=== PATIENT | female | born 1940 | race Caucasian/White ===

== ENCOUNTER 2022-04-13 16:50 | Emergency (ER) | payer MEDICARE, OTHER, SELFPAY ==
--- NOTE | ~2022-04-13 | US_ITS ---
EXAMINATION: LEFT LOWER EXTREMITY VENOUS DOPPLER ULTRASOUND CLINICAL INFORMATION: Left lower extremity swelling. Evaluate for DVT. History of blood clots. COMPARISON: None. TECHNIQUE: Doppler spectral analysis and color flow Doppler imaging was performed of the left lower extremity. Compression and augmentation maneuvers were performed. FINDINGS: The left common femoral vein, greater saphenous vein takeoff, and profunda femoral vein are normally compressible with normal phasic changes seen with Doppler imaging. There is incomplete color filling of the femoral vein and popliteal vein with incomplete compressibility of these venous segments, suspicious for nonocclusive DVT. The echogenic material within the vein appears to be predominantly peripheral and findings may represent incomplete recanalization of previous DVT. However, I have no prior studies available for comparison and subtle acute on chronic DVT is difficult to exclude. Close clinical correlation is requested. The midcalf peroneal and posterior tibial veins are only partially visualized and are patent to the extent seen. Evaluation of the calf veins is, however, limited due to extensive overlying soft tissue edema. No popliteal cyst is seen. US/US venous duplex LE LT IMPRESSION: Nonocclusive thrombus is seen within the left femoral vein down to the popliteal vein. As discussed above, findings may represent sequelae of previous DVT with incomplete recanalization. However, without the benefit of outside old films, acute on chronic DVT cannot be excluded. Close clinical correlation and follow-up is recommended. This critical result was discussed with Dr. Curry 04/13/2022, 8:44 PM and it was ascertained that the content and urgency of this report was understood at the time of direct communication.
--- NOTE | ~2022-04-13 | CT_ITS ---
EXAMINATION: CT ABDOMEN AND PELVIS WITH CONTRAST CLINICAL INFORMATION: Left lower extremity DVT. Question abdominal mass. COMPARISON: None TECHNIQUE: Multidetector volumetric images were obtained from the superior aspect of the liver through the pubic symphysis following administration 85 mL of Omnipaque 350 intravenous contrast. Sagittal and coronal reformatted images were obtained on the technologist's workstation. Oral contrast: No This CT examination was performed using dose optimization techniques as appropriate, variously including the following: *Automated exposure control *Adjustment of mA and/or kV according to patient size (this includes techniques or standardized protocols for targeted exams where dose is matched to indication/reason for exam; i.e. extremities or head) *Use of iterative reconstruction technique DLP: 397 mGy-cm FINDINGS: LUNG BASES: The visualized lung bases are unremarkable. LIVER, GALLBLADDER, AND BILIARY TREE: The liver is normal in size, shape, and attenuation. No focal hepatic lesion or biliary ductal dilatation is present. The gallbladder is unremarkable with no evidence of radiopaque gallstones, gallbladder wall thickening, or obvious pericholecystic inflammatory changes. PANCREAS: Unremarkable. SPLEEN: Unremarkable. ADRENAL GLANDS: Unremarkable. KIDNEYS AND URETERS: The kidneys are normal in size, shape, and attenuation. No hydronephrosis or hydroureter. 0.3 cm right upper pole calculus is suspected, 6.5 cm from the posterior axillary line. Hypoattenuating left upper pole cortical renal lesion, too small to fully characterize. BLADDER: Unremarkable. GASTROINTESTINAL TRACT: The stomach is unremarkable. Normal caliber small bowel. No obstruction. No colonic wall thickening or inflammatory change. No free air or free fluid. ABDOMINAL WALL: No significant hernia is appreciated. LYMPH NODES: Normal. VASCULAR: Normal caliber aorta with mild atherosclerotic calcifications. There is linear high attenuation within the right common iliac vein and right external iliac vein extending into the right common femoral vein. This material is of uncertain etiology. This could represent calcification. This could also be foreign body. No thrombus grossly identified within the venous system. PELVIC VISCERA: Uterus not seen. No adnexal mass. OSSEOUS STRUCTURES: No acute or suspicious osseous abnormality. Mild degenerative changes throughout the spine. CT/CT abdomen pelvis w con IMPRESSION: There is no abdominal mass. No external compression upon the vascular system. There is linear high attenuation material within the right iliac venous system of uncertain etiology. This could be calcification, but foreign body is also a consideration. Fleischner guidelines were followed.
[2022-04-13 16:57] VITALS: BP 147/70; PULSE 80; RESP 18; TEMP 37; O2SAT 94; BMI 23.8
[2022-04-13 18:21] LABS: MANUAL DIFF FLAG NO
[2022-04-13 18:25] LABS: Basophils Absolute Auto 0.1 X10*3/uL (0.0-0.2); Basophils Percent Auto 1.2 % (0-2); Eosinophils Absolute Auto 0.1 X10*3/uL (0.0-0.4); Hematocrit 32.4 % (37.0-47.0); Hemoglobin 10.8 g/dl (12.0-16.0); Imm Gran Abs Auto 0.01 X10*3/uL (0.00-0.03); Imm Gran Pct Auto 0.2 % (0.0-0.4); Lymphocytes Absolute Auto 1.3 X10*3/uL (1.2-4.9); Lymphocytes Percent Auto 22.5 % (20-40); Mean Corpuscular HGB Conc 33.3 g/dl (31.0-35.0); Mean Corpuscular Volume 96.1 fL (80.0-98.0); Monocytes Absolute Auto 0.5 X10*3/uL (0.1-1.2); Monocytes Percent Auto 9.2 % (2-11); Neutrophils Absolute Auto 3.8 x10*3/uL (2.0-8.3); Neutrophils Percent Auto 65.9 % (45-73); Platelet Count 182 X10*3/uL (160-400); Red Blood Count 3.37 X10*6/uL (4.20-5.50); Red Cell Distribution Width 12.6 % (11.0-16.0); White Blood Count 5.7 X10*3/uL (4.8-10.8)
[2022-04-13 18:48] LABS: B Type Natriuretic Peptide 91 pg/mL (<100)
[2022-04-13 19:07] LABS: Alanine Aminotransferase 25 U/L (0-31); Albumin Level 4.4 g/dL (3.5-5.0); Alkaline Phosphatase 60 U/L (39-117); Anion Gap 13 (12-20); Aspartate Amino Transferase 30 U/L (5-31); Bilirubin Total 0.8 mg/dL (0.0-1.0); Blood Urea Nitrogen 19 mg/dL (9-16); Calcium 9.9 mg/dL (8.4-10.2); Carbon Dioxide 24 mmol/L (22-29); Chloride 107 mmol/L (96-108); Creatinine Clr Calc Pharmacy 39.9; Estimated Glomerular Filt Rate > 60; Glucose Random 134 mg/dL (60-115); Potassium 3.9 mmol/L (3.3-5.1); Sodium 140 mmol/L (135-145); Total Protein 6.9 g/dL (6.5-8.0)
[2022-04-13 20:17] VITALS: BP 150/74; PULSE 71; RESP 16; TEMP 36.7; O2SAT 97
--- NOTE | 2022-04-13 20:31 | ED_ITS ---
HPI - Extremity Problem General Chief complaint: Extremity Problem Stated complaint: leg swelling Time Seen by Provider: 04/13/22 20:23 Source: patient and family Mode of arrival: ambulatory Limitations: no limitations History of Present Illness HPI Narrative: Patient presents emergency department with her daughter for evaluation of left lower extremity swelling and redness x1 week. Patient was sent from urgent care. Patient reports a remote history of a blood clot to the leg after giving 50 years ago. She is not currently on any anticoagulation. She does also report a history of cellulitis last year with wounds to the leg. Denies fevers, chills, chest pain, palpitations, shortness of breath difficulty breathing, numbness or tingling of the lower extremities, recent travel/surgery/immobilization, personal history of cancer. Related Data Previous Rx's Medication Instructions Recorded apixaban 5 mg (74 tabs) tablets in 5 mg PO BID #74 ea 04/14/22 a dose pack ([employer] DVT-PE Treat 30D Start) doxycycline hyclate 100 mg tablet 100 mg PO BID 7 days #14 tabs 04/14/22 Allergies Allergy/AdvReac Type Severity Reaction Status Date / Time No Known Allergies Allergy Unverified 06/23/20 15:39 [No Known Allergies*] Review of Systems Review of Systems: Constitutional: No fever. No chills. No weakness. No fatigue. Eye: No swelling. No redness. ENT: No sore throat. No rhinorrhea. No nasal congestion. No sore throat. No difficulty swallowing. Skin: No rash. No itching. Cardiovascular: No chest pain. No chest pressure. No palpitations. No pedal edema. Respiratory: No shortness of breath. No cough. No sputum production. Gastrointestinal: No anorexia. No nausea. No vomiting. No diarrhea. No abdominal pain. Genitourinary: No burning micturition. No urinary frequency. No incontinence. Neurologic: No headache. No dizziness. No pre-syncope/ syncope. No numbness. No tingling. Musculoskeletal: No muscle pain. No back pain. No joint pain. No stiffness. Hematologic: No bleeding. No bruising. Lymphatics: No enlarged lymph nodes. Psychiatric:No depression. No anxiety. Endocrine: No polyuria. No polydipsia. Yes all other systems are reviewed and are negative PMFSH Past Medical History Attestation statement: The following information was validated with the patient. Source: old records reviewed Medical History (Updated 04/14/22 @ 02:02 by Maiad Rose CNP) DVT (deep venous thrombosis) Hypertension Type 2 diabetes mellitus Social History Social History Advance Directives: Yes Advance Directives Information Provided: Yes Advance Directives on File: No Physical Exam Vital Signs: Vital Signs: Last Vital Signs Temp 98.0 F 04/14/22 01:24 Pulse 69 04/14/22 01:24 Resp 16 04/14/22 01:24 BP 133/62 04/14/22 01:24 Pulse Ox 97 04/14/22 01:24 O2 Del Method 04/14/22 01:24 BMI result Body Mass Index 23.8 Appearance: Alert.?Oriented to person, place and time. No acute distress.?Normal affect. Eyes: Pupils equal, round and reactive to light.? ENT: Pharynx normal.?? Neck: Normal inspection.? Neck supple.?? CVS: Heart sounds normal. Normal heart rate and rhythm.? Pulses normal.?? Respiratory: No respiratory distress.? Lung sounds clear to auscultation bilaterally?? Abdomen: Soft and non-tender. Normoactive bowel sounds. No pulsatile mass.?? Skin: Skin warm and dry.? Normal skin color.? Normal skin turgor.?? Extremities: Bilateral lower extremity edema, right 1+, left 3+. Left lower extremity is mild erythema, warmth on palpation, 2+ DP/PT pulse bilaterally. Scabbed lesion to left lateral lower leg superior to ankle Neuro: Moves all extremities spontaneously. Sensation intact bilaterally. CN II- XII intact. No focal neuro deficits. Ambulates with normal steady gait. Course Course Course Narrative: Patient is an 82-year-old female with a past medical history of type 2 diabetes, hypertension, presented to emergency department for evaluation of left lower extremity swelling, erythema, warmth. Concerning for DVT versus cellulitis. She is overall well appearing, hemodynamically stable, ambulatory with a steady gait. Will obtain venous duplex ultrasound, CBC, CMP, disposition pending results. Reevaluation(s) Reevaluation #1: Left lower extremity ultrasound reveals a nonocclusive thrombus in the left femoral vein down to the popliteal vein, may represent sequela of previous DVT with incomplete recanalization, acute on chronic DVT cannot be excluded. Spoke with Dr. Gibbs, Who agrees with treatment with oral anticoagulants for acute DVT. Discussed with patient and daughter the use of Eliquis, risks of bleeding, signs and symptoms to monitor for, reasons to come to the emergency department for such as bleeding, fall, head injury, confusion. Physical exam still concerning for possible cellulitis as lower extremity is warm, daughter shows a picture of the leg couple of days ago where it actually appeared significantly more red than current, Will obtain lactic acid and blood cultures, IV antibiotics to be administered. At this time no concern for sepsis, Hemodynamically stable, Patient and her daughter updated on findings. Time: 20:53 Reevaluation #2: Spoke with hospitalist Dr. Jensen, declines patient for admission. Reviewed case with ED attending, recommends CT ABD and pelvic to exclude compressive pathology for DVT's. Time: 22:00 Reevaluation #3: CT of the abdomen with no abdominal mass or external compression on vascular system. Discussed this case again with the ED attending. Patient to be discharged home at this time, with new prescription for doxycycline to cover cellulitis as well as Eliquis 10mg twice daily for 7 days followed by 5 mg twice daily, will likely require therapy for at least 3-6 months. Patient to be referred to hematology for further follow-up, and follow-up with primary care provider. Time: 02:00 MDM - Extremity (Nontraumatic) Medical Records Attestation: I reviewed the patient's medical records. Lab Data Attestation: I reviewed the patient's lab results. Result diagrams: 04/13/22 18:15 04/13/22 18:15 Labs: Lab Results 04/13/22 04/13/22 04/13/22 Range/Units 18:15 18:15 18:15 WBC 5.7 (4.8-10.8) X10*3/uL RBC 3.37 L (4.20-5.50) X10*6/uL Hgb 10.8 L (12.0-16.0) g/dl Hct 32.4 L (37.0-47.0) % MCV 96.1 (80.0-98.0) fL MCH 32.0 (27.0-33.0) pg MCHC 33.3 (31.0-35.0) g/dl RDW 12.6 (11.0-16.0) % Plt Count 182 (160-400) X10*3/uL MPV 12.0 (9.4-12.3) fL Immature Gran % (Auto) 0.2 (0.0-0.4) % Neut % (Auto) 65.9 (45-73) % Lymph % (Auto) 22.5 (20-40) % [place] % (Auto) 9.2 (2-11) % Eos % (Auto) 1.0 (0-4) % Baso % (Auto) 1.2 (0-2) % Lymph # (Auto) 1.3 (1.2-4.9) X10*3/uL [place] # (Auto) 0.5 (0.1-1.2) X10*3/uL Eos # (Auto) 0.1 (0.0-0.4) X10*3/uL Baso # (Auto) 0.1 (0.0-0.2) X10*3/uL Abs Immat Gran (auto) 0.01 (0.00-0.03) X10*3/uL Absolute Neuts (auto) 3.8 (2.0-8.3) x10*3/uL Absolute Nucleated RBC 0.000 (0.0-0.012) X10*3/uL Nucleated RBC % (auto) 0.0 (0.0-0.2) /100WBC D-Dimer High Sensitivty NG/ML Sodium 140 (135-145) mmol/L Potassium 3.9 (3.3-5.1) mmol/L Chloride 107 (96-108) mmol/L Carbon Dioxide 24 (22-29) mmol/L Anion Gap 13 (12-20) BUN 19 H (9-16) mg/dL Creatinine 0.89 (0.5-1.4) mg/dL Estim Creat Clear Calc 39.9 Estimated GFR > 60 Random Glucose 134 H (60-115) mg/dL Lactic Acid (0.5-2.0) mmol/L Calcium 9.9 (8.4-10.2) mg/dL Total Bilirubin 0.8 (0.0-1.0) mg/dL AST 30 (5-31) U/L ALT 25 (0-31) U/L Alkaline Phosphatase 60 (39-117) U/L B-Natriuretic Peptide 91 (<100) pg/mL Total Protein 6.9 (6.5-8.0) g/dL Albumin 4.4 (3.5-5.0) g/dL 04/13/22 04/13/22 Range/Units 21:50 21:50 WBC (4.8-10.8) X10*3/uL RBC (4.20-5.50) X10*6/uL Hgb (12.0-16.0) g/dl Hct (37.0-47.0) % MCV (80.0-98.0) fL MCH (27.0-33.0) pg MCHC (31.0-35.0) g/dl RDW (11.0-16.0) % Plt Count (160-400) X10*3/uL MPV (9.4-12.3) fL Immature Gran % (Auto) (0.0-0.4) % Neut % (Auto) (45-73) % Lymph % (Auto) (20-40) % [place] % (Auto) (2-11) % Eos % (Auto) (0-4) % Baso % (Auto) (0-2) % Lymph # (Auto) (1.2-4.9) X10*3/uL [place] # (Auto) (0.1-1.2) X10*3/uL Eos # (Auto) (0.0-0.4) X10*3/uL Baso # (Auto) (0.0-0.2) X10*3/uL Abs Immat Gran (auto) (0.00-0.03) X10*3/uL Absolute Neuts (auto) (2.0-8.3) x10*3/uL Absolute Nucleated RBC (0.0-0.012) X10*3/uL Nucleated RBC % (auto) (0.0-0.2) /100WBC D-Dimer High Sensitivty 382 NG/ML Sodium (135-145) mmol/L Potassium (3.3-5.1) mmol/L Chloride (96-108) mmol/L Carbon Dioxide (22-29) mmol/L Anion Gap (12-20) BUN (9-16) mg/dL Creatinine (0.5-1.4) mg/dL Estim Creat Clear Calc Estimated GFR Random Glucose (60-115) mg/dL Lactic Acid 0.8 (0.5-2.0) mmol/L Calcium (8.4-10.2) mg/dL Total Bilirubin (0.0-1.0) mg/dL AST (5-31) U/L ALT (0-31) U/L Alkaline Phosphatase (39-117) U/L B-Natriuretic Peptide (<100) pg/mL Total Protein (6.5-8.0) g/dL Albumin (3.5-5.0) g/dL Imaging Data Venous US: Radiologist's impression: US/US venous duplex LE LT IMPRESSION: Nonocclusive thrombus is seen within the left femoral vein down to the popliteal vein. As discussed above, findings may represent sequelae of previous DVT with incomplete recanalization. However, without the benefit of outside old films, acute on chronic DVT cannot be excluded. Close clinical correlation and follow-up is recommended. CT scan - abdomen: Radiologist's impression: CT/CT abdomen pelvis w con IMPRESSION: There is no abdominal mass. No external compression upon the vascular system. ? There is linear high attenuation material within the right iliac venous system of uncertain etiology. This could be calcification, but foreign body is also a consideration.? ? Fleischner guidelines were followed. Discharge Plan Discharge Clinical Impression: Deep vein thrombosis of lower extremity, Cellulitis Patient Disposition: Home, Self-Care Instructions: Cellulitis (ED), Deep Vein Thrombosis (ED) Additional Instructions: You have been given an antibiotic doxycycline to treat an infection of your left lower leg, please complete this entire course. In addition, you were found to have a blood clot in your left femoral to p opliteal vein. For this you have been given a new prescription for a blood thinner, Eliquis. This is a pill that you will take twice a day. You will take 10 mg twice daily for 7 days, followed by 5 mg twice daily, likely for 3-6 months. You have been given contact information for [employer] operator, he should contact their office to arrange for a follow-up visit within 1 week. In addition, please contact your primary care provider to schedule a follow-up visit within 3 days. Patient return to the emergency department with any new or worsening symptoms or concerns such as fevers, chills, severe worsening redness, swelling, pain, numbness, tingling of the legs, chest pain, palpitations, shortness of breath, difficulty breathing, confusion. As we discussed, with the blood thinner it is important that you be evaluated for any bleeding, if you fall and injure yourself, such as hit your head you need to be evaluated right away in the emergency department. Prescriptions: New doxycycline hyclate 100 mg tablet 100 mg PO BID 7 Days Qty: 14 0RF Eliquis DVT-PE Treat 30D Start 5 mg (74 tabs) tablets,dose pack 5 mg PO BID Qty: 74 0RF Rx Instructions: 10mg PO BID x 7 days, then 5mg PO BID Referrals: Sharron Longo MD [Physician] - 1 week Elham Solares MD [Primary Care Provider] - 3 days
[2022-04-13] MEDS: Apixaban 5 MG TABLET 10 MG PO (21:55)
[2022-04-13 22:07] LABS: D Dimer High Sensitivity 382 NG/ML
[2022-04-13 22:11] LABS: Lactic Acid 0.8 mmol/L (0.5-2.0)
[2022-04-13 22:35] VITALS: BP 152/70; PULSE 68; RESP 16; O2SAT 96
[2022-04-14] MEDS: ondansetron HCL 4 MG/2 ML VIAL IVPUSH (00:48)
[2022-04-14] MEDS: iohexoL 350 MG/ML 100 ML INFUS..BTL 85 ML IV (01:05)
[2022-04-14 01:24] VITALS: BP 133/62; PULSE 69; RESP 16; TEMP 36.7; O2SAT 97
[2022-04-14 07:04] VITALS: BP 122/59; PULSE 70; RESP 12; TEMP 36.7; O2SAT 95
== END 2022-04-14 08:39 | disposition home or self-care (01) ==
PROVIDERS: Nurse Practitioner Family; Emergency Provider Internal Medicine; PCP Internal Medicine
DX: I82.412 Acute embolism and thrombosis of left femoral vein (principal); L03.116 Cellulitis of left lower limb; R60.0 Localized edema; I10 Essential (primary) hypertension; E11.9 Type 2 diabetes mellitus without complications; Z86.718 Personal history of other venous thrombosis and embolism
CPT/HCPCS: 36415; 74177; 80053; 83605; 83880; 85025; 85379; 87040; 87147; 87205; 93971; 96365; 96375; 99283; 99284; J0690; J2405; Q9967

== ENCOUNTER 2023-10-30 08:04 | Emergency (ER) | payer MEDICARE, OTHER, SELFPAY ==
[2023-10-30] VITALS (9 sets, daily range): BP systolic 126–167; BP diastolic 65–82; PULSE 75–86; RESP 16–18; TEMP 36.4–37.1; O2SAT 94–98; BMI 24.2
--- NOTE | ~2023-10-30 | XR_ITS ---
EXAMINATION: XR CHEST CLINICAL INFORMATION: Weakness COMPARISON: None available. TECHNIQUE: Frontal view of the chest was obtained. FINDINGS: Lungs hyperaerated but clear. Heart and pulmonary vessels are normal. No congestive change. The visualized osseous structures are unremarkable. XR/XR chest 1V IMPRESSION: No active disease.
--- NOTE | ~2023-10-30 | CT_ITS ---
EXAMINATION: CT HEAD WITHOUT CONTRAST CLINICAL INFORMATION: Altered mental status COMPARISON: None available. TECHNIQUE: Contiguous axial imaging was performed from the skull base to vertex without intravenous administration of contrast. This CT examination was performed using dose optimization techniques as appropriate, variously including the following: *Automated exposure control *Adjustment of mA and/or kV according to patient size (this includes techniques or standardized protocols for targeted exams where dose is matched to indication/reason for exam; i.e. extremities or head) *Use of iterative reconstruction technique DLP: 731 mGy-cm FINDINGS: There is prominence to the sulci and ventricles with extensive deep white matter gliosis but no intra or extra-axial fluid collection, hemorrhage, mass or mass effect. Calvarium is intact. CT/CT head/brain wo IV con IMPRESSION: No acute intracranial pathology.
--- NOTE | 2023-10-30 08:23 | ED.WEAKNESS ---
HPI - Weakness General Chief complaint: Fall Stated complaint: WEAKNESS W/FALL,?UTI PER EMS Time Seen by Provider: 10/30/23 08:16 Source: patient and EMS Mode of arrival: EMS Limitations: altered mental status History of Present Illness HPI Narrative: Patient has dementia, her used to take care of her but he 4 weeks ago, today she was found on the floor was last seen on video 2 hours before MD Complaint: generalized weakness Onset (ago): hour(s) Related Data Home Medications Medication Instructions Recorded Confirmed Multi Vitamin 500 mg PO DAILY daily vitamin 04/24/22 04/24/22 amlodipine 2.5 mg tablet 1 tab PO DAILY 04/24/22 04/24/22 atorvastatin 10 mg tablet 1 tab PO DAILY 04/24/22 04/24/22 donepezil 10 mg tablet 1 tab PO DAILY 04/24/22 04/24/22 losartan 100 mg tablet 1 tab PO DAILY 04/24/22 04/24/22 metformin 500 mg tablet 1 tab PO QAM 04/24/22 04/24/22 metoprolol succinate 25 mg 1 tab PO DAILY 04/24/22 04/24/22 tablet,extended release 24 hr Previous Rx's Medication Instructions Recorded apixaban 5 mg (74 tabs) tablets in 5 mg PO BID 74 #74 ea 04/14/22 a dose pack (Eliquis DVT-PE Treat 30D Start) Allergies Allergy/AdvReac Type Severity Reaction Status Date / Time No Known Allergies Allergy Unverified 06/23/20 15:39 [No Known Allergies*] Review of Systems Review of Systems: Yes Unobtainable due to mental status Neurologic: Denies Sensory deficit (Neuro) [facility] Past Medical History Medical History DVT (deep venous thrombosis) Hypertension Type 2 diabetes mellitus Family History Family History Mother Blood clots in brain Social History Social History Housing: Other Housing Other:: Mobile Home Alcohol intake: former Patient Tobacco Use Status: Never used Tobacco Smoked in Last 30 Days: No Use of substances other than those prescribed or required for medical reasons: No Advance Directives: No Advance Directives Information Provided: Yes service: No Current occupational status: retired Physical Exam Vital Signs: Vital Signs: Last Vital Signs Temp 98.2 F 10/30/23 13:34 Pulse 80 10/30/23 13:34 Resp 18 10/30/23 13:34 BP 156/79 H 10/30/23 13:34 Pulse Ox 95 10/30/23 13:34 O2 Del Method Room Air 10/30/23 13:34 BMI result Body Mass Index 24.2 Const: Other: frail elderly female in no acute distress Orientation/consciousness: oriented to person Limitations: altered mental status HEENT: Head: Yes normal to inspection Ears: external ears normal General nose exam: Normal external nose present Mouth: Normal oral and palatal mucosa present and oropharynx normal Throat: Yes posterior oropharynx normal Eyes: General: appearance normal, both eyes and all related structures Neck: Other: supple Neck: Yes normal visual inspection Chest: Chest palpation & inspection: normal inspection of the chest Resp: Auscultation: clear to auscultation bilaterally Cardio: Jugular venous distension: no JVD Rate: regular rate Rhythm: regular rhythm Heart sounds: S1 normal heart sound present and S2 normal heart sound present GI: Inspection: Yes normal to inspection Palpation (GI): Soft to palpation, nontender and No hepatosplenomegaly present Auscultation: normal bowel sounds : General: Yes no CVA tenderness Back/Spine/Pelvis: Back: no CVA tenderness Skin: General skin exam: no rashes or lesions noted Neuro: General: oriented to person Cranial nerves: Yes CN's II-XII intact bilaterally Motor exam (neuro): 5/5 motor strength present throughout Sensory Exam: No Sensory deficit (Neuro) Extrem: General: Yes normal to inspection Psych: Appearance: grossly normal Course Reevaluation(s) Reevaluation #1: patient with dehydration and UTI will admit Time: 13:39 Medications Administered Discontinued Medications Generic Name Dose Route Start Last Admin Trade Name Freq PRN Reason Stop Dose Admin Sodium Chloride 500 mls @ 999 mls/hr 10/30/23 11:30 10/30/23 11:36 Ns IV 10/30/23 12:00 999 mls/hr .Q31M BEBE Administration Medical Decision Making Differential Diagnosis Differential Diagnoses: The differential diagnosis associated with the presentation includes (dehydration, UTI, rhabdomyolysis) Admission/Observation Consideration of admission/observation: Escalation of care including admission/observation considered (upon arrival patient considered for admission) Lab Data MDM Lab Attestation statement: I reviewed the patient's lab results. 10/30/23 08:39 10/30/23 08:39 Labs: Lab Results 10/30/23 10/30/23 Range/Units 08:39 11:27 WBC 11.1 H (4.8-10.8) X10*3/uL RBC 3.86 L (4.20-5.50) X10*6/uL Hgb 12.0 (12.0-16.0) g/dl Hct 36.8 L (37.0-47.0) % MCV 95.3 (80.0-98.0) fL MCH 31.1 (27.0-33.0) pg MCHC 32.6 (31.0-35.0) g/dl RDW 12.8 (11.0-16.0) % Plt Count 133 L D (160-400) X10*3/uL MPV 11.9 (9.4-12.3) fL Immature Gran % (Auto) 0.8 H (0.0-0.4) % Neut % (Auto) 85.9 H (45-73) % Lymph % (Auto) 5.4 L (20-40) % [place] % (Auto) 7.0 (2-11) % Eos % (Auto) 0.1 (0-4) % Baso % (Auto) 0.8 (0-2) % Lymph # (Auto) 0.6 L (1.2-4.9) X10*3/uL [place] # (Auto) 0.8 (0.1-1.2) X10*3/uL Eos # (Auto) 0.0 (0.0-0.4) X10*3/uL Baso # (Auto) 0.1 (0.0-0.2) X10*3/uL Abs Immat Gran (auto) 0.09 H (0.00-0.03) X10*3/uL Absolute Neuts (auto) 9.5 H (2.0-8.3) x10*3/uL Absolute Nucleated RBC 0.000 (0.0-0.012) X10*3/uL Nucleated RBC % (auto) 0.0 (0.0-0.2) /100WBC Sodium 146 H (135-145) mmol/L Potassium 4.2 (3.3-5.1) mmol/L Chloride 110 H (96-108) mmol/L Carbon Dioxide 22 (22-29) mmol/L Anion Gap 18 (12-20) BUN 34 H (9-16) mg/dL Creatinine 1.08 (0.5-1.4) mg/dL Estim Creat Clear Calc 38.2 Estimated GFR 49 Random Glucose 178 H (60-115) mg/dL Calcium 9.8 (8.4-10.2) mg/dL Total Bilirubin 0.7 (0.0-1.0) mg/dL AST 23 (5-31) U/L ALT 25 (0-31) U/L Alkaline Phosphatase 79 (39-117) U/L Total Creatine Kinase 18 L (26-140) U/L Total Protein 6.9 (6.5-8.0) g/dL Albumin 3.7 (3.5-5.0) g/dL Urine Color Yellow Urine Appearance Clear Urine pH 5.5 (5.0-9.0) Ur Specific [place] 1.020 (1.005-1.025) Urine Protein 100 (2+) H (Neg-Trace) mg/dL Urine Glucose (UA) 250 H (Negative) mg/dL Urine Ketones 80 (Negative) mg/dL Urine Blood Small (1+) H (Negative) Urine Nitrite Positive H (Negative) Ur Leukocyte Esterase Small (1+) H (Negative) Urine RBC 0-2 (0-2) /HPF Urine WBC 11-20 H (0-5) /HPF Ur Squamous Epith Cells 6-10 (0-2) /HPF Urine Bacteria 4+ (None Seen) Hyaline Casts 0-2 (0-2) /LPF Independent Historian Clinical information obtained from an independent historian. History obtained from or confirmed by: EMS Tests considered The following testing was considered but not selected: CT of head considered but patient is nonfocal Chronic Conditions Patient?s care impacted by: Other (dementia) Discharge Plan Discharge Clinical Impression: Acute dehydration, Urinary tract infection Patient Disposition: Admitted As Inpatient
[2023-10-30 08:43] LABS: MANUAL DIFF FLAG NO
[2023-10-30 08:49] LABS: Basophils Absolute Auto 0.1 X10*3/uL (0.0-0.2); Basophils Percent Auto 0.8 % (0-2); Eosinophils Percent Auto 0.1 % (0-4); Hematocrit 36.8 % (37.0-47.0); Imm Gran Abs Auto 0.09 X10*3/uL (0.00-0.03); Imm Gran Pct Auto 0.8 % (0.0-0.4); Lymphocytes Absolute Auto 0.6 X10*3/uL (1.2-4.9); Lymphocytes Percent Auto 5.4 % (20-40); Mean Corpuscular HGB Conc 32.6 g/dl (31.0-35.0); Mean Corpuscular Hemoglobin 31.1 pg (27.0-33.0); Mean Corpuscular Volume 95.3 fL (80.0-98.0); Mean Platelet Volume 11.9 fL (9.4-12.3); Monocytes Absolute Auto 0.8 X10*3/uL (0.1-1.2); Neutrophils Absolute Auto 9.5 x10*3/uL (2.0-8.3); Neutrophils Percent Auto 85.9 % (45-73); Platelet Count 133 X10*3/uL (160-400); Red Blood Count 3.86 X10*6/uL (4.20-5.50); Red Cell Distribution Width 12.8 % (11.0-16.0); White Blood Count 11.1 X10*3/uL (4.8-10.8)
[2023-10-30 08:59] LABS: Alanine Aminotransferase 25 U/L (0-31); Albumin Level 3.7 g/dL (3.5-5.0); Alkaline Phosphatase 79 U/L (39-117); Anion Gap 18 (12-20); Aspartate Amino Transferase 23 U/L (5-31); Bilirubin Total 0.7 mg/dL (0.0-1.0); Blood Urea Nitrogen 34 mg/dL (9-16); Calcium 9.8 mg/dL (8.4-10.2); Carbon Dioxide 22 mmol/L (22-29); Chloride 110 mmol/L (96-108); Creatinine Clr Calc Pharmacy 38.2; Estimated Glomerular Filt Rate 49; Glucose Random 178 mg/dL (60-115); Potassium 4.2 mmol/L (3.3-5.1); Sodium 146 mmol/L (135-145); Total Protein 6.9 g/dL (6.5-8.0)
[2023-10-30 11:35] LABS: Appearance Urine Clear; Color Urine Yellow; Glucose Urine UA 250 mg/dL (Negative); Leukocyte Esterase Urine Small (1+) (Negative); Nitrite Urine Positive (Negative); PH 5.5 (5.0-9.0); UMIC TRIGGER UACC YES; Urine Blood Small (1+) (Negative); Urine Ketones 80 mg/dL (Negative); Urine Protein 100 (2+) mg/dL (Neg-Trace)
[2023-10-30] MEDS: 0.9 % Sodium Chloride 500 ML 999 ML IV (11:36)
--- NOTE | 2023-10-30 11:40 | PC.NURSE ---
Calm and cooperative, vss, denies pain or discomfort. Pleasantly confused repeatedly stating she does not want to move to [place] to live with her soon because it is too hot
[2023-10-30 11:42] LABS: Bacteria Urine 4+ (None Seen); Hyaline Casts Urine 0-2 /LPF (0-2); RBC Urine 0-2 /HPF (0-2); UACC Culture Trigger YES
--- NOTE | 2023-10-30 12:39 | PC.NURSE ---
Daughter reports it is unsafe for patient to return home at this time. Has looked into assisted living but feels like she needs more help than even assisted living would be able to provide her with. Daughter aware that plan is for case management to see her
--- NOTE | 2023-10-30 14:03 | PM.IMHP ---
History of Present Illness Date of Service: 10/30/23 Attending physician on admission: Aaron Montes Chief Complaint: Generalized weakness with fall at home Pt is an 83-year-old female with a PMH significant for unspecified dementia, DVT in 04/2022, paroxysmal AFib on Eliquis, HTN, HLD, and fay-[id number]-[id number] diabetes type 2 who presents to the ED with? In the ED patient was hypertensive up to 167/82, otherwise vitals WNL. Labs were significant for a leukocytosis of 11.1, sodium 146, chloride 110, and creatinine 1.08. Stable H&H. Creatinine 1.08. Hepatic function WNL. CPK 18. UA positive for UTI. CXR showed CT? EKG demonstrated Pt was treated with Pt will be admitted to the hospital [facility] Medical History DVT (deep venous thrombosis) Hypertension Type 2 diabetes mellitus Family History Mother Blood clots in brain Social History Housing: Other Housing Other:: Mobile Home Alcohol intake: former Patient Tobacco Use Status: Never used Tobacco Smoked in Last 30 Days: No Use of substances other than those prescribed or required for medical reasons: No Advance Directives: No Advance Directives Information Provided: Yes service: No Current occupational status: retired Meds Allergies Allergy/AdvReac Type Severity Reaction Status Date / Time No Known Allergies Allergy Unverified 06/23/20 15:39 [No Known Allergies*] Physical Exam Vital Signs and Narrative: Vital Signs: Last Vital Signs Temp 98.2 F 10/30/23 13:34 Pulse 80 10/30/23 13:34 Resp 18 10/30/23 13:34 BP 156/79 H 10/30/23 13:34 Pulse Ox 95 10/30/23 13:34 O2 Del Method Room Air 10/30/23 13:34 BMI result Body Mass Index 24.2 Results Labs 10/30/23 08:39 10/30/23 08:39 Labs: Laboratory Results - last 24 hr 10/30/23 10/30/23 08:39 11:27 MCV 95.3 MCH 31.1 MCHC 32.6 RDW 12.8 Plt Count 133 L D MPV 11.9 Immature Gran % (Auto) 0.8 H Neut % (Auto) 85.9 H Lymph % (Auto) 5.4 L [place] % (Auto) 7.0 Eos % (Auto) 0.1 Baso % (Auto) 0.8 Lymph # (Auto) 0.6 L [place] # (Auto) 0.8 Eos # (Auto) 0.0 Baso # (Auto) 0.1 Abs Immat Gran (auto) 0.09 H Absolute Neuts (auto) 9.5 H Absolute Nucleated RBC 0.000 Nucleated RBC % (auto) 0.0 Anion Gap 18 Estim Creat Clear Calc 38.2 Estimated GFR 49 Random Glucose 178 H Calcium 9.8 Total Bilirubin 0.7 AST 23 ALT 25 Alkaline Phosphatase 79 Total Creatine Kinase 18 L Total Protein 6.9 Albumin 3.7 Urine Color Yellow Urine Appearance Clear Urine pH 5.5 Ur Specific [place] 1.020 Urine Protein 100 (2+) H Urine Glucose (UA) 250 H Urine Ketones 80 Urine Blood Small (1+) H Urine Nitrite Positive H Ur Leukocyte Esterase Small (1+) H Urine RBC 0-2 Urine WBC 11-20 H Ur Squamous Epith Cells 6-10 Urine Bacteria 4+ Hyaline Casts 0-2
--- NOTE | 2023-10-30 14:04 | PC.NURSE ---
Multiple attempts to draw blood cultures unsuccessful at this time, provider aware
--- NOTE | 2023-10-30 14:16 | PHA.MEDREC ---
Pharmacy Consult ? Medication Reconciliation Pharmacy has completed the medication reconciliation. Spoke to patient's daughter Elzbieta on the phone ([phone]) who went over med list. Explained that her mom has a medminder but is not always adherent.
--- NOTE | 2023-10-30 14:20 | ECG_ITS ---
Test Reason : FALL Blood Pressure : / mmHG Vent. Rate : 079 BPM Atrial Rate : 079 BPM P-R Int : 152 ms QRS Dur : 072 ms QT Int : 366 ms P-R-T Axes : 054 -07 023 degrees QTc Int : 419 ms Normal sinus rhythm Normal ECG When compared with ECG of 28-JUL-2013 07:07, No significant change was found Referred By: Aditya Bragg Electronically Signed By:Dylan Rivera
[2023-10-30 14:34] LABS: COVID-19 Test Negative (Negative); IDNOW Serial# 08D9AD1C
[2023-10-30] MEDS: cefTRIAXone sodium 1 GM in 0.9 % Sodium Chloride 50 ML IV (14:53)
--- NOTE | 2023-10-30 14:54 | PC.NURSE ---
Multiple attempts by techs to draw blood cultures unsuccessful. aware stating to hang ABT
--- NOTE | 2023-10-30 15:28 | MHC.CM.ED ---
Received case management consult from Dr Bragg. Patient came to the ER due to a fall. Work up showed UTI and mild dehydration. Dr Bragg attempted to admit patient to the hospital. Hospitalist declined. Physical therapy saw patient. Short term rehab is recommended. Attempted to meet with patient. Patient currently at X-ray. Spoke with patient's daughter, Elzbieta, via telephone at [phone]. Patient lives alone and has a history of dementia. Elzbieta sees her mother daily and has cameras in the house to keep an eye on her. PCP verified as Molly Solares at [facility]. Elzbieta has a copy of HCP and will provide it to CM. Patient has not been inpatient in any facilities in the past 30 days. Referral made to all 3 acute rehabs. No bed offers made at this time. Per Elzbieta, patient has a LTC policy that was recently approved that will cover $350/day. Elzbieta is hoping to get patient into LTC. Elzbieta will provide a copy of LTC to CM. Facility choices: 1) [facility] 2) [facility] 3) [facility] 4) [facility]. Referral made via [facility]. Continue to monitor for d/c needs.
--- NOTE | 2023-10-30 15:32 | MHC.EDTECH ---
CATE MANN SAID PROVIDER WILL CANCEL BLOOD CULTURE ,NOT TO DRAW 2ND SETS .
[2023-10-30] MEDS: cephALEXin 500 MG CAPSULE PO ×2 (17:22→22:05)
[2023-10-30 17:26] LABS: Anion Gap 17 (12-20); Blood Urea Nitrogen 29 mg/dL (9-16); Calcium 9.6 mg/dL (8.4-10.2); Carbon Dioxide 21 mmol/L (22-29); Chloride 113 mmol/L (96-108); Creatinine Clr Calc Pharmacy 43.4; Estimated Glomerular Filt Rate 56; Glucose Random 120 mg/dL (60-115); Potassium 3.7 mmol/L (3.3-5.1); Sodium 147 mmol/L (135-145)
--- NOTE | 2023-10-30 17:31 | PC.NURSE ---
Report given to overflow
--- NOTE | 2023-10-30 17:54 | PC.NURSE ---
Transferred to overflow by transport
[2023-10-31 06:00] VITALS: BP 155/84; PULSE 88; RESP 18; TEMP 36.2; O2SAT 95
[2023-10-31] MEDS: amLODIPine Besylate 5 MG TABLET PO (07:35)
[2023-10-31] MEDS: metFORMIN HCl 500 MG TABLET PO (07:35)
[2023-10-31] MEDS: Donepezil HCl 10 MG TABLET PO (07:35)
[2023-10-31] MEDS: Metoprolol Succinate ER 25 MG TAB.ER.24H PO (07:35)
[2023-10-31] MEDS: cephALEXin 500 MG CAPSULE PO ×4 (07:35→20:30)
[2023-10-31] MEDS: Multivitamin TABLET 1 TAB PO (07:35)
[2023-10-31] MEDS: Atorvastatin Calcium 20 MG TABLET PO (07:35)
[2023-10-31] MEDS: Losartan Potassium 50 MG TABLET 100 MG PO (07:36)
--- NOTE | 2023-10-31 08:10 | PC.NURSE ---
respirations even and unlabored, medicated per the MAR takes pills whole with water. eating breakfast at this time, no signs/symptoms of distress noted. call reyna remains within reach.
--- NOTE | 2023-10-31 09:05 | MHC.EDTECH ---
Pt ate less than 25% of her breakfast. Very little of her juice and milk that was on her tray. Left the cup of coffee on her bedside table per her request.
--- NOTE | 2023-10-31 09:10 | MHC.CM.ED ---
Patient remains in ER overflow. Copy of HCP and LTC policy obtained from daughter. [facility] and [facility] do not have LTC beds available. Referral broadcasted in [facility] to all facilities within 25 miles of patient's home. Continue to monitor for d/c needs.
--- NOTE | 2023-10-31 10:25 | MHC.EDTECH ---
Pt is washed up with a clean brief on, pt is a 1a oob to the recliner. PT requested a coffee, coffee was provided. PT is sitting quietly in recliner chair. Chair alarm in place.
--- NOTE | 2023-10-31 12:14 | PC.NURSE ---
remains in recliner, offering no complaints at this time watching tv in room. medicated per the MAR.
--- NOTE | 2023-10-31 13:10 | MHC.EDTECH ---
pt did not want to eat lunch today. Tech did leave tray on bedside table incase she wants to eat it later on. PT is resting in recliner chair
--- NOTE | 2023-10-31 13:41 | MHC.CM.ED ---
Spoke with patient's daughter/HCP, Elzbieta, in regards to discharge planning. LTC policy will pay $9,7200 per month. Families are expected to pay for the 1st 30 days upfront and will get reimbursed by the LTC policy. Most SNF in the area are $10,000-15,000 per month. Private pay memory care discussed. Elzbieta agreeable to speaking to Adrienne of [facility]. Adrienne will reach out to Elzbieta. Continue to monitor for d/c needs.
--- NOTE | 2023-10-31 13:56 | PC.NURSE ---
ambulated with one assist to the bathroom, back in recliner resting quietly
[2023-10-31 14:00] VITALS: BP 140/85; PULSE 99; RESP 18; TEMP 36.9; O2SAT 92
--- NOTE | 2023-10-31 17:27 | PC.NURSE ---
up and walking from nurses station back to room. requested IV to be removed, iv removed at this time. continues to offer no complaints, sitting in recliner watching tv.
--- NOTE | 2023-10-31 19:23 | MHC.EDTECH ---
This tech took over care for this patient @ 19:00. Patient is watching tv, sitting in a recliner. No apparent distress.
--- NOTE | 2023-10-31 19:30 | PC.NURSE ---
assumed care of pt 1915. pt on recliner watching tv. resp even and unlabored. call reyna within reach.
[2023-10-31 20:34] VITALS: BP 131/75; PULSE 73; RESP 17; TEMP 36.7; O2SAT 97
[2023-11-01 06:00] VITALS: BP 132/75; PULSE 72; RESP 14; TEMP 37; O2SAT 98
[2023-11-01 07:36] VITALS: BP 142/74; PULSE 75; RESP 16; TEMP 36.5; O2SAT 95
--- NOTE | 2023-11-01 08:28 | MHC.CM.ED ---
LATE ENTRY FROM 10/31 AT 4PM: Spoke with patient's daughter/HCP, Elzbieta and her sister, Molly, via telephone conference. Molly lives in [place]. Discharge options discussed in detail. Plan is for Elzbieta to meet with Adrienne at [facility] and Marychuy from another [facility] in [place]. Will wait for Elzbieta to relay which facility is able to offer a bed for patient. Continue to monitor for d/c needs.
[2023-11-01] MEDS: Metoprolol Succinate ER 25 MG TAB.ER.24H PO (08:37)
[2023-11-01] MEDS: Losartan Potassium 50 MG TABLET 100 MG PO (08:37)
[2023-11-01] MEDS: cephALEXin 500 MG CAPSULE PO ×4 (08:37→20:27)
[2023-11-01] MEDS: Donepezil HCl 10 MG TABLET PO (08:38)
[2023-11-01] MEDS: metFORMIN HCl 500 MG TABLET PO (08:38)
[2023-11-01] MEDS: amLODIPine Besylate 5 MG TABLET PO (08:38)
[2023-11-01] MEDS: Atorvastatin Calcium 20 MG TABLET PO (08:38)
[2023-11-01] MEDS: Multivitamin TABLET 1 TAB PO (08:38)
[2023-11-01] MEDS: Ammonium Lactate 12 % Cream 140 GM TUBE 1 APPL TOPICAL (10:32)
--- NOTE | 2023-11-01 11:01 | MHC.CM.ED ---
Patient remains in ER overflow. Received telephone call from patient's daughter/HCP, Elzbieta. Elzbieta has an appointment at 230 to [facility] at 330[facility]. Elzbieta is also waiting to hear from a facility on [facility]. Continue to monitor for d/c needs.
--- NOTE | 2023-11-01 11:54 | PC.NURSE ---
sleeping without respiratory distress. +CMS. calm.
--- NOTE | 2023-11-01 12:30 | PC.NURSE ---
repositioned, boosted, given more pillows under her for comfort. new gown/pad. cleaned for urinary incontinence w tech. set up for lunch. eating well. watching tv. calm, coop. aox2- unsure of year/season.
--- NOTE | 2023-11-01 13:53 | PC.NURSE ---
pt awake, ate well. watching tv.
[2023-11-01 14:23] VITALS: BP 129/75; PULSE 78; RESP 16; TEMP 37.1; O2SAT 93
--- NOTE | 2023-11-01 14:31 | PC.NURSE ---
repositioned. checked by rn/tech for incontinence- none.
--- NOTE | 2023-11-01 18:08 | PC.NURSE ---
repositioned. cleaned for urinary incontinence w tech/rn, new pad. purewick placed for incontinence as pt sometimes does not know to call for commode
[2023-11-01 19:07] VITALS: BP 145/77; PULSE 80; RESP 18; TEMP 36.3; O2SAT 94
--- NOTE | 2023-11-01 19:17 | PC.NURSE ---
Assumed care of pt. Pt AxO x4, clear speech, denies pain/acute distress at this time. Lying on stretcher, watching television at this time. VSS. Continuing plan of care.
--- NOTE | 2023-11-01 23:13 | PC.NURSE ---
Pt daughter called for update.
[2023-11-02 06:04] VITALS: BP 126/69; PULSE 74; RESP 14; TEMP 36.7; O2SAT 95
--- NOTE | 2023-11-02 06:04 | MHC.EDTECH ---
This tech gave bernardino care to pt after vitals. Pt is pleasant and not in any pain or distress at the time.
[2023-11-02] MEDS: Multivitamin TABLET 1 TAB PO (07:59)
[2023-11-02] MEDS: amLODIPine Besylate 5 MG TABLET PO (07:59)
[2023-11-02] MEDS: Metoprolol Succinate ER 25 MG TAB.ER.24H PO (08:00)
[2023-11-02] MEDS: metFORMIN HCl 500 MG TABLET PO (08:00)
[2023-11-02] MEDS: Donepezil HCl 10 MG TABLET PO (08:00)
[2023-11-02] MEDS: Losartan Potassium 50 MG TABLET 100 MG PO (08:00)
[2023-11-02] MEDS: Atorvastatin Calcium 20 MG TABLET PO (08:00)
[2023-11-02] MEDS: Ammonium Lactate 12 % Cream 140 GM TUBE 1 APPL TOPICAL (08:00)
[2023-11-02] MEDS: cephALEXin 500 MG CAPSULE PO ×4 (08:00→21:40)
[2023-11-02 08:37] VITALS: BP 106/58; PULSE 96; RESP 12; TEMP 36.8; O2SAT 96
--- NOTE | 2023-11-02 13:06 | MHC.CM.ED ---
Pt continues to board in ED waiting for placement in memory supported assisted living center. Received call from Mackenzie at the [place] in [facility] requesting ED Summary and other clinical information. Mackenzie has an appointment on Saturday, 11/04 with pt and dtr Elzbieta re: placement. Call placed to Elzbieta to ask for permission to release [facility] ED notes to Mackenzie: mailbox full and no ability to leave message. Call placed to Mackenzie to update.
[2023-11-02 14:00] VITALS: BP 102/71; PULSE 73; RESP 16; TEMP 36.8; O2SAT 96
[2023-11-02 21:58] VITALS: BP 112/62; PULSE 82; RESP 16; TEMP 37.3; O2SAT 95
--- NOTE | 2023-11-02 22:18 | PC.NURSE ---
[id number] Nursing Note. Pt sleeping in naps. easily arousable. Pt knows her name but is unsure of date where she lives and how many children she has. Cooperative with care. Soft spoken. Moves all extremities equally. Denies pain. Encouraged fluids as patient appears to only drink and eat if prompted.
--- NOTE | 2023-11-03 03:47 | PC.NURSE ---
Assumed care of patient at 23:00. Patient sleeping in a hospital bed, respirations even and unlabored. Call reyna within patien's reach.
[2023-11-03 06:00] VITALS: BP 93/61; PULSE 88; RESP 16; TEMP 37; O2SAT 96
--- NOTE | 2023-11-03 06:19 | MHC.EDTECH ---
Patient awake ,vitals taken ,Patient clean and dry ,pt was reposition and boosted up in bed .
[2023-11-03] MEDS: cephALEXin 500 MG CAPSULE PO ×4 (08:36→21:15)
[2023-11-03] MEDS: Multivitamin TABLET 1 TAB PO (08:36)
[2023-11-03] MEDS: Donepezil HCl 10 MG TABLET PO (08:36)
[2023-11-03] MEDS: metFORMIN HCl 500 MG TABLET PO (08:36)
[2023-11-03] MEDS: Atorvastatin Calcium 20 MG TABLET PO (08:36)
[2023-11-03] MEDS: Ammonium Lactate 12 % Cream 140 GM TUBE 1 APPL TOPICAL ×2 (08:39→21:15)
--- NOTE | 2023-11-03 11:38 | PC.NURSE ---
assumed care of pt at 1100, pt a&ox4, vss, per prior RN didn't eat breakfast this am, 400ml of urine emptied from suction canister - purwick in place. pt resting quietly in bed watching television.
--- NOTE | 2023-11-03 11:40 | PC.NURSE ---
Addendum entered by Magdalena Diop 11/03/23 11:48: pt positioned upright in bed w lunch tray. Original Note: assumed care of pt at 1100, pt a&o to person/place/year, vss, per prior RN didn't eat breakfast this am, 400ml of urine emptied from suction canister - purwick in place, pad dry. pt resting quietly in bed watching television, denies any needs at this time.
[2023-11-03 12:09] VITALS: BP 106/59; PULSE 84; RESP 16; TEMP 37.4; O2SAT 92
--- NOTE | 2023-11-03 13:24 | PC.NURSE ---
pt medicated per MAR, fresh water and ice provided, pt ate 25% of lunch.
--- NOTE | 2023-11-03 14:57 | PC.NURSE ---
spoke ese Ruff (daughter) re pt plan of care, has set up for a nurse from [facility] to visit pt 11/04, est arrival around noon. confirmed that pt is typically a grazer and snacks throughout day vs eating large meals, suggested pt might like peanut butter crackers. hx DVT - per daughter typically wears compression socks.
--- NOTE | 2023-11-03 16:02 | PC.NURSE ---
pt removed purwick, cleaned and linens changes, new brief and purwick placed by tech. pt encouraged to get up to recliner but declined and this time preferring to rest in bed.
--- NOTE | 2023-11-03 17:08 | MHC.EDTECH ---
Nurse and I assisted patient with personal hygiene, changed gown. Replaced Purewick.
--- NOTE | 2023-11-03 17:55 | PC.NURSE ---
pt medicated per MAR.
[2023-11-03 21:12] VITALS: BP 111/50; PULSE 80; RESP 16; TEMP 37.6; O2SAT 94
--- NOTE | 2023-11-03 21:27 | PC.NURSE ---
pt medicated per DEC, vss, purwick in place, linens dry. denies any needs at this time. resting quietly in bed, water pitcher refilled.
[2023-11-04 05:02] VITALS: BP 108/61; PULSE 73; RESP 18; TEMP 36.9; O2SAT 94
--- NOTE | 2023-11-04 08:58 | MHC.CM.ED ---
Addendum entered by Nirmala Rodriguez 11/04/23 13:45: Mackenzie was on site to assess patient. Paperwork completed and signed by Annmarie SENA. Faxed to Mackenzie. Waiting for return call from Mackenzie. Original Note: Patient remains in ER. Received voicemail from Elzbieta stating Mackenzie will be on-site today around 12pm to assess patient. Continue to monitor for d/c needs.
[2023-11-04] MEDS: Donepezil HCl 10 MG TABLET PO (09:14)
[2023-11-04] MEDS: metFORMIN HCl 500 MG TABLET PO (09:14)
[2023-11-04] MEDS: Metoprolol Succinate ER 25 MG TAB.ER.24H PO (09:14)
[2023-11-04] MEDS: amLODIPine Besylate 5 MG TABLET PO (09:14)
[2023-11-04] MEDS: Multivitamin TABLET 1 TAB PO (09:14)
[2023-11-04] MEDS: Atorvastatin Calcium 20 MG TABLET PO (09:14)
[2023-11-04] MEDS: cephALEXin 500 MG CAPSULE PO ×4 (09:15→20:27)
[2023-11-04] MEDS: Losartan Potassium 50 MG TABLET 100 MG PO (09:15)
[2023-11-04 14:00] VITALS: BP 102/54; PULSE 82; RESP 18; TEMP 36.8; O2SAT 94
[2023-11-04 21:12] VITALS: BP 115/65; PULSE 70; RESP 15; TEMP 36.7; O2SAT 94
--- NOTE | 2023-11-04 21:12 | MHC.EDTECH ---
Patient was incontinent of urine ,bed bath given ,gown change ,Patient has a dressing on her coccyx ,Vitals taken ,patient had sips of water to drink ,Patient was reposition on her side with Pillows and Pillow under heels .
--- NOTE | 2023-11-05 02:50 | MHC.EDTECH ---
Pt repositioned to her right side.
[2023-11-05 04:52] VITALS: BP 101/50; PULSE 70; RESP 19; TEMP 37; O2SAT 94
[2023-11-05 08:00] VITALS: BP 100/57; PULSE 78; RESP 18; TEMP 36.9; O2SAT 93
--- NOTE | 2023-11-05 08:53 | MHC.CM.ED ---
Addendum entered by Nirmala Rodriguez 11/05/23 12:07: Per Elzbieta, anticipate patient will transfer to [facility] via BLS tuesday 11/07 at 10am. Original Note: Patient remains in ER overflow. Per Mackenzie at [facility], family is coming to sign lease on . Will have more accurate move in date after that. Continue to monitor for d/c needs.
--- NOTE | 2023-11-05 09:00 | PC.NURSE ---
PT IS A/O X 2. NO SOB/MIGUEL ANGEL NOTED SPEAKS IN FULL SENTENCES. NO OPEN AREAS NOTED. MEDS IN APPLESAUCE. PT ARIC WELL. L LOWER EXT 2+ PITTING EDEMA. KISHAN LEGS ELEVATED ON PILLOW. PT DENIES ANY PAIN/DISC. WILL CONTINUE TO MONITOR.
--- NOTE | 2023-11-05 09:00 | MHC.EDTECH ---
pt ate 50% of her breakfast tray. 120cc of her fluids.
[2023-11-05] MEDS: cephALEXin 500 MG CAPSULE PO ×4 (09:10→20:20)
[2023-11-05] MEDS: metFORMIN HCl 500 MG TABLET PO (09:10)
[2023-11-05] MEDS: Losartan Potassium 50 MG TABLET 100 MG PO (09:10)
[2023-11-05] MEDS: amLODIPine Besylate 5 MG TABLET PO (09:10)
[2023-11-05] MEDS: Atorvastatin Calcium 20 MG TABLET PO (09:10)
[2023-11-05] MEDS: Donepezil HCl 10 MG TABLET PO (09:10)
[2023-11-05] MEDS: Multivitamin TABLET 1 TAB PO (09:10)
[2023-11-05] MEDS: Metoprolol Succinate ER 25 MG TAB.ER.24H PO (09:10)
[2023-11-05] MEDS: Ammonium Lactate 12 % Cream 140 GM TUBE 1 APPL TOPICAL ×2 (09:11→20:20)
--- NOTE | 2023-11-05 09:35 | MHC.EDTECH ---
Pt is washed up with a complete bed change. PT is sitting in the recliner watching tv.
--- NOTE | 2023-11-05 11:22 | MHC.EDTECH ---
Pt is sitting in recliner with both feet elevated. Resting quietly.
--- NOTE | 2023-11-05 12:00 | MHC.EDTECH ---
pt ate 25% of her lunch tray. says she does not have much of an appetite. 120cc of juice.
--- NOTE | 2023-11-05 13:56 | MHC.EDTECH ---
This tech put the PT back into bed. PT was not incontinent and she is now sleeping in bed.
[2023-11-05 14:00] VITALS: BP 85/53; PULSE 83; RESP 17; TEMP 36.5; O2SAT 100
--- NOTE | 2023-11-05 14:20 | MHC.EDTECH ---
repostioned pt to right side
[2023-11-05 14:49] VITALS: BP 109/59; PULSE 80; O2SAT 98
--- NOTE | 2023-11-05 17:00 | MHC.EDTECH ---
sat pt in recliner chair for dinner
--- NOTE | 2023-11-05 18:12 | MHC.EDTECH ---
pt ate less than 25% of her dinner tray. and no fluids were drank. water on bedside table.
--- NOTE | 2023-11-05 18:19 | PC.NURSE ---
PT IS SITTING UP IN THE RECLINER WATCHING TV AFTER SUPPER.
--- NOTE | 2023-11-05 18:57 | MHC.EDTECH ---
THIS TECH PUT THE PT BACK INTO BED AND REPOSITIONED PT TO HER LEFT SIDE. BOTH FEET ELEVATED. PT WAS NOT INCONTINENT. PULLUP IN PLACE.
[2023-11-05 22:44] VITALS: BP 105/61; PULSE 68; RESP 17; TEMP 36.7; O2SAT 95
[2023-11-06 05:41] VITALS: BP 104/59; PULSE 82; RESP 16; TEMP 36.5; O2SAT 97
--- NOTE | 2023-11-06 08:25 | PC.NURSE ---
PT IS A/O X 2 NO SOB/MIGUEL ANGEL NOTED SPEAKS IN FULL SENTENCES. PT DENIES ANY PAIN/DISC. PT IS SITTING UP IN BED. PT IS A FALL RISK. FALL RISK PRECAUTION MAINTAINED. WILL CONTINUE TO MONITOR.
[2023-11-06 08:30] VITALS: BP 108/67; PULSE 84; RESP 17; TEMP 36.4; O2SAT 95
[2023-11-06] MEDS: metFORMIN HCl 500 MG TABLET PO (08:36)
[2023-11-06] MEDS: amLODIPine Besylate 5 MG TABLET PO (08:36)
[2023-11-06] MEDS: cephALEXin 500 MG CAPSULE PO ×2 (08:36→13:54)
[2023-11-06] MEDS: Multivitamin TABLET 1 TAB PO (08:36)
[2023-11-06] MEDS: Atorvastatin Calcium 20 MG TABLET PO (08:36)
[2023-11-06] MEDS: Metoprolol Succinate ER 25 MG TAB.ER.24H PO (08:36)
[2023-11-06] MEDS: Donepezil HCl 10 MG TABLET PO (08:36)
[2023-11-06] MEDS: Losartan Potassium 50 MG TABLET 100 MG PO (08:36)
[2023-11-06] MEDS: Ammonium Lactate 12 % Cream 140 GM TUBE 1 APPL TOPICAL ×2 (08:36→21:12)
[2023-11-06 12:15] LABS: Creatinine Clr Calc Pharmacy 33.6; Estimated Glomerular Filt Rate 42
[2023-11-06 14:00] VITALS: BP 102/56; PULSE 88; RESP 17; TEMP 36.4; O2SAT 97
[2023-11-06 15:54] VITALS: BP 97/50; PULSE 88; RESP 17; TEMP 36.1; O2SAT 97
--- NOTE | 2023-11-06 16:01 | PC.NURSE ---
this rn assumed care of pt. pt resting in stretcher watching tv at this time, purewick in place for pt comfort. no acute distress noted.
[2023-11-06 19:51] VITALS: BP 121/66; PULSE 98; RESP 18; TEMP 36.5; O2SAT 98
[2023-11-07 04:50] VITALS: BP 138/71; PULSE 82; RESP 19; TEMP 36.7; O2SAT 94
--- NOTE | 2023-11-07 05:00 | PC.NURSE ---
Patient incontinent of urine, pericare provided for patient.
[2023-11-07] MEDS: amLODIPine Besylate 5 MG TABLET PO (07:59)
[2023-11-07] MEDS: Donepezil HCl 10 MG TABLET PO (07:59)
[2023-11-07] MEDS: Losartan Potassium 50 MG TABLET 100 MG PO (07:59)
[2023-11-07] MEDS: metFORMIN HCl 500 MG TABLET PO (07:59)
[2023-11-07] MEDS: Metoprolol Succinate ER 25 MG TAB.ER.24H PO (07:59)
[2023-11-07] MEDS: Atorvastatin Calcium 20 MG TABLET PO (07:59)
[2023-11-07] MEDS: Multivitamin TABLET 1 TAB PO (07:59)
[2023-11-07] MEDS: Ammonium Lactate 12 % Cream 140 GM TUBE 1 APPL TOPICAL ×2 (07:59→20:07)
--- NOTE | 2023-11-07 10:54 | PC.NURSE ---
patient remains in bed, refusing oob. watching television. Denies discomfort, cooperative
[2023-11-07 14:00] VITALS: PULSE 86; RESP 18; TEMP 35.5; O2SAT 93
--- NOTE | 2023-11-07 17:35 | PC.NURSE ---
assumed care of pt at 1500, pt awake in bed, refusing OOB at this time, offering no complaints. LLL noted to have edema when compared to RLL, pulses palpable and extremity warm to touch. Pt refusing dinner, encouraged to eat something, pt agreeable to drink apple juice and asked to keep cupcake at bedside for later, states she isn't hungry yet . Respirations even and unlabored, pt offering no complaints, safety precautions remain in place.
[2023-11-07 20:31] VITALS: BP 133/76; PULSE 81; RESP 17; TEMP 36.2; O2SAT 94
--- NOTE | 2023-11-07 22:04 | PC.NURSE ---
Assumed care of pt at 19:00: Pt Alert to self only, cooperative with care. VSS, breathing non-labored, afebrile. Inct urine, purwick in place, CYU. Pt resting quietly at this time, easily rousable to name. call reyna within reach. Will cont with plan of care, safety precautions remain in place.
[2023-11-08 05:57] VITALS: BP 104/57; PULSE 69; RESP 19; TEMP 36.4; O2SAT 97
[2023-11-08] MEDS: Donepezil HCl 10 MG TABLET PO (08:07)
[2023-11-08] MEDS: metFORMIN HCl 500 MG TABLET PO (08:07)
[2023-11-08] MEDS: amLODIPine Besylate 5 MG TABLET PO (08:07)
[2023-11-08] MEDS: Atorvastatin Calcium 20 MG TABLET PO (08:07)
[2023-11-08] MEDS: Multivitamin TABLET 1 TAB PO (08:07)
[2023-11-08] MEDS: Ammonium Lactate 12 % Cream 140 GM TUBE 1 APPL TOPICAL (08:07)
[2023-11-08] MEDS: Losartan Potassium 50 MG TABLET 100 MG PO (08:07)
== END 2023-11-08 20:12 | disposition skilled nursing facility (03) ==
PROVIDERS: Physician Assistant; Emergency Provider Emergency Medicine; PCP Internal Medicine
DX: E86.0 Dehydration (principal); N39.0 Urinary tract infection, site not specified; R41.82 Altered mental status, unspecified; R26.2 Difficulty in walking, not elsewhere classified; F03.90 Unspecified dementia, unspecified severity, without behavioral disturbance, psychotic disturbance, mood disturbance, and anxiety; Z11.52 Encounter for screening for COVID-19; Z79.899 Other long term (current) drug therapy
CPT/HCPCS: 36415; 70450; 71045; 80048; 80053; 81001; 82550; 82565; 85025; 87040; 87086; 87088; 87186; 87635; 93005; 96361; 96365; 97162; 99285; J0696

== ENCOUNTER → 2023-10-30 14:20 | Outpatient (BNV) | payer MEDICARE, OTHER, SELFPAY | PROVIDERS: Emergency Provider Emergency Medicine; PCP Internal Medicine; Visit Provider Internal Medicine Cardiovascular Disease | DX: E86.0 Dehydration (principal) | CPT/HCPCS: 93010 ==

== ENCOUNTER 2024-11-03 08:51 | Emergency (ER) | payer MEDICARE, OTHER, SELFPAY ==
--- NOTE | ~2024-11-03 | XR_ITS ---
EXAMINATION: XR CHEST CLINICAL INFORMATION: sob COMPARISON: 10/30/2023. TECHNIQUE: Frontal view of the chest was obtained. FINDINGS: Mildly elevated left hemidiaphragm, unchanged. Cardiac, hilar, and mediastinal contours are normal. The aorta is calcified and mildly tortuous. Lungs are somewhat hyperaerated and hyperlucent, with flattening of the hemidiaphragms, suggesting COPD. They are otherwise clear. No effusions or pneumothorax. No acute bony or soft tissue abnormalities. Degenerative changes in both shoulder joints and throughout the spine. XR/XR chest 1V IMPRESSION: COPD. No active superimposed disease. Electronically signed by: Timothy Zafar MD 11/03/2024 10:18 AM JUNG
--- NOTE | ~2024-11-03 | US_ITS ---
EXAMINATION: US TRIPLEX LOWER EXTREMITY, BILATERAL CLINICAL INFORMATION: Lower extremity swelling. COMPARISON: Ultrasound venous Doppler left lower extremity dated April 13, 2022. TECHNIQUE: Color-flow triplex imaging with spectral analysis and compression Doppler were performed on the bilateral lower extremities. FINDINGS: Respiratory variation, normal compression and augmented flow are noted throughout the right lower extremity. The visualized common femoral vein, superficial femoral vein, profunda femoral vein, popliteal vein and midcalf peroneal and posterior tibial venous segments show no evidence of deep venous thrombosis, right lower extremity. There is normal phasic flow and compressibility in the left common femoral vein and greater saphenous vein and the proximal left femoral vein. There is partial compressibility and phasic flow extending from the mid left femoral vein to the left popliteal vein and the left posterior tibialis vein.. There is no Leal's cyst. US/US venous duplex LE BI IMPRESSION: Nonocclusive thrombus extending from the mid left femoral vein to the popliteal vein, probably chronic, old similar since prior exam. No acute deep venous thrombosis right lower extremity. Electronically signed by: Jason Mtz MD 11/03/2024 11:17 AM EST
--- NOTE | ~2024-11-03 | XR_ITS ---
EXAMINATION: XR PELVIS CLINICAL INFORMATION: ? fall COMPARISON: None. Correlation made with CT abdomen and pelvis 04/14/2022. TECHNIQUE: AP view of the pelvis. FINDINGS: No fracture, dislocation, or focal bony abnormality. No malalignment. Mild degenerative arthritis in both hip joints. Degenerative changes in both SI joints and the lower lumbar spine. There are vascular calcifications in the soft tissues. XR/XR pelvis 1-2V IMPRESSION: No acute fracture or dislocation. Electronically signed by: Timothy Zafar MD 11/03/2024 10:16 AM JUNG
[2024-11-03 09:07] VITALS: BP 143/56; BP 150/76; PULSE 56; PULSE 60; RESP 20; TEMP 36.4; O2SAT 96; O2SAT 99; BMI 24.4
--- NOTE | 2024-11-03 09:15 | PC.NURSE ---
lower extremities swollen bilaterally +2 pitting edema. Right leg warm and red.
--- NOTE | 2024-11-03 09:34 | ED.LOWEXIN ---
HPI - Extremity Injury (Lower) General Chief Complaint: Extremity Injury, Lower Stated Complaint: LE SWELLING OVERNIGHT ,FROM NOBLE PER EMS Time Seen by Provider: 11/03/24 09:06 History of Present Illness HPI Narrative: Patient 84 years old presents today with having leg swelling that has been ongoing for the last few days. Worse than baseline. Patient also noted some increasing redness over the right leg. There is a question fall. But patient has no pain to the lower extremity. From home. Not on blood thinners. History of DVT history of dementia. No chest pain or shortness of breath no dizziness. No focal weakness. Related Data Home Medications ?Medication ?Instructions ?Recorded ?Confirmed amlodipine 5 mg tablet 5 mg PO DAILY 10/30/23 10/30/23 ammonium lactate 12 % topical cream 1 appl topical BID 10/30/23 10/30/23 atorvastatin 20 mg tablet 20 mg PO DAILY 10/30/23 10/30/23 donepezil 10 mg tablet 10 mg PO DAILY 10/30/23 10/30/23 losartan 100 mg tablet 100 mg PO DAILY 10/30/23 10/30/23 metformin 500 mg tablet 500 mg PO DAILY 10/30/23 10/30/23 metoprolol succinate 25 mg 25 mg PO DAILY 10/30/23 10/30/23 tablet,extended release 24 hr multivitamin 1 tab PO DAILY 10/30/23 10/30/23 Previous Rx's ?Medication ?Instructions ?Recorded cephalexin 500 mg capsule 500 mg PO Q8H 7 days #21 caps 11/03/24 furosemide 20 mg tablet (Lasix) 20 mg PO Q OTHER DAY #3 tabs 11/03/24 Allergies Allergy/AdvReac Type Severity Reaction Status Date / Time No Known Allergies Allergy Verified 11/03/24 09:10 [No Known Allergies*] Review of Systems Review of Systems: Positive leg swelling Yes all other systems are reviewed and are negative PMFSH Past Medical History Attestation statement: The following information was validated with the patient. Medical History DVT (deep venous thrombosis) Hypertension Type 2 diabetes mellitus Family History Family History Mother Blood clots in brain Social History Social History Housing: Other Housing Other:: Mobile Home Alcohol intake: former Patient Tobacco Use Status: Never used Tobacco Smoked in Last 30 Days: No Use of substances other than those prescribed or required for medical reasons: No Advance Directives: No Advance Directives Information Provided: Yes service: No Current occupational status: retired Physical Exam Vital Signs: Vital Signs: Last Vital Signs Temp 97.9 F 11/03/24 13:50 Pulse 51 11/03/24 13:50 Resp 12 11/03/24 13:50 BP 141/62 H 11/03/24 13:50 Pulse Ox 97 11/03/24 13:50 O2 Del Method Room Air 11/03/24 13:50 BMI result Body Mass Index 24.4 Appearance: Alert. Oriented X3. No acute distress. Eyes: Pupils equal, round and reactive to light. ENT: Pharynx normal. Neck: Normal inspection. Neck supple. No lymph nodes noted. No crepitus CVS: Normal heart rate and rhythm. Pulses normal. Normal S1 and S2 Respiratory: No respiratory distress. Breath sounds normal. No Wheezing. No rales Abdomen: Soft and nontender. No rigidity. No distention. good BS x4 Skin: Skin warm and dry. Normal skin color. Normal skin turgor. Extremities: 2+ bilateral lower extremity edema. Right lower extremity felt slightly warm to touch. Distal pulses intact. Sensation intact. Neuro: Oriented X 3. No motor deficit. No sensory deficit. Moving all extermities. No slurred speech Medications Administered Discontinued Medications Generic Name Dose Route Start Last Admin Trade Name Freq PRN Reason Stop Dose Admin Cefazolin Sodium 1 gm 11/03/24 11:41 11/03/24 12:24 Cefazolin Sodium 1 Gm Vial IVPUSH 11/03/24 11:42 1 gm ONCE ONE Administration Medical Decision Making Medical Decision Making MDM Narrative: Patient presented today with having bilateral leg swelling. The right leg appeared to be slightly red. Patient's Doppler of the bilateral lower extremity positive for a chronic DVT on the left. On further discussion with patient's family. Additional history was obtained. Patient is already on Eliquis. Has a history of DVT. She lives in an assisted living environment and has been getting her medication on a regular basis. Patient's BNP was normal. There is no evidence for congestive heart failure. A small dose of Lasix was given. Patient's lungs are clear. Because of the redness in the right leg concern for cellulitis. Patient was given a dose of Ancef. A prescription for Keflex was given. Patient's urine also noted to be infected. Question chronic colonization. Nevertheless will use the Keflex to cover both. Have patient closely follow-up outpatient. Patient was able to ambulate well with physical therapy case management arrange for additional help at the assisted living environment patient's daughter present aware of plan. The area of redness was demarcated. Patient to be discharged home Differential Diagnosis Differential Diagnoses: The differential diagnosis associated with the presentation includes Cellulitis, congestive heart failure, urinary tract infection Admission/Observation Consideration of admission/observation: Escalation of care including admission/observation considered Consult Healthcare Provider Management of the patient was discussed with: Chemical Plant Manager (Case management, Physical therapy) Lab Data 11/03/24 09:40 11/03/24 09:40 Labs: Lab Results 11/03/24 11/03/24 Range/Units 09:40 12:18 WBC 5.7 (4.8-10.8) X10*3/uL RBC 3.18 L (4.20-5.50) X10*6/uL Hgb 10.1 L (12.0-16.0) g/dl Hct 30.1 L (37.0-47.0) % MCV 94.7 (80.0-98.0) fL MCH 31.8 (27.0-33.0) pg MCHC 33.6 (31.0-35.0) g/dl RDW 13.6 (11.0-16.0) % Plt Count 175 D (160-400) X10*3/uL MPV 12.1 (9.4-12.3) fL Immature Gran % (Auto) 0.2 (0.0-0.4) % Neut % (Auto) 50.8 (45-73) % Lymph % (Auto) 33.6 (20-40) % [place] % (Auto) 11.3 H (2-11) % Eos % (Auto) 2.5 (0-4) % Baso % (Auto) 1.6 (0-2) % Lymph # (Auto) 1.9 (1.2-4.9) X10*3/uL [place] # (Auto) 0.6 (0.1-1.2) X10*3/uL Eos # (Auto) 0.1 (0.0-0.4) X10*3/uL Baso # (Auto) 0.1 (0.0-0.2) X10*3/uL Abs Immat Gran (auto) 0.01 (0.00-0.03) X10*3/uL Absolute Neuts (auto) 2.9 (2.0-8.3) x10*3/uL Absolute Nucleated RBC 0.000 (0.0-0.012) X10*3/uL Nucleated RBC % (auto) 0.0 (0.0-0.2) /100WBC APTT 37.5 H (26.0-36.8) SEC Sodium 142 (135-145) mmol/L Potassium 3.7 (3.3-5.1) mmol/L Chloride 111 H (96-108) mmol/L Carbon Dioxide 26 (22-29) mmol/L Anion Gap 9 L (12-20) BUN 17 H (9-16) mg/dL Creatinine 0.96 (0.5-1.4) mg/dL Estim Creat Clear Calc 37.3 Estimated GFR 56 Random Glucose 128 H (60-115) mg/dL Calcium 9.1 (8.4-10.2) mg/dL Troponin I High Sens < 2.7 (<3.5-17.0) ng/L B-Natriuretic Peptide 74 (<100) pg/mL COVID-19 ([facility]MAEL) Negative (Negative) COVID-19 Clin Com See Note Independent Interpretation I performed an independent interpretation of an: Plain X-Ray (My interpretation patient's chest x-ray and also pelvis x-ray was grossly negative. No evidence of fracture no evidence of pneumonia no evidence of CHF) Radiology Impression Discussion of test interpretation with radiology: I have reviewed the radiologist's reading. External Record Review External record reviewed: Inpatient record Prescription Management I considered prescription management with: Pain Medication Discharge Plan Discharge Clinical Impression: DVT (deep venous thrombosis), Cellulitis, Acute UTI Patient Disposition: Home, Self-Care Instructions: Urinary Tract Infection in Women (ED), Cellulitis (DC), Deep Vein Thrombosis (ED) Prescriptions: New cephalexin 500 mg capsule 500 mg PO Q8H 7 Days Qty: 21 0RF furosemide [Lasix] 20 mg tablet 20 mg PO Q OTHER DAY Qty: 3 0RF No Action multivitamin Tablet 1 tab PO DAILY metformin 500 mg tablet 500 mg PO DAILY atorvastatin 20 mg tablet 20 mg PO DAILY donepezil 10 mg tablet 10 mg PO DAILY amlodipine 5 mg tablet 5 mg PO DAILY ammonium lactate 12 % cream 1 appl topical BID Rx Instructions: to bottom of feet metoprolol succinate 25 mg tablet extended release 24 hr 25 mg PO DAILY losartan 100 mg tablet 100 mg PO DAILY Referrals: [facility] [Outside] - 11/05/24 Print Language: Portuguese
[2024-11-03 09:45] LABS: MANUAL DIFF FLAG NO
[2024-11-03 09:47] LABS: Basophils Absolute Auto 0.1 X10*3/uL (0.0-0.2); Basophils Percent Auto 1.6 % (0-2); Eosinophils Absolute Auto 0.1 X10*3/uL (0.0-0.4); Eosinophils Percent Auto 2.5 % (0-4); Hematocrit 30.1 % (37.0-47.0); Hemoglobin 10.1 g/dl (12.0-16.0); Imm Gran Abs Auto 0.01 X10*3/uL (0.00-0.03); Imm Gran Pct Auto 0.2 % (0.0-0.4); Lymphocytes Absolute Auto 1.9 X10*3/uL (1.2-4.9); Lymphocytes Percent Auto 33.6 % (20-40); Mean Corpuscular HGB Conc 33.6 g/dl (31.0-35.0); Mean Corpuscular Hemoglobin 31.8 pg (27.0-33.0); Mean Corpuscular Volume 94.7 fL (80.0-98.0); Mean Platelet Volume 12.1 fL (9.4-12.3); Monocytes Absolute Auto 0.6 X10*3/uL (0.1-1.2); Monocytes Percent Auto 11.3 % (2-11); Neutrophils Absolute Auto 2.9 x10*3/uL (2.0-8.3); Neutrophils Percent Auto 50.8 % (45-73); Platelet Count 175 X10*3/uL (160-400); Red Blood Count 3.18 X10*6/uL (4.20-5.50); Red Cell Distribution Width 13.6 % (11.0-16.0); White Blood Count 5.7 X10*3/uL (4.8-10.8)
[2024-11-03 09:55] LABS: Partial Thromboplastin Time 37.5 SEC (26.0-36.8)
[2024-11-03 10:02] LABS: Anion Gap 9 (12-20); Blood Urea Nitrogen 17 mg/dL (9-16); Calcium 9.1 mg/dL (8.4-10.2); Carbon Dioxide 26 mmol/L (22-29); Chloride 111 mmol/L (96-108); Creatinine Clr Calc Pharmacy 37.3; Estimated Glomerular Filt Rate 56; Glucose Random 128 mg/dL (60-115); Potassium 3.7 mmol/L (3.3-5.1); Sodium 142 mmol/L (135-145)
[2024-11-03 10:08] LABS: B Type Natriuretic Peptide 74 pg/mL (<100)
[2024-11-03 10:19] LABS: Troponin-I High Sensitivity < 2.7 ng/L (<3.5-17.0)
[2024-11-03 11:41] VITALS: BP 143/56; PULSE 56; O2SAT 96
[2024-11-03] MEDS: ceFAZolin Sodium 1 GM VIAL IVPUSH (12:24)
[2024-11-03 12:41] LABS: COVID-19 Test Negative (Negative); IDNOW Serial# 58CA691E
--- NOTE | 2024-11-03 13:32 | MHC.CM.ED ---
Received case management consult from Dr Anaya. Patient cane to the ER due to BLE swelling. Work up essentially negative. Physical therapy eval completed. Home services is recommended. Patient attempted to meet with patient in regards to discharge planning. Patient has a history of dementia. Spoke with patient's daughter, Elzbieta, via telephone at [phone]. Patient was d/c'd to [facility] in [place] in November 2023. Patient has been doing well until it was found that patient has BLE edema. Elzbieta will come to ER to meet with patient and Dr Anaya. Patient has been active with [facility] in the past. Referral made via [facility] for group home and physical therapy. Continue to monitor for d/c needs.
[2024-11-03 13:50] VITALS: BP 141/62; PULSE 51; RESP 12; TEMP 36.6; O2SAT 97
[2024-11-03] MEDS: Furosemide 20 MG TABLET PO (14:48)
[2024-11-03 14:49] VITALS: BP 141/62; PULSE 51; RESP 12; TEMP 36.6; O2SAT 97
== END 2024-11-03 15:01 | disposition home or self-care (01) ==
PROVIDERS: Emergency Provider Emergency Medicine Emergency Medical Services
DX: I82.512 Chronic embolism and thrombosis of left femoral vein (principal); L03.115 Cellulitis of right lower limb; N39.0 Urinary tract infection, site not specified; R60.0 Localized edema; E11.9 Type 2 diabetes mellitus without complications; I10 Essential (primary) hypertension; Z86.718 Personal history of other venous thrombosis and embolism; Z79.01 Long term (current) use of anticoagulants; Z79.84 Long term (current) use of oral hypoglycemic drugs; Z11.52 Encounter for screening for COVID-19
CPT/HCPCS: 36415; 71045; 72170; 80048; 83880; 84484; 85025; 85730; 87635; 93970; 96374; 97162; 99284; J0690

== ENCOUNTER → 2024-11-03 09:16 | Outpatient (BNV) | payer MEDICARE, OTHER, SELFPAY | PROVIDERS: Emergency Provider Emergency Medicine Emergency Medical Services; Visit Provider Radiology Diagnostic Radiology | DX: I82.412 Acute embolism and thrombosis of left femoral vein (principal); I82.432 Acute embolism and thrombosis of left popliteal vein; J44.9 Chronic obstructive pulmonary disease, unspecified; N39.0 Urinary tract infection, site not specified | CPT/HCPCS: 71045; 72170; 93970 ==

== ENCOUNTER 2024-12-08 11:24 | Outpatient (AMB) | payer MEDICARE, OTHER, SELFPAY ==
--- NOTE | 2024-12-08 11:35 | MHC.OFFVIS ---
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 Pt states her legs are much better after here IV Abx in October 2024 ([facility] [place]). Pt states swelling is worse at the end of the day. Pt walks daily at facility. 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 Approximately one year prior, she had an episode requiring a mechanical venous thrombectomy performed at [facility] in November of 2023. She does have comorbid conditions including COPD congestive heart failure history of DVT. She had a bout of cellulitis which necessitated the stay for the hospital and she was subsequently discharged with cephalexin for 7 days along with Lasix. She has been following Podiatry and now presents for vascular evaluation of note she did have her daughter present at the time of exam and she is positive for factor 5 Leiden and had lost 4 pregnancies. [facility] Medical History DVT (deep venous thrombosis) Hypertension Type 2 diabetes mellitus Family History Mother Blood clots in brain Social History Housing: Other Housing Other:: Mobile Home Alcohol intake: former Patient Tobacco Use Status: Never used Tobacco service: No Current occupational status: retired Review of Systems Const All systems reviewed & are unremarkable except as noted in HPI and below Reports no additional complaints ENT Reports Normal hearing present Card Denies chest pain, Denies chest pain at rest, Denies chest pain with activity and Denies pedal edema Resp Denies cough GI Denies abdominal pain Musc Denies abnormal gait, Denies muscle cramps and Denies radiating pain into limb Skin/Breast Denies skin ulcer and Denies wounds Neuro Reports Normal hearing present and Denies abnormal gait Psych Reports no additional complaints Physical Exam Vital Signs: BMI result Body Mass Index 24.3 Const General: cooperative, healthy appearing and comfortable Orientation/consciousness: oriented to person, oriented to place and oriented to time HEENT Head: Yes normal to inspection Neck Neck: Yes normal visual inspection Carotids: no bruits Chest Chest palpation & inspection: normal inspection of the chest Resp Effort & Inspection: normal respiratory effort and able to speak in complete sentences Auscultation: clear to auscultation bilaterally, no crackles, no rales, no rhonchi and no wheezes Cardio Rate: regular rate Rhythm: regular rhythm Heart sounds: S1 normal heart sound present and S2 normal heart sound present Bruits: no carotid bruits Peripheral pulses: Peripheral pulses 2+ throughout GI Inspection: Yes normal to inspection Skin Wounds: no wounds Hair: normal Neuro General: oriented to person, oriented to place and oriented to time Cranial nerves: Yes CN's II-XII intact bilaterally and Yes Normal hearing present Cognition (Neuro): normal cognition Motor exam (neuro): 5/5 motor strength present throughout Extrem Other: venous exam: Bilateral +2 edema left greater than right General: No clubbing, No cyanosis and Yes edema Psych Appearance: grossly normal Mental Status: mental status grossly normal Speech and movement: Normal speech and movement present Assessment & Plan Assessment & Plan (1) DVT (deep venous thrombosis): Code(s): I82.409 - Acute embolism and thrombosis of unspecified deep veins of unspecified lower extremity Category: Medical Qualifiers: DVT location: lower extremity Affected thrombotic vein of extremity: femoral Chronicity: chronic Laterality: bilateral Qualified Code(s): I82.513 - Chronic embolism and thrombosis of femoral vein, bilateral Plan: In short patient has lower extremity swelling which may be multifactorial in nature. Due to her history of DVTs would manage this all conservatively. I do suspect she may even be positive for factor [address] she will require long-term if not lifelong anticoagulation. In addition we did discuss routine conservative measures including compression elevation and exercise. She will follow up with us on an as-needed basis. Thank you for allowing us to assist in her care. Plan Patient was informed and verbally consented to the use of an ambient scribe for clinic note documentation during this visit. Patient Instructions: - Continue wearing Tubigrip compression stockings regularly. - Elevate legs when resting or sitting to reduce swelling. - Maintain current walking and exercise routines. - Keep scheduled appointments with barber tool sharpener. - Monitor for changes in swelling or shortness of breath. - Seek immediate assistance if shortness of breath worsens or swelling becomes severe. 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
[2024-12-08 11:38] VITALS: BMI 24.3
--- OUTSIDE RECORDS SUMMARY | 2024-12-08 14:23 | XMS_ITS ---
Author Organization [facility] Address [address] [place] [address] Care Team Providers Care Laboratory Mechanical Technician Name Role Phone Elham Solares Primary Care Provider Anival MartinezGavi Unavailable [phone] Allergies No Known Allergies REASON FOR VISIT At Risk Footcare, Skin problem(s) Medications Medication SIG (Take, Route, Frequency, Duration) Notes Start Date End Date Status Compression Stockings 20-30mm Hg as directed 06/01/2024 Not-Taking Donepezil HCl 10 MG Oral for 30 Not-Taking Aspirin 81 MG 1 tablet Orally Once a day for 30 day(s) Not-Taking zzzCompression Stockings 20-30mm Hg . . . for . Not-Taking Vitamin C 1000 MG 1 tablet Orally Once a day for 30 day(s) Not-Taking Calcium + D3 600-800 MG-UNIT 1 tablet with a meal Orally Once a day for 30 day(s) Not-Taking Echinacea 380 MG as directed Orally Not-Taking Vitamin E 400 UNIT 1 tablet Orally Once a day for 30 day(s) Not-Taking Furosemide 40 MG 1 tablet Orally Once a day for 30 day(s) Not-Taking Glucosamine Chondr 500 Complex - as directed Orally Not-Takin g Cephalexin 500 MG 1 capsule Orally joseph ry 6 hrs for 5 day(s) Not-Taking Ammonium Lactate 12 % 1 application to affected area Externally to feet Twice a day for 30 days Not-Taking Augmentin 500-125 MG 1 tablet Orally joseph ry 8 hrs for 10 days 03/01/2021 Not-Taking Silvadene 1 % 1 application Externally Once a day for 30 days 03/01/2021 Not-Taking Citalopram Hydrobromide 10 MG 1 tablet Orally Once a day for 30 day(s) Not-Taking Eliquis 5 MG as directed Orally Active Atorvastatin Calcium 20 MG 1 tablet Oral ly Once a day Active Multivitamin - 1 tablet Orally Once a day for 30 day(s) Active Losartan Potassium 100 MG 1 tablet Orall y Once a day for 30 day(s) Active metFORMIN HCl 500 MG 1 tablet with a hanny l Orally Once a day for 30 day(s) Active Norvasc 2.5 MG 1 tablet Orally Once a day for 30 day(s) Active Aricept 10 MG 1 tablet at bedtime Orally Once a day for 30 day(s) Active Ammonium Lactate 12 % 1 application Externally Twice a day for 30 days Active Protonix 20 MG 1 tablet Orally Once a day for 30 day(s) Active Metoprolol Succinate 50 MG 1 capsule Ora lly Once a day for 30 day(s) Active Social History Tobacco Use: Social History Observation Description Date Details (start date - stop date) Former Smoker NA - NA Tobacco use other than smoking: Question Answer Notes Are you an other tobacco user? No Tobacco Control (Standard) Question Answer Notes Tobacco use: Former smoker Additional Findings: Tobacco non-user Ex-cigaret te smoker AUDIT-C (Standard) Question Answer Notes Did you have a drink containing alcohol in the p ast year? No Points 0 Interpretation Negative Problems Problem Type SNOMED Code ICD Code Onset Dates Problem Status W/U Status Risk Notes Problem Atherosclerosis of [place] artery of both lower extremities, with unspecified presence of clinical manifestation (I70.203) Active confirmed Vital Signs Height 5 ft 3 in in 09/09/2024 Weight 110.8 lbs 09/09/2024 Blood pressure systolic 122 mm Hg 09/09/20 24 Blood pressure diastolic 60 mm Hg 024 Procedures Procedure Date Ordered Date Performed Result Body Sit e 10743-CKJQTAP NAIL, 6 OR MORE 09/09/2024 N/A 29479-LFFM SKIN LESIONS, 2 TO 4 09/09/2024 N/A Encounters Encounter Location Date Provider Diagnosis [facility] [address] [address] 09/09/2024 Gavi Black Type 2 diabetes nadia itus with diabetic polyneuropathy E11.42 ; Tinea unguium B35.1 ; Localized edema R60.0 and Atherosclerosis of [place] artery of both lower extremities, with unspecified presence of clinical manifestation I70.203 Assessments Encounter Date Diagnosis (ICD Code) Assessment Notes Treatment Notes Treatment Clinical Notes Section Notes 09/09/2024 Type 2 diabetes mellitus with diabetic polyneuropathy (ICD-10 - E11.42) 09/09/2024 Tinea unguium (ICD-10 - B35.1) 09/09/2024 Localized edema (ICD-10 - R60.0) 09/09/2024 Atherosclerosis of [place] artery of both lower extremities, with unspecified presence of clinical manifestation (ICD-10 - I70.203) Plan Of Treatment Pending Test Test Name Order Date 97850-MSLHXMH NAIL, 6 OR MORE 09/09/2024 88233-NNHN SKIN LESIONS, 2 TO 4 09/09/20 24 Next Appt Details Follow Up: 3 Months, Reason: Provider Name:Gavi Martinez , 01/12/2025 09:30:00 AM, [address] [place] [address], [place], [address], Procedure Notes * Category Sub-Category Detail Notes Debride Nail 6-10 Nail debridement Performance o f this nail treatment by a nonprofessional would put this patients foot and overall health at risk. Therefore, debridement to affected nail(s), as described in exam, was performed extensively to reduce/remove overall nail length, girth, thickness, subungual debris, and necrotic tissue, by manual and/or electrical means through the use of a nail nipper and/or dremel-type hob grinder, to a more viable healthy nail plate or bed tissue 6-10 nails in total. Silver nitrate was used for any petechial bleeding as necessary. Definitive antifungal treatment options, both pharmaceutical and surgical, have been reviewed and discussed with the patient. The patient solely prefers the use of intermittent/as needed professional debridement services for their nail condition and understands the need for additional periodic treatments to maintain effectiveness in symptomatic relief - 37903 Patient chooses debridement treatmen t only; no pharmaceutical tx Keratoma Treatment Parring or Cutting o f Benign Hyperkeratotic Lesion(s) (-56) 2-4 Lesions - The Benign hyperkeratotic lesions, ( 2 ) in total, locations as stated and described in exam, were pared, and/or cut utilizing a sterile 15 blade, tissue nippers, and/or power dremel instrumentation - 44935 Progress Notes * Becky MEADDOB: 2 (84 yo F)Acc No.[id number]:09/09/2024 Progress Note Patient:Becky FLEMING Provider:?Gavi Martinez DPM :1940???Age:84 Y???Sex:Female D ate:09/09/2024 Address:[facility], [address] [place], [place] [id number] Pcp:Elham Solares Subjective: * Chief Complaints: * ???At Risk FootcareSkin prob gilles(s) * HPI: ???At Risk footcare:?Pt States Last PCP Visit:?Date?08/19/2024 ???Skin problems:?Nature:?swelling.?Location:?B/L .?Duration:?several months.?Course:?, improved.?Treatments:?elevation and compression stockings.? * ROS:?General/Constitutional:?Nausea?denies.?Vomiting?denies.?Hunger Thirst?denies.?Loss appetite?denies.?Chills?denies.?Fatigue?denies.?Fever?denies.?Night Sweats?denies.?Unexplained weight loss?denies.?Unexplained weight gain?denies.?HEENTM:?Dentures?denies.?Dizziness?denies.?Glasses/contacts?admits.?Retinopathy?de nies.?Blurred/double vision?denies.?TMJ?denies.?Discharge/drainage?denies.?Implants?denies.?Sore throat?denies.?Dental implants?denies.?Hard of hearing ?denies.?Difficulty chewing/swallowing/speaking?denies.?Nose bleeds?denies.?Sore mouth?denies.?Respiratory:?On Oxygen?denies.?Pneumonia/pleurisy?denies.?Bronchitis?denies.?Emphysema?denies.?C oughing?denies.?Cough blood?denies.?Shortness of breath?denies.?Wheezing?denies.?Cardiovascular:?Pacemaker?denies.?MVP?denies.?WPW?denies.?CHF?denies.?Heart attack?denies.?Septal defect?denies.?Rapid beat?denies.?Chest pain ?denies.?Atrial Fib.?denies.?Murmur/Palpitations?denies.?Gastrointestinal:?Hemorrhoids?denies.?Stomach/Abdominal pain?denies.?Dark blood stool?denies.?Irritable bowel ?denies.?Constipation?denies.?Diarrhea?denies.?Hematology:?Swelling?denies.?Clots?denies.?Varicose Veins?denies.?Bruising?denies.?Bleeding problem?denies.?Genitourinary:?Blood urine?denies.?Frequent/Painfu/urination/bladder control?denies.?Kidney stones?denies.?Infection (UTI)?denies.?Nephropathy?denies.?sex trans dis (STD)?denies.?Prostate?denies.?Musculoskeletal:?Hammertoes?denies.?Bunions?denies.?Back Pain?denies.?Muscle Cramps/ Resting?denies.?Muscle cramps / walking?denies.?Generalized aches and pains?denies.?Weakness?denies.?Integ.:?Rizo?denies.?Scars?denies.?Corns/calluses?denies.?Ingrown nails?denies.?Painful nails?admits.?Open Sores?denies.?Rashes?denies.?Neurologic:?Difficulty sleeping?denies.?Brain disorder?denies.?Numbness?denies.?Balance trouble?denies.?Confusion?denies.?Fainting/blackouts?denies.?Tingling?denies.?Tr emors?denies.? * Medical History:? * Surgical History:?breast bio psy melanoma excision colonoscopy hysterectomy, vaginal blood clot removal 04/2022 * Hospitalization/Major Diagno stic Procedure:?Denies Past Hospitalization * Family History:?Mother: dece ased, cerebral hemmorage, diagnosed with Unspecified heart disease.?Father: .?Maternal aunt: diagnosed with Other malignant neoplasm of unspecified site.? * Social History:?Tobacco Use:?Tobacco use other than smoking?Are you an other tobacco user??No ?Tobacco Control (Standard)?Tobacco use:?Former smoker ?Additional Findings: Tobacco non-user?Ex-cigarette smoker ???Drugs/Alcohol:?Drugs?Have you used drugs other than those for medical reasons in the past 12 months??No ???Miscellaneous:?Caffeine: yes, frequency: 1-2 cups per day. ?Children: yes. ?Exercise: yes, walking. ?Marital status: . ?Occupation: Retired - [employer]. ???Drug/Alcohol:?AUDIT-C (Standard)?Did you have a drink containing alcohol in the past year??No ?Points?0 ?Interpretation?Negative * Medications:?TakingAricept 1 0 MG Tablet 1 tablet at bedtime Orally Once a day Norvasc 2.5 MG Tablet 1 tablet Orally Once a day Protonix 20 MG Tablet Delayed Release 1 tablet Orally Once a day Ammonium Lactate 12 % Cream 1 application Externally Twice a day Metoprolol Succinate 50 MG Capsule ER 24 Hour Sprinkle 1 capsule Orally Once a day metFORMIN HCl 500 MG Tablet 1 tablet with a meal Orally Once a day Losartan Potassium 100 MG Tablet 1 tablet Orally Once a day Atorvastatin Calcium 20 MG Tablet 1 tablet Orally Once a day Eliquis 5 MG Tablet as directed Orally Multivitamin - Tablet 1 tablet Orally Once a day Taking Aricept 10 MG Tablet 1 tablet at bedtime Orally Once a day Taking Norvasc 2.5 MG Tablet 1 tablet Orally Once a day Taking Protonix 20 MG Tablet Delayed Release 1 tablet Orally Once a day Taking Ammonium Lactate 12 % Cream 1 application Externally Twice a day Taking Metoprolol Succinate 50 MG Capsule ER 24 Hour Sprinkle 1 capsule Orally Once a day Taking metFORMIN HCl 500 MG Tablet 1 tablet with a meal Orally Once a day Taking Losartan Potassium 100 MG Tablet 1 tablet Orally Once a day Taking Atorvastatin Calcium 20 MG Tablet 1 tablet Orally Once a day Taking Eliquis 5 MG Tablet as directed Orally Taking Multivitamin - Tablet 1 tablet Orally Once a day Not-Taking/PRNCitalopram Hydrobromide 10 MG Tablet 1 tablet Orally Once a day Ammonium Lactate 12 % Cream 1 application to affected area Externally to feet Twice a day Cephalexin 500 MG Capsule 1 capsule Orally every 6 hrs Silvadene 1 % Cream 1 application Externally Once a day Augmentin 500-125 MG Tablet 1 tablet Orally every 8 hrs Vitamin E 400 UNIT Tablet 1 tablet Orally Once a day Glucosamine Chondr 500 Complex - Capsule as directed Orally Furosemide 40 MG Tablet 1 tablet Orally Once a day Echinacea 380 MG Capsule as directed Orally Calcium + D3 600-800 MG-UNIT Tablet 1 tablet with a meal Orally Once a day Vitamin C 1000 MG Tablet 1 tablet Orally Once a day zzzCompression Stockings 20-30mm Hg 1 pair closed toe- knee high . . . Donepezil HCl 10 MG Tablet Oral Compression Stockings 20- 30mm Hg closed toe- knee high as directed Aspirin 81 MG Tablet Chewable 1 tablet Orally Once a day Medication List reviewed and reconciled with the patientNot-Taking/PRN Citalopram Hydrobromide 10 MG Tablet 1 tablet Orally Once a day Not-Taking/PRN Ammonium Lactate 12 % Cream 1 application to affected area Externally to feet Twice a day Not-Taking/PRN Cephalexin 500 MG Capsule 1 capsule Orally every 6 hrs Not-Taking/PRN Silvadene 1 % Cream 1 application Externally Once a day Not- Taking/PRN Augmentin 500-125 MG Tablet 1 tablet Orally every 8 hrs Not-Taking/PRN Vitamin E 400 UNIT Tablet 1 tablet Orally Once a day Not-Taking/PRN Glucosamine Chondr 500 Complex - Capsule as directed Orally Not-Taking/PRN Furosemide 40 MG Tablet 1 tablet Orally Once a day Not-Taking/PRN Echinacea 380 MG Capsule as directed Orally Not- Taking/PRN Calcium + D3 600-800 MG-UNIT Tablet 1 tablet with a meal Orally Once a day Not-Taking/PRN Vitamin C 1000 MG Tablet 1 tablet Orally Once a day Not- Taking/PRN zzzCompression Stockings 20-30mm Hg 1 pair closed toe- knee high . . . Not- Taking/PRN Donepezil HCl 10 MG Tablet Oral Not-Taking/PRN Compression Stockings 20-30mm Hg closed toe- knee high as directed Not-Taking/PRN Aspirin 81 MG Tablet Chewable 1 tablet Orally Once a day Medication List reviewed and reconciled with the patient * Allergies:?N.K.D.A.yes[Aller gies Verified] Objective: * Vitals:?Ht: 5 ft 3 in, Wt:11 0.8, Shoe size: 9-10, BP:122/60mm Hg, BS: not taken. * ???Past Orders: ???Lab:HEMOGLOBIN A1C (GLYCO HEMOGLOBIN) (Order Date - 06/04/2024) (Collection Date & Time - 03/10/2024) ? Value Reference Range ?HEMOGLOBIN A1C (HH) 7.5 * Examination: ???Ophthalmology Referral: ?DIABETES EYE EXAM?Procedure Performed:?No ?Eye Exam not performed:?No reason specified ?Diabetic Retinopathy Screening:?No ?Findings of Diabetic Eye Exam:?no retinopathy?General Examination: ?GENERAL APPEARANCE:?Reveals a pleasant, alert, well nourished, well- developed, well hydrated individual, who demonstrates proper attention to hygiene/body habitus, and is in no acute distress , Pt accompanied by , Female , Daughter , and/who is physically present in exam room at time of visit , additional Historian.?FOOT EXAM:?Lower Extremity Neurological Exam performed:?Yes ?Visual exam of foot performed:?Yes ?Date?09/09/2024 ?Sensory testing performed:?sensations diminished ?Sensory and motor testing performed:?sensations diminished ?Pedal pulse taking performed:?1+?Dermatologic: ?SKIN FINDINGS:? Skin exam reveals Keratotic lesion(s) located at, Plantar, Heel(s), B/L.?Neurological: ?SENSORY:?Neurological exam demonstrates, reduced light touch sensation, reduced sharp/dull pin prick discrimination , reduced vibration sensation, 5.07 monofilament test performed at plantar aspects of 5 varied sites per foot shows sensation, absent, at Forefoot, B/L, Pt relates,cont.?anesthesia.?Nails: ?NAILS are:? Elongated, overgrown, dystrophic, lytic, greater than 3mm thick, discolored and friable with crumbly malodorous subungual debris, with pain on palpation, ,1-5 B/L.?Vascular: ?DP PULSES (B):?, 1/4, B/L.?PT PULSES (B):? 0/4, B/L.?CAPILLARY FILL TIME:?delayed, all digits, B/L.?TROPHIC CONDITION-TEXTURE/ELASTICITY/TURGOR/HAIR GROWTH (B):?fragile, thin, shiny skin, with sparse to absent hair growth, B/L.?TEMPERTURE GRADIENT (C):?decreased, cool to cool, proximal to distal, B/L.?PIGMENTATION:?rubrous, B/L.?EDEMA (C):?1/4, B/L, Ankle(s), Leg(s).? Assessment: * Assessment: 1.?Tinea unguium - B35.1???2 .?Type 2 diabetes mellitus with diabetic polyneuropathy - E11.42 (Primary)???3.?Localized edema - R60.0???4.?Atherosclerosis of [place] artery of both lower extremities, with unspecified presence of clinical manifestation - I70.203??? Plan: * Treatment: 2.?Tinea unguium?Procedure: 56284-LERZPCU NAIL, 6 OR MORE * Procedures:?Debride Nail 6-10:?Nail debridement?Performance of this nail treatment by a nonprofessional would put this patients foot and overall health at risk. Therefore, debridement to affected nail(s), as described in exam, was performed extensively to reduce/remove overall nail length, girth, thickness, subungual debris, and necrotic tissue, by manual and/or electrical means through the use of a nail nipper and/or dremel-type hob grinder, to a more viable healthy nail plate or bed tissue 6-10 nails in total. Silver nitrate was used for any petechial bleeding as necessary. Definitive antifungal treatment options, both pharmaceutical and surgical, have been reviewed and discussed with the patient. The patient solely prefers the use of intermittent/as needed professional debridement services for their nail condition and understands the need for additional periodic treatments to maintain effectiveness in symptomatic relief - 76105.?Patient chooses ?debridement treatment only; no pharmaceutical tx.?Keratoma Treatment:?Parring or Cutting of Benign Hyperkeratotic Lesion(s)?(-56) 2-4 Lesions - The Benign hyperkeratotic lesions, ( 2 ) in total, locations as stated and described in exam, were pared, and/or cut utilizing a sterile 15 blade, tissue nippers, and/or power dremel instrumentation - 15935.? * Procedure Codes:?12679 DEBRI DE NAIL, 6 OR MORE, Modifiers: XS 77891 TRIM SKIN LESIONS, 2 TO 4, Modifiers: XS * Preventive Medicine:? ??Counseling:?Discussion:?-12: Office or other outpatient visit for the evaluation and management of an established patient, which required a medically appropriate history and/or examination and STRAIGHTFORWARD level of MEDICAL DECISION MAKING, 1 SELF-LIMITED OR MINOR PROBLEM, MINIMAL- NO AMOUNT/COMPLEXITY OF DATA TO BE REVIEWED/ANALYZED, AND MINIMAL RISK OF COMPLICATION/MORBIDITY. The visit on the day of the encounter encompassed interpreting the data and educating the patient as to the nature of their condition, treatment options available according to their individual PMH, meds, allergies, and overall health/living conditions, as well as any potential risks or complications that may occur from a failure to adhere to, and participate in, the recommended course of therapy. The discussion included a complete verbal, and/or written explanation of the examination results, any x-rays taken, the proposed diagnosis, and outline of the treatment plan. A schedule for future care needs was also explained. The patient verbalized an understanding of the instructions at this time and agreed to be an active participant in their treatment. If the patient should think of any questions or concerns after the visit, I have encouraged the patient to call the office.?Edema:?Discussed other tx options for the patients condition, The patient wishes to continue with the present treatment plan for their condition given its success.? * Follow Up:?3 Months * Images: * Sign off status: Completed true * Provider:?Gavi Martinez DPM Date:?2023 Generated for Ciara sellers/Josseline/Solitting on:?12/08/2024 02:23 PM EST History and Physical Notes * HPI (History of Present Illness) Category Sub-Category Detail Notes Category Not es Skin problems Nature: swelling Location: B/L Duration: several months Course: , improved Treatments: elevation and compre ssion stockings At Risk footcare Pt States Last PCP Visit: Date: 4 Examination Category Sub-Category Detail Notes Category Not es Neurological SENSORY: Neurological exa m demonstrates, reduced light touch sensation, reduced sharp/dull pin prick discrimination , reduced vibration sensation, 5.07 monofilament test performed at plantar aspects of 5 varied sites per foot shows sensation, absent, at Forefoot, B/L, Pt relates,cont. anesthesia Dermatologic SKIN FINDINGS: Skin exam reveal s Keratotic lesion(s) located at, Plantar, Heel(s), B/L General Examination GENERAL APPEARANCE: Reveals a pleasant, alert, well nourished, well-developed, well hydrated individual, who demonstrates proper attention to hygiene/body habitus, and is in no acute distress , Pt accompanied by , Female , Daughter , and/who is physically present in exam room at time of visit , additional Historian FOOT EXAM: Lower Extremity Neurological Exa m performed:: Yes Visual exam of foot performed:: Yes Date: 09/09/2024 Sensory testing performed:: sensations d iminished Sensory and motor testing performed:: se nsations diminished Pedal pulse taking performed:: 1+ Ophthalmology Referral DIABETES EYE EXAM Procedure Perform ed:: No Eye Exam not performed:: No reason speci fied Diabetic Retinopathy Screening:: No Findings of Diabetic Eye Exam:: no retin opathy Vascular DP PULSES (B): , 1/4, B/L PT PULSES (B): 0/4, B/L CAPILLARY FILL TIME: delayed, all digits , B/L TEMPERTURE GRADIENT (C): decreased, cool to cool, proximal to distal, B/L TROPHIC CONDITION-TEXTURE/ELASTICITY/TURGOR/HAIR GROWTH (B): fragile, thin, shiny skin, with sparse t o absent hair growth, B/L EDEMA (C): 1/4, B/L, Ankle(s), Leg(s) PIGMENTATION: rubrous, B/L Nails NAILS are: Elongated, overg rown, dystrophic, lytic, greater than 3mm thick, discolored and friable with crumbly malodorous subungual debris, with pain on palpation, ,1-5 B/L
--- OUTSIDE RECORDS SUMMARY | 2024-12-08 14:23 | XMS_ITS ---
Author Organization [facility] Address [address] [place] [address] Care Team Providers Care Restaurant Managing Partner Name Role Phone Elham Solares Primary Care Provider Gavi Perry [phone] Encounters Encounter Location Date Provider Diagnosis [address] [address] 04/28/2024 Gavi Martinez Plan Of Treatment Next Appt Details Provider Name:Gavi Martinez , 01/12/2025 09:30:00 AM, [address] [facility], [place], [address], Progress Notes * Becky MEADDOB: 2 (84 yo F)Acc No.[id number]:04/28/2024 Progress Note Patient:?Becky MEAD Provider:?Gavi Martinez DPM :1940???Age:84 Y???Sex:Female D ate:04/28/2024 Address:[facility], [address] [place] [address] Pcp:Elham Solares Subjective: * Chief Complaints: * ??? * Medical History:? Objective: * Vitals:? Assessment: Plan: * Treatment: * Images: * The named appointment provid er may or may not be the originator of this progress note, and it is not deemed complete until electronically signed by the appointment provider. Sign off status: Pending * Provider:?Gavi Martinez DPM Date:?2023 Generated for Ciara sellers/Josseline/Eleanor on:?12/08/2024 02:23 PM EST
--- OUTSIDE RECORDS SUMMARY | 2024-12-08 14:23 | XMS_ITS | Clinical Summary ---
Author Organization [facility] ity Address [address] [place] [address] Care Team Providers Care Gear And Spline Grinder Name Role Phone Elham Solares MD Primary Care Provider [phone] Allergies Active Allergy Reactions Criticality Noted Date Comments Neomycin-Polymyxin B Gu 07/18/2009 Other Reaction(s): Rash/Dermatitis Medications amLODIPine (NORVASC) 5 mg tablet TAKE ONE TABLET BY MOUTH AT BEDTIME 07/17/2023 Active FREESTYLE LANCETS MISC USE TWO TIMES A DAY FOR BLOOD SUGAR TESTING 09/11/2019 Active blood sugar diagnostic (FreeStyle Lite Strips) test strip USE TO TEST BLOOD SUGAR ONCE DAILY 04/21/2020 Active multivitamin (MULTIPLE VITAMINS ORAL) 1 Q.D. Activ e apixaban (ELIQUIS) 5 mg tablet Take 5 mg by mouth 2 times daily. Active atorvastatin (LIPITOR) 20 mg tablet Take 1 Tablet by mouth at bedtime. 08/14/2023 Active calcium carbonate-vitam in D3 600 mg-5 mcg (200 unit) per tablet Take by mouth 2 times daily.2 tabs AM 7 1 tab PM Active donepeziL (ARICEPT) 10 mg tablet Take 1 tablet (10 mg total) by mouth at bedtime. Active losartan (COZAAR) 100 mg tablet TAKE ONE TABLET BY MOUTH AT BEDTIME 07/17/2023 Active metFORMIN (GLUCOPHAGE) 500 mg tablet TAKE ONE TABLET BY MOUTH EVERY DAY (WITH BREAKFAST) 07/17/2023 Active metoprolol succinate (TOPROL-XL) 25 mg 24 hr tablet TAKE ONE TABLET BY MOUTH AT BEDTIME 07/17/2023 Active Active Problems Problem Noted Date Diagnosed Date Diabetic foot ulcer 06/24/2021 Overview (10/12/2024): Dr. 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 Martinez Dementia 05/23/2020 Overview (10/12/2024): Dr. Armstrong Microalbuminuria 11/19/2013 Kidney stone 08/29/2010 Overview (10/12/2024): 4 mm left UPJ stone 08/16 Basal cell carcinoma, face 03/28/2009 Overview (10/12/2024): BCC 08/23 left cheek (metatypical type) 03/15 left infraorbital rim (nodular) DM (diabetes mellitus), type 2 with renal compli cations 01/21/2009 Hypercholesterolemia 06/06/2006 DVT of leg (deep venous thrombosis) 05/30/2006 Overview (10/12/2024): with phlebitis, several times Recurrent DVT 04/27 Headache 05/30/2006 Hypertension 05/30/2006 Osteoporosis 05/30/2006 Overview (10/12/2024): 05/2008: T score spine -2.6 hip -1.8 05/2013: T score spine -2.8 hip -2.0 06/2016: T score spine -2.6 hip -3.1 06/2021: T-score lumbar (-2.2); hip (-4.2) Venous insufficiency 05/30/2006 Umbilical hernia 05/30/2006 Overview (10/12/2024): recurrent, repaired 2004 Immunizations Name Administration Dates Next Due Influenza Quadravalent, MDCK , 0.5ml, preservative free (Flucelvax) 6mo and older 12/11/2022 Influenza trivalent, 0.5mL ( Fluad) 65yo and older 07/11/2019,06/22/2017,07/19/2016 Influenza trivalent, 0.5mL, preservative free (Fluarix; FluLaval; Fluzone) ages 6mo and older (Afluria) 3 years and older 07/21/2018,07/03/2014,06/07/2012,07/07,07/18/2009,07/09/2008,07/07/2007 Influenza, Unspecified 07/02/2015,07/22/2013 Pneumococcal conjugate 13 va lent (Prevnar 13, PCV13) 2mo and older 02/21/2015 Pneumococcal polysaccharide 23 valent (Pneumovax 23) 2yo and older 07/28/2013,07/07/2007 Td Tetanus diptheria (Tdvax) 7yo and older 03/04/2019,11/14/2007,09/06/1994 Surgical History Surgery Date Site/Laterality Comments HYSTERECTOMY PROCEDURE: HISTORICAL VAGINAL HYSTERECTOMY W/O BSO; COMMENT: ovaries still present COLONOSCOPY 10/2003 PROCEDURE: MT COLONOSCOPY STOMA DX INCLUDING COLLJ SPEC SPX OTHER SURGICAL HISTORY 07/2012 PROCEDURE: MAMMOGRAM HERNIA REPAIR PROCEDURE: HISTORICAL HERNIA REPAIR/UMB BREAST BIOPSY Left PROCEDURE: BX BREAST; PERC NEEDLE CORE W/IMAG GUID; COMMENT: cyst asp OTHER SURGICAL HISTORY PROCEDURE: HISTORICAL MELANOMA OTHER SURGICAL HISTORY 11/12/2023 PROCEDURE: MT TRLML BALO ANGIOP OPEN/PERQ W/IMG S&I 1ST VEIN OTHER SURGICAL HISTORY 11/12/2023 PROCEDURE: MT TRLML BALO ANGIOP OPEN/PERQ W/IMG S&I ADDL VEIN; COMMENT: x4 OTHER SURGICAL HISTORY 11/12/2023 PROCEDURE: MT PRIM PRQ TRLUML MCHNL THRMBC N-COR N-ICRA 1ST OTHER SURGICAL HISTORY 11/12/2023 PROCEDURE: MT PRIM PRQ TRLUML MCHNL THRMBC N-COR N-ICRA SBSQ; COMMENT: x4 OTHER SURGICAL HISTORY 11/12/2023 PROCEDURE: MT INTRAVASCULAR US NONCORONARY RS&I INTIAL VESSEL OTHER SURGICAL HISTORY 11/12/2023 PROCEDURE: MT INTRAVASCULAR US NONCORONARY RS&I ADDL VESSEL; COMMENT: x5 OTHER SURGICAL HISTORY 11/12/2023 PROCEDURE: ULTRASOUND GUIDANCE FOR VASCULAR AC Medical History Medical History Date Comments Essential hypertension, benign 05/30/2006 D X:Essential hypertension, benign Osteoporosis, unspecified 05/30/2006 DX:Ost eoporosis, unspecified Headache(784.0) 05/30/2006 DX:Headache(784. 0) Unspecified venous (peripher al) insufficiency 05/30/2006 DX:Unspecified venous (perip heral) insufficiency Historical Medical DX 05/30/2006 DX:Other a cute embolism veins; COMMENT: with phlebitis, several times Umbilical hernia without men tion of obstruction or gangrene 05/30/2006 DX:Umbilical hernia without mention of obstruction or gangrene; COMMENT: recurrent Pure hypercholesterolemia 06/06/2006 DX:Pur e hypercholesterolemia Other abnormal glucose 12/23/2006 DX:Other abnormal glucose Diabetes mellitus type II, c ontrolled ([facility]) 01/21/2009 DX:Diabetes mellitus type II , controlled ([facility]) Historical Medical DX 03/28/2009 DX:Basal c ell carcinoma of the skin Kidney stone 08/29/2010 DX:Kidney stone Other specified personal his tory presenting hazards to health(V15.89) DX:Other specifie d personal history presenting hazards to health(V15.89); COMMENT: ca in lt eye unsure what kind Cognitive impairment 05/23/2020 DX:Cognitiv e impairment Family History Medical History Relation Name Comments Breast cancer Aunt m.aunt 60s maternal x2 Heart attack Brother 49 Other: factor V deficiency Daughter Other: carbon monoxide poisoning Father Other: osteoporosis Mother cerebral hemorrhage Other: glycogen storage disease Other grandson Relation Name Status Comments Aunt m.aunt 60s Brother Daughter Father Mother Other Social History Tobacco Use Types Packs/Day Years Used Date Smoking Tobacco: Former Cigarettes Q uit: 10/07/1959 Smokeless Tobacco: Never Alcohol Use Standard Drinks/Week Comments No 0 (1 standard drink = 0.6 oz pur e alcohol) Comments Unknown Sex and Gender Information Value Date Recorded Sex Assigned at Not on file Legal Sex Female 8:05 AM EST Gender Identity Not on file Sexual Orientation Not on file Obstetrics History Last Filed Vital Signs Vital Sign Reading Time Taken Comments Blood Pressure 130/60 08/14/2023 4:12 PM EST Pulse 80 08/14/2023 4:12 PM EST Temperature - - Respiratory Rate - - Oxygen Saturation - - Inhaled Oxygen Concentration - - Weight 50.3 kg (111 lb) 08/14/2023 4:12 PM EST Height 157.5 cm (5' 2 ) 08/14/2023 4:12 PM EST Body Mass Index 20.3 08/14/2023 4:12 PM EST Plan of Treatment Health Maintenance Due Date Last Done Comments Diabetes: Annual Foot Exam 1952 Diabetes: Annual Retina Eye Exam 1950 Zoster Vaccines (1 of 2) 1961 RSV Immunization Patients 60+ Years Old (1 - 1-dose 75+ series) 2017 COVID-19 Vaccine (3 - Moderna risk series) 08/23/2021 07/26/2021, 06/28/2021 Depression Screening 09/15/2022 Falls Risk Assessment 09/15/2022 Social Influencers of Health Screening 09/15/2022 Diabetes: Blood Sugar Control Test (HGBA1C) 02/12/2024 08/14/2023 Diabetes: Annual Urine Albumin-Creatinine Ratio (uACR) 08/14/2024 08/14/2023 Diabetes: Annual GFR (Glomerular Filtration Rate) 08/14/2024 08/14/2023 Hypertension/CHF/CAD Annual BMP Blood Test 08/14/2024 08/14/2023 Medicare Annual Wellness Visit 12/05/2024 12/06/2023 Cholesterol Screening (Lipid Panel) 03/21/2028 03/21/2023 DTaP,Tdap,and Td Vaccines (4 - Td or Tdap) 03/04/2029 03/04/2019, 11/14/2007, 09/06/1994 Osteoporosis Screening (Bone Density Screening) 06/26/2031 06/26/2021 Pneumococcal Vaccine: 50+ Years Completed 02/21/2015, 07/28/2013, 07/07/2007 Influenza Vaccine Completed 07/22/2024, , 07/11/2019, Additional history exists HIB Vaccines Aged Out No longer eligi ble based on patient's age to complete this topic HPV Vaccines Aged Out No longer eligi ble based on patient's age to complete this topic Hepatitis A Vaccines Aged Out No long er eligible based on patient's age to complete this topic Hepatitis B Vaccines Aged Out No long er eligible based on patient's age to complete this topic IPV Vaccines Aged Out No longer eligi ble based on patient's age to complete this topic MMR Vaccines Aged Out No longer eligi ble based on patient's age to complete this topic Meningococcal ACWY Vaccine Aged Out N o longer eligible based on patient's age to complete this topic Meningococcal B Vacine Aged Out No lo nger eligible based on patient's age to complete this topic RSV Immunization Patients Under 20 months Aged Out No longer eligible based on patient's age to complete this topic Varicella Vaccines Aged Out No longer eligible based on patient's age to complete this topic Procedures Procedure Name Priority Date/Time Associated Diagnosis Comments URINE ALBUMIN CREATININE RATIO Routine 08/14/2023 ANNUAL BMP BLOOD TEST Routine 08/14/2023 HEMOGLOBIN A1C Routine 08/14/2023 LIPID PANEL Routine 03/21/2023 DXA BONE DENSITY STUDY 1+ SITS AXIAL SKEL Routine 06/26/2021 2:09 PM EDT Age-related osteoporosis without current pathological fracture from Last 3 Months or Most Recently Relevant to Health Maintenance Results * Urine Albumin Creatinine Ratio (08/14/2023) Pathologist [facility] Urine Albumin Creatinine Ratio abstracted [facility] Provider HEALTH MAINTENANCE Final Result * Annual BMP Blood Test (08/14/2023) Pathologist [facility] Annual BMP Blood Test abstracted [facility] Provider HEALTH MAINTENANCE Final Result * (ABNORMAL) Hemoglobin A1c (08/14/2023) [facility] Hemoglobin A1C 6.9(A) <=6.5 % Blood Venous blood specimen / Unknown [facility] Provider LAB BLOOD ORDERABLES Olga l Result * (ABNORMAL) Lipid panel (03/21/2023) LDL/HDL Ratio 3 0 - 4 Triglycerides 140 0 - 150 mg/dL Cholesterol 206(A) 0 - 200 mg/dL HDL 71 >=40 mg/dL LDL Cholesterol 107(A) 0 - 100 mg/dL Blood Venous blood specimen / Unknown us Historical Provider LAB BLOOD ORDERABLES Olga l Result * DXA BONE DENSITY STUDY 1+ SITS AXIAL SKEL (06/26/2021 2:09 PM EDT) Anatomical Region Laterality Modality Bone Densitometr y 03/09/2021 3:28 PM EDT Narrative 06/26/2021 5:36 PM EDT BONE DENSITY ? Lumbar Spine T-score is -2.2 ?? (SD relative to 20-29 y/o adult) Z-score is -0.6 ??(SD relative to age matched peers) This is consistent with osteopenia by criteria defined by the WHO. Left Hip T-score is -4.2 Z-score is -1.9 This is consistent with osteoporosis by criteria defined by the WHO. Comparison exam(s): significant decrease in bone density of ??hip and lumbar spine when compared to most recent bone density examination ?? Confidence level is +/-95%. Impression: Based on the World Health Organization criteria, Ebcky Y Alyce should be classified as having osteoporosis. The [facility] Department of Internal Medicine recommends using National Osteoporosis Foundation (NOF) guidelines in treatment decisions related to osteoporosis. NOF guidelines suggest considering treatment for postmenopausal women and men aged 50 or older presenting with the following: History of hip or vertebral fracture. T-score less than or equal to -2.5 (DXA) at the femoral neck, total hip, or spine, after appropriate evaluation to exclude secondary causes. Low bone mass (T-score between -1.0 and -2.5 at the femoral neck or spine) AND a 10-year probability of a hip fracture greater than or equal to 3% OR a 10-year probability of a major osteoporosis-related fracture greater than or equal to 20% based on the [place]-adapted WHO algorithm Please note that all treatment decisions require clinical judgment and consideration of individual patient factors, including patient preferences, co-morbidities, previous drug use, risk factors not captured in the FRAX model (e.g., frailty, falls, vitamin D deficiency, increased bone turnover, interval significant decline in bone density) and possible under- or over-estimation of fracture risk by FRAX. Procedure Note Chema Morrissey MD - 09/25/2022 BONE DENSITY Lumbar Spine T-score is -2.2 (SD relative to 20-29 y/o adult) Z-score is -0.6 (SD relative to age matched peers) This is consistent with osteopenia by criteria defined by the WHO. Left Hip T-score is -4.2 Z-score is -1.9 This is consistent with osteoporosis by criteria defined by the WHO. Comparison exam(s): significant decrease in bone density of hip andlumbar spine when compared to most recent bone density examination Confidence level is +/-95%. Impression: Based on the World Health Organization criteria, Becky eMad shouldbe classified as having osteoporosis. The [facility] Department of Internal Medicine recommendsusing National Osteoporosis Foundation (NOF) guidelines in treatmentdecisions related to osteoporosis. NOF guidelines suggest consideringtreatment for postmenopausal women and men aged 50 or older presentingwith the following: History of hip or vertebral fracture. T-score less than or equal to -2.5 (DXA) at the femoral neck, total hip,or spine, after appropriate evaluation to exclude secondary causes. Low bone mass (T-score between -1.0 and -2.5 at the femoral neck or spine)AND a 10-year probability of a hip fracture greater than or equal to 3% ORa 10-year probability of a major osteoporosis-related fracture greaterthan or equal to 20% based on the [place]-adapted WHO algorithm Please note that all treatment decisions require clinical judgment andconsideration of individual patient factors, including patientpreferences, co-morbidities, previous drug use, risk factors not capturedin the FRAX model (e.g., frailty, falls, vitamin D deficiency, increasedbone turnover, interval significant decline in bone density) and possibleunder- or over-estimation of fracture risk by FRAX. 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 Health Care Decision (hx) 11/18/2023 AD GARDNER DIRECTIVE Health Care Decision (hx) 11/18/2023 AD GARDNER DIRECTIVE Health Care Decision (hx) 11/18/2023 AD GARDNER DIRECTIVE Health Care Decision (hx) 11/13/2023 AD GARDNER DIRECTIVE Health Care Decision (hx) 11/13/2023 AD GARDNER DIRECTIVE Health Care Decision (hx) 11/13/2023 AD GARDNER DIRECTIVE Health Care Decision (hx) 11/12/2023 AD GARDNER DIRECTIVE Health Care Decision (hx) 11/12/2023 HE ALTH CARE PROXY Health Care Decision (hx) 11/12/2023 HE ALTH CARE PROXY Health Care Decision (hx) 11/12/2023 AD GARDNER DIRECTIVE Health Care Decision (hx) 11/12/2023 AD GARDNER DIRECTIVE Health Care Decision (hx) 11/12/2023 HE ALTH CARE PROXY Care Teams Gear And Spline Grinder Relationship Specialty Start Date End Date Elham Solares MD [address] [place] [id number] PCP - General 04/06/1993
--- OUTSIDE RECORDS SUMMARY | 2024-12-08 14:24 | XMS_ITS | Clinical Summary ---
Author Organization [facility] Address [phone] [place] [address] Care Team Providers Care Adjunct Teacher Name Role Phone Unavailable Primary Care Provider Unavailabl e Social History Tobacco Use Types Packs/Day Years Used Date Smoking Tobacco: Never Assessed Education Answer Date Recorded Are you interested in more education? Not on jarocho e 02/02/2023 Are you concerned about learning? Not on file 02/02/2023 No 02/02/2023 No 02/02/2023 Digital Access Answer Date Recorded No 03/05/2023 No 03/05/2023 Reliable internet access at home? Not on file 03/05/2023 Device with a working camera? Not on file Sex and Gender Information Value Date Recorded Sex Assigned at Not on file Gender Identity Not on file Sexual Orientation Not on file Plan of Treatment Not on file Medical Devices Not on file Additional Source Comments The information contained in this document represents components of the legal health record. It is not the complete legal health record.[facility]
--- OUTSIDE RECORDS SUMMARY | 2024-12-08 14:24 | XMS_ITS | Patient Health Record ---
[facility] Address [address] [place] [address] Care Team Providers Care Acid Pumper Name Role Phone Elham Solares Primary Care Provider Gavi Perry Unavailable [phone] Manuel Ballard Unavailable [phone] Allergies No Known Allergies Results Component Value Reference Range Notes HEMOGLOBIN A1C (GLYCOHEMOGLO BIN) Reviewed date:06/04/2024 11:01:21 AM Interpretation: Performing Lab: Notes/Report: HEMOGLOBIN A1C (HH) 7.5 Reason For Referral No Information Medications Medication SIG (Take, Route, Frequency, Duration) Notes Start Date End Date Status Norvasc 2.5 MG 1 tablet Orally Once a day for 30 day(s) Active Compression Stockings 20-30mm Hg as directed 06/01/2024 Not-Taking Aricept 10 MG 1 tablet at bedtime Orally Once a day for 30 day(s) Active Donepezil HCl 10 MG Oral for 30 Not-Taking Ammonium Lactate 12 % 1 application Externally Twice a day for 30 days Active Protonix 20 MG 1 tablet Orally Once a day for 30 day(s) Active Aspirin 81 MG 1 tablet Orally Once a day for 30 day(s) Not-Taking Calcium + D3 600-800 MG-UNIT 1 tablet with a meal Orally Once a day for 30 day(s) Not-Taking Echinacea 380 MG as directed Orally Not-Taking zzzCompression Stockings 20-30mm Hg . . . for . Not-Taking Vitamin C 1000 MG 1 tablet Orally Once a day for 30 day(s) Not-Taking Metoprolol Succinate 50 MG 1 capsule Ora lly Once a day for 30 day(s) Active Losartan Potassium 100 MG 1 tablet Orall y Once a day for 30 day(s) Active metFORMIN HCl 500 MG 1 tablet with a hanny l Orally Once a day for 30 day(s) Active Cephalexin 500 MG 1 capsule Orally joseph ry 6 hrs for 5 day(s) Not-Taking Ammonium Lactate 12 % 1 application to affected area Externally to feet Twice a day for 30 days Not-Taking Augmentin 500-125 MG 1 tablet Orally joseph ry 8 hrs for 10 days 03/01/2021 Not-Taking Silvadene 1 % 1 application Externally Once a day for 30 days 03/01/2021 Not-Taking Eliquis 5 MG as directed Orally Active Atorvastatin Calcium 20 MG 1 tablet Oral ly Once a day Active Citalopram Hydrobromide 10 MG 1 tablet Orally Once a day for 30 day(s) Not-Taking Multivitamin - 1 tablet Orally Once a day for 30 day(s) Active Vitamin E 400 UNIT 1 tablet Orally Once a day for 30 day(s) Not-Taking Furosemide 40 MG 1 tablet Orally Once a day for 30 day(s) Not-Taking Glucosamine Chondr 500 Complex - as directed Orally Not-Takin g Immunizations Vaccine Route Administration Date Status Comme nts Influenza Unknown 07/14/2021 Administered Influenza Unknown 07/09/2022 Administered Influenza Unknown 06/07/2023 Administered Social History Tobacco Use: Social History Observation [...] Problem Status W/U Status Risk Notes Problem Ulcer of foot (91164209) Non-pressure chronic ulcer of other part of left foot limited to breakdown of skin (L97.521) Active confirmed Problem Ulcer of foot (36350415) Non-pressure chronic ulcer of other part of right foot limited to breakdown of skin (L97.511) Active confirmed Problem Polyneuropathy due to type 2 diabetes mellitus (411467301) Type 2 diabetes mellitus with diabetic polyneuropathy (E11.42) Active confirmed Problem Atherosclerosis of [place] artery of both lower extremities, with unspecified presence of clinical manifestation (I70.203) Active confirmed Problem 17436934 Venous insufficiency (I87.2) Active confirmed Vital Signs Blood pressure diastolic 60 mm Hg 09/09/2024 Height 5 ft 3 in in 09/09/2024 Blood pressure systolic 122 mm Hg 09/09/2024 Weight 110.8 lbs 09/09/2024 BMI 18.42 kg/m2 06/01/2024 Procedures Procedure Date Ordered Date Performed Result Body Sit e 70547-IMXA SKIN LESIONS, 2 TO 4 01/15/2024 N/A 73692-FGRLTLD NAIL, 6 OR MORE 06/01/2024 N/A 84657-SHHK SKIN LESIONS, 2 TO 4 06/01/2024 N/A 77325-EQZXBRX NAIL, 6 OR MORE 09/09/2024 N/A 99303-ALJE SKIN LESIONS, 2 TO 4 09/09/2024 N/A Encounters Encounter Location Date Provider Diagnosis [facility] [address] [place] [address] 01/15/2024 Manuel Ballard Type 2 diabetes mellitus with diabetic polyneuropathy E11.42 ; Xerosis of skin L85.3 ; Tinea unguium B35.1 ; Pain in right toe(s) M79.674 ; Pain in left toe(s) M79.675 ; Localized edema R60.0 and Unspecified atherosclerosis of [place] river arteries of extremities, bilateral legs I70.203 [facility] [address] [place] [address] 06/01/2024 Gavi Black Type 2 diabetes mellitus with diabetic polyneuropathy E11.42 ; Tinea unguium B35.1 ; Pain in right toe(s) M79.674 ; Pain in left toe(s) M79.675 ; Localized edema R60.0 and Unspecified atherosclerosis of [place] arteries of extremities, bilateral legs I70.[address] [address] 09/09/2024 Gavi Black Type 2 diabetes mellitus with diabetic polyneuropathy E11.42 ; Tinea unguium B35.1 ; Localized edema R60.0 and Atherosclerosis of [place] artery of both lower extremities, with unspecified presence of clinical manifestation I70.[address] [facility] [address] [place] [address] [address] [place] [address] 12/25/2023 Gavi Martinez [facility] [address] [place] [address] 04/27/2024 Gavi Martinez Assessments Encounter Date Diagnosis (ICD Code) Assessment Notes Treatment Notes Treatment Clinical Notes Section Notes 01/15/2024 Type 2 diabetes mellitus with diabetic polyneuropathy (ICD-10 - E11.42) 06/01/2024 Tinea unguium (ICD-10 - B35.1) 06/01/2024 Type 2 diabetes mellitus with diabetic polyneuropathy (ICD-10 - E11.42) 09/09/2024 Tinea unguium (ICD-10 - B35.1) 09/09/2024 Type 2 diabetes mellitus with diabetic polyneuropathy (ICD-10 - E11.42) 09/09/2024 Localized edema (ICD-10 - R60.0) 06/01/2024 Pain in right toe(s) (ICD-10 - M79.674) 01/15/2024 Xerosis of skin (ICD-10 - L85.3) 01/15/2024 Tinea unguium (ICD-10 - B35.1) 01/15/2024 Pain in right toe(s) (ICD-10 - M79.674) 06/01/2024 Pain in left toe(s) (ICD-10 - M79.675) 09/09/2024 Atherosclerosis of [place] river artery of both lower extremities, with unspecified presence of clinical manifestation (ICD-10 - I70.203) 06/01/2024 Localized edema (ICD-10 - R60.0) 01/15/2024 Pain in left toe(s) (ICD-10 - M79.675) 01/15/2024 Localized edema (ICD-10 - R60.0) 06/01/2024 Unspecified atherosclerosis of [place] river arteries of extremities, bilateral legs (ICD-10 - I70.203) 01/15/2024 Unspecified atherosclerosis of [place] river arteries of extremities, bilateral legs (ICD-10 - I70.203) Plan Of Treatment Pending Test Test Name Order Date 78976-DEHUKAA NAIL, 6 OR MORE 03/01/2021 06668-WDZAEMM NAIL, 6 OR MORE 05/16/2021 32636-TJVHLKP NAIL, 6 OR MORE 09/20/2021 09486-JMIUXZT NAIL, 6 OR MORE 12/27/2021 76060-KULRWCR NAIL, 6 OR MORE 04/04/2022 88654-GDNMFVQ NAIL, 6 OR MORE 06/03/2023 92742-OMDZFMG NAIL, 6 OR MORE 06/01/2024 10503-KOZNRFA NAIL, 6 OR MORE 09/09/2024 65499-Lqqbgmuv Plate 06/03/2023 38126-Jcmtwngj Plate 03/01/2021 67912-Ukffitzj Plate Each Additional 61818- Debride <25 sq cm 03/15/2021 74377-PDAN SKIN LESIONS, 2 TO 4 12/28/19 22 20625-GLLI SKIN LESIONS, 2 TO 4 09/20/20 21 77323-WAFI SKIN LESIONS, 2 TO 4 09/09/20 24 05133-FDWB SKIN LESIONS, 2 TO 4 01/15/20 24 01669-EUCD SKIN LESIONS, 2 TO 4 06/01/20 24 08880-XXZO SKIN LESIONS, 2 TO 4 04/04/20 22 87228-YPFR SKIN LESION 06/03/2023 Next Appt Details Provider Name:Gavi Martinez , 01/12/2025 09:30:00 AM, [address] [facility], [place], [address], Insurance Providers Payer Name Payer Address Payer Phone Subscriber Number Group Number Insured Name Patient Relationship to Insured Coverage Start Date Coverage End Date Medicare National [employer]t [employer] [address] [facility] [place] [id number] Tetreaul t, March Self - patient is the insured for Life [address] [place] [id number] [phone] [id number] Tetreaul t, March Self - patient is the insured Medical (General) History Medical History History ICD Code Basal cell carcinoma type II diabetes Deep vein thrombosis microalbuminuria Kidney stones Hypertension Hypercholesterolemia Osteoporosis Headaches Venous insufficiency Umbilical hernia Dementia Depression Headaches/Migraines Neuropathy Surgical History Surgery Date(Month/Year) breast biopsy melanoma excision colonoscopy hysterectomy, vaginal blood clot removal 04/2022
--- OUTSIDE RECORDS SUMMARY | 2024-12-08 14:24 | XMS_ITS ---
Author Organization [facility] Address [address] [place] [address] Care Team Providers Care Metal Numerical Control Programmer Name Role Phone Elham Solares Primary Care Provider Anival pino Gavi Martinez Unavailable [phone] Allergies No Known Allergies REASON FOR VISIT At Risk Footcare, Skin problem(s) Medications Medication SIG (Take, Route, Frequency, Duration) Notes Start Date End Date Status Vitamin E 400 UNIT 1 tablet Orally Once a day for 30 day(s) Active Losartan Potassium 100 MG 1 tablet Orall y Once a day for 30 day(s) Active metFORMIN HCl 500 MG 1 tablet with a hanny l Orally Once a day for 30 day(s) Active Metoprolol Succinate 50 MG 1 capsule Ora lly Once a day for 30 day(s) Active Multivitamin - 1 tablet Orally Once a day for 30 day(s) Active Ammonium Lactate 12 % 1 application Externally Twice a day for 30 days Active Augmentin 500-125 MG 1 tablet Orally joseph ry 8 hrs for 10 days 03/01/2021 Not-Taking Silvadene 1 % 1 application Externally Once a day for 30 days 03/01/2021 Not-Taking Cephalexin 500 MG 1 capsule Orally joseph ry 6 hrs for 5 day(s) Not-Taking Compression Stockings 20-30mm Hg as directed 06/01/2024 Active Aspirin 81 MG 1 tablet Orally Once a day for 30 day(s) Not-Taking Eliquis Not-Taking Ammonium Lactate 12 % 1 application to affected area Externally to feet Twice a day for 30 days Active Donepezil HCl 10 MG Oral for 30 Active zzzCompression Stockings 20-30mm Hg . . . for . Active Vitamin C 1000 MG 1 tablet Orally Once a day for 30 day(s) Active Atorvastatin Calcium 10 MG 1 tablet Oral ly Once a day for 30 day(s) Active Calcium + D3 600-800 MG-UNIT 1 tablet with a meal Orally Once a day for 30 day(s) Active Citalopram Hydrobromide 10 MG 1 tablet Orally Once a day for 30 day(s) Active Echinacea 380 MG as directed Orally Active Furosemide 40 MG 1 tablet Orally Once a day for 30 day(s) Active Glucosamine Chondr 500 Complex - as directed Orally Active Social History Tobacco Use: Social History Observation Description Date Details (start date - stop date) Former Smoker NA - 10/07/1959 Tobacco Use/Smoking Question Answer Notes Are you a: former smoker When did you stop smoking? 10/07/1959 Additional Findings: Tobacco Non-User Current no n-smoker Alcohol Screen Question Answer Notes Did you have a drink containing alcohol in the p ast year? No Points 0 Interpretation Negative Tobacco use other than smoking: Question Answer Notes Are you an other tobacco user? 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, bilateral legs I70.203 Assessments Encounter Date Diagnosis (ICD Code) Assessment Notes Treatment Notes Treatment Clinical Notes Section Notes 06/01/2024 Type 2 diabetes mellitus with diabetic polyneuropathy (ICD-10 - E11.42) 06/01/2024 Tinea unguium (ICD-10 - B35.1) 06/01/2024 Pain in right toe(s) (ICD-10 - M79.674) 06/01/2024 Pain in left toe(s) (ICD-10 - M79.675) 06/01/2024 Localized edema (ICD-10 - R60.0) 06/01/2024 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 Perea Provider Name:Gavi Martinez , 01/12/2025 09:30:00 AM, [address] [place] [address], [place], [address], Procedure Notes * Category Sub-Category Detail Notes Debride Nail 6-10 Nail debridement Nail debridem ent performed extensively to reduce/remove overall nail length and girth, subungual debris, and necrotic tissue, by manual and electrical means with use of a nail nipper and/or dremel, to more viable healthy nail plate or bed tissue 6-10. Silver nitrate used for any petechial bleeding as necessary. Patient chooses, no pharmaceutical tx (60261) Keratoma Treatment Parring or Cutting o f Benign Hyperkeratotic Lesion(s) 46250 (2-4 Lesions) - The Benign hyperkeratotic lesions, as described above were pared, and/or cut utilizing a sterile #15 blade, tissue nippers, and/or dremel Progress Notes * ALYCE MarchDOB: 2 (84 yo F)Acc No.[id number]:06/01/2024 Progress Note Patient:?AlyceMarch Provider:?Gavi Martinez DPM :1940???Age:84 Y???Sex:Female D ate:06/01/2024 Address[address] Pcp:Elham Solares Subjective: * Chief Complaints: * ???At Risk FootcareSkin prob gilles(s) * HPI: ???At Risk footcare:?Pt States Last PCP Visit:?Date?05/11/2024 ???Skin problems:?Nature:?swelling.?Location:?B/L .?Duration:?several months.?Course:?worse.? * ROS:?General/Constitutional:?Nausea?denies.?Vomiting?denies.?Hunger Thirst?denies.?Loss appetite?denies.?Chills?denies.?Fatigue?denies.?Fever?denies.?Night Sweats?denies.?Unexplained weight loss?denies.?Unexplained [...] of unspecified site.? * Social History:?Tobacco Use:?Tobacco Use/Smoking?Are you a:?former smoker ?When did you stop smoking??10/07/1959 ?Additional Findings: Tobacco Non-User?Current non-smoker ?Tobacco use other than smoking?Are you an other tobacco user??No ???Drugs/Alcohol:?Drugs?Have you used drugs other than those for medical reasons in the past 12 months??No ?Alcohol Screen?Did you have a drink containing alcohol in the past year??No ?Points?0 ?Interpretation?Negative ???Miscellaneous:?Caffeine: yes, frequency: 1-2 cups per day. ?Children: yes. ?Exercise: yes, walking. ?Marital status: . ?Occupation: Retired - [employer]. * Medications:?TakingAmmonium Lactate 12 % Cream 1 application Externally Twice a dayVitamin E 400 UNIT Tablet 1 tablet Orally Once a dayMultivitamin - Tablet 1 tablet Orally Once a dayMetoprolol Succinate 50 MG Capsule ER 24 Hour Sprinkle 1 capsule Orally Once a daymetFORMIN HCl 500 MG Tablet 1 tablet with a meal Orally Once a dayLosartan Potassium 100 MG Tablet 1 tablet Orally Once a dayGlucosamine Chondr 500 Complex - Capsule as directed Orally Furosemide 40 MG Tablet 1 tablet Orally Once a dayEchinacea 380 MG Capsule as directed Orally Citalopram Hydrobromide 10 MG Tablet 1 tablet Orally Once a dayCalcium + D3 600-800 MG-UNIT Tablet 1 tablet with a meal Orally Once a dayAtorvastatin Calcium 10 MG Tablet 1 tablet Orally Once a dayVitamin C 1000 MG Tablet 1 tablet Orally Once a dayzzzCompression Stockings 20-30mm Hg 1 pair closed toe- knee high . . .Donepezil HCl 10 MG Tablet Oral Ammonium Lactate 12 % Cream 1 application to affected area Externally to feet Twice a dayTaking Ammonium Lactate 12 % Cream 1 application Externally Twice a dayTaking Vitamin E 400 UNIT Tablet 1 tablet Orally Once a dayTaking Multivitamin - Tablet 1 tablet Orally Once a dayTaking Metoprolol Succinate 50 MG Capsule ER 24 Hour Sprinkle 1 capsule Orally Once a dayTaking metFORMIN HCl 500 MG Tablet 1 tablet with a meal Orally Once a dayTaking Losartan Potassium 100 MG Tablet 1 tablet Orally Once a dayTaking Glucosamine Chondr 500 Complex - Capsule as directed Orally Taking Furosemide 40 MG Tablet 1 tablet Orally Once a dayTaking Echinacea 380 MG Capsule as directed Orally Taking Citalopram Hydrobromide 10 MG Tablet 1 tablet Orally Once a dayTaking Calcium + D3 600-800 MG-UNIT Tablet 1 tablet with a meal Orally Once a dayTaking Atorvastatin Calcium 10 MG Tablet 1 tablet Orally Once a dayTaking Vitamin C 1000 MG Tablet 1 tablet Orally Once a dayTaking zzzCompression Stockings 20-30mm Hg 1 pair closed toe- knee high . . .Taking Donepezil HCl 10 MG Tablet Oral Taking Ammonium Lactate 12 % Cream 1 application to affected area Externally to feet Twice a dayNot-Taking/PRNEliquis Aspirin 81 MG Tablet Chewable 1 tablet Orally Once a dayCephalexin 500 MG Capsule 1 capsule Orally every 6 hrsSilvadene 1 % Cream 1 application Externally Once a dayAugmentin 500-125 MG Tablet 1 tablet Orally every 8 hrsMedication List reviewed and reconciled with the patientNot-Taking/PRN Eliquis Not-Taking/PRN Aspirin 81 MG Tablet Chewable 1 tablet Orally Once a dayNot- Taking/PRN Cephalexin 500 MG Capsule 1 capsule Orally every 6 hrsNot-Taking/PRN Silvadene 1 % Cream 1 application Externally Once a dayNot-Taking/PRN Augmentin 500-125 MG Tablet 1 tablet Orally every 8 hrsMedication List reviewed and reconciled with the patient * Allergies:?N.K.D.A.yes[Aller gies Verified] Objective: * Vitals:?Ht: 5 ft 3 in, Wt: 1 04, BMI: 18.42, Shoe size: 9.5, BS: not taken, Wt- k.17 kg. * Examination: ???Ophthalmology Referral: ?DIABETES EYE EXAM?Diabetic Retinopathy Screening:?No ?Findings of Diabetic Eye Exam:?no retinopathy?Dermatologic: ?SKIN FINDINGS:? Skin exam reveals Keratotic lesion(s) located at, Plantar, Heel(s), B/L.?Neurological: ?SENSORY:?Neurological exam demonstrates, reduced light touch sensation, reduced sharp/dull pin prick discrimination , reduced vibration sensation, 5.07 monofilament test performed at plantar aspects of 5 varied sites per foot shows sensation, absent, at Forefoot, B/L, Pt relates, anesthesia.?Nails: ?NAILS are:? Elongated, overgrown, dystrophic, lytic, greater than 3mm thick, discolored and friable with crumbly malodorous subungual debris, with pain on palpation, ,1-5 B/L.?Vascular: ?DP PULSES:?, 1/4, B/L.?PT PULSES:? 0/4, B/L.?EDEMA:? 3/4, pitting, Left, 2/4, Right, Foot, Ankle(s), Leg(s).?General Examination: ?GENERAL APPEARANCE:?Reveals a pleasant, alert, well nourished, well- developed, well hydrated individual, who demonstrates proper attention to hygiene/body habitus, and is in no acute distress , Pt accompanied by , Female , Daughter , and/who is physically present in exam room at time of visit , additional Historian.? Assessment: * Assessment: 1.?Tinea unguium - B35.1?2.? 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 Plan: * Treatment: 2.?Type 2 diabetes mellitus with diabetic polyneuropathy?Procedure: 19911-ZPBC SKIN LESIONS, 2 TO 4 3.?Localized edema? Start Compression Stockings closed toe- knee high, 20-30mm Hg, as directed, 1 pair.?? * Procedures:?Debride Nail 6-10:?Nail debridement?Nail debridement performed extensively to reduce/remove overall nail length and girth, subungual debris, and necrotic tissue, by manual and electrical means with use of a nail nipper and/or dremel, to more viable healthy nail plate or bed tissue 6-10. Silver nitrate used for any petechial bleeding as necessary. Patient chooses, no pharmaceutical tx (06914).?Keratoma Treatment:?Parring or Cutting of Benign Hyperkeratotic Lesion(s)?06366 (2-4 Lesions) - The Benign hyperkeratotic lesions, as described above were pared, and/or cut utilizing a sterile #15 blade, tissue nippers, and/or dremel.? * Procedure Codes:?55902 DEBRI DE NAIL, 6 OR MORE, Modifiers: XS 58056 TRIM SKIN LESIONS, 2 TO 4, Modifiers: XS * Preventive Medicine:? ??Counseling:?Discussion:?-13: Office or other outpatient visit for the evaluation and management of an established patient, which required a medically appropriate history and/or examination and LOW level of DECISION MAKING for: 1 STABLE ACUTE UNCOMPLICATED PROBLEM, 2 OR MORE MINOR PROBLEMS, OR 1 STABLE CHRONIC PROBLEM, THAT POSE(S) A LOW RISK FOR MORBIDITY/MORTALITY. The visit on the day of the [...] have encouraged the patient to call the office.?Edema:?I explained to the patient the possible etiologies for Edema, including genetic, surgery, infection, medications, heart disease, kidney disease, excess dietary salt, and various cancer treatments. We discussed the risks/benefits of the treatment options available including rest, elevation, OTC compression stockings, Rx compression stockings, Unna Boot application, diet modification to limit salt intake, and Rx segmental compression boots provided the absence of CHD in the patients medical history. The advantages and disadvantages of each option were discussed and the patients questions re: risk of infection(cellulitis), medications, diet, and the daily use of compression stockings(not to be worn at night), and consistency in these home treatment regimens for optimal success were answered to their verbally confirmed satisfaction. Given the risk for vessel clotting disease, the patient was instructed to go immediately to the ER of hospital should they experience any calf pain, SOB, or discomfort. Any changes to the patients medication regimen will be performed by the PCP or patients kidney/heart/cancer specialist. The patient has elected to receive compression stockings. Such were Rxed today with instructions for use, Recommended OTC 10-20mmHg compression strength stockings by Jane/Aleshia/ or [employer]pper[employer] pt referred back to PCP for ? Adjustment of diuretic.? * Follow Up:?3 Months (Reason: with Dr. Perea) * Images: * Sign off status: Completed true * Provider:?Gavi Martinez DPM Date:?2023 Generated for Ciara sellers/Josseline/Solitting on:?12/08/2024 02:23 PM EST History and Physical Notes * HPI (History of Present Illness) Category Sub-Category Detail Notes Category Not es Skin problems Nature: swelling Location: B/L Duration: several months Course: worse At Risk footcare Pt States Last PCP Visit: Date: 4 Examination Category Sub-Category Detail Notes Category Not es Neurological SENSORY: Neurological exa m demonstrates, reduced light touch sensation, reduced sharp/dull pin prick discrimination , reduced vibration sensation, 5.07 monofilament test performed at plantar aspects of 5 varied sites per foot shows sensation, absent, at Forefoot, B/L, Pt relates, anesthesia Dermatologic SKIN FINDINGS: Skin exam reveal [...] at time of visit , additional Historian Ophthalmology Referral DIABETES EYE EXAM Diabeti c Retinopathy Screening:: No Findings of Diabetic Eye Exam:: no retin opathy Vascular DP PULSES (B): , 1/4, B/L PT PULSES (B): 0/4, B/L EDEMA (C): 3/4, pitting, Left, 2/4, Right, Foot, Ankle(s), Leg(s) Nails NAILS are: Elongated, overg rown, dystrophic, lytic, greater than 3mm thick, discolored and friable with crumbly malodorous subungual debris, with pain on palpation, ,1-5 B/L
--- OUTSIDE RECORDS SUMMARY | 2024-12-08 14:24 | XMS_ITS | Clinical Summary ---
Author Organization [facility] Address [address] [place] [address] Care Team Providers Care E Merchant Name Role Phone Elham Solares MD Primary Care Provider [phone] Medications Medication Sig Dispensed Refills Start Date End Date Status donepezil (ARICEPT) 10 MG tablet Take 1 tablet (10 mg total) by mouth every night at bedtime. 0 Active losartan (COZAAR) 100 MG tablet Take 1 tablet (100 mg total) by mouth daily. 0 Active metoprolol succinate (TOPROL-XL) 24 hr tablet 25 mg Take by mouth daily. 0 Active amLODIPine (NORVASC) tablet 5 mg Take 1 tablet (5 mg total) by mouth daily. 0 Active atorvastatin (LIPITOR) tablet 10 mg Take 1 tablet (10 mg total) by mouth every evening. 0 Active metFORMIN (GLUCOPHAGE) tablet 500 mg Take 1 tablet (500 mg total) by mouth 2 (two) times a day with meals. 0 Active Lancets (freestyle) lancets 1 each by Other route as needed for other. Use as instructed 0 Active apixaban (ELIQUIS) 5 MG TABS tablet Take 1 tablet (5 mg total) by mouth every 12 (twelve) hours. 60 tablet 0 08/16/2022 Active Active Problems No known active problems Family History Medical History Relation Name Comments Breast cancer Maternal Aunt Relation Name Status Comments Father Maternal Aunt Mother Social History Tobacco Use Types Packs/Day Years Used Date Smoking Tobacco: Former Cigarettes 8 Smokeless Tobacco: Never Tobacco Cessation:Counseling Given: Not Answered Alcohol Use Standard Drinks/Week Comments Not Currently 0 (1 standard drink = 0.6 oz pur e alcohol) Sex and Gender Information Value Date Recorded Sex Assigned at Not on file Gender Identity Not on file Sexual Orientation Not on file Job Start Date Occupation Industry Not on file Not on file Not on file Last Filed Vital Signs Vital Sign Reading Time Taken Comments Blood Pressure 149/63 08/16/2022 1:16 PM EST Pulse 72 08/16/2022 1:16 PM EST Temperature 36.6 ??C (97.8 ??F) 08/16/2022 1:16 PM ES T Respiratory Rate - - Oxygen Saturation 98% 08/16/2022 1:16 PM EST Inhaled Oxygen Concentration - - Weight 57.3 kg (126 lb 6.4 oz) 08/16/2022 1:16 P M EST Height 160 cm (5' 3 ) 08/16/2022 1:16 PM EST Body Mass Index 22.39 08/16/2022 1:16 PM EST Plan of Treatment Health Maintenance Due Date Last Done Comments COVID-19 Vaccine (#1) 1942 Depression Screening 1954 Preventative Health Evaluation 1960 DTap / Tdap / Td (1 - Tdap) 1961 Shingrix-Zoster Vaccine (1 of 2) 1992 Fall Risk Assessment 2007 Osteoporosis Screening (DEXA Scan) 2007 RSV Adult > 60+ Yrs or (1 - 1-dose 75+ series) 2017 Influenza Vaccine (#1) 2024 9, 07/21/2018, 06/22/2017, Additional history exists Pneumococcal Vaccine Completed 02/21/2015, 07/28/2013, 07/07/2007 Hepatitis B Vaccines Aged Out No long er eligible based on patient's age to complete this topic RSV Ped < 20 months Aged Out No longe r eligible based on patient's age to complete this topic Care Teams E Merchant Relationship Specialty Start Date End Date Elham Solares MD PCP - General Internal Medicine 05/03/22
== END 2024-12-08 12:31 | disposition home or self-care (01) ==
PROVIDERS: PCP Internal Medicine; Visit Provider Surgery Vascular Surgery
DX: I82.513 Chronic embolism and thrombosis of femoral vein, bilateral (principal)
CPT/HCPCS: 99204

== ENCOUNTER → 2024-12-08 11:24 | Outpatient (BNVA) | payer MEDICARE, OTHER, SELFPAY | PROVIDERS: PCP Internal Medicine; Visit Provider Surgery Vascular Surgery | DX: I82.513 Chronic embolism and thrombosis of femoral vein, bilateral (principal) | CPT/HCPCS: 99202 ==

== ENCOUNTER 2025-03-15 16:44 | Emergency (ER) | payer MEDICARE, OTHER, SELFPAY ==
--- NOTE | ~2025-03-15 | CT_ITS ---
CLINICAL HISTORY: trauma CT head without contrast Comparison: None Findings: No intra-axial mass, midline shift, hydrocephalus, or acute hemorrhage. Severe atrophy-like change or white matter disease. 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 The visualized paranasal sinuses and mastoid air cells are normal. The orbits are unremarkable. There is no acute fracture. IMPRESSION: 1. No acute intracranial findings specifically, no acute intracranial hemorrhage. 2. Severe atrophy-like change or white matter disease. 3. 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 This document has been electronically signed by: Gabriella Terry MD on 03/15/2025 21:36:27
--- NOTE | ~2025-03-15 | CT_ITS ---
CLINICAL HISTORY: trauma CT cervical spine without contrast Comparison: None Findings: Vertebral alignment is within normal limits. Moderate multilevel spondylosis with disc space narrowing, osteophytosis, and facet arthropathy. No acute fractures or dislocations. Visualized intracranial contents are unremarkable. Soft tissues of the neck are normal. Lung apices are clear. IMPRESSION: No evidence of acute fracture or traumatic listhesis of the cervical spine. Moderate multilevel spondylosis. This document has been electronically signed by: Gabriella Terry MD on 03/15/2025 21:22:21
--- NOTE | ~2025-03-15 | US_ITS ---
CLINICAL HISTORY: pain, swelling Venous duplex ultrasound bilateral lower extremity Comparison: None Findings: Markedly limited due to constricted legs, edema and pain. Noncompressible filling defect is noted within the right distal superficial femoral vein concerning for chronic deep vein thrombosis. The visualized left deep veins are fully compressible with normal Doppler color flow and spectral tracings. No popliteal cyst. IMPRESSION: Limited exam due to portion condition. 1. Right distal superficial femoral vein chronic deep vein thrombosis. 2. Left lower extremity is negative for deep vein thrombosis. This document has been electronically signed by: Gabriella Terry MD on 03/15/2025 20:28:39
[2025-03-15 17:02] VITALS: BP 136/66; BP 137/82; PULSE 71; PULSE 81; RESP 18; TEMP 37.1; O2SAT 98; BMI 20.9
[2025-03-15 17:10] VITALS: BP 136/66; PULSE 71; RESP 18; TEMP 37.1; O2SAT 98
--- OUTSIDE RECORDS SUMMARY | 2025-03-15 17:57 | XMS_ITS | Encounter Summary ---
Author Organization [facility] Address [address] [place] [address] Care Team Providers Care Neighborhood Conservation Officer Name Role Phone Elham Solares MD Primary Care Provider [phone] Encounter Details Date Type Department Care Team Description 05/01/2021 .Net Developer Report Medical Records [address] [place] [address] Shereen Armstrong MD Social History Tobacco Use Types Packs/Day Years Used Date Smoking Tobacco: Former Cigarettes 1 Q uit: 10/07/1959 Smokeless Tobacco: Never Comments:1958, started @ age 22 Alcohol Use Standard Drinks/Week Comments No 0 (1 standard drink = 0.6 oz pur e alcohol) Sex Assigned at Date Recorded Not on file Job Start Date Occupation Industry Not on file Not on file Not on file documented as of this encounter Plan of Treatment Not on file documented as of this encounter Visit Diagnoses Not on filedocumented in this encounter Care Teams Neighborhood Conservation Officer Relationship Specialty Start Date End Date Elham Solares MD [address], [place] [id number] PCP - General 04/06/1993 documented as of this encounter
--- NOTE | 2025-03-15 18:09 | PC.NURSE ---
84 F presents to ED via EMS from the [facility]. EMS states pt has new pedal edema. Pt noted to have bilateral pedal and leg swelling with redness and pain in her Right leg. A+Ox1-2 with dementia at baseline. pt sts 8/10 pain at R leg, no other complaints. RR even and unlabored, denies SOB. Lung sounds clear bilat. Pt denies n/v/c/d. CSMs present bilat in lower extremities.
[2025-03-15 18:37] VITALS: BP 139/61; PULSE 70; RESP 12; O2SAT 98
[2025-03-15 18:45] LABS: MANUAL DIFF FLAG NO
[2025-03-15 18:49] LABS: Basophils Absolute Auto 0.1 X10*3/uL (0.0-0.2); Basophils Percent Auto 1.1 % (0-2); Eosinophils Absolute Auto 0.2 X10*3/uL (0.0-0.4); Eosinophils Percent Auto 2.1 % (0-4); Hematocrit 26.3 % (37.0-47.0); Hemoglobin 8.6 g/dl (12.0-16.0); Imm Gran Abs Auto 0.04 X10*3/uL (0.00-0.03); Imm Gran Pct Auto 0.6 % (0.0-0.4); Lymphocytes Absolute Auto 0.9 X10*3/uL (1.2-4.9); Mean Corpuscular HGB Conc 32.7 g/dl (31.0-35.0); Mean Corpuscular Hemoglobin 30.1 pg (27.0-33.0); Mean Platelet Volume 10.8 fL (9.4-12.3); Monocytes Absolute Auto 0.9 X10*3/uL (0.1-1.2); Monocytes Percent Auto 12.6 % (2-11); Neutrophils Absolute Auto 5.1 x10*3/uL (2.0-8.3); Neutrophils Percent Auto 71.6 % (45-73); Platelet Count 256 X10*3/uL (160-400); Red Blood Count 2.86 X10*6/uL (4.20-5.50); Red Cell Distribution Width 14.8 % (11.0-16.0); White Blood Count 7.1 X10*3/uL (4.8-10.8)
[2025-03-15 19:06] LABS: Alanine Aminotransferase 20 U/L (0-31); Albumin Level 3.2 g/dL (3.5-5.0); Alkaline Phosphatase 103 U/L (39-117); Anion Gap 14 (12-20); Aspartate Amino Transferase 44 U/L (5-31); Bilirubin Total 0.3 mg/dL (0.0-1.0); Blood Urea Nitrogen 17 mg/dL (9-16); Calcium 8.8 mg/dL (8.4-10.2); Carbon Dioxide 28 mmol/L (22-29); Chloride 103 mmol/L (96-108); Creatinine Clr Calc Pharmacy 32.7; Estimated Glomerular Filt Rate 43; Glucose Random 152 mg/dL (60-115); Potassium 3.8 mmol/L (3.3-5.1); Sodium 141 mmol/L (135-145); Total Protein 5.8 g/dL (6.5-8.0)
[2025-03-15] MEDS: Magnesium Sulfate/H2O 2 GM/50 ML PIGGYBACK IV (19:32)
--- NOTE | 2025-03-15 19:38 | PC.NURSE ---
assumed care of pt. Placed 20 G IV into L firearm. Pt tolerated well. medicated per DEC.
[2025-03-15 19:46] LABS: C Reactive Protein 2.71 mg/dL (< or = 0.50)
[2025-03-15 19:49] LABS: Lactic Acid 1.5 mmol/L (0.5-2.0)
--- NOTE | 2025-03-15 19:57 | ED.GENADULT ---
HPI - General Adult General Chief complaint: Extremity Injury, Lower Stated complaint: pedal edema Time Seen by Provider: 03/15/25 18:07 Source: patient and EMS Limitations: other (dementia) History of Present Illness ED Provider: Nessa Suarez PA-C HPI narrative: 84-year-old female with a history of hypertension, hyperlipidemia, diabetes, DVT on apixaban, and dementia who presents with bilateral pitting edema of unclear duration. Patient can not offer further details, she does state she is having neck pain and that she fell. Unclear if she truly fell. Related Data Home Medications ?Medication ?Instructions ?Recorded ?Confirmed amlodipine 5 mg tablet 2.5 mg PO DAILY 10/30/23 11/03/24 donepezil 10 mg tablet 10 mg PO DAILY 10/30/23 11/03/24 losartan 100 mg tablet 100 mg PO BEDTIME 10/30/23 11/03/24 metformin 500 mg tablet 500 mg PO DAILY 10/30/23 11/03/24 metoprolol succinate 25 mg 25 mg PO BEDTIME 10/30/23 11/03/24 tablet,extended release 24 hr lactulose 10 gram/15 mL oral 30 ml PO DAILY PRN Constipation 11/03/24 11/03/24 solution pantoprazole 20 mg tablet,delayed 20 mg PO DAILY@0630 11/03/24 11/03/24 release polyethylene glycol 3350 17 17 g PO DAILY PRN Constipation 11/03/24 11/03/24 gram/dose oral powder apixaban 5 mg tablet (Eliquis) mg PO 12/08/24 atorvastatin 20 mg tablet mg PO 12/08/24 torsemide 5 mg tablet 5 mg PO DAILY 12/08/24 Previous Rx's ?Medication ?Instructions ?Recorded cephalexin 500 mg capsule 500 mg PO Q8H 7 days #21 caps 11/03/24 furosemide 20 mg tablet (Lasix) 20 mg PO Q OTHER DAY #3 tabs 11/03/24 doxycycline hyclate 100 mg capsule 100 mg PO BID #20 caps 03/15/25 Allergies Allergy/AdvReac Type Severity Reaction Status Date / Time No Known Allergies Allergy Verified 03/15/25 17:10 [No Known Allergies*] Review of Systems Review of Systems: Unable to obtain secondary to dementia Yes all other systems are reviewed and are negative Constitutional: Constitutional: Reports fatigue Endocrine: Endocrine: Reports fatigue PMFSH Past Medical History Attestation statement: The following information was validated with the patient. Medical History DVT (deep venous thrombosis) Hypertension Type 2 diabetes mellitus Family History Family History Mother Blood clots in brain Social History Social History Housing: Other Housing Other:: Mobile Home Alcohol intake: former Patient Tobacco Use Status: Never used Tobacco Smoked in Last 30 Days: No Use of substances other than those prescribed or required for medical reasons: No Advance Directives: No Advance Directives Information Provided: No Do you have a plan to hurt others: No Plan service: No Current occupational status: retired Physical Exam ED Vital Signs: Vital Signs - 24 hr 03/15/25 17:02 03/15/25 17:10 03/15/25 18:37 Temperature 98.7 F 98.7 F Pulse Rate 71 71 70 Respiratory Rate 18 18 12 Blood Pressure 136/66 136/66 139/61 Pulse Oximetry 98 98 98 Oxygen Delivery Method Room Air Room Air Room Air BMI result Body Mass Index 20.9 Const Other: Awake Orientation/consciousness: oriented to person and oriented to place Neck Other: Sitting hunched over, pain somewhat generalized no midline tenderness she is moving the neck Resp Effort & Inspection: normal respiratory effort Cardio Other: Pitting edema noted bilaterally Skin Other: Warm dry no rash Neuro General: oriented to person, oriented to place, no focal motor deficits and CN's II-XI intact bilaterally Extrem Other: Erythema and warmth noted over right lower extremity from the ankle to the thomas Psych Other: Cooperative Medications Administered Discontinued Medications Generic Name Dose Route Start Last Admin Trade Name Freq PRN Reason Stop Dose Admin Magnesium Sulfate 2 gm in 50 mls @ 25 mls/hr 03/15/25 19:05 03/15/25 21:29 Magnesium Sulfate/H2o IV 03/15/25 21:04 Infused ONCE ONE Infusion Doxycycline Hyclate 100 mg/ 250 mls @ 166.67 mls/hr 03/15/25 20:06 03/15/25 20:47 Sodium Chloride IV 03/15/25 21:35 166.67 mls/hr ONCE ONE Administration Magnesium Oxide 400 mg 03/15/25 20:04 03/15/25 21:29 Magnesium Oxide 400 Mg Tablet PO 03/15/25 20:05 400 mg ONCE ONE Administration Medical Decision Making Medical Decision Making [facility] Narrative: 84-year-old female with a history of hypertension, hyperlipidemia, diabetes, DVT on apixaban, and dementia who presents with bilateral pitting edema of unclear duration. Patient can not offer further details, she does state she is having neck pain and that she fell. Unclear if she truly fell. Problem: Diabetes, I anticoagulated, dementia History: Per patient which is limited I have considered the following differential diagnoses: DVT, dependent edema, cellulitis, intracranial hemorrhage, cervical spine injury, arthritis Plan: Unclear if she fell, we will scan her head and neck. In regard to her lower extremities, she already has a DVT, I am not sure which extremity, we will repeat Doppler studies. In addition to screening labs I am adding on inflammatory markers blood cultures and lactic, it appears she does have cellulitis. She is stable and afebrile at this time, she will likely be treated as an outpatient. I have independently reviewed the following tests: Labs: No leukocytosis, not anemic, magnesium critically low at 1, no additional electrolyte abnormality, lactic 1.5, CRP 2.71, ESR 67 DVT study bilateral lower extremities:MPRESSION: Limited exam due to portion condition. 1. Right distal superficial femoral vein chronic deep vein thrombosis. 2. Left lower extremity is negative for deep vein thrombosis. CT brain:Findings: No intra-axial mass, midline shift, hydrocephalus, or acute hemorrhage. Severe atrophy-like change or white matter disease. 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 The visualized paranasal sinuses and mastoid air cells are normal. The orbits are unremarkable. There is no acute fracture. IMPRESSION: 1. No acute intracranial findings specifically, no acute intracranial hemorrhage. 2. Severe atrophy-like change or white matter disease. 3. 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 CT cervical: Findings: Vertebral alignment is within normal limits. Moderate multilevel spondylosis with disc space narrowing, osteophytosis, and facet arthropathy. No acute fractures or dislocations. Visualized intracranial contents are unremarkable. Soft tissues of the neck are normal. Lung apices are clear. IMPRESSION: No evidence of acute fracture or traumatic listhesis of the cervical spine. Moderate multilevel spondylosis. Lab Data 03/15/25 18:41 03/15/25 18:41 Labs: Lab Results 03/15/25 03/15/25 Range/Units 18:41 19:26 WBC 7.1 (4.8-10.8) X10*3/uL RBC 2.86 L (4.20-5.50) X10*6/uL Hgb 8.6 L (12.0-16.0) g/dl Hct 26.3 L (37.0-47.0) % MCV 92.0 (80.0-98.0) fL MCH 30.1 (27.0-33.0) pg MCHC 32.7 (31.0-35.0) g/dl RDW 14.8 (11.0-16.0) % Plt Count 256 D (160-400) X10*3/uL MPV 10.8 (9.4-12.3) fL Immature Gran % (Auto) 0.6 H (0.0-0.4) % Neut % (Auto) 71.6 (45-73) % Lymph % (Auto) 12.0 L (20-40) % [place] % (Auto) 12.6 H (2-11) % Eos % (Auto) 2.1 (0-4) % Baso % (Auto) 1.1 (0-2) % Lymph # (Auto) 0.9 L (1.2-4.9) X10*3/uL [place] # (Auto) 0.9 (0.1-1.2) X10*3/uL Eos # (Auto) 0.2 (0.0-0.4) X10*3/uL Baso # (Auto) 0.1 (0.0-0.2) X10*3/uL Abs Immat Gran (auto) 0.04 H (0.00-0.03) X10*3/uL Absolute Neuts (auto) 5.1 (2.0-8.3) x10*3/uL Absolute Nucleated RBC 0.000 (0.0-0.012) X10*3/uL Nucleated RBC % (auto) 0.0 (0.0-0.2) /100WBC ESR 67 H (0-20) MM/HR Sodium 141 (135-145) mmol/L Potassium 3.8 (3.3-5.1) mmol/L Chloride 103 (96-108) mmol/L Carbon Dioxide 28 (22-29) mmol/L Anion Gap 14 (12-20) BUN 17 H (9-16) mg/dL Creatinine 1.19 (0.5-1.4) mg/dL Estim Creat Clear Calc 32.7 Estimated GFR 43 Random Glucose 152 H (60-115) mg/dL Lactic Acid 1.5 (0.5-2.0) mmol/L Calcium 8.8 (8.4-10.2) mg/dL Magnesium 1.0 L* (1.6-2.6) mg/dL Total Bilirubin 0.3 (0.0-1.0) mg/dL AST 44 H (5-31) U/L ALT 20 (0-31) U/L Alkaline Phosphatase 103 (39-117) U/L C-Reactive Protein 2.71 H (< or = 0.50) mg/dL Total Protein 5.8 L (6.5-8.0) g/dL Albumin 3.2 L (3.5-5.0) g/dL Discharge Plan Discharge Clinical Impression: Cellulitis of leg, right Patient Disposition: Home, Self-Care Instructions: Cellulitis (ED) Additional Instructions: Imaging of the brain and cervical spine was obtain due to the patient's fall, there was no injury. She has a arthritis of the neck. Ultrasound studies of both legs were obtained to rule out the presence of new clot, nothing is present. Her labs were overall normal, she has been treated for cellulitis of the right lower extremity. See home care instructions. She should take the doxycycline as directed for 10 days. She should follow up with her primary care provider for a recheck within 7-10 days. Prescriptions: New doxycycline hyclate 100 mg capsule 100 mg PO BID Qty: 20 0RF No Action metformin 500 mg tablet 500 mg PO DAILY donepezil 10 mg tablet 10 mg PO DAILY amlodipine 5 mg tablet 2.5 mg PO DAILY metoprolol succinate 25 mg tablet extended release 24 hr 25 mg PO BEDTIME losartan 100 mg tablet 100 mg PO BEDTIME cephalexin 500 mg capsule 500 mg PO Q8H 7 Days Qty: 21 0RF furosemide [Lasix] 20 mg tablet 20 mg PO Q OTHER DAY Qty: 3 0RF pantoprazole 20 mg Tablet,Delayed Release (Dr/Ec) 20 mg PO DAILY@0630 polyethylene glycol 3350 17 gram/dose Powder 17 g PO DAILY PRN (Reason: Constipation) lactulose 10 gram/15 mL Solution 30 ml PO DAILY PRN (Reason: Constipation) torsemide 5 mg tablet 5 mg PO DAILY atorvastatin 20 mg tablet PO Eliquis 5 mg tablet PO Print Language: Thai
[2025-03-15 20:42] LABS: Erythrocyte Sedimentation Rate 67 MM/HR (0-20)
[2025-03-15] MEDS: Doxycycline Hyclate 100 MG in 0.9 % Sodium Chloride 250 ML 166.67 MG IV (20:47)
--- NOTE | 2025-03-15 21:15 | ECG_ITS ---
Test Reason : MAG Blood Pressure : */* mmHG Vent. Rate : 80 BPM Atrial Rate : 80 BPM P-R Int : 150 ms QRS Dur : 64 ms QT Int : 410 ms P-R-T Axes : 49 6 35 degrees QTcB Int : 472 ms Normal sinus rhythm Nonspecific ST and T wave abnormality Abnormal ECG When compared with ECG of 30-Oct-2023 15:15, Nonspecific T wave abnormality now evident in Anterior leads QT has lengthened Referred By: Nessa Suarez Electronically Signed By: CONY DE LA CRUZ MD
[2025-03-15] MEDS: Magnesium Oxide 400 MG TABLET PO (21:29)
[2025-03-16 00:43] VITALS: BP 131/54; PULSE 70; RESP 19; TEMP 37.7; O2SAT 94
--- NOTE | 2025-03-16 01:16 | MHC.EDTECH ---
@0043 The patient used her call reyna. This tech assisted the patient with cleaning up. Removed old depend and pose pad, Placed a Pure wick. Changed bed pads. The patient is all set. Call reyna placed within arms reach.
[2025-03-16 06:07] VITALS: BP 136/62; PULSE 74; RESP 14; TEMP 36.7; O2SAT 96
--- NOTE | 2025-03-16 08:02 | PC.NURSE ---
Pt is alert, denies pain or discomfort. Right lower ext noted with swelling and redness. Left lower ext just swollen. CMS to b/l LE. VSS. Purewick in place. PT attempted to assess pt however will return when finished. Pt states no home meds however med claim history states otherwise. Pharmacy aware of med rec needed and will address when able.
--- NOTE | 2025-03-16 09:50 | PC.NURSE ---
Spoke to daughter Elzbieta contact [phone] who states she request pt to return back to [facility] with increased [facility] services. CM aware and will follow up with daughter and plan
--- NOTE | 2025-03-16 10:15 | MHC.CM.ED ---
Received case management consult from Dr Contreras overnight. Patient came to the ER due to RLE edema. Work up indicated cellulitis. Physical therapy ordered and pending. Received notification from patient's daughter/HCP, Elzbieta, that STR would not be pursued. Patient has a history of dementia, is active with [facility] and resides at [facility] in [place] on their memory care until. Patient was at [facility] due to a fall and hip fracture and then was at [facility] for STR. Patient returned to [facility] on 03[facility]. Elzbieta does not feel STR would be beneficial for patient due to dementia. Wiliam EARL booked for 12pm. Med [facility] with chart. Patient, Elzbieta, Delia ESPOSITO and Gloria CHAVEZ aware. [facility] COLMENARES made aware. Elzbieta will notify [facility]. Continue to monitor for d/c needs.
--- NOTE | 2025-03-16 10:30 | PC.NURSE ---
Plan to repeat CBC and Mg level At this time pt to return back to [facility] at noon
[2025-03-16 10:32] LABS: MANUAL DIFF FLAG NO
[2025-03-16 10:36] LABS: Basophils Absolute Auto 0.1 X10*3/uL (0.0-0.2); Basophils Percent Auto 1.2 % (0-2); Eosinophils Absolute Auto 0.1 X10*3/uL (0.0-0.4); Eosinophils Percent Auto 1.6 % (0-4); Hematocrit 26.6 % (37.0-47.0); Hemoglobin 8.5 g/dl (12.0-16.0); Imm Gran Abs Auto 0.03 X10*3/uL (0.00-0.03); Imm Gran Pct Auto 0.5 % (0.0-0.4); Lymphocytes Absolute Auto 0.9 X10*3/uL (1.2-4.9); Lymphocytes Percent Auto 14.3 % (20-40); Mean Corpuscular Hemoglobin 29.8 pg (27.0-33.0); Mean Corpuscular Volume 93.3 fL (80.0-98.0); Monocytes Absolute Auto 0.6 X10*3/uL (0.1-1.2); Monocytes Percent Auto 10.5 % (2-11); Neutrophils Absolute Auto 4.4 x10*3/uL (2.0-8.3); Neutrophils Percent Auto 71.9 % (45-73); Platelet Count 261 X10*3/uL (160-400); Red Blood Count 2.85 X10*6/uL (4.20-5.50); White Blood Count 6.1 X10*3/uL (4.8-10.8)
[2025-03-16 10:47] VITALS: BP 111/62; PULSE 64; RESP 18; TEMP 36.8; O2SAT 98
[2025-03-16 10:50] LABS: Magnesium 1.7 mg/dL (1.6-2.6)
[2025-03-16 11:10] LABS: Influenza A PCR NEGATIVE (Negative); Influenza B PCR NEGATIVE (Negative); Resp Syncy Virus RNA Qual PCR NEGATIVE (Negative); SARS COV2 PCR INHOUSE NEGATIVE (Negative)
--- NOTE | 2025-03-16 11:34 | PHA.MEDREC ---
Pharmacy Consult ? Medication Reconciliation Pharmacy has completed the medication reconciliation. Utilized nurse's daily charting documents to complete list and pharmacy claims. There are claims for losartan 100mg and metformin 500mg, however they were not on the nurse's list, and left off the med rec.
--- NOTE | 2025-03-16 11:55 | PC.NURSE ---
Call placed to [facility] to give RN to RN, health management consultant states nurse will call me back and contact info provided.
[2025-03-16 11:56] VITALS: BP 111/62; PULSE 64; RESP 18; TEMP 36.8; O2SAT 98
== END 2025-03-16 11:56 | disposition home or self-care (01) ==
PROVIDERS: Physician Assistant Medical; Emergency Provider Internal Medicine; PCP Internal Medicine
DX: L03.115 Cellulitis of right lower limb (principal); R60.0 Localized edema
CPT/HCPCS: 0241U; 36415; 70450; 72125; 80053; 83605; 83735; 85025; 85652; 86140; 87040; 93005; 93970; 97162; 99285; J1271; J3475

== ENCOUNTER → 2025-03-15 19:07 | Outpatient (BNV) | payer MEDICARE, OTHER, SELFPAY | PROVIDERS: Emergency Provider Internal Medicine; PCP Psychiatry & Neurology Neurology; Visit Provider Student in an Organized Health Care Education/Training Program | DX: M47.812 Spondylosis without myelopathy or radiculopathy, cervical region (principal); I63.9 Cerebral infarction, unspecified; I82.511 Chronic embolism and thrombosis of right femoral vein | CPT/HCPCS: 70450; 72125; 93970 ==

== ENCOUNTER → 2025-03-15 21:15 | Outpatient (BNV) | payer MEDICARE, OTHER, SELFPAY | PROVIDERS: Emergency Provider Internal Medicine; PCP Internal Medicine; Visit Provider Internal Medicine Cardiovascular Disease | DX: I50.9 Heart failure, unspecified (principal) | CPT/HCPCS: 93010 ==

== ENCOUNTER 2025-03-17 21:10 | Inpatient (IN) | payer MEDICARE, OTHER, SELFPAY ==
--- NOTE | ~2025-03-17 | XR_ITS ---
CLINICAL HISTORY: chf 1 view chest x-ray Comparison: None Findings: The lungs are clear. Normal size heart. No acute fracture. IMPRESSION: 1. No acute findings. This document has been electronically signed by: Gabriella Terry MD on 03/17/2025 22:30:05
--- NOTE | ~2025-03-17 | XR_ITS ---
CLINICAL HISTORY: right heel osteomyelitis 3 view right ankle Comparison: None Findings: Bone mineralization is decreased. No significant loss of joint space, osteophytes, or erosions. No destructive change. No ankle effusion. No radiopaque foreign body. IMPRESSION: 1. No acute findings. No radiographic findings of osteomyelitis, however early osteomyelitis can be radiographically occult and better evaluated on MRI. This document has been electronically signed by: Glenn Harper MD on 03/21/2025 17:01:58
--- NOTE | ~2025-03-17 | CT_ITS ---
EXAMINATION: CT ABDOMEN AND PELVIS WITHOUT CONTRAST CLINICAL INFORMATION: Worsening anemia. COMPARISON: 04/14/2022 TECHNIQUE: Multidetector volumetric imaging was performed from the superior aspect of the liver through the pubic symphysis. Sagittal and coronal reformatted images were obtained on the technologist's workstation. This CT examination was performed using dose optimization techniques as appropriate, variously including the following: *Automated exposure control *Adjustment of mA and/or kV according to patient size (this includes techniques or standardized protocols for targeted exams where dose is matched to indication/reason for exam; i.e. extremities or head) *Use of iterative reconstruction technique FINDINGS: LUNG BASES: There are bilateral small layering effusions in the lung bases with interlobular septal thickening consistent with interstitial pulmonary edema. There is borderline cardiac enlargement. There is no pericardial effusion. There is mild passive atelectasis portions of both lower lobes. LIVER, GALLBLADDER, AND BILIARY TREE: The unenhanced liver is normal in size, shape, and attenuation. No focal hepatic lesion or biliary ductal dilatation is present. The gallbladder is distended, and there are small suspected gravel sized gallstones layering . No wall thickening or inflammation. PANCREAS: Unremarkable. SPLEEN: Unremarkable. ADRENAL GLANDS: Unremarkable. KIDNEYS AND URETERS: The kidneys are normal in size, shape, and attenuation. No hydronephrosis or hydroureter seen. No perinephric stranding. There are nonobstructing calculi bilaterally, measuring up to 3 mm in the left kidney midpole. BLADDER: Poorly distended. Grossly normal. GASTROINTESTINAL TRACT: There is a stool ball in the rectum measuring 7.6 x 7.6 x 9.4 cm. Mild rectal wall thickening. There is otherwise mild to moderate fecal burden seen throughout the remainder of the colon. No additional wall thickening or inflammation. No CT evidence of acute appendicitis. The small bowel is nondilated. No definite inflammatory changes. The stomach is decompressed. The duodenal sweep is normal. ABDOMINAL WALL: No significant hernia is appreciated. LYMPH NODES: Normal. VASCULAR: Moderate atheromatous calcification of the aorta and iliac vessels. There is no aneurysm. PELVIC VISCERA: There has been a hysterectomy. There are no adnexal masses. OSSEOUS STRUCTURES: There is mild diffuse osteopenia. There is no acute or suspicious bony abnormality. There are mild degenerative spinal changes. There has been open reduction and internal fixation of a recent right intertrochanteric hip fracture. The hardware appears intact without complication grossly. The fracture lines are still well apparent. CT/CT abdomen pelvis wo IV con IMPRESSION: 1. There are small layering effusions and evidence of interstitial pulmonary edema within the lung bases. 2. There is a large stool ball within the rectum with mild rectal wall thickening, findings consistent with mild fecal impaction. There is mild to moderate constipation otherwise. 3. The gallbladder is mildly distended and there are small layering gallstones. No inflammatory changes. 4. There has been an ORIF of a recent intertrochanteric right hip fracture. 5. There are small nonobstructing renal calculi bilaterally. 6. There is no evidence of hematoma or significant active bleeding. Electronically signed by: Timothy Zafar MD 03/19/2025 04:08 PM EDT
--- NOTE | ~2025-03-17 | XR_ITS ---
EXAMINATION: XR HIP 2 OR MORE VIEWS BILATERAL HISTORY: fall COMPARISON: There are no prior studies available for comparison. FINDINGS: A single AP view of the pelvis and two views of each hip are submitted. The bones are osteopenic. The patient is status post internal fixation of the right hip with a compression screw and intramedullary john. There is no fracture or dislocation. There is mild bilateral joint space narrowing. There is a large amount of stool throughout the colon. XR/XR hip BI w PEL1V IMPRESSION: Status post internal fixation of the right hip. Mild bilateral joint space narrowing. Electronically signed by: Kenji Atkinson MD 03/19/2025 07:22 AM EDT
--- NOTE | 2025-03-17 21:21 | ED.EXTPRO ---
HPI - Extremity Problem General Chief complaint: Extremity Problem Stated complaint: dementia, r swollen leg, no fall Time Seen by Provider: 03/17/25 21:17 Source: patient and EMS Limitations: other History of Present Illness ED Provider: HPI Narrative: Patient is 85 years old with history of memory loss, dementia, hypertension, hyperlipidemia, diabetes, history of DVT in both lower extremity on Eliquis just seen here on 03/15 and transferred to [facility] comes here as physician on examination noticed that patient has significant right leg cellulitis and requested IV antibiotics patient had normal CBC count yesterday no fever and was prescribed doxycycline p.o. Related Data Home Medications ?Medication ?Instructions ?Recorded ?Confirmed donepezil 10 mg tablet 10 mg PO BEDTIME 10/30/23 03/16/25 metoprolol succinate 25 mg 12.5 mg PO BEDTIME 10/30/23 03/16/25 tablet,extended release 24 hr lactulose 10 gram/15 mL oral 30 ml PO QID PRN Constipation 11/03/24 03/16/25 solution pantoprazole 20 mg tablet,delayed 20 mg PO DAILY@0630 11/03/24 03/16/25 release polyethylene glycol 3350 17 17 g PO DAILY PRN Constipation 11/03/24 03/16/25 gram/dose oral powder apixaban 5 mg tablet (Eliquis) 5 mg PO BID 12/08/24 03/16/25 atorvastatin 20 mg tablet 20 mg PO BEDTIME 12/08/24 03/16/25 torsemide 5 mg tablet 5 mg PO DAILY 12/08/24 03/16/25 acetaminophen 325 mg tablet 650 mg PO Q6H PRN TEMP, PAIN 03/16/25 03/16/25 acetaminophen 500 mg tablet 1,000 mg PO TID 03/16/25 03/16/25 calcium 600 mg (as 2 tab PO DAILY 03/16/25 03/16/25 carbonate)-vitamin D3 5 mcg (200 unit) tablet diphenhydramine HCl 25 mg capsule 25 mg PO TID PRN ALLERGIES 03/16/25 03/16/25 (Benadryl) mirtazapine 7.5 mg tablet 7.5 mg PO BEDTIME 03/16/25 03/16/25 multivitamin 1 tab PO DAILY 03/16/25 03/16/25 sennosides 8.6 mg-docusate sodium 1 tab-cap PO BEDTIME 03/16/25 03/16/25 50 mg tablet (Senna Plus) sertraline 25 mg tablet 25 mg PO DAILY 03/16/25 03/16/25 sitagliptin phosphate 50 mg tablet 50 mg PO DAILY 03/16/25 03/16/25 (Januvia) Previous Rx's ?Medication ?Instructions ?Recorded doxycycline hyclate 100 mg capsule 100 mg PO BID #20 caps 03/15/25 Allergies Allergy/AdvReac Type Severity Reaction Status Date / Time No Known Allergies Allergy Verified 03/17/25 21:35 [No Known Allergies*] Review of Systems Review of Systems: Yes Unobtainable due to mental status [facility] Past Medical History Medical History DVT (deep venous thrombosis) Hypertension Type 2 diabetes mellitus Family History Family History Mother Blood clots in brain Social History Social History Housing: Other Housing Other:: Mobile Home Alcohol intake: former Patient Tobacco Use Status: Never used Tobacco Advance Directives: Yes Advance Directives on File: Yes Advance Directives Date on File: 03/17/25 Patient : No service: No Current occupational status: retired Physical Exam Vital Signs: Vital Signs: Last Vital Signs Temp 97.6 F 03/18/25 05:04 Pulse 67 03/18/25 06:15 Resp 16 03/18/25 05:04 BP 150/63 H 03/18/25 06:15 Pulse Ox 96 03/18/25 05:04 O2 Del Method Room Air 03/18/25 05:04 O2 Flow Rate 2 03/18/25 01:59 BMI result Body Mass Index 24.7 Appearance: Alert. Oriented X3. No acute distress. Eyes: PERRLA, No Nystagmus ENT: Pharynx normal. Oral Mucosa moist Neck: Normal inspection. Neck supple. CVS: Normal heart rate and rhythm. Pulses normal. Respiratory: No respiratory distress. Equal air entry bilateral, no wheezing/rales/rhonchi Abdomen: Soft and nontender. Bowel sounds are present, no mass palpable, no CVA tenderness Skin: Skin warm and dry. Bilateral pedal edema 3+ significant erythema of the right leg extending the whole leg Extremities: 4 +lower extremity edema significant erythema of the right lower extremity. No calf tenderness Neuro: Oriented X 3. No motor deficit. forgetful Medications Administered Generic Name Dose Route Start Last Admin Trade Name Freq PRN Reason Stop Dose Admin Potassium Chloride 10 meq in 100 mls @ 100 mls/hr 03/18/25 05:41 03/18/25 06:03 Potassium Chloride/H20 IV 03/18/25 06:40 100 mls/hr ONCE ONE Administration Omeprazole 20 mg 03/18/25 06:30 03/18/25 05:32 Omeprazole 20 Mg Capsule.Dr PO 20 mg DAILY@0630 BEBE Administration Sodium Chloride 3 ml 03/18/25 00:00 03/18/25 05:34 0.9 % Sodium Chloride Flush 3 Ml Syringe IVFLUSH Not Given QSHIFT BEBE Discontinued Medications Generic Name Dose Route Start Last Admin Trade Name Freq PRN Reason Stop Dose Admin Vancomycin HCl 1,000 mg/ 270 mls @ 270 mls/hr 03/17/25 21:30 03/18/25 00:15 Sodium Chloride IV 03/17/25 22:29 Infused ONCE ONE Infusion Magnesium Sulfate 2 gm in 50 mls @ 150 mls/hr 03/18/25 05:41 03/18/25 06:03 Magnesium Sulfate/H2o IV 03/18/25 06:00 150 mls/hr ONCE ONE Administration Potassium Chloride 40 meq 03/18/25 05:21 03/18/25 05:32 Potassium Chloride Packet 20 Meq Packet PO 03/18/25 05:22 40 meq ONCE ONE Administration Medical Decision Making Medical Decision Making [facility] [place] Narrative: Patient with significant cellulitis of the right leg with hypokalemia and hypomagnesemia failed outpatient therapy will admit patient for IV antibiotics Differential Diagnosis Differential Diagnoses: The differential diagnosis associated with the presentation includes Consult Healthcare Provider Management of the patient was discussed with: Hospitalist Lab Data [facility] [place] Lab Attestation statement: I reviewed the patient's lab results. 03/18/25 04:12 03/18/25 04:12 Labs: Lab Results 03/17/25 Range/Units 22:29 WBC 6.9 (4.8-10.8) X10*3/uL RBC 2.99 L (4.20-5.50) X10*6/uL Hgb 9.0 L (12.0-16.0) g/dl Hct 27.6 L (37.0-47.0) % MCV 92.3 (80.0-98.0) fL MCH 30.1 (27.0-33.0) pg MCHC 32.6 (31.0-35.0) g/dl RDW 15.1 (11.0-16.0) % Plt Count 288 (160-400) X10*3/uL MPV 11.0 (9.4-12.3) fL Immature Gran % (Auto) 0.3 (0.0-0.4) % Neut % (Auto) 59.7 (45-73) % Lymph % (Auto) 21.1 (20-40) % [place] % (Auto) 11.8 H (2-11) % Eos % (Auto) 5.8 H (0-4) % Baso % (Auto) 1.3 (0-2) % Lymph # (Auto) 1.5 (1.2-4.9) X10*3/uL [place] # (Auto) 0.8 (0.1-1.2) X10*3/uL Eos # (Auto) 0.4 (0.0-0.4) X10*3/uL Baso # (Auto) 0.1 (0.0-0.2) X10*3/uL Abs Immat Gran (auto) 0.02 (0.00-0.03) X10*3/uL Absolute Neuts (auto) 4.1 (2.0-8.3) x10*3/uL Absolute Nucleated RBC 0.000 (0.0-0.012) X10*3/uL Nucleated RBC % (auto) 0.0 (0.0-0.2) /100WBC PT 10.8 L (10.9-12.4) SEC INR 0.9 (0.9-1.1) APTT 30.6 (26.0-36.8) SEC Sodium 139 (135-145) mmol/L Potassium 3.0 L D (3.3-5.1) mmol/L Chloride 102 (96-108) mmol/L Carbon Dioxide 28 (22-29) mmol/L Anion Gap 12 (12-20) BUN 17 H (9-16) mg/dL Creatinine 0.97 (0.5-1.4) mg/dL Estim Creat Clear Calc 36.3 Estimated GFR 55 Random Glucose 183 H (60-115) mg/dL Lactic Acid 1.6 (0.5-2.0) mmol/L Calcium 9.1 (8.4-10.2) mg/dL Magnesium 1.5 L (1.6-2.6) mg/dL Total Bilirubin 0.3 (0.0-1.0) mg/dL AST 42 H (5-31) U/L ALT 26 (0-31) U/L Alkaline Phosphatase 117 (39-117) U/L B-Natriuretic Peptide 94 (<100) pg/mL Total Protein 7.0 (6.5-8.0) g/dL Albumin 3.7 (3.5-5.0) g/dL Independent Interpretation I performed an independent interpretation of an: EKG Interpretation: Normal sinus rhythm heart rate 73 beats per minute normal interval normal axis no acute ST-T no acute ischemia Discharge Plan Discharge Clinical Impression: Acute hypokalemia, Hypomagnesemia Cellulitis Qualifiers: Site of cellulitis: extremity Site of cellulitis of extremity: lower extremity Laterality: right Qualified Code(s): L03.115 - Cellulitis of right lower limb Patient Disposition: Admitted As Inpatient Interventions: ED Discharge Assessment Last Done: 03/18/25 01:59
[2025-03-17 21:29] VITALS: BP 137/64; PULSE 81; O2SAT 98
--- NOTE | 2025-03-17 21:29 | ECG_ITS ---
Test Reason : CHF Blood Pressure : */* mmHG Vent. Rate : 73 BPM Atrial Rate : 73 BPM P-R Int : 138 ms QRS Dur : 80 ms QT Int : 438 ms P-R-T Axes : 39 2 30 degrees QTcB Int : 482 ms Normal sinus rhythm Normal ECG When compared with ECG of 15-Mar-2025 21:32, No significant change was found Referred By: [place] Electronically Signed By: CONY DE LA CRUZ MD
[2025-03-17 21:31] VITALS: BP 167/71; PULSE 73; RESP 18; TEMP 36.4; O2SAT 98; BMI 24.7
[2025-03-17 22:00] VITALS: BP 154/64; PULSE 70; RESP 14; TEMP 36.3; O2SAT 98
[2025-03-17 22:36] LABS: MANUAL DIFF FLAG NO
[2025-03-17 22:37] LABS: Basophils Absolute Auto 0.1 X10*3/uL (0.0-0.2); Basophils Percent Auto 1.3 % (0-2); Eosinophils Absolute Auto 0.4 X10*3/uL (0.0-0.4); Eosinophils Percent Auto 5.8 % (0-4); Hematocrit 27.6 % (37.0-47.0); Imm Gran Abs Auto 0.02 X10*3/uL (0.00-0.03); Imm Gran Pct Auto 0.3 % (0.0-0.4); Lymphocytes Absolute Auto 1.5 X10*3/uL (1.2-4.9); Lymphocytes Percent Auto 21.1 % (20-40); Mean Corpuscular HGB Conc 32.6 g/dl (31.0-35.0); Mean Corpuscular Hemoglobin 30.1 pg (27.0-33.0); Mean Corpuscular Volume 92.3 fL (80.0-98.0); Monocytes Absolute Auto 0.8 X10*3/uL (0.1-1.2); Monocytes Percent Auto 11.8 % (2-11); Neutrophils Absolute Auto 4.1 x10*3/uL (2.0-8.3); Neutrophils Percent Auto 59.7 % (45-73); Platelet Count 288 X10*3/uL (160-400); Red Blood Count 2.99 X10*6/uL (4.20-5.50); Red Cell Distribution Width 15.1 % (11.0-16.0); White Blood Count 6.9 X10*3/uL (4.8-10.8)
[2025-03-17 22:44] LABS: INTERNATIONAL NORM RATIO 0.9 (0.9-1.1); Prothrombin Time 10.8 SEC (10.9-12.4)
[2025-03-17 22:46] LABS: Partial Thromboplastin Time 30.6 SEC (26.0-36.8)
[2025-03-17 22:51] LABS: Alanine Aminotransferase 26 U/L (0-31); Albumin Level 3.7 g/dL (3.5-5.0); Alkaline Phosphatase 117 U/L (39-117); Anion Gap 12 (12-20); Aspartate Amino Transferase 42 U/L (5-31); Bilirubin Total 0.3 mg/dL (0.0-1.0); Blood Urea Nitrogen 17 mg/dL (9-16); Calcium 9.1 mg/dL (8.4-10.2); Carbon Dioxide 28 mmol/L (22-29); Chloride 102 mmol/L (96-108); Creatinine Clr Calc Pharmacy 36.3; Estimated Glomerular Filt Rate 55; Glucose Random 183 mg/dL (60-115); Lactic Acid 1.6 mmol/L (0.5-2.0); Magnesium 1.5 mg/dL (1.6-2.6); Sodium 139 mmol/L (135-145)
[2025-03-17 22:56] LABS: B Type Natriuretic Peptide 94 pg/mL (<100)
[2025-03-17] MEDS: vancomycin HCL 1,000 MG in 0.9 % Sodium Chloride 250 ML 270 MG IV (23:02)
[2025-03-18] VITALS (10 sets, daily range): BP systolic 113–169; BP diastolic 48–77; PULSE 55–83; RESP 16–20; TEMP 36.4–37.1; O2SAT 92–98
--- NOTE | 2025-03-18 00:01 | P.HPHOSP_ITS ---
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 Patient unable to provide any reliable history but states that she believes she fell recently. 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 Patient has been followed by vascular and Hematology. Patient was previously in the [facility] ED 03/16/2025 and was placed under physician observation for case management needs. Patient normally resides in an assisted living facility for memory support, the [facility] [place] with of VNA services. Family felt patient would need higher level of care and short-term rehab. Patient was transferred to residential for short-term rehab after workup status post fall was negative for any changes with CT of the head or cervical spine. Patient was started on p.o. doxycycline for cellulitis. Patient was noted to have low magnesium and received oral supplementation. Patient was also anemic with a normocytic anemia and an H&H of 8.6 and 26.3. Patient returned today from residential after physician noted worsening cellulitis of right lower extremity and requesting IV antibiotics for treatment. Magnesium today 1.5. H and H stable at 9 and 27.6. Patient is started on vancomycin in the emergency department. Lactic acid 1.6. Patient does not have a current leukocytosis as well. Patient being admitted for IV antibiotic therapy for right lower extremity cellulitis with bilateral edema which appears to be chronic. Review of Systems 2 Review of Systems: Patient denies any chest pain, shortness of breath or pain in either lower extremity. Patient denies any nausea or vomiting. Yes all other systems are reviewed and are negative [facility] Medical History DVT (deep venous thrombosis) Hypertension Type 2 diabetes mellitus Cognitive capacity: Alert to self, patient unable to provide any information on medical history surgical history and shortened launch her memory appear impaired Functional capacity: uses cane/walker Patient : No Family History Mother Blood clots in brain Social History Housing: Other Housing Other:: Mobile Home Alcohol intake: former Patient Tobacco Use Status: Never used Tobacco Advance Directives: Yes Advance Directives on File: Yes Advance Directives Date on File: 03/17/25 Patient : No service: No Current occupational status: retired Ebola Risk: Travel/Contact With Anyone From Affected Area/s: No Has Patient Experienced Ebola Symptoms: No Meds Allergies Allergy/AdvReac Type Severity Reaction Status Date / Time No Known Allergies Allergy Verified 03/17/25 21:35 [No Known Allergies*] Active Medications: Current Medications Acetaminophen (Acetaminophen 325 Mg Tablet) 650 mg PO Q6H PRN PRN Reason: Pain, Mild 1-3,fever,headache Albuterol/Ipratropium (Albuterol/Iprat 2.5/0.5mg 3 Ml Ampul.Neb) 3 ml INHALE Q4H PRN PRN Reason: Shortness of Breath/Wheezing Apixaban (Apixaban 5 Mg Tablet) 5 mg PO BID BEBE Calcium Carbonate (Calcium Carbonate 750 Mg Tab.Chew) 750 mg PO Q4H PRN PRN Reason: Heartburn Magnesium Hydroxide (Milk Of Magnesia 30 Ml Oral.Susp) 30 ml PO DAILY PRN PRN Reason: Constipation Melatonin (Melatonin 3 Mg Tablet) 6 mg PO BEDTIME PRN PRN Reason: Insomnia Ondansetron HCl (Ondansetron Hcl 4 Mg/2 Ml Vial) 4 mg IVPUSH Q8H PRN PRN Reason: Nausea and Vomiting Polyethylene Glycol (Polyethylene Glycol 3350 17 Gm Powd.Pack) 17 gm PO DAILY PRN PRN Reason: Constipation Senna (Sennosides 8.6 Mg Tablet) 17.2 mg PO BEDTIME BEBE Sodium Chloride (0.9 % Sodium Chloride Flush 3 Ml Syringe) 3 ml IVFLUSH QSHIFT [facility] Home Medications ?Medication ?Instructions ?Recorded ?Confirmed ?Last Taken ?Type donepezil 10 mg tablet 10 mg PO BEDTIME 10/30/23 03/16/25 03/14/25 History metoprolol succinate 25 mg 12.5 mg PO BEDTIME 10/30/23 03/16/25 03/14/25 History tablet,extended release 24 hr lactulose 10 gram/15 mL oral 30 ml PO QID PRN Constipation 11/03/24 03/16/25 Unknown History solution pantoprazole 20 mg tablet,delayed 20 mg PO DAILY@0630 11/03/24 03/16/25 03/15/25 History release polyethylene glycol 3350 17 17 g PO DAILY PRN Constipation 11/03/24 03/16/25 Unknown History gram/dose oral powder apixaban 5 mg tablet (Eliquis) 5 mg PO BID 12/08/24 03/16/25 03/14/25 History atorvastatin 20 mg tablet 20 mg PO BEDTIME 12/08/24 03/16/25 03/14/25 History torsemide 5 mg tablet 5 mg PO DAILY 12/08/24 03/16/25 03/15/25 History acetaminophen 325 mg tablet 650 mg PO Q6H PRN TEMP, PAIN 03/16/25 03/16/25 Unknown History acetaminophen 500 mg tablet 1,000 mg PO TID 03/16/25 03/16/25 03/15/25 History calcium 600 mg (as 2 tab PO DAILY 03/16/25 03/16/25 03/15/25 History carbonate)-vitamin D3 5 mcg (200 unit) tablet diphenhydramine HCl 25 mg capsule 25 mg PO TID PRN ALLERGIES 03/16/25 03/16/25 Unknown History (Benadryl) mirtazapine 7.5 mg tablet 7.5 mg PO BEDTIME 03/16/25 03/16/25 03/14/25 History multivitamin 1 tab PO DAILY 03/16/25 03/16/25 03/15/25 History sennosides 8.6 mg-docusate sodium 1 tab-cap PO BEDTIME 03/16/25 03/16/25 03/14/25 History 50 mg tablet (Senna Plus) sertraline 25 mg tablet 25 mg PO DAILY 03/16/25 03/16/25 03/15/25 History sitagliptin phosphate 50 mg tablet 50 mg PO DAILY 03/16/25 03/16/25 03/15/25 History (Januvia) Physical Exam 2 Vital Signs and Narrative: Vital Signs: Last Vital Signs Temp 97.3 F 03/17/25 22:00 Pulse 70 03/17/25 22:00 Resp 14 03/17/25 22:00 BP 154/64 H 03/17/25 22:00 Pulse Ox 98 03/17/25 22:00 O2 Del Method Room Air 03/17/25 22:00 BMI result Body Mass Index 24.7 Alert and orientated to self, due to level of dementia unable to provide reliable history Neuro: CN II-X11 intact, no deficits, visual acuity intact EYES: PERRLA, EOM intact, sclerae nonicteric ENT: hearing intact, no issues with swallowing, uvula midline, lips moist, nares patent no epistaxis Cardiac: S1 S2 RRR, no murmur, no JVD, +2 pitting edema in Lower ext Pulmonary: lungs clear to auscultation B Abdominal: BS active in all 4 quadrants, no guarding, tenderness, rebounding MSK: strength 4/5 upper and lower extremities : no CVA tenderness no bladder distension Extremities: +2 pitting edema in lower extremities, PT and DP pulses palpable +2 RLE with noted redness, swelling and heat upon palpation. Homans is negative. No open wounds noted on bilateral lower extremities Psych: mood stable, judgement and insight poor Skin: Cellulitis right lower extremity Results Labs 03/17/25 22:29 03/17/25 22:29 Labs: Laboratory Results - last 24 hr 03/17/25 22:29 MCV 92.3 MCH 30.1 MCHC 32.6 RDW 15.1 Plt Count 288 MPV 11.0 Immature Gran % (Auto) 0.3 Neut % (Auto) 59.7 Lymph % (Auto) 21.1 [place] % (Auto) 11.8 H Eos % (Auto) 5.8 H Baso % (Auto) 1.3 Lymph # (Auto) 1.5 [place] # (Auto) 0.8 Eos # (Auto) 0.4 Baso # (Auto) 0.1 Abs Immat Gran (auto) 0.02 Absolute Neuts (auto) 4.1 Absolute Nucleated RBC 0.000 Nucleated RBC % (auto) 0.0 PT 10.8 L INR 0.9 APTT 30.6 Anion Gap 12 Estim Creat Clear Calc 36.3 Estimated GFR 55 Random Glucose 183 H Lactic Acid 1.6 Calcium 9.1 Magnesium 1.5 L Total Bilirubin 0.3 AST 42 H ALT 26 Alkaline Phosphatase 117 B-Natriuretic Peptide 94 Total Protein 7.0 Albumin 3.7 ECG Prior ECG tracings: not available for review Imaging Radiologist's Impressions: Chest x-ray No acute findings Assessment and Plan (1) Cellulitis: Qualifiers: Laterality: right Site of cellulitis: extremity Site of cellulitis of extremity: lower extremity Qualified Code(s): L03.115 - Cellulitis of right lower limb Status: Acute Plan Patient is an 85-year-old female with past medical history hypertension, diabetes mellitus, DVT, CVA, prior cellulitis, 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 -BNP is within normal limits, do not suspect a component of heart failure although patient will resume her usual meds -Keep affected leg elevated History of DVT -lifelong Eliquis -no spontaneous bleeding associated with Eliquis -follow-up as an outpatient with vascular if indicated Status post suspected fall -CT of the head negative for any acute findings -CT cervical spine negative for acute findings CHF -Continue torsemide as vitals are stable -BNP within normal limits -Daily weight -Strict I's and O's -Low-sodium diet -Patient is not currently on Enrique or Arb Hypertension -Continue metoprolol -Low-salt diet Diabetes mellitus type 2 -Sliding scale insulin -Diabetic diet -Januvia once med rec started Dementia -Continue Aricept -Patient high fall risk, safety measures should be in place -Patient does not require one-to-one, patient is not having any abnormal behaviors Hyperlipidemia -Continue statin, AST only mildly elevated GERD -Continue PPI - omeprazole DVT prophylaxis: Eliquis PPI prophylaxis: Omeprazole Med rec pending Full Code status Quality Stroke Does the patient have a stroke diagnosis?: No Reason for No Anti-thrombotic by Day Two: N/A - Med Ordered VTE Prior VTE?: Yes VTE Risk Level:: Medical - moderate - high VTE Device Contraindication: Procedure Contraindicated VTE Drug Contraindication: N/A - Med Ordered
[2025-03-18 04:52] LABS: MANUAL DIFF FLAG NO
[2025-03-18 04:56] LABS: Basophils Absolute Auto 0.1 X10*3/uL (0.0-0.2); Basophils Percent Auto 1.7 % (0-2); Eosinophils Absolute Auto 0.5 X10*3/uL (0.0-0.4); Eosinophils Percent Auto 7.7 % (0-4); Hematocrit 23.5 % (37.0-47.0); Hemoglobin 7.6 g/dl (12.0-16.0); Imm Gran Abs Auto 0.02 X10*3/uL (0.00-0.03); Imm Gran Pct Auto 0.3 % (0.0-0.4); Lymphocytes Absolute Auto 1.8 X10*3/uL (1.2-4.9); Lymphocytes Percent Auto 27.1 % (20-40); Mean Corpuscular HGB Conc 32.3 g/dl (31.0-35.0); Mean Corpuscular Hemoglobin 29.9 pg (27.0-33.0); Mean Corpuscular Volume 92.5 fL (80.0-98.0); Mean Platelet Volume 11.2 fL (9.4-12.3); Monocytes Absolute Auto 0.8 X10*3/uL (0.1-1.2); Monocytes Percent Auto 12.3 % (2-11); Neutrophils Absolute Auto 3.3 x10*3/uL (2.0-8.3); Neutrophils Percent Auto 50.9 % (45-73); Platelet Count 261 X10*3/uL (160-400); Red Blood Count 2.54 X10*6/uL (4.20-5.50); Red Cell Distribution Width 15.1 % (11.0-16.0); White Blood Count 6.5 X10*3/uL (4.8-10.8)
[2025-03-18 05:15] LABS: Alanine Aminotransferase 17 U/L (0-31); Albumin Level 2.8 g/dL (3.5-5.0); Alkaline Phosphatase 82 U/L (39-117); Anion Gap 11 (12-20); Aspartate Amino Transferase 33 U/L (5-31); Bilirubin Total 0.3 mg/dL (0.0-1.0); Blood Urea Nitrogen 15 mg/dL (9-16); Calcium 8.5 mg/dL (8.4-10.2); Carbon Dioxide 26 mmol/L (22-29); Chloride 108 mmol/L (96-108); Creatinine Clr Calc Pharmacy 39.2; Estimated Glomerular Filt Rate 60; Glucose Random 112 mg/dL (60-115); Potassium 2.9 mmol/L (3.3-5.1); Sodium 142 mmol/L (135-145)
[2025-03-18] MEDS: Potassium Chloride Packet 20 MEQ PACKET 40 MEQ PO (05:32)
[2025-03-18] MEDS: Omeprazole 20 MG CAPSULE.DR PO (05:32)
[2025-03-18] MEDS: Magnesium Sulfate/H2O 2 GM/50 ML PIGGYBACK IV (06:03)
[2025-03-18] MEDS: Potassium Chloride/H20 10 MEQ/100 ML PIGGYBACK 100 MEQ IV (06:03)
--- NOTE | 2025-03-18 07:28 | PC.NURSE ---
about 10mL of KCl 10mEq/100mL and Mg fgvdfat2q/50mL infiltrated into Left AC IV. slightly swollen area, painful, slightly pink. no well-defined border so unable to trace with marker. pharmacy called - nothing to do besides heat and elevation for this low of a KCl concentration. heat packs applied and elevated with pillow.
[2025-03-18 07:42] LABS: Glucose, Whole Blood 139 mg/dL (60-115)
--- NOTE | 2025-03-18 08:49 | PHA.MEDREC ---
Pharmacy Consult ? Medication Reconciliation Pharmacy has completed the medication reconciliation. Utilized list from [facility].
--- NOTE | 2025-03-18 08:51 | PHA.MEDREC ---
Addendum entered by Rocco Dee [facility] 03/18/25 09:40: med rec checked by [facility] Original Note: Pharmacy Consult ? Medication Reconciliation Pharmacy has completed the medication reconciliation. Utilized list from pt long-term. Pt started Doxycycline 100mg regimen 03/13 and is suppose to end 03/19 according to long-term notes.
[2025-03-18 09:04] LABS: Iron 31 mcg/dL (30-160); Percent Iron Saturation 21 % (15-50); Total Iron Binding Capacity 151 mcg/dL (228-428); Unsaturated Iron Binding 120 ug/dL
[2025-03-18 09:06] LABS: Glucose, Whole Blood 168 mg/dL (60-115)
[2025-03-18] MEDS: Apixaban 5 MG TABLET PO ×2 (09:39→20:56)
[2025-03-18] MEDS: Acetaminophen 325 MG TABLET 975 MG PO ×3 (09:39→20:55)
[2025-03-18] MEDS: vancomycin HCL 500 MG in 0.9 % Sodium Chloride 100 ML 110 MG IV (10:46)
[2025-03-18 10:55] LABS: Hematocrit 25.9 % (37.0-47.0); Hemoglobin 8.4 g/dl (12.0-16.0)
--- NOTE | 2025-03-18 11:07 | MHC.CM.PN ---
IMM/ FORM DELIVERED TO DAUGHTER, WHITE COPIES LEFT AT BEDSIDE PER REQUEST. PT L[facility]ES [facility] [address]. PT IS ACTIVE WITH [facility]. PT USES [facility] FOR MOBILITY. + HCP ON FILE. PCP DR. ALBARADO. CM GLEANED MOST INFORMATION FROM DAUGHTER/HCP STACEY WHO IS CONCERNED REGARDING PROVIDERS BEING AWARE THAT PT IS BEING FOLLOWED BY CARDIOLOGY AND HAS UPCOMING APPT ON April BUT FEELS THAT THAT IS TOO LONG TO BE EVAL'D. DAUGHTER REQUESTING TO SPEAK WITH PROVIDER. MD NOTIFIED. DP: RETURN TO [facility] WITH RESUMPTION OF [facility] SERVICES [facility]IA [facility]. PT MAY NEED BLS TRANSPORT. CM WILL CONTINUE TO FOLLOW FOR DC PLAN.
[2025-03-18 11:08] LABS: Anion Gap 13 (12-20); Blood Urea Nitrogen 14 mg/dL (9-16); Calcium 8.9 mg/dL (8.4-10.2); Carbon Dioxide 26 mmol/L (22-29); Chloride 106 mmol/L (96-108); Estimated Glomerular Filt Rate > 60; Glucose Random 192 mg/dL (60-115); Magnesium 2.2 mg/dL (1.6-2.6); Sodium 141 mmol/L (135-145)
[2025-03-18 11:26] LABS: Ferritin 366 ng/mL (10-250)
[2025-03-18 11:32] LABS: Glucose, Whole Blood 160 mg/dL (60-115)
[2025-03-18 11:41] LABS: Folate 11.7 ng/mL (> or = 4.0); Vitamin B12 616 pg/mL (200-900)
[2025-03-18 16:24] LABS: Glucose, Whole Blood 168 mg/dL (60-115)
--- NOTE | 2025-03-18 16:25 | P.PNIM_ITS ---
Subjective Subjective Date of Service: 03/18/25 Interval History: leg cellulitis Review of Systems erythema seems somewhat improving no fevers Review of Systems: Yes all other systems are reviewed and are negative Physical Exam 2 Vital Signs: Vital Signs: Last Vital Signs Temp 98.7 F 03/18/25 15:24 Pulse 72 03/18/25 15:24 Resp 16 03/18/25 15:24 BP 169/77 H 03/18/25 15:24 Pulse Ox 98 03/18/25 15:24 O2 Del Method Room Air 03/18/25 15:24 O2 Flow Rate 2 03/18/25 01:59 BMI result Body Mass Index 24.7 general: seems comfortable Cardiac: S1 S2 heard,RRR. Pulmonary: lungs clear to auscultation B Abdominal: BS active in all 4 quadrants, no guarding, tenderness, rebounding MSK: strength 4/5 upper and lower extremities : no CVA tenderness no bladder distension Extremities: +2 pitting edema in lower extremities, PT and DP pulses palpable +2 . Objective Data Active Medications Acetaminophen (Acetaminophen 325 Mg Tablet) 975 mg PO Q6H [facility] Last Admin: 03/18/25 14:50 Dose: 975 mg Documented By: LIZ Albuterol/Ipratropium (Albuterol/Iprat 2.5/0.5mg 3 Ml Ampul.Neb) 3 ml INHALE Q4H PRN PRN Reason: Shortness of Breath/Wheezing Apixaban (Apixaban 5 Mg Tablet) 5 mg PO BID [facility] Last Admin: 03/18/25 09:39 Dose: 5 mg Documented By: LIZ Calcium Carbonate (Calcium Carbonate 750 Mg Tab.Chew) 750 mg PO Q4H PRN PRN Reason: Heartburn Dextrose (Dextrose 50 % 25 Gm/50 Ml Syringe) 25 gm IVPUSH Q15M PRN; Protocol PRN Reason: per Hypoglycemia Standing Ord. Glucose (Glucose Gel 15 Gm Gel..Gram.) 15 gm PO Q15M PRN; Protocol PRN Reason: per Hypoglycemia Standing Ord. Vancomycin HCl 500 mg/ Sodium (Chloride) 110 mls @ 110 mls/hr IV Q12H [facility] Last Infusion: 03/18/25 12:01 Dose: Infused Documented By: LIZ Insulin Human Lispro (Insulin Lispro 100 Unit/Ml 3 Ml Vial) 0 unit SUBCUT QIDACHS [facility]; Protocol Last Admin: 03/18/25 12:01 Dose: Not Given Documented By: LIZ Non-Admin Reason: pt not eating, MD aware Lidocaine (Lidocaine 4 % Patch Adh..Patch) 1 patch TRANSDERMA DAILY [facility]; Protocol Last Admin: 03/18/25 09:40 Dose: Not Given Documented By: LIZ Non-Admin Reason: Patient Refused Magnesium Hydroxide (Milk Of Magnesia 30 Ml Oral.Susp) 30 ml PO DAILY PRN PRN Reason: Constipation Melatonin (Melatonin 3 Mg Tablet) 6 mg PO BEDTIME PRN PRN Reason: Insomnia Omeprazole (Omeprazole 20 Mg Capsule.Dr) 20 mg PO DAILY@629 [facility] Last Admin: 03/18/25 05:32 Dose: 20 mg Documented By: JASWINDER Ondansetron HCl (Ondansetron Hcl 4 Mg/2 Ml Vial) 4 mg IVPUSH Q8H PRN PRN Reason: Nausea and Vomiting Oxycodone HCl (Oxycodone Hcl Immed Release 5 Mg Tablet) 2.5 mg PO Q6H PRN PRN Reason: Pain, Severe (Pain Scale 7-10) Pharmacy Consult (Consult Rx Vancomycin Dosing) 1 each MISCELLANE DAILY PRN PRN Reason: Consult order Polyethylene Glycol (Polyethylene Glycol 3350 17 Gm Powd.Pack) 17 gm PO DAILY PRN PRN Reason: Constipation Senna (Sennosides 8.6 Mg Tablet) 17.2 mg PO BEDTIME [facility] Sodium Chloride (0.9 % Sodium Chloride Flush 3 Ml Syringe) 3 ml IVFLUSH QSHIFT [facility] Last Admin: 03/18/25 07:41 Dose: Not Given Documented By: BRENDA Non-Admin Reason: IV Running Labs 03/18/25 09:22 03/18/25 09:22 Labs: Laboratory Results - last 24 hr 03/17/25 03/18/25 03/18/25 22:29 04:12 07:38 MCV 92.3 92.5 MCH 30.1 29.9 MCHC 32.6 32.3 RDW 15.1 15.1 Plt Count 288 261 MPV 11.0 11.2 Immature Gran % (Auto) 0.3 0.3 Neut % (Auto) 59.7 50.9 Lymph % (Auto) 21.1 27.1 Dubois % (Auto) 11.8 H 12.3 H Eos % (Auto) 5.8 H 7.7 H Baso % (Auto) 1.3 1.7 Lymph # (Auto) 1.5 1.8 Dubois # (Auto) 0.8 0.8 Eos # (Auto) 0.4 0.5 H Baso # (Auto) 0.1 0.1 Abs Immat Gran (auto) 0.02 0.02 Absolute Neuts (auto) 4.1 3.3 Absolute Nucleated RBC 0.000 0.000 Nucleated RBC % (auto) 0.0 0.0 PT 10.8 L INR 0.9 APTT 30.6 Anion Gap 12 11 L Estim Creat Clear Calc 36.3 39.2 Estimated GFR 55 60 POC Glucose 139 H Random Glucose 183 H 112 Lactic Acid 1.6 Calcium 9.1 8.5 D Magnesium 1.5 L Iron 31 TIBC 151 L % Saturation 21 Unsat Iron Binding 120 Ferritin Total Bilirubin 0.3 0.3 AST 42 H 33 H ALT 26 17 Alkaline Phosphatase 117 82 B-Natriuretic Peptide 94 Total Protein 7.0 5.0 L Albumin 3.7 2.8 L Vitamin B12 Folate Blood Type Antibody Screen 03/18/25 03/18/25 03/18/25 09:02 09:22 11:26 MCV MCH MCHC RDW Plt Count MPV Immature Gran % (Auto) Neut % (Auto) Lymph % (Auto) Dubois % (Auto) Eos % (Auto) Baso % (Auto) Lymph # (Auto) Dubois # (Auto) Eos # (Auto) Baso # (Auto) Abs Immat Gran (auto) Absolute Neuts (auto) Absolute Nucleated RBC Nucleated RBC % (auto) PT INR APTT Anion Gap 13 Estim Creat Clear Calc 41.0 Estimated GFR > 60 POC Glucose 168 H 160 H Random Glucose 192 H Lactic Acid Calcium 8.9 Magnesium 2.2 Iron TIBC % Saturation Unsat Iron Binding Ferritin 366 H Total Bilirubin AST ALT Alkaline Phosphatase B-Natriuretic Peptide Total Protein Albumin Vitamin B12 616 Folate 11.7 Blood Type A Positive Antibody Screen NEGATIVE 03/18/25 16:13 MCV MCH MCHC RDW Plt Count MPV Immature Gran % (Auto) Neut % (Auto) Lymph % (Auto) Dubois % (Auto) Eos % (Auto) Baso % (Auto) Lymph # (Auto) Dubois # (Auto) Eos # (Auto) Baso # (Auto) Abs Immat Gran (auto) Absolute Neuts (auto) Absolute Nucleated RBC Nucleated RBC % (auto) PT INR APTT Anion Gap Estim Creat Clear Calc Estimated GFR POC Glucose 168 H Random Glucose Lactic Acid Calcium Magnesium Iron TIBC % Saturation Unsat Iron Binding Ferritin Total Bilirubin AST ALT Alkaline Phosphatase B-Natriuretic Peptide Total Protein Albumin Vitamin B12 Folate Blood Type Antibody Screen Assessment and Plan (1) Cellulitis: Status: Acute Assessment and Plan: 85-year-old female with past medical history hypertension, diabetes mellitus, DVT, CVA, prior cellulitis, 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 lifelong Eliquis,follow-up as an outpatient with vascular if indicated Status post suspected fall-CT of the head negative for any acute findings CT cervical spine negative for acute findings b/l hip and pelvic - CHF- etiology unclear:Continue torsemide as vitals are stable -BNP within normal limits -Daily weight -Strict I's and O's We will check echo -Low-sodium diet -Patient is not currently on Enrique or Arb Acute hypomagnesemia and hypokalemia: Repleted Monitor renal function electrolytes Hypertension -Continue metoprolol -Low-salt diet Diabetes mellitus type 2 -Sliding scale insulin -Diabetic diet -Januvia once med rec started Dementia -Continue Aricept -Patient high fall risk, safety measures should be in place -Patient does not require one-to-one, patient is not having any abnormal behaviors Hyperlipidemia -Continue statin, AST only mildly elevated GERD -Continue PPI - omeprazole DVT prophylaxis: Eliquis. PPI prophylaxis: Omeprazole. ongoing need : right leg cellulitis/edema -continue iv antibiotics , pain management , Quality Stroke Does the patient have a stroke diagnosis?: No Reason for No Anti-thrombotic by Day Two: N/A - Med Ordered VTE Prior VTE?: Yes VTE Risk Level:: Medical - moderate - high VTE Device Contraindication: Procedure Contraindicated VTE Drug Contraindication: N/A - Med Ordered
[2025-03-18] MEDS: Albumin Human 25 % 100 ML IV ×2 (17:26→23:43)
--- NOTE | 2025-03-18 17:59 | HO.WOUND ---
Wound Consult: Initial 85yr old female admitted [place] [facility] - See progress notes and H&P for detailed history.? Wound consult placed for Right Heel during P&I data collection.? Patient agreeable to assessment and photo documentation.? Right Heel Right Leg Etiology: ?Diabetic Wound ?Present on Admission Wound Bed: black brown necrotic tissue Drainage / Odor: small serous mims drainage Edges: macerated and moist ? Shawna wound: ?Moist and some fluctuance noted - no Induration noted Pain: pain reported Goals of Treatment: ? Off load - Surgery consult for debridement and Durafiber for moisture management Recommendations: 1. Turn and Reposition every 2 hours and as needed for patient comfort.? Use pillows or wedges to support off loading positions. 2. Off Load all bony prominences with use of pillows and heel boots if needed.? Apply Preventative foams where needed. ? 3. Monitor for incontinence and moisture control, use barrier creams when needed for prevention and treatment. 4. Provide adequate and supplemental nutrition.? 5. Order low air loss mattress. 6. When applicable maintain blood glucose levels per Providers order. Right Heel - Elevate heel off of surface of bed with pillows. Cleanse with NS moist gauze, Pat dry.? Apply barrier to periwound, apply Durafiber AG to wound bed, cover with dry gauze, Abd pad and wrap.? Change daily. Re-consult wound care Nurse for wound deterioration or wound changes.
[2025-03-18] MEDS: Furosemide 20 MG TABLET 10 MG PO (18:23)
[2025-03-18 18:30] LABS: OBS Int Ctl Valid YES; OBS1 NEGATIVE (NEGATIVE)
[2025-03-18] MEDS: Mirtazapine 7.5 MG TABLET PO (20:56)
[2025-03-18] MEDS: Donepezil HCl 10 MG TABLET PO (20:56)
[2025-03-18] MEDS: Sennosides/Docusate Sodium TABLET 1 TAB PO (20:56)
[2025-03-18] MEDS: Atorvastatin Calcium 20 MG TABLET PO (20:56)
[2025-03-18] MEDS: Metoprolol Succinate ER 12.5 MG HALFTAB.ER.24H PO (20:56)
[2025-03-18 21:01] LABS: Glucose, Whole Blood 186 mg/dL (60-115)
[2025-03-18] MEDS: Insulin Lispro 100 UNIT/ML 3 ML VIAL SUBCUT (21:05)
[2025-03-19] VITALS (7 sets, daily range): BP systolic 124–151; BP diastolic 58–70; PULSE 66–77; RESP 16–18; TEMP 36.6–37.3; O2SAT 91–92
[2025-03-19] MEDS: 0.9 % Sodium Chloride Flush 3 ML SYRINGE IVFLUSH ×3 (00:53→22:26)
[2025-03-19] MEDS: vancomycin HCL 500 MG in 0.9 % Sodium Chloride 100 ML 110 MG IV (00:53)
[2025-03-19] MEDS: Albumin Human 25 % 100 ML IV ×2 (05:29→10:49)
[2025-03-19] MEDS: Omeprazole 20 MG CAPSULE.DR PO (06:15)
--- NOTE | 2025-03-19 07:00 | CA_ITS ---
Transthoracic Echocardiogram Patient (Last, First, Middle): AlyceMarch, Gender: Female Date of : 1940 Age: 85 Procedure Date: 03/19/2025 Procedure Type: Transthoracic Echocardiogram Location: S3W Height: 154.94 cm Weight: 58.97 kg BSA: 1.57 m2 Heart Rate: 69 bpm BP: 129 / 64 mmHg Assistant Activities Director: Referring MD: Araon Montes MD Rn Supplemental: Td Restrepo MD Symptoms: leg swelling /edema Study Quality: Adequate ECG Rhythm: Sinus Conclusions: - 1. Normal LV ejection fraction 55-60% with impaired relaxation filling pattern 2. Mildly dilated left atrium 3. Mild aortic stenosis and regurgitation noted 4. Mild mitral regurgitation noted 5. [id number] tricuspid regurgitation noted 6. Upper limits of normal RV systolic pressure 7. No gross pericardial effusion Findings Left Ventricle Normal left ventricular size, thickness, and systolic function. The visually estimated ejection fraction is between 55-60%. Spectral Doppler is indicative of an impaired relaxation filling pattern. E/E prime ratio is between 8 and 15 consistent with indeterminate filling pressures. Right Ventricle Normal right ventricular cavity size and systolic function. Atria The left atrium is mildly dilated. There is no evidence of interatrial shunt. The right atrium is likely dilated. Aortic Valve The aortic valve was not well visualized. There is mild calcification of the aortic valve. There is mild aortic valve stenosis. The peak aortic gradient is 19 mmHg.The mean gradient is 10 mmHg. The aortic valve area is 1.52 cm2. There is mild aortic valve regurgitation. Mitral Valve There is mild anterior mitral leaflet thickening. There is mild mitral annular calcification. There is mild mitral valve regurgitation. There is no mitral valve stenosis. Pulmonic Valve The pulmonic valve was not well visualized. Tricuspid Valve There is mild to moderate tricuspid valve regurgitation. Normal right atrial pressure. Great Vessels All visible segments of the aorta are normal in size. The pulmonary artery was not well visualized. There is no dilatation of the ascending aorta measuring 3.10 cm. Venous The inferior vena cava is normal in size and collapses greater than 50% with inspiration. Pericardium/Pleural There is no evidence of pericardial effusion. Prior Study Comparison no previous study in the last 5 years for comparison Measurements 2D Linear Measurements IVSd: 0.95 0.6-0.9/0.6-1.0 cm LVIDd: 4.12 3.9-5.3/4.2-5.9 cm LVIDd Index: 2.62 2.4-3.2/2.2-3.1 cm/m2 LVIDs: 2.66 2.0-3.6 cm LVPWd: 0.80 0.7-1.1 cm LA Diam: 3.70 2.7-3.8/3.0-4.0 cm LAIDs Index: 2.36 1.5-2.3 cm/m2 LV Mass: 137.08 67-162/88-224 g LV Mass Index: 87.31 43-95/49-115 g/m2 LVOT Diam: 2.10 3.0+(-)1.3 cm 2D Systolic Function EF 4C: 52.80 >55% EF 2C: 63.10 >55% EF BiP: 58.10 >55% Mitral Valve MV VTI: 0.40 MV Pk Juan: 1.19 MV Mn Juan: 0.71 MV Pk Grad: 6.00 MV Mn Grad: 2.00 MV Pk E: 0.95 MV PK A: 1.19 MV Decel Time: 217.00 E/A: 0.80 E'Lateral: 9.68 E'Medial: 8.27 E/E' Med: 11.50 E/E' Lat: 9.80 PHT: 64.00 MVA PHT: 3.44 MVA Continuity: 2.03 Decel [place]: 4.37 Aortic Valve AoV Pk Juan: 2.20 AoV Mn Juan: 1.44 AoV VTI: 0.54 AoV Pk Grad: 19.00 Aov Mn Grad: 10.00 ARMAND Cont.VTI: 1.52 AI Pk Juan: 4.28 AI [place]: 3.79 LVOT LVOT Pk Juan: 0.97 LVOT Mn Juan: 0.55 LVOT VTI: 0.24 LVOT Pk Grad: 4.00 LVOT Mn Grad: 2.00 LVOT Diam: 2.10 LVOT Area: 3.46 Diastolic Function MV Pk E: 0.95 MV Pk A: 1.19 E/A: 0.80 E'Medial: 8.27 E/E' Med: 11.50 E' Laterial: 9.68 E/E' Lat: 9.80 Right Ventricle TAPSE (mm): 22.00 TVS' Juan: 14.00 Tricuspid Valve TR Pk Juan: 2.91 TR Pk Grad: 34.00 RA Press: 3.00 RVSP: 37.00 Great Vessels Aorta Sinus of Valsalva: 3.10 2.0-3.5 cm Ao Asc: 3.10 2.1-3.4 cm Pulmonary Valve PV Pk Juan: 1.03 Peak PV Grad: 4.00 Updated in Other Vendor System with Status of Final Td Restrepo MD electronically signed on 03/19/2025 3:19:01 PM with status of Final
[2025-03-19 08:16] LABS: Glucose, Whole Blood 113 mg/dL (60-115)
[2025-03-19] MEDS: Calcium + Vitamin D 250 MG TABLET 500 MG PO (09:15)
[2025-03-19] MEDS: Multivitamin TABLET 1 TAB PO (09:15)
[2025-03-19] MEDS: Sertraline HCL 25 MG TABLET PO (09:15)
[2025-03-19] MEDS: Acetaminophen 325 MG TABLET 975 MG PO ×2 (09:16→22:24)
[2025-03-19] MEDS: Apixaban 5 MG TABLET PO (09:16)
[2025-03-19] MEDS: Furosemide 20 MG TABLET 10 MG PO (09:16)
[2025-03-19 10:44] LABS: Hematocrit 21.7 % (37.0-47.0)
[2025-03-19 10:56] LABS: Hemoglobin 6.9 g/dl (12.0-16.0); Vancomycin Random 16.1 mcg/mL (15-20)
[2025-03-19 10:57] LABS: Creatinine Clr Calc Pharmacy 42.4; Estimated Glomerular Filt Rate > 60
[2025-03-19 10:58] LABS: Anion Gap 9 (12-20); Blood Urea Nitrogen 9 mg/dL (9-16); Calcium 8.7 mg/dL (8.4-10.2); Carbon Dioxide 28 mmol/L (22-29); Chloride 108 mmol/L (96-108); Estimated Glomerular Filt Rate > 60; Glucose Random 116 mg/dL (60-115); Potassium 3.7 mmol/L (3.3-5.1); Sodium 141 mmol/L (135-145)
--- NOTE | 2025-03-19 11:14 | PM.CNGS ---
History of Present Illness Consult details Consult date: 03/19/25 Narrative: We were consulted on March, for concerns of bilateral lower extremity swelling. She presented to the ER on 03/17 with concerns of RLE cellulitis, failing outpatient treatment. She has a medical hx pertinent for dementia, HTN, HLD, DM, DVT on lifelong Eliquis ? Factor V, COPD, CVA, and mechanical thrombectomy at [facility] in 11/2023. She was admitted for cellulitis and started on IV Abx. The pt denies any pain this morning. The redness has decreased slightly but the edema remains. Her daughter states that the pt has been going downhill since early January after the pt fell and fx her hip. She was seen at [facility], where they did a surgical fixation, and then she went to rehab at [facility] for appx 5w. The daughter states that the pt did not do well at the SNF and has not been ambulatory since the surgery. The pt spends most of her days in a wheelchair or her recliner. The pt has had the heel wounds for months now and have worsened over the last month or so. Review of Systems Constitutional: Constitutional: Reports as per HPI and Denies weakness ENT: Reports Normal hearing present and Denies dizziness Cardiovascular: Cardiovascular: Reports as per HPI, Denies chest pain, Denies chest pain at rest, Denies chest pain with activity, Denies dyspnea and Denies dyspnea on exertion Respiratory: Respiratory: Reports as per HPI, Denies cough, Denies dyspnea and Denies dyspnea on exertion Gastrointestinal: Gastrointestinal: Reports as per HPI, Denies abdominal pain, Denies nausea and Denies vomiting Musculoskeletal: Musculoskeletal: Denies numbness Integumentary/Breasts: Skin/Breast: Reports as per HPI, Denies erythema and Denies wounds Neurologic: Reports Normal hearing present, Denies dizziness, Denies numbness, Denies Sensory deficit (Neuro) and Denies weakness Psychiatric: Psychiatric: Reports no additional psychiatric complaints Endocrine: Endocrine: Reports no additional endocrine complaints [facility] Past Medical History Medical History DVT (deep venous thrombosis) Hypertension Type 2 diabetes mellitus Family History Family History Mother Blood clots in brain Social History Social History Household Members: Other Housing: Custodial Housing Other:: Mobile Home Alcohol intake: former Patient Tobacco Use Status: Never used Tobacco Currently Displaying Signs/Symptoms of Drug Intoxication Withdrawal: No Advance Directives: Yes Advance Directives on File: Yes Advance Directives Date on File: 03/17/25 Do you have a plan to hurt others: No Plan Recently lost weight without trying: Unsure How much weight loss: Unsure Nutrition Risks: No Nutritional Risk Patient : No : No Poor oral hygiene: No service: No Current occupational status: retired Travel History Ebola Risk: Travel/Contact With Anyone From Affected Area/s: No Has Patient Experienced Ebola Symptoms: No Meds Allergies Allergy/AdvReac Type Severity Reaction Status Date / Time No Known Allergies Allergy Verified 03/17/25 21:35 [No Known Allergies*] Active Medications: Current Medications Acetaminophen (Acetaminophen 325 Mg Tablet) 975 mg PO Q6H [facility] Last Admin: 03/19/25 09:16 Dose: 975 mg Albuterol/Ipratropium (Albuterol/Iprat 2.5/0.5mg 3 Ml Ampul.Neb) 3 ml INHALE Q4H PRN PRN Reason: Shortness of Breath/Wheezing Apixaban (Apixaban 5 Mg Tablet) 5 mg PO BID [facility] Last Admin: 03/19/25 09:16 Dose: 5 mg Atorvastatin Calcium (Atorvastatin Calcium 20 Mg Tablet) 20 mg PO BEDTIME [facility] Last Admin: 03/18/25 20:56 Dose: 20 mg Calcium Carbonate (Calcium Carbonate 750 Mg Tab.Chew) 750 mg PO Q4H PRN PRN Reason: Heartburn Calcium Carbonate/Cholecalciferol (Calcium + Vitamin D 250 Mg Tablet) 500 mg PO DAILY [facility] Last Admin: 03/19/25 09:15 Dose: 500 mg Dextrose (Dextrose 50 % 25 Gm/50 Ml Syringe) 25 gm IVPUSH Q15M PRN; Protocol PRN Reason: per Hypoglycemia Standing Ord. Donepezil HCl (Donepezil Hcl 10 Mg Tablet) 10 mg PO BEDTIME [facility] Last Admin: 03/18/25 20:56 Dose: 10 mg Furosemide (Furosemide 20 Mg Tablet) 10 mg PO DAILY [facility] Last Admin: 03/19/25 09:16 Dose: 10 mg Glucose (Glucose Gel 15 Gm Gel..Gram.) 15 gm PO Q15M PRN; Protocol PRN Reason: per Hypoglycemia Standing Ord. Albumin Human (Kedbumin 25 %) 100 mls @ 100 mls/hr IV Q6H [facility] Stop: 03/19/25 11:44 Last Admin: 03/19/25 10:49 Dose: 100 mls/hr Vancomycin HCl 1,000 mg/ (Sodium Chloride) 270 mls @ 270 mls/hr IV Q24H [facility] Insulin Human Lispro (Insulin Lispro 100 Unit/Ml 3 Ml Vial) 0 unit SUBCUT QIDACHS [facility]; Protocol Last Admin: 03/19/25 08:18 Dose: Not Given Lactulose (Lactulose 20 Gm/30 Ml Solution) 20 gm PO QID PRN PRN Reason: Constipation Lidocaine (Lidocaine 4 % Patch Adh..Patch) 1 patch TRANSDERMA DAILY [facility]; Protocol Last Admin: 03/19/25 09:29 Dose: Not Given Magnesium Hydroxide (Milk Of Magnesia 30 Ml Oral.Susp) 30 ml PO DAILY PRN PRN Reason: Constipation Melatonin (Melatonin 3 Mg Tablet) 6 mg PO BEDTIME PRN PRN Reason: Insomnia Metoprolol Succinate (Metoprolol Succinate Er 12.5 Mg Halftab.Er.24h) 12.5 mg PO BEDTIME [facility]; Protocol Last Admin: 03/18/25 20:56 Dose: 12.5 mg Mirtazapine (Mirtazapine 7.5 Mg Tablet) 7.5 mg PO BEDTIME [facility] Last Admin: 03/18/25 20:56 Dose: 7.5 mg Multivitamins/Vitamin C (Multivitamin Tablet) 1 tab PO DAILY [facility] Last Admin: 03/19/25 09:15 Dose: 1 tab Omeprazole (Omeprazole 20 Mg Capsule.Dr) 20 mg PO DAILY@0630 [facility] Last Admin: 03/19/25 06:15 Dose: 20 mg Ondansetron HCl (Ondansetron Hcl 4 Mg/2 Ml Vial) 4 mg IVPUSH Q8H PRN PRN Reason: Nausea and Vomiting Oxycodone HCl (Oxycodone Hcl Immed Release 5 Mg Tablet) 2.5 mg PO Q6H PRN PRN Reason: Pain, Severe (Pain Scale 7-10) Pharmacy Consult (Consult Rx Vancomycin Dosing) 1 each MISCELLANE DAILY PRN PRN Reason: Consult order Polyethylene Glycol (Polyethylene Glycol 3350 17 Gm Powd.Pack) 17 gm PO DAILY PRN PRN Reason: Constipation Senna/Docusate Sodium (Sennosides/Docusate Sodium Tablet) 1 tab PO BEDTIME [facility] Last Admin: 03/18/25 20:56 Dose: 1 tab Sertraline HCl (Sertraline Hcl 25 Mg Tablet) 25 mg PO DAILY [facility] Last Admin: 03/19/25 09:15 Dose: 25 mg Sodium Chloride (0.9 % Sodium Chloride Flush 3 Ml Syringe) [facility] Last Admin: 03/19/25 09:16 Dose: 3 ml Home Medications ?Medication ?Instructions ?Recorded ?Confirmed ?Last Taken ?Type donepezil 10 mg tablet 10 mg PO BEDTIME 10/30/23 03/18/25 03/14/25 History metoprolol succinate 25 mg 12.5 mg PO BEDTIME 10/30/23 03/18/25 03/14/25 History tablet,extended release 24 hr lactulose 10 gram/15 mL oral 30 ml PO QID PRN Constipation 11/03/24 03/18/25 Unknown History solution pantoprazole 20 mg tablet,delayed 20 mg PO DAILY@0630 11/03/24 03/18/25 03/15/25 History release polyethylene glycol 3350 17 17 g PO DAILY PRN Constipation 11/03/24 03/18/25 Unknown History gram/dose oral powder apixaban 5 mg tablet (Eliquis) 5 mg PO BID 12/08/24 03/18/25 03/14/25 History atorvastatin 20 mg tablet 20 mg PO BEDTIME 12/08/24 03/18/25 03/14/25 History torsemide 5 mg tablet 5 mg PO DAILY 12/08/24 03/18/25 03/15/25 History acetaminophen 325 mg tablet 650 mg PO Q6H PRN TEMP, PAIN 03/16/25 03/18/25 Unknown History acetaminophen 500 mg tablet 500 mg PO TID 03/16/25 03/18/25 03/15/25 History calcium 600 mg (as 2 tab PO DAILY 03/16/25 03/18/25 03/15/25 History carbonate)-vitamin D3 5 mcg (200 unit) tablet diphenhydramine HCl 25 mg capsule 25 mg PO TID PRN ALLERGIES 03/16/25 03/18/25 Unknown History (Benadryl) mirtazapine 7.5 mg tablet 7.5 mg PO BEDTIME 03/16/25 03/18/25 03/14/25 History multivitamin 1 tab PO DAILY 03/16/25 03/18/25 03/15/25 History sennosides 8.6 mg-docusate sodium 1 tab-cap PO BEDTIME 03/16/25 03/18/25 03/14/25 History 50 mg tablet (Senna Plus) sertraline 25 mg tablet 25 mg PO DAILY 03/16/25 03/18/25 03/15/25 History sitagliptin phosphate 50 mg tablet 50 mg PO DAILY 03/16/25 03/18/25 03/15/25 History (Lanaia) Physical Exam Vital Signs: Vital Signs: Last Vital Signs Temp 98.6 F 03/19/25 07:48 Pulse 75 03/19/25 07:48 Resp 18 03/19/25 07:48 BP 124/59 L 03/19/25 07:48 Pulse Ox 92 03/19/25 07:48 O2 Del Method Room Air 03/19/25 07:48 O2 Flow Rate 2 03/18/25 01:59 BMI result Body Mass Index 24.7 Const: Other: Pt oriented to person only. General: comfortable and no acute distress HEENT: Ears: hearing grossly normal bilaterally Resp: Effort & Inspection: normal respiratory effort and able to speak in complete sentences Auscultation: clear to auscultation bilaterally Cardio: Rate: regular rate Rhythm: regular rhythm Heart sounds: S1 normal heart sound present and S2 normal heart sound present Bruits: no abdominal aortic bruits, no carotid bruits, no femoral bruits and no renal bruits GI: Palpation (GI): No Abdominal aortic bruit present Neuro: Cranial nerves: Yes Normal hearing present Sensory Exam: No Sensory deficit (Neuro) Extrem: Other: Bilateral lower extremities: +2/3 pitting edema noted. Right heel wound: dry necrotic tissue and eschar noted (see pic in wound care note). Not painful to palpation. Results Labs 03/19/25 09:34 03/19/25 09:34 Labs: Abnormal lab results 03/18/25 03/18/25 03/18/25 Range/Units 09:22 11:26 16:13 Hgb (12.0-16.0) g/dl Hct (37.0-47.0) % Anion Gap (12-20) POC Glucose 160 H 168 H (60-115) mg/dL Random Glucose (60-115) mg/dL Ferritin 366 H (10-250) ng/mL 03/18/25 03/19/25 Range/Units 20:53 09:34 Hgb 6.9 L* (12.0-16.0) g/dl Hct 21.7 L (37.0-47.0) % Anion Gap 9 L (12-20) POC Glucose 186 H (60-115) mg/dL Random Glucose 116 H (60-115) mg/dL Ferritin (10-250) ng/mL Short CBC 03/19/25 Range/Units 09:34 Hgb 6.9 L* (12.0-16.0) g/dl Hct 21.7 L (37.0-47.0) % BMP 03/19/25 03/19/25 09:34 09:34 Sodium 141 Potassium 3.7 Chloride 108 Carbon Dioxide 28 BUN 9 Creatinine 0.83 0.82 Calcium 8.7 All other labs normal. Assessment and Plan (1) Cellulitis: Qualifiers: Site of cellulitis: extremity Site of cellulitis of extremity: lower extremity Laterality: right Qualified Code(s): L03.115 - Cellulitis of right lower limb Status: Acute Plan We were consulted for March, for bilateral lower extremity swelling. 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 She has recently had a significant decline in her health, per her daughter. Wound care is recommending a possible surgical debridement of the heel wound. She continues on IV Abx for cellulitis. The pt's H/H dropped this am to 6.9. We will have her Eliquis held and resumed when her H/H stabilizes. We recommend continuing with IV Abx. There is no acute vascular surgical intervention at this point. We will continue to monitor. If there are any questions or concerns, please do not hesitate to reach out to us. Procedures Date of Service Date of Service: 03/19/25
[2025-03-19] MEDS: vancomycin HCL 1,000 MG in 0.9 % Sodium Chloride 250 ML 270 MG IV (11:20)
[2025-03-19 11:54] LABS: Baso%MD 1.2 %; Eos%MD 3.9 %; IG%MD 0.2 %; Lymph%MD 18.7 %; Mean Corpuscular HGB Conc 32.4 g/dl (31.0-35.0); Mean Corpuscular Volume 92.7 fL (80.0-98.0); Mean Platelet Volume 11.4 fL (9.4-12.3); Mono%MD 8.8 %; Neut%MD 67.2 %; Platelet Count 241 X10*3/uL (160-400); Red Blood Count 2.33 X10*6/uL (4.20-5.50); Red Cell Distribution Width 15.5 % (11.0-16.0); White Blood Count 6.5 X10*3/uL (4.8-10.8)
[2025-03-19 12:01] LABS: Glucose, Whole Blood 120 mg/dL (60-115)
[2025-03-19 12:01] LABS: Alanine Aminotransferase 14 U/L (0-31); Albumin Level 3.8 g/dL (3.5-5.0); Alkaline Phosphatase 78 U/L (39-117); Aspartate Amino Transferase 33 U/L (5-31); Bilirubin Direct 0.2 mg/dL (0.0-0.5); Bilirubin Total 0.5 mg/dL (0.0-1.0); Total Protein 5.6 g/dL (6.5-8.0)
[2025-03-19 12:13] LABS: Baso%MD 1.2 %; Eos%MD 3.8 %; IG%MD 0.2 %; Lymph%MD 19.2 %; Mean Corpuscular HGB Conc 32.5 g/dl (31.0-35.0); Mean Corpuscular Hemoglobin 29.9 pg (27.0-33.0); Mean Platelet Volume 11.1 fL (9.4-12.3); Mono%MD 9.8 %; Neut%MD 65.8 %; Platelet Count 215 X10*3/uL (160-400); Red Blood Count 2.24 X10*6/uL (4.20-5.50); Red Cell Distribution Width 15.5 % (11.0-16.0); White Blood Count 6.1 X10*3/uL (4.8-10.8)
[2025-03-19 12:19] LABS: Band Neutrophils Percent 2 % (3-5); Basophils Abs Manual 0.1 X10*3/uL (0.0-0.2); Basophils Percent Manual 1 % (0-2); Eosinophils Absolute Manual 0.1 X10*3/uL (0.0-0.4); Eosinophils Percent Manual 2 % (0-4); Lymphocytes Percent Manual 16 % (20-40); Monocytes Absolute Manual 0.4 X10*3/uL (0.1-1.2); Monocytes Percent Manual 6 % (2-11); Neutrophils Absolute Manual 4.9 X10*3/uL (2.0-8.3); Neutrophils Percent Manual 73 % (45-73); RBC Morphology NOTED
[2025-03-19 12:20] LABS: Ovalocytes 2+ (15-30) /OIF
[2025-03-19 12:22] LABS: Schistocytes 1+ (0-2) /OIF
[2025-03-19 12:23] LABS: Platelet Estimate NORMAL (NORMAL); Platelet Morphology Comment NORMAL
[2025-03-19 12:27] LABS: Haptoglobin 147 mg/dL (63-273)
[2025-03-19 12:30] LABS: Hemoglobin 6.7 g/dl (12.0-16.0)
[2025-03-19 12:31] LABS: Hematocrit 20.6 % (37.0-47.0)
--- NOTE | 2025-03-19 12:41 | MHC.CM.PN ---
EMR REVIEWED AND PER MD ROUNDS, PT IS NOT MEDICALLY CLEARED FOR DC (DROP IN H AND H, LAB MONITORING,IV ABT) CM WILL CONTINUE TO FOLLOW FOR PLAN.
[2025-03-19 12:42] LABS: Lactate Dehydrogenase 182 U/L (122-220)
[2025-03-19 12:49] LABS: Band Neutrophils Percent 0 % (3-5); Lymphocytes Absolute Manual 0.8 X10*3/uL (1.2-4.9); Lymphocytes Percent Manual 13 % (20-40); Monocytes Absolute Manual 0.1 X10*3/uL (0.1-1.2); Monocytes Percent Manual 1 % (2-11); Neutrophils Absolute Manual 5.2 X10*3/uL (2.0-8.3); Neutrophils Percent Manual 86 % (45-73)
[2025-03-19 12:50] LABS: Ovalocytes 2+ (15-30) /OIF; Platelet Estimate NORMAL (NORMAL); Platelet Morphology Comment NORMAL; RBC Morphology NOTED; Schistocytes 1+ (0-2) /OIF
[2025-03-19] MEDS: Acetaminophen 325 MG TABLET 650 MG PO (13:04)
--- NOTE | 2025-03-19 13:57 | PM.HEMONCCN ---
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 Patient unable to provide any reliable history, history obtained from chart review. Patient was previously in the [facility] ED 03/16/2025 and was placed under physician observation for case management needs. Patient normally resides in an assisted living facility for memory support, the reserve in [place] with of VNA services. [facility] prison for [facility]-term rehab after workup status post fall was negative for any changes with CT of the head or cervical spine. Patient was started on p.o. doxycycline for cellulitis. Patient returned 03/18 from prison after physician noted worsening cellulitis of right lower extremity and requesting IV antibiotics for treatment. Patient was noted to be anemic with a normocytic anemia and an H&H of 8.6 and 26.3. Today it worsened, hemoglobin was 6.9 gram/dL, on repeat labs it was 6.7 gram/dL. No reports of any signs of bleeding. Patient denies any abdominal pain. Review of Systems - Constitutional Reports as per HPI - Neurologic Reports hearing normal, Denies dizziness, Denies numbness, Denies sensory deficit, Denies weakness [facility] Medical History: Medical History (Last Reviewed 03/18/25 @ 00:16 by FAUSTINO Mclaughlin) DVT (deep venous thrombosis) Hypertension Type 2 diabetes mellitus Functional capacity: uses cane/walker Family History: Family History (Last Reviewed 03/18/25 @ 00:17 by FAUSTINO Mclaughlin) Mother Blood clots in brain Social History: Social History (Last Reviewed 03/18/25 @ 00:17 by FAUSTINO Mclaughlin) Living Situation History: Household Members: Other Housing: Jail Housing Other:: Mobile Home Alcohol History Details: Currently Displaying Signs/Symptoms of Alcohol Withdrawal: No Tobacco History: Patient Tobacco Use Status: Never used Tobacco Substance Use History: Currently Displaying Signs/Symptoms of Drug Intoxication Withdrawal: No Advance Directives: Advance Directives: Yes Advance Directives on File: Yes Advance Directives Date on File: 03/17/25 Homicidal Assessment: Do you have a plan to hurt others: No Plan Nutrition Assessment: Recently lost weight without trying: Unsure How much weight loss: Unsure Nutrition Risks: No Nutritional Risk Patient : No : No Poor oral hygiene: No Occupation Assessmet: service: No Current occupational status: retired - Travel History Ebola Risk: Travel/Contact With Anyone From Affected Area/s: No Has Patient Experienced Ebola Symptoms: No Home Medications and Allergies Current Medications: Current Medications Acetaminophen (Acetaminophen 325 Mg Tablet) 975 mg PO Q6H [facility] Last Admin: 03/19/25 09:16 Dose: 975 mg Albuterol/Ipratropium (Albuterol/Iprat 2.5/0.5mg 3 Ml Ampul.Neb) 3 ml INHALE Q4H PRN PRN Reason: Shortness of Breath/Wheezing Apixaban (Apixaban 5 Mg Tablet) 5 mg PO BID [facility] Last Admin: 03/19/25 09:16 Dose: 5 mg Atorvastatin Calcium (Atorvastatin Calcium 20 Mg Tablet) 20 mg PO BEDTIME [facility] Last Admin: 03/18/25 20:56 Dose: 20 mg Calcium Carbonate (Calcium Carbonate 750 Mg Tab.Chew) 750 mg PO Q4H PRN PRN Reason: Heartburn Calcium Carbonate/Cholecalciferol (Calcium + Vitamin D 250 Mg Tablet) 500 mg PO DAILY [facility] Last Admin: 03/19/25 09:15 Dose: 500 mg Dextrose (Dextrose 50 % 25 Gm/50 Ml Syringe) 25 gm IVPUSH Q15M PRN; Protocol PRN Reason: per Hypoglycemia Standing Ord. Donepezil HCl (Donepezil Hcl 10 Mg Tablet) 10 mg PO BEDTIME [facility] Last Admin: 03/18/25 20:56 Dose: 10 mg Furosemide (Furosemide 20 Mg Tablet) 10 mg PO DAILY [facility] Last Admin: 03/19/25 09:16 Dose: 10 mg Glucose (Glucose Gel 15 Gm Gel..Gram.) 15 gm PO Q15M PRN; Protocol PRN Reason: per Hypoglycemia Standing Ord. Vancomycin HCl 1,000 mg/ (Sodium Chloride) 270 mls @ 270 mls/hr IV Q24H [facility] Last Infusion: 03/19/25 13:11 Dose: Infused Insulin Human Lispro (Insulin Lispro 100 Unit/Ml 3 Ml Vial) 0 unit SUBCUT QIDACHS [facility]; Protocol Last Admin: 03/19/25 12:03 Dose: Not Given Lactulose (Lactulose 20 Gm/30 Ml Solution) 20 gm PO QID PRN PRN Reason: Constipation Lidocaine (Lidocaine 4 % Patch Adh..Patch) 1 patch TRANSDERMA DAILY [facility]; Protocol Last Admin: 03/19/25 09:29 Dose: Not Given Magnesium Hydroxide (Milk Of Magnesia 30 Ml Oral.Susp) 30 ml PO DAILY PRN PRN Reason: Constipation Melatonin (Melatonin 3 Mg Tablet) 6 mg PO BEDTIME PRN PRN Reason: Insomnia Metoprolol Succinate (Metoprolol Succinate Er 12.5 Mg Halftab.Er.24h) 12.5 mg PO BEDTIME [facility]; Protocol Last Admin: 03/18/25 20:56 Dose: 12.5 mg Mirtazapine (Mirtazapine 7.5 Mg Tablet) 7.5 mg PO BEDTIME [facility] Last Admin: 03/18/25 20:56 Dose: 7.5 mg Multivitamins/Vitamin C (Multivitamin Tablet) 1 tab PO DAILY [facility] Last Admin: 03/19/25 09:15 Dose: 1 tab Omeprazole (Omeprazole 20 Mg Capsule.Dr) 20 mg PO DAILY@0630 [facility] Last Admin: 03/19/25 06:15 Dose: 20 mg Ondansetron HCl (Ondansetron Hcl 4 Mg/2 Ml Vial) 4 mg IVPUSH Q8H PRN PRN Reason: Nausea and Vomiting Oxycodone HCl (Oxycodone Hcl Immed Release 5 Mg Tablet) 2.5 mg PO Q6H PRN PRN Reason: Pain, Severe (Pain Scale 7-10) Pharmacy Consult (Consult Rx Vancomycin Dosing) 1 each MISCELLANE DAILY PRN PRN Reason: Consult order Polyethylene Glycol (Polyethylene Glycol 3350 17 Gm Powd.Pack) 17 gm PO DAILY PRN PRN Reason: Constipation Senna/Docusate Sodium (Sennosides/Docusate Sodium Tablet) 1 tab PO BEDTIME [facility] Last Admin: 03/18/25 20:56 Dose: 1 tab Sertraline HCl (Sertraline Hcl 25 Mg Tablet) 25 mg PO DAILY [facility] Last Admin: 03/19/25 09:15 Dose: 25 mg Sodium Chloride (0.9 % Sodium Chloride Flush 3 Ml Syringe) [facility] Last Admin: 03/19/25 09:16 Dose: 3 ml Home Medications ?Medication ?Instructions ?Recorded ?Confirmed ?Type donepezil 10 mg tablet 10 mg PO BEDTIME 10/30/23 03/18/25 History metoprolol succinate 25 mg 12.5 mg PO BEDTIME 10/30/23 03/18/25 History tablet,extended release 24 hr lactulose 10 gram/15 mL oral 30 ml PO QID PRN Constipation 11/03/24 03/18/25 History solution pantoprazole 20 mg tablet,delayed 20 mg PO DAILY@0630 11/03/24 03/18/25 History release polyethylene glycol 3350 17 17 g PO DAILY PRN Constipation 11/03/24 03/18/25 History gram/dose oral powder apixaban 5 mg tablet (Eliquis) 5 mg PO BID 12/08/24 03/18/25 History atorvastatin 20 mg tablet 20 mg PO BEDTIME 12/08/24 03/18/25 History torsemide 5 mg tablet 5 mg PO DAILY 12/08/24 03/18/25 History acetaminophen 325 mg tablet 650 mg PO Q6H PRN TEMP, PAIN 03/16/25 03/18/25 History acetaminophen 500 mg tablet 500 mg PO TID 03/16/25 03/18/25 History calcium 600 mg (as 2 tab PO DAILY 03/16/25 03/18/25 History carbonate)-vitamin D3 5 mcg (200 unit) tablet diphenhydramine HCl 25 mg capsule 25 mg PO TID PRN ALLERGIES 03/16/25 03/18/25 History (Benadryl) mirtazapine 7.5 mg tablet 7.5 mg PO BEDTIME 03/16/25 03/18/25 History multivitamin 1 tab PO DAILY 03/16/25 03/18/25 History sennosides 8.6 mg-docusate sodium 1 tab-cap PO BEDTIME 03/16/25 03/18/25 History 50 mg tablet (Senna Plus) sertraline 25 mg tablet 25 mg PO DAILY 03/16/25 03/18/25 History sitagliptin phosphate 50 mg tablet 50 mg PO DAILY 03/16/25 03/18/25 History (Januvia) Allergies Allergy/AdvReac Type Severity Reaction Status Date / Time No Known Allergies Allergy Verified 03/17/25 21:35 [No Known Allergies*] Physical Exam Vital signs: Vital Signs Temp 98.6 F 03/19/25 13:07 Pulse 71 03/19/25 13:07 Resp 16 03/19/25 13:07 BP 140/63 H 03/19/25 13:07 Pulse Ox 92 03/19/25 07:48 O2 Del Method Room Air 03/19/25 07:48 O2 Flow Rate 2 03/18/25 01:59 Intake & Output 03/18/25 03/19/25 03/19/25 18:59 06:59 18:59 Intake Total 500 / 1050 550 / 1050 470 / 470 Output Total 600 / 600 Balance 500 / 450 -50 / 450 470 / 470 Urine Output (Average ml/kg/hr) 0.84 0.84 Intake: Intake, Oral Amount 240 / 480 240 / 480 Intake (Blood Product) Amount 0 / 0 Red Blood Cells (E0336) Unit 0 / 0 [id number] Intake, IV Amount 260 / 570 310 / 570 470 / 470 Albumin Human 25 % 100 ml @ 100 200 / 200 200 / 200 mls/hr IV Q6H [facility] Rx#: [id number] Magnesium Sulfate/H2O 2 gm In 50 / 50 50 ml @ 150 mls/hr IV ONCE ONE Rx#:[id number] Potassium Chloride/H20 10 meq 100 / 100 In 100 ml @ 100 mls/hr IV ONCE ONE Rx#:[id number] vancomycin HCL 1,000 mg In 0.9 270 / 270 % Sodium Chloride 250 ml @ 270 mls/hr IV Q24H [facility] Rx#: [id number] vancomycin HCL 500 mg In 0.9 % 110 / 220 110 / 220 Sodium Chloride 100 ml @ 110 mls/hr IV Q12H [facility] Rx#: [id number] Output: Output, Urine Amount 100 / 100 Output, Urine Amount (Catheter) 500 / 500 Purewick 500 / 500 Other: Breakfast % Eaten 75% Dinner % Eaten 50% Eating (Feeding) Ability Independent Independent Number of Incontinent Voids 1 2 Number of Bowel Movements 1 1 Urine Color Yellow Last Bowel Movement 06/12/25 06/12/25 06/12/25 Stool Incontinent Incontinent Stool Amount Small Large Stool Color Dark Brown Stool Consistency Loose Pasty Weight 59.35 kg - Constitutional Present: no acute distress - Routine HEENT Exam Head: Present: normal inspection Eye: Present: EOMI, conjunctivae pale, PERRL - Routine Neck Exam Present: supple. Absent: lymphadenopathy - Routine Respiratory Exam Absent: accessory muscle use - Routine Cardiovascular Exam Cardiovascular: Present: S1, S2 - Routine Abdominal Exam Present: firm. Absent: mass - Routine Extremities Exam Present: pulses intact - Routine Skin Exam Absent: lesions Hem/Onc Consult Result - Labs CBC & Chem 7: 03/19/25 11:48 03/19/25 09:34 Labs: Short CBC 03/19/25 03/19/25 Range/Units 09:34 11:48 WBC 6.5 6.1 (4.8-10.8) X10*3/uL Hgb 6.9 L* 6.7 L* (12.0-16.0) g/dl Hct 21.7 L 20.6 L* (37.0-47.0) % Plt Count 241 215 (160-400) X10*3/uL BMP 03/19/25 03/19/25 09:34 09:34 Sodium 141 Potassium 3.7 Chloride 108 Carbon Dioxide 28 BUN 9 Creatinine 0.83 0.82 Calcium 8.7 Liver Function 03/19/25 Range/Units 09:34 Total Bilirubin 0.5 (0.0-1.0) mg/dL Direct Bilirubin 0.2 (0.0-0.5) mg/dL AST 33 H (5-31) U/L ALT 14 (0-31) U/L Alkaline Phosphatase 78 (39-117) U/L Albumin 3.8 (3.5-5.0) g/dL Assessment and Plan Patient Active problem list reviewed?: Yes (1) Anemia Status: Acute Assessment and plan: 1. This is a 85-year-old woman with multiple medical problems including prior history of DVT, on chronic anticoagulation with Eliquis who suffered a fall,? And now admitted for lower extremity cellulitis. She has been on IV antibiotics. Patient came in with moderate anemia, hemoglobin of 9 gram/dL. However it weekly worsened to 6.7 gram/dL today. No evidence of overt bleeding. No evidence of hemolysis with normal LDH, haptoglobin and bilirubin level. She does not have any hematinic deficiencies. Stool occult blood testing is negative. I recommend a stat CT abdomen/pelvis without contrast to rule out intra-abdominal hemorrhage given possible fall and patient being on anticoagulation. Agree with holding Eliquis now. Transfuse 2 units PRBC. Thank you for the consultation, will follow with you. - Time Spent With Patient Time Spent with Patient (in minutes): 15
--- NOTE | 2025-03-19 14:23 | HO.PM.IMPN ---
Subjective Subjective Date of Service: 03/20/25 Interval History: anemia -unclear etiology Review of Systems no abd pain or mike bleeding no fevers or chills Review of Systems: Yes all other systems are reviewed and are negative Physical Exam Vital Signs: Vital Signs: Last Vital Signs Temp 98.6 F 03/19/25 13:07 Pulse 71 03/19/25 13:07 Resp 16 03/19/25 13:07 BP 140/63 H 03/19/25 13:07 Pulse Ox 92 03/19/25 07:48 O2 Del Method Room Air 03/19/25 07:48 O2 Flow Rate 2 03/18/25 01:59 BMI result Body Mass Index 24.7 general: seems comfortable Cardiac: S1 S2 heard,RRR. Pulmonary: lungs clear to auscultation B Abdominal: BS active in all 4 quadrants, no guarding, tenderness, rebounding MSK: strength 4/5 upper and lower extremities : no CVA tenderness no bladder distension Extremities: +2 pitting edema in lower extremities, PT and DP pulses palpable +2 . Objective Data Active Medications Acetaminophen (Acetaminophen 325 Mg Tablet) 975 mg PO Q6H [facility] Last Admin: 03/19/25 09:16 Dose: 975 mg Documented By: LIZ Albuterol/Ipratropium (Albuterol/Iprat 2.5/0.5mg 3 Ml Ampul.Neb) 3 ml INHALE Q4H PRN PRN Reason: Shortness of Breath/Wheezing Apixaban (Apixaban 5 Mg Tablet) 5 mg PO BID [facility] Last Admin: 03/19/25 09:16 Dose: 5 mg Documented By: LIZ Atorvastatin Calcium (Atorvastatin Calcium 20 Mg Tablet) 20 mg PO BEDTIME [facility] Last Admin: 03/18/25 20:56 Dose: 20 mg Documented By: LYDIA Calcium Carbonate (Calcium Carbonate 750 Mg Tab.Chew) 750 mg PO Q4H PRN PRN Reason: Heartburn Calcium Carbonate/Cholecalciferol (Calcium + Vitamin D 250 Mg Tablet) 500 mg PO DAILY [facility] Last Admin: 03/19/25 09:15 Dose: 500 mg Documented By: LIZ Dextrose (Dextrose 50 % 25 Gm/50 Ml Syringe) 25 gm IVPUSH Q15M PRN; Protocol PRN Reason: per Hypoglycemia Standing Ord. Donepezil HCl (Donepezil Hcl 10 Mg Tablet) 10 mg PO BEDTIME [facility] Last Admin: 03/18/25 20:56 Dose: 10 mg Documented By: LYDIA Furosemide (Furosemide 20 Mg Tablet) 10 mg PO DAILY [facility] Last Admin: 03/19/25 09:16 Dose: 10 mg Documented By: LIZ Glucose (Glucose Gel 15 Gm Gel..Gram.) 15 gm PO Q15M PRN; Protocol PRN Reason: per Hypoglycemia Standing Ord. Vancomycin HCl 1,000 mg/ (Sodium Chloride) 270 mls @ 270 mls/hr IV Q24H [facility] Last Infusion: 03/19/25 13:11 Dose: Infused Documented By: LIZ Insulin Human Lispro (Insulin Lispro 100 Unit/Ml 3 Ml Vial) 0 unit SUBCUT QIDACHS [facility]; Protocol Last Admin: 03/19/25 12:03 Dose: Not Given Documented By: LIZ Non-Admin Reason: No Insulin Coverage Lactulose (Lactulose 20 Gm/30 Ml Solution) 20 gm PO QID PRN PRN Reason: Constipation Lidocaine (Lidocaine 4 % Patch Adh..Patch) 1 patch TRANSDERMA DAILY [facility]; Protocol Last Admin: 03/19/25 09:29 Dose: Not Given Documented By: LIZ Non-Admin Reason: Patient Refused Magnesium Hydroxide (Milk Of Magnesia 30 Ml Oral.Susp) 30 ml PO DAILY PRN PRN Reason: Constipation Melatonin (Melatonin 3 Mg Tablet) 6 mg PO BEDTIME PRN PRN Reason: Insomnia Metoprolol Succinate (Metoprolol Succinate Er 12.5 Mg Halftab.Er.24h) 12.5 mg PO BEDTIME [facility]; Protocol Last Admin: 03/18/25 20:56 Dose: 12.5 mg Documented By: LYDIA Mirtazapine (Mirtazapine 7.5 Mg Tablet) 7.5 mg PO BEDTIME [facility] Last Admin: 03/18/25 20:56 Dose: 7.5 mg Documented By: LYDIA Multivitamins/Vitamin C (Multivitamin Tablet) 1 tab PO DAILY [facility] Last Admin: 03/19/25 09:15 Dose: 1 tab Documented By: LIZ Omeprazole (Omeprazole 20 Mg Capsule.Dr) 20 mg PO DAILY@0630 [facility] Last Admin: 03/19/25 06:15 Dose: 20 mg Documented By: LYDIA Ondansetron HCl (Ondansetron Hcl 4 Mg/2 Ml Vial) 4 mg IVPUSH Q8H PRN PRN Reason: Nausea and Vomiting Oxycodone HCl (Oxycodone Hcl Immed Release 5 Mg Tablet) 2.5 mg PO Q6H PRN PRN Reason: Pain, Severe (Pain Scale 7-10) Pharmacy Consult (Consult Rx Vancomycin Dosing) 1 each MISCELLANE DAILY PRN PRN Reason: Consult order Polyethylene Glycol (Polyethylene Glycol 3350 17 Gm Powd.Pack) 17 gm PO DAILY PRN PRN Reason: Constipation Senna/Docusate Sodium (Sennosides/Docusate Sodium Tablet) 1 tab PO BEDTIME [facility] Last Admin: 03/18/25 20:56 Dose: 1 tab Documented By: LYDIA Sertraline HCl (Sertraline Hcl 25 Mg Tablet) 25 mg PO DAILY [facility] Last Admin: 03/19/25 09:15 Dose: 25 mg Documented By: LIZ Sodium Chloride (0.9 % Sodium Chloride Flush 3 Ml Syringe) 3 ml IVFLUSH QSHIFT [facility] Last Admin: 03/19/25 09:16 Dose: 3 ml Documented By: LIZ Labs 03/20/25 06:23 03/20/25 06:23 Labs: Laboratory Results - last 24 hr 03/18/25 03/18/25 03/18/25 09:22 16:13 18:21 MCV MCH MCHC RDW Plt Count MPV Absolute Nucleated RBC Nucleated RBC % (auto) Neutrophils % (Manual) Band Neutrophils % Lymphocytes % (Manual) Monocytes % (Manual) Eosinophils % (Manual) Basophils % (Manual) Abs Neuts (Manual) Lymphocytes # (Manual) Monocytes # (Manual) Eosinophils # (Manual) Basophils # (Manual) Platelet Estimate Plt Morphology Comment RBC Morphology Ovalocytes Schistocytes Anion Gap Estim Creat Clear Calc Estimated GFR POC Glucose 168 H Random Glucose Haptoglobin Calcium Total Bilirubin Direct Bilirubin AST ALT Alkaline Phosphatase Lactate Dehydrogenase Total Protein Albumin Stool Occult Blood NEGATIVE Random Vancomycin Blood Type A Positive Antibody Screen NEGATIVE Crossmatch See Detail 03/18/25 03/19/25 03/19/25 20:53 07:53 09:34 MCV 92.7 MCH 30.0 MCHC 32.4 RDW 15.5 Plt Count 241 MPV 11.4 Absolute Nucleated RBC 0.000 Nucleated RBC % (auto) 0.0 Neutrophils % (Manual) 73 Band Neutrophils % 2 L Lymphocytes % (Manual) 16 L Monocytes % (Manual) 6 Eosinophils % (Manual) 2 Basophils % (Manual) 1 Abs Neuts (Manual) 4.9 Lymphocytes # (Manual) 1.0 L Monocytes # (Manual) 0.4 Eosinophils # (Manual) 0.1 Basophils # (Manual) 0.1 Platelet Estimate NORMAL Plt Morphology Comment NORMAL RBC Morphology NOTED Ovalocytes 2+ (15-30) Schistocytes 1+ (0-2) Anion Gap 9 L Estim Creat Clear Calc 42.4 Estimated GFR POC Glucose 186 H 113 Random Glucose Haptoglobin Calcium Total Bilirubin Direct Bilirubin AST ALT Alkaline Phosphatase Lactate Dehydrogenase Total Protein Albumin Stool Occult Blood Random Vancomycin Blood Type Antibody Screen Crossmatch 03/19/25 03/19/25 03/19/25 09:34 09:34 11:48 MCV 92.0 MCH 29.9 MCHC 32.5 RDW 15.5 Plt Count 215 MPV 11.1 Absolute Nucleated RBC 0.000 Nucleated RBC % (auto) 0.0 Neutrophils % (Manual) 86 H Band Neutrophils % 0 L Lymphocytes % (Manual) 13 L Monocytes % (Manual) 1 L Eosinophils % (Manual) Basophils % (Manual) Abs Neuts (Manual) 5.2 Lymphocytes # (Manual) 0.8 L Monocytes # (Manual) 0.1 Eosinophils # (Manual) Basophils # (Manual) Platelet Estimate NORMAL Plt Morphology Comment NORMAL RBC Morphology NOTED Ovalocytes 2+ (15-30) Schistocytes 1+ (0-2) Anion Gap Estim Creat Clear Calc 43.0 Estimated GFR > 60 > 60 POC Glucose Random Glucose 116 H Haptoglobin 147 Calcium 8.7 Total Bilirubin 0.5 Direct Bilirubin 0.2 AST 33 H ALT 14 Alkaline Phosphatase 78 Lactate Dehydrogenase 182 Total Protein 5.6 L Albumin 3.8 Stool Occult Blood Random Vancomycin 16.1 Blood Type Antibody Screen Crossmatch 03/19/25 11:57 MCV MCH MCHC RDW Plt Count MPV Absolute Nucleated RBC Nucleated RBC % (auto) Neutrophils % (Manual) Band Neutrophils % Lymphocytes % (Manual) Monocytes % (Manual) Eosinophils % (Manual) Basophils % (Manual) Abs Neuts (Manual) Lymphocytes # (Manual) Monocytes # (Manual) Eosinophils # (Manual) Basophils # (Manual) Platelet Estimate Plt Morphology Comment RBC Morphology Ovalocytes Schistocytes Anion Gap Estim Creat Clear Calc Estimated GFR POC Glucose 120 H Random Glucose Haptoglobin Calcium Total Bilirubin Direct Bilirubin AST ALT Alkaline Phosphatase Lactate Dehydrogenase Total Protein Albumin Stool Occult Blood Random Vancomycin Blood Type Antibody Screen Crossmatch Microbiology Microbiology Results: Microbiology 03/17/25 22:29 Blood Culture - Preliminary Blood - Venous No growth after 24 hours. 03/17/25 22:29 Blood Culture - Preliminary Blood - Venous No growth after 24 hours. 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 Right lower extremity cellulitis continue on vancomycin IV, pharmacy requested to manage BNP is within normal limits, do not suspect a component of heart failure although patient will resume her usual meds Keep affected leg elevated Normocytic anemia: Iron iron sats and ferritin normal B12 and folate also normal Peripheral smear-less likely hemolysis LDH and haptoglobin also normal ct abd ? unclear anemia etiology. Will transfuse 1 PRBC-monitor H&H, hold Eliquis History of DVT: hold eliquis. Status post suspected fall-CT of the head negative for any acute findings CT cervical spine negative for acute findings b/l hip and pelvic -no fracture CHF- etiology unclear:Continue torsemide as vitals are stable -BNP within normal limits -Daily weight -Strict I's and O's echo -Low-sodium diet -Patient is not currently on Enrique or Arb Acute hypomagnesemia and hypokalemia: Repleted Monitor renal function electrolytes Hypertension -Continue metoprolol -Low-salt diet Diabetes mellitus type 2 -Sliding scale insulin -Diabetic diet -Januvia once med rec started Dementia -Continue Aricept -Patient high fall risk, safety measures should be in place -Patient does not require one-to-one, patient is not having any abnormal behaviors Hyperlipidemia -Continue statin, AST only mildly elevated GERD -Continue PPI - omeprazole DVT prophylaxis: eliquis on hold , due to leg swelling -avoid scd. PPI prophylaxis: Omeprazole. ongoing need : right leg cellulitis/edema -continue iv antibiotics , pain management , Quality Stroke Does the patient have a stroke diagnosis?: No Reason for No Anti-thrombotic by Day Two: N/A - Med Ordered VTE Prior VTE?: Yes VTE Risk Level:: Medical - moderate - high VTE Device Contraindication: Procedure Contraindicated VTE Drug Contraindication: N/A - Med Ordered
--- NOTE | 2025-03-19 14:55 | P.CNPS_ITS ---
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 Psychiatric consult ordered since daughter told primary team provider she was concern patient has been depressed. Patient organized in speech and behavior on approach and knows why she is in the hospital. Patient denies depression or anxiety. When told that her daughter had some concern she said that that is because my daughter is a dingleberry and does not know what she is talking about.... Patient said that she has asked the daughter to come and visit more often and feels her daughter makes excuses for not visiting. Patient does not want any medication at all for depression or anxiety [facility] Medical History DVT (deep venous thrombosis) Hypertension Type 2 diabetes mellitus Diagnostics Vital Signs (24Hr): Vital Signs - 24 hr 03/18/25 15:24 03/18/25 17:11 03/18/25 19:15 Temperature 98.7 F 97.9 F Pulse Rate 72 83 74 Respiratory Rate 16 18 Blood Pressure 169/77 H 135/63 136/62 Pulse Oximetry 98 94 Oxygen Delivery Method Room Air Room Air 03/18/25 20:56 03/18/25 23:49 03/19/25 03:54 Temperature 98.4 F 99.2 F Pulse Rate 79 70 77 Respiratory Rate 20 18 Blood Pressure 116/55 L 129/66 129/64 Pulse Oximetry 92 92 Oxygen Delivery Method Room Air Room Air 03/19/25 07:48 03/19/25 12:49 03/19/25 13:07 Temperature 98.6 F 98.1 F 98.6 F Pulse Rate 75 70 71 Respiratory Rate 18 17 16 Blood Pressure 124/59 L 134/58 L 140/63 H Pulse Oximetry 92 Oxygen Delivery Method Room Air BMI result Body Mass Index 24.7 Labs 03/19/25 11:48 03/19/25 09:34 Labs: Laboratory Results - last 48 hr 0603/18/25 03/18/25 22:29 04:12 07:38 WBC 6.9 6.5 RBC 2.99 L 2.54 L Hgb 9.0 L 7.6 L Hct 27.6 L 23.5 L MCV 92.3 92.5 MCH 30.1 29.9 MCHC 32.6 32.3 RDW 15.1 15.1 Plt Count 288 261 MPV 11.0 11.2 Immature Gran % (Auto) 0.3 0.3 Neut % (Auto) 59.7 50.9 Lymph % (Auto) 21.1 27.1 [place] % (Auto) 11.8 H 12.3 H Eos % (Auto) 5.8 H 7.7 H Baso % (Auto) 1.3 1.7 Lymph # (Auto) 1.5 1.8 [place] # (Auto) 0.8 0.8 Eos # (Auto) 0.4 0.5 H Baso # (Auto) 0.1 0.1 Abs Immat Gran (auto) 0.02 0.02 Absolute Neuts (auto) 4.1 3.3 Absolute Nucleated RBC 0.000 0.000 Nucleated RBC % (auto) 0.0 0.0 Neutrophils % (Manual) Band Neutrophils % Lymphocytes % (Manual) Monocytes % (Manual) Eosinophils % (Manual) Basophils % (Manual) Abs Neuts (Manual) Lymphocytes # (Manual) Monocytes # (Manual) Eosinophils # (Manual) Basophils # (Manual) Platelet Estimate Plt Morphology Comment RBC Morphology Ovalocytes Schistocytes PT 10.8 L INR 0.9 APTT 30.6 Sodium 139 142 Potassium 3.0 L D 2.9 L* Chloride 102 108 Carbon Dioxide 28 26 Anion Gap 12 11 L BUN 17 H 15 Creatinine 0.97 0.90 Estim Creat Clear Calc 36.3 39.2 Estimated GFR 55 60 POC Glucose 139 H Random Glucose 183 H 112 Haptoglobin Lactic Acid 1.6 Calcium 9.1 8.5 D Magnesium 1.5 L Iron 31 TIBC 151 L % Saturation 21 Unsat Iron Binding 120 Ferritin Total Bilirubin 0.3 0.3 Direct Bilirubin AST 42 H 33 H ALT 26 17 Alkaline Phosphatase 117 82 Lactate Dehydrogenase B-Natriuretic Peptide 94 Total Protein 7.0 5.0 L Albumin 3.7 2.8 L Vitamin B12 Folate Stool Occult Blood Random Vancomycin Blood Type Antibody Screen Crossmatch 03/18/25 03/18/25 03/18/25 09:02 09:22 11:26 WBC RBC Hgb 8.4 L Hct 25.9 L MCV MCH MCHC RDW Plt Count MPV Immature Gran % (Auto) Neut % (Auto) Lymph % (Auto) [place] % (Auto) Eos % (Auto) Baso % (Auto) Lymph # (Auto) [place] # (Auto) Eos # (Auto) Baso # (Auto) Abs Immat Gran (auto) Absolute Neuts (auto) Absolute Nucleated RBC Nucleated RBC % (auto) Neutrophils % (Manual) Band Neutrophils % Lymphocytes % (Manual) Monocytes % (Manual) Eosinophils % (Manual) Basophils % (Manual) Abs Neuts (Manual) Lymphocytes # (Manual) Monocytes # (Manual) Eosinophils # (Manual) Basophils # (Manual) Platelet Estimate Plt Morphology Comment RBC Morphology Ovalocytes Schistocytes PT INR APTT Sodium 141 Potassium 4.0 D Chloride 106 Carbon Dioxide 26 Anion Gap 13 BUN 14 Creatinine 0.86 Estim Creat Clear Calc 41.0 Estimated GFR > 60 POC Glucose 168 H 160 H Random Glucose 192 H Haptoglobin Lactic Acid Calcium 8.9 Magnesium 2.2 Iron TIBC % Saturation Unsat Iron Binding Ferritin 366 H Total Bilirubin Direct Bilirubin AST ALT Alkaline Phosphatase Lactate Dehydrogenase B-Natriuretic Peptide Total Protein Albumin Vitamin B12 616 Folate 11.7 Stool Occult Blood Random Vancomycin Blood Type A Positive Antibody Screen NEGATIVE Crossmatch See Detail 03/18/25 03/18/25 03/18/25 16:13 18:21 20:53 WBC RBC Hgb Hct MCV MCH MCHC RDW Plt Count MPV Immature Gran % (Auto) Neut % (Auto) Lymph % (Auto) [place] % (Auto) Eos % (Auto) Baso % (Auto) Lymph # (Auto) [place] # (Auto) Eos # (Auto) Baso # (Auto) Abs Immat Gran (auto) Absolute Neuts (auto) Absolute Nucleated RBC Nucleated RBC % (auto) Neutrophils % (Manual) Band Neutrophils % Lymphocytes % (Manual) Monocytes % (Manual) Eosinophils % (Manual) Basophils % (Manual) Abs Neuts (Manual) Lymphocytes # (Manual) Monocytes # (Manual) Eosinophils # (Manual) Basophils # (Manual) Platelet Estimate Plt Morphology Comment RBC Morphology Ovalocytes Schistocytes PT INR APTT Sodium Potassium Chloride Carbon Dioxide Anion Gap BUN Creatinine Estim Creat Clear Calc Estimated GFR POC Glucose 168 H 186 H Random Glucose Haptoglobin Lactic Acid Calcium Magnesium Iron TIBC % Saturation Unsat Iron Binding Ferritin Total Bilirubin Direct Bilirubin AST ALT Alkaline Phosphatase Lactate Dehydrogenase B-Natriuretic Peptide Total Protein Albumin Vitamin B12 Folate Stool Occult Blood NEGATIVE Random Vancomycin Blood Type Antibody Screen Crossmatch 03/19/25 03/19/25 03/19/25 07:53 09:34 09:34 WBC 6.5 RBC 2.33 L Hgb 6.9 L* Hct 21.7 L MCV 92.7 MCH 30.0 MCHC 32.4 RDW 15.5 Plt Count 241 MPV 11.4 Immature Gran % (Auto) Neut % (Auto) Lymph % (Auto) [place] % (Auto) Eos % (Auto) Baso % (Auto) Lymph # (Auto) [place] # (Auto) Eos # (Auto) Baso # (Auto) Abs Immat Gran (auto) Absolute Neuts (auto) Absolute Nucleated RBC 0.000 Nucleated RBC % (auto) 0.0 Neutrophils % (Manual) 73 Band Neutrophils % 2 L Lymphocytes % (Manual) 16 L Monocytes % (Manual) 6 Eosinophils % (Manual) 2 Basophils % (Manual) 1 Abs Neuts (Manual) 4.9 Lymphocytes # (Manual) 1.0 L Monocytes # (Manual) 0.4 Eosinophils # (Manual) 0.1 Basophils # (Manual) 0.1 Platelet Estimate NORMAL Plt Morphology Comment NORMAL RBC Morphology NOTED Ovalocytes 2+ (15-30) Schistocytes 1+ (0-2) PT INR APTT Sodium 141 Potassium 3.7 Chloride 108 Carbon Dioxide 28 Anion Gap 9 L BUN 9 Creatinine 0.83 0.82 Estim Creat Clear Calc 42.4 Estimated GFR POC Glucose 113 Random Glucose Haptoglobin Lactic Acid Calcium Magnesium Iron TIBC % Saturation Unsat Iron Binding Ferritin Total Bilirubin Direct Bilirubin AST ALT Alkaline Phosphatase Lactate Dehydrogenase B-Natriuretic Peptide Total Protein Albumin Vitamin B12 Folate Stool Occult Blood Random Vancomycin Blood Type Antibody Screen Crossmatch 03/19/25 03/19/25 03/19/25 09:34 09:34 11:48 WBC 6.1 RBC 2.24 L Hgb 6.7 L* Hct 20.6 L* MCV 92.0 MCH 29.9 MCHC 32.5 RDW 15.5 Plt Count 215 MPV 11.1 Immature Gran % (Auto) Neut % (Auto) Lymph % (Auto) [place] % (Auto) Eos % (Auto) Baso % (Auto) Lymph # (Auto) [place] # (Auto) Eos # (Auto) Baso # (Auto) Abs Immat Gran (auto) Absolute Neuts (auto) Absolute Nucleated RBC 0.000 Nucleated RBC % (auto) 0.0 Neutrophils % (Manual) 86 H Band Neutrophils % 0 L Lymphocytes % (Manual) 13 L Monocytes % (Manual) 1 L Eosinophils % (Manual) Basophils % (Manual) Abs Neuts (Manual) 5.2 Lymphocytes # (Manual) 0.8 L Monocytes # (Manual) 0.1 Eosinophils # (Manual) Basophils # (Manual) Platelet Estimate NORMAL Plt Morphology Comment NORMAL RBC Morphology NOTED Ovalocytes 2+ (15-30) Schistocytes 1+ (0-2) PT INR APTT Sodium Potassium Chloride Carbon Dioxide Anion Gap BUN Creatinine Estim Creat Clear Calc 43.0 Estimated GFR > 60 > 60 POC Glucose Random Glucose 116 H Haptoglobin 147 Lactic Acid Calcium 8.7 Magnesium Iron TIBC % Saturation Unsat Iron Binding Ferritin Total Bilirubin 0.5 Direct Bilirubin 0.2 AST 33 H ALT 14 Alkaline Phosphatase 78 Lactate Dehydrogenase 182 B-Natriuretic Peptide Total Protein 5.6 L Albumin 3.8 Vitamin B12 Folate Stool Occult Blood Random Vancomycin 16.1 Blood Type Antibody Screen Crossmatch 03/19/25 11:57 WBC RBC Hgb Hct MCV MCH MCHC RDW Plt Count MPV Immature Gran % (Auto) Neut % (Auto) Lymph % (Auto) [place] % (Auto) Eos % (Auto) Baso % (Auto) Lymph # (Auto) [place] # (Auto) Eos # (Auto) Baso # (Auto) Abs Immat Gran (auto) Absolute Neuts (auto) Absolute Nucleated RBC Nucleated RBC % (auto) Neutrophils % (Manual) Band Neutrophils % Lymphocytes % (Manual) Monocytes % (Manual) Eosinophils % (Manual) Basophils % (Manual) Abs Neuts (Manual) Lymphocytes # (Manual) Monocytes # (Manual) Eosinophils # (Manual) Basophils # (Manual) Platelet Estimate Plt Morphology Comment RBC Morphology Ovalocytes Schistocytes PT INR APTT Sodium Potassium Chloride Carbon Dioxide Anion Gap BUN Creatinine Estim Creat Clear Calc Estimated GFR POC Glucose 120 H Random Glucose Haptoglobin Lactic Acid Calcium Magnesium Iron TIBC % Saturation Unsat Iron Binding Ferritin Total Bilirubin Direct Bilirubin AST ALT Alkaline Phosphatase Lactate Dehydrogenase B-Natriuretic Peptide Total Protein Albumin Vitamin B12 Folate Stool Occult Blood Random Vancomycin Blood Type Antibody Screen Crossmatch Imaging Radiology Impressions: ITS Impressions Hip/Pelvis X-Ray 03/18/25 18:02 IMPRESSION: Status post internal fixation of the right hip. Mild bilateral joint space narrowing. Electronically signed by: Kenji Atkinson MD 03/19/2025 07:22 AM EDT Mental Status Exam Mental Status Exam Narrative: Patient is alert and oriented; she is organized in speech and behavior. Denies depression Medications Medications Current Medications Acetaminophen (Acetaminophen 325 Mg Tablet) 975 mg PO Q6H [facility] Last Admin: 03/19/25 09:16 Dose: 975 mg Albuterol/Ipratropium (Albuterol/Iprat 2.5/0.5mg 3 Ml Ampul.Neb) 3 ml INHALE Q4H PRN PRN Reason: Shortness of Breath/Wheezing Apixaban (Apixaban 5 Mg Tablet) 5 mg PO BID [facility] Last Admin: 03/19/25 09:16 Dose: 5 mg Atorvastatin Calcium (Atorvastatin Calcium 20 Mg Tablet) 20 mg PO BEDTIME [facility] Last Admin: 03/18/25 20:56 Dose: 20 mg Calcium Carbonate (Calcium Carbonate 750 Mg Tab.Chew) 750 mg PO Q4H PRN PRN Reason: Heartburn Calcium Carbonate/Cholecalciferol (Calcium + Vitamin D 250 Mg Tablet) 500 mg PO DAILY [facility] Last Admin: 03/19/25 09:15 Dose: 500 mg Dextrose (Dextrose 50 % 25 Gm/50 Ml Syringe) 25 gm IVPUSH Q15M PRN; Protocol PRN Reason: per Hypoglycemia Standing Ord. Donepezil HCl (Donepezil Hcl 10 Mg Tablet) 10 mg PO BEDTIME [facility] Last Admin: 03/18/25 20:56 Dose: 10 mg Furosemide (Furosemide 20 Mg Tablet) 10 mg PO DAILY [facility] Last Admin: 03/19/25 09:16 Dose: 10 mg Glucose (Glucose Gel 15 Gm Gel..Gram.) 15 gm PO Q15M PRN; Protocol PRN Reason: per Hypoglycemia Standing Ord. Vancomycin HCl 1,000 mg/ (Sodium Chloride) 270 mls @ 270 mls/hr IV Q24H [facility] Last Infusion: 03/19/25 13:11 Dose: Infused Insulin Human Lispro (Insulin Lispro 100 Unit/Ml 3 Ml Vial) 0 unit SUBCUT QIDACHS [facility]; Protocol Last Admin: 03/19/25 12:03 Dose: Not Given Lactulose (Lactulose 20 Gm/30 Ml Solution) 20 gm PO QID PRN PRN Reason: Constipation Lidocaine (Lidocaine 4 % Patch Adh..Patch) 1 patch TRANSDERMA DAILY [facility]; Protocol Last Admin: 03/19/25 09:29 Dose: Not Given Magnesium Hydroxide (Milk Of Magnesia 30 Ml Oral.Susp) 30 ml PO DAILY PRN PRN Reason: Constipation Melatonin (Melatonin 3 Mg Tablet) 6 mg PO BEDTIME PRN PRN Reason: Insomnia Metoprolol Succinate (Metoprolol Succinate Er 12.5 Mg Halftab.Er.24h) 12.5 mg PO BEDTIME [facility]; Protocol Last Admin: 03/18/25 20:56 Dose: 12.5 mg Mirtazapine (Mirtazapine 7.5 Mg Tablet) 7.5 mg PO BEDTIME [facility] Last Admin: 03/18/25 20:56 Dose: 7.5 mg Multivitamins/Vitamin C (Multivitamin Tablet) 1 tab PO DAILY [facility] Last Admin: 03/19/25 09:15 Dose: 1 tab Omeprazole (Omeprazole 20 Mg Capsule.Dr) 20 mg PO DAILY@0630 [facility] Last Admin: 03/19/25 06:15 Dose: 20 mg Ondansetron HCl (Ondansetron Hcl 4 Mg/2 Ml Vial) 4 mg IVPUSH Q8H PRN PRN Reason: Nausea and Vomiting Oxycodone HCl (Oxycodone Hcl Immed Release 5 Mg Tablet) 2.5 mg PO Q6H PRN PRN Reason: Pain, Severe (Pain Scale 7-10) Pharmacy Consult (Consult Rx Vancomycin Dosing) 1 each MISCELLANE DAILY PRN PRN Reason: Consult order Polyethylene Glycol (Polyethylene Glycol 3350 17 Gm Powd.Pack) 17 gm PO DAILY PRN PRN Reason: Constipation Senna/Docusate Sodium (Sennosides/Docusate Sodium Tablet) 1 tab PO BEDTIME [facility] Last Admin: 03/18/25 20:56 Dose: 1 tab Sertraline HCl (Sertraline Hcl 25 Mg Tablet) 25 mg PO DAILY [facility] Last Admin: 03/19/25 09:15 Dose: 25 mg Sodium Chloride (0.9 % Sodium Chloride Flush 3 Ml Syringe) 3 ml IVFLUSH QSHIFT [facility] Last Admin: 03/19/25 09:16 Dose: 3 ml Allergies Allergies Allergy/AdvReac Type Severity Reaction Status Date / Time No Known Allergies Allergy Verified 03/17/25 21:35 [No Known Allergies*] Assessment & Plan Assessment & Plan (1) Cellulitis: Qualifiers: Site of cellulitis: extremity Site of cellulitis of extremity: lower extremity Laterality: right Qualified Code(s): L03.115 - Cellulitis of right lower limb Status: Acute Code(s): L03.90 - Cellulitis, unspecified Plan 85-year-old female with past medical history hypertension, diabetes mellitus, DVT, CVA, prior cellulitis, 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 Psychiatric consult ordered since daughter told primary team provider she was concern patient has been depressed. Patient organized in speech and behavior on approach and knows why she is in the hospital. Patient denies depression or anxiety. When told that her daughter had some concern she said that that is because my daughter is a dingleberry and does not know what she is talking about.... Patient said that she has asked the daughter to come and visit more often and feels her daughter makes excuses for not visiting. Patient does not want any medication at all for depression or anxiety Impression: Patient denies any depression, anxiety and does not want any medication for such. Patient does not appear depressed and law writer has no reason to dispute patient's report. Total time managing care of this patient today ____ minutes. Patient educated on: diagnosis and medication risk/benefits Informed Consent: understands
[2025-03-19 14:57] LABS: Immature Retic Fraction 19.9 % (3.0-15.9); Reticulocytes Absolute 0.054 X10*6/uL (0.026-0.095)
[2025-03-19 14:58] LABS: Retic HGB Equivalent 29.6 pg (30.0-35.0); Reticulocyte Percent 2.4 % (0.5-1.8)
--- NOTE | 2025-03-19 15:56 | P.CNID_ITS ---
History of Present Illness Data of Consult Service Date: 03/19/25 Requesting physician: Aaron Montes Primary Care Provider: Maria G Cole MD HPI Reason for consult: leg redness,heel ulcer She was sent from facility with right leg redness for a day. She has no fever or chills. She has eschar on foot as well Review of Systems 2 Review of Systems: Yes all other systems are reviewed and are negative [facility] [place] Past Medical History Medical History DVT (deep venous thrombosis) Hypertension Type 2 diabetes mellitus Family History Family History Mother Blood clots in brain Family history: reviewed and not pertinent Social History Social History Household Members: Other Housing: Half-Way Housing Other:: Mobile Home Alcohol intake: former Patient Tobacco Use Status: Never used Tobacco Currently Displaying Signs/Symptoms of Drug Intoxication Withdrawal: No Advance Directives: Yes Advance Directives on File: Yes Advance Directives Date on File: 03/17/25 Do you have a plan to hurt others: No Plan Recently lost weight without trying: Unsure How much weight loss: Unsure Nutrition Risks: No Nutritional Risk Patient : No : No Poor oral hygiene: No service: No Current occupational status: retired Travel History Ebola Risk: Travel/Contact With Anyone From Affected Area/s: No Has Patient Experienced Ebola Symptoms: No Meds Allergies Allergy/AdvReac Type Severity Reaction Status Date / Time No Known Allergies Allergy Verified 03/17/25 21:35 [No Known Allergies*] Active Medications: Current Medications Acetaminophen (Acetaminophen 325 Mg Tablet) 975 mg PO Q6H [facility] Last Admin: 03/19/25 14:58 Dose: Not Given Albuterol/Ipratropium (Albuterol/Iprat 2.5/0.5mg 3 Ml Ampul.Neb) 3 ml INHALE Q4H PRN PRN Reason: Shortness of Breath/Wheezing Apixaban (Apixaban 5 Mg Tablet) 5 mg PO BID [facility] Last Admin: 03/19/25 09:16 Dose: 5 mg Atorvastatin Calcium (Atorvastatin Calcium 20 Mg Tablet) 20 mg PO BEDTIME [facility] Last Admin: 03/18/25 20:56 Dose: 20 mg Calcium Carbonate (Calcium Carbonate 750 Mg Tab.Chew) 750 mg PO Q4H PRN PRN Reason: Heartburn Calcium Carbonate/Cholecalciferol (Calcium + Vitamin D 250 Mg Tablet) 500 mg PO DAILY [facility] Last Admin: 03/19/25 09:15 Dose: 500 mg Dextrose (Dextrose 50 % 25 Gm/50 Ml Syringe) 25 gm IVPUSH Q15M PRN; Protocol PRN Reason: per Hypoglycemia Standing Ord. Donepezil HCl (Donepezil Hcl 10 Mg Tablet) 10 mg PO BEDTIME [facility] Last Admin: 03/18/25 20:56 Dose: 10 mg Furosemide (Furosemide 20 Mg Tablet) 10 mg PO DAILY [facility] Last Admin: 03/19/25 09:16 Dose: 10 mg Glucose (Glucose Gel 15 Gm Gel..Gram.) 15 gm PO Q15M PRN; Protocol PRN Reason: per Hypoglycemia Standing Ord. Vancomycin HCl 1,000 mg/ (Sodium Chloride) 270 mls @ 270 mls/hr IV Q24H [facility] Last Infusion: 03/19/25 13:11 Dose: Infused Insulin Human Lispro (Insulin Lispro 100 Unit/Ml 3 Ml Vial) 0 unit SUBCUT QIDACHS [facility]; Protocol Last Admin: 03/19/25 12:03 Dose: Not Given Lactulose (Lactulose 20 Gm/30 Ml Solution) 20 gm PO QID PRN PRN Reason: Constipation Lidocaine (Lidocaine 4 % Patch Adh..Patch) 1 patch TRANSDERMA DAILY [facility]; Protocol Last Admin: 03/19/25 09:29 Dose: Not Given Magnesium Hydroxide (Milk Of Magnesia 30 Ml Oral.Susp) 30 ml PO DAILY PRN PRN Reason: Constipation Melatonin (Melatonin 3 Mg Tablet) 6 mg PO BEDTIME PRN PRN Reason: Insomnia Metoprolol Succinate (Metoprolol Succinate Er 12.5 Mg Halftab.Er.24h) 12.5 mg PO BEDTIME [facility]; Protocol Last Admin: 03/18/25 20:56 Dose: 12.5 mg Mirtazapine (Mirtazapine 7.5 Mg Tablet) 7.5 mg PO BEDTIME [facility] Last Admin: 03/18/25 20:56 Dose: 7.5 mg Multivitamins/Vitamin C (Multivitamin Tablet) 1 tab PO DAILY [facility] Last Admin: 03/19/25 09:15 Dose: 1 tab Omeprazole (Omeprazole 20 Mg Capsule.Dr) 20 mg PO DAILY@0630 [facility] Last Admin: 03/19/25 06:15 Dose: 20 mg Ondansetron HCl (Ondansetron Hcl 4 Mg/2 Ml Vial) 4 mg IVPUSH Q8H PRN PRN Reason: Nausea and Vomiting Oxycodone HCl (Oxycodone Hcl Immed Release 5 Mg Tablet) 2.5 mg PO Q6H PRN PRN Reason: Pain, Severe (Pain Scale 7-10) Pharmacy Consult (Consult Rx Vancomycin Dosing) 1 each MISCELLANE DAILY PRN PRN Reason: Consult order Polyethylene Glycol (Polyethylene Glycol 3350 17 Gm Powd.Pack) 17 gm PO DAILY PRN PRN Reason: Constipation Senna/Docusate Sodium (Sennosides/Docusate Sodium Tablet) 1 tab PO BEDTIME [facility] Last Admin: 03/18/25 20:56 Dose: 1 tab Sertraline HCl (Sertraline Hcl 25 Mg Tablet) 25 mg PO DAILY [facility] Last Admin: 03/19/25 09:15 Dose: 25 mg Sodium Chloride (0.9 % Sodium Chloride Flush 3 Ml Syringe) [facility] Admin: 03/19/25 09:16 Dose: 3 ml Home Medications ?Medication ?Instructions ?Recorded ?Confirmed ?Last Taken ?Type donepezil 10 mg tablet 10 mg PO BEDTIME 10/30/23 03/18/25 03/14/25 History metoprolol succinate 25 mg 12.5 mg PO BEDTIME 10/30/23 03/18/25 03/14/25 History tablet,extended release 24 hr lactulose 10 gram/15 mL oral 30 ml PO QID PRN Constipation 11/03/24 03/18/25 Unknown History solution pantoprazole 20 mg tablet,delayed 20 mg PO DAILY@0630 11/03/24 03/18/25 03/15/25 History release polyethylene glycol 3350 17 17 g PO DAILY PRN Constipation 11/03/24 03/18/25 Unknown History gram/dose oral powder apixaban 5 mg tablet (Eliquis) 5 mg PO BID 12/08/24 03/18/25 03/14/25 History atorvastatin 20 mg tablet 20 mg PO BEDTIME 12/08/24 03/18/25 03/14/25 History torsemide 5 mg tablet 5 mg PO DAILY 12/08/24 03/18/25 03/15/25 History acetaminophen 325 mg tablet 650 mg PO Q6H PRN TEMP, PAIN 03/16/25 03/18/25 Unknown History acetaminophen 500 mg tablet 500 mg PO TID 03/16/25 03/18/25 03/15/25 History calcium 600 mg (as 2 tab PO DAILY 03/16/25 03/18/25 03/15/25 History carbonate)-vitamin D3 5 mcg (200 unit) tablet diphenhydramine HCl 25 mg capsule 25 mg PO TID PRN ALLERGIES 03/16/25 03/18/25 Unknown History (Benadryl) mirtazapine 7.5 mg tablet 7.5 mg PO BEDTIME 03/16/25 03/18/25 03/14/25 History multivitamin 1 tab PO DAILY 03/16/25 03/18/25 03/15/25 History sennosides 8.6 mg-docusate sodium 1 tab-cap PO BEDTIME 03/16/25 03/18/25 03/14/25 History 50 mg tablet (Senna Plus) sertraline 25 mg tablet 25 mg PO DAILY 03/16/25 03/18/25 03/15/25 History sitagliptin phosphate 50 mg tablet 50 mg PO DAILY 03/16/25 03/18/25 03/15/25 History (Januvia) Physical Exam 2 Vital Signs: Vital Signs: Last Vital Signs Temp 98.6 F 03/19/25 13:07 Pulse 71 03/19/25 13:07 Resp 16 03/19/25 13:07 BP 140/63 H 03/19/25 13:07 Pulse Ox 92 03/19/25 07:48 O2 Del Method Room Air 03/19/25 07:48 O2 Flow Rate 2 03/18/25 01:59 BMI result Body Mass Index 24.7 Const: General: cooperative HEENT: Head: Yes normal to inspection Face and sinus: Yes normal facial exam Mouth: Normal oral and palatal mucosa present Teeth and gingiva: d entition normal Eyes: General: appearance normal, both eyes and all related structures P upils: Equal, round and reactive pupils present Resp: Effort & Inspection: normal respiratory effort Cardio: Rate: regular rate Rhythm: regular rhythm GI: Palpation (GI): Soft to palpation and nontender : General: Yes no CVA tenderness Back/Spine/Pelvis: Back: no CVA tenderness Skin: General skin exam: no rashes or lesions noted Neuro: General: moves all extremities Cranial nerves: Yes Equal, round and reactive pupils present Extrem: Other: right leg redness very mild eschar right heel General: Yes normal to inspection Psych: Other: confused Results Labs 03/19/25 11:48 03/19/25 09:34 Labs: Short CBC 03/19/25 03/19/25 Range/Units 09:34 11:48 WBC 6.5 6.1 (4.8-10.8) X10*3/uL Hgb 6.9 L* 6.7 L* (12.0-16.0) g/dl Hct 21.7 L 20.6 L* (37.0-47.0) % Plt Count 241 215 (160-400) X10*3/uL BMP 03/19/25 03/19/25 09:34 09:34 Sodium 141 Potassium 3.7 Chloride 108 Carbon Dioxide 28 BUN 9 Creatinine 0.83 0.82 Calcium 8.7 Liver Function 03/19/25 Range/Units 09:34 Total Bilirubin 0.5 (0.0-1.0) mg/dL Direct Bilirubin 0.2 (0.0-0.5) mg/dL AST 33 H (5-31) U/L ALT 14 (0-31) U/L Alkaline Phosphatase 78 (39-117) U/L Albumin 3.8 (3.5-5.0) g/dL Microbiology Microbiology Results: Microbiology 03/17/25 22:29 Blood - Venous Blood Culture - Preliminary No growth after 24 hours. 03/17/25 22:29 Blood - Venous Blood Culture - Preliminary No growth after 24 hours. Assessment and Plan (1) Cellulitis: Qualifiers: Site of cellulitis: extremity Site of cellulitis of extremity: lower extremity Laterality: right Qualified Code(s): L03.115 - Cellulitis of right lower limb Status: Acute Plan Check XR right heel evaluate osteomyelitis. When improved next day or two po Doxycycline for a week.
[2025-03-19 16:32] LABS: Glucose, Whole Blood 136 mg/dL (60-115)
[2025-03-19] MEDS: Furosemide 20 MG/2 ML VIAL IVPUSH (16:56)
[2025-03-19 19:40] LABS: Hematocrit 26.2 % (37.0-47.0); Hemoglobin 8.5 g/dl (12.0-16.0)
[2025-03-19 20:35] LABS: Glucose, Whole Blood 190 mg/dL (60-115)
[2025-03-19] MEDS: Atorvastatin Calcium 20 MG TABLET PO (22:24)
[2025-03-19] MEDS: Sennosides/Docusate Sodium TABLET 1 TAB PO (22:24)
[2025-03-19] MEDS: Mirtazapine 7.5 MG TABLET PO (22:24)
[2025-03-19] MEDS: Donepezil HCl 10 MG TABLET PO (22:25)
[2025-03-19] MEDS: Insulin Lispro 100 UNIT/ML 3 ML VIAL SUBCUT (22:25)
[2025-03-19] MEDS: Metoprolol Succinate ER 12.5 MG HALFTAB.ER.24H PO (22:25)
[2025-03-20] VITALS (9 sets, daily range): BP systolic 129–160; BP diastolic 63–72; PULSE 69–84; RESP 16–18; TEMP 36.2–37.1; O2SAT 91–98
[2025-03-20] MEDS: Omeprazole 20 MG CAPSULE.DR PO (05:48)
[2025-03-20 07:04] LABS: Hematocrit 26.1 % (37.0-47.0); Hemoglobin 8.4 g/dl (12.0-16.0); Mean Corpuscular HGB Conc 32.2 g/dl (31.0-35.0); Mean Corpuscular Hemoglobin 29.2 pg (27.0-33.0); Mean Corpuscular Volume 90.6 fL (80.0-98.0); Mean Platelet Volume 11.4 fL (9.4-12.3); Platelet Count 247 X10*3/uL (160-400); Red Blood Count 2.88 X10*6/uL (4.20-5.50); Red Cell Distribution Width 17.2 % (11.0-16.0); White Blood Count 7.5 X10*3/uL (4.8-10.8)
[2025-03-20 07:19] LABS: Anion Gap 11 (12-20); Blood Urea Nitrogen 11 mg/dL (9-16); Calcium 9.1 mg/dL (8.4-10.2); Carbon Dioxide 27 mmol/L (22-29); Chloride 109 mmol/L (96-108); Creatinine Clr Calc Pharmacy 37.5; Creatinine Clr Calc Pharmacy 37.9; Estimated Glomerular Filt Rate 57; Estimated Glomerular Filt Rate 58; Glucose Random 132 mg/dL (60-115); Potassium 3.5 mmol/L (3.3-5.1); Sodium 143 mmol/L (135-145)
[2025-03-20 07:48] LABS: Glucose, Whole Blood 136 mg/dL (60-115)
[2025-03-20] MEDS: 0.9 % Sodium Chloride Flush 3 ML SYRINGE IVFLUSH ×2 (08:11→21:05)
[2025-03-20] MEDS: Multivitamin TABLET 1 TAB PO (08:13)
[2025-03-20] MEDS: Furosemide 20 MG TABLET 10 MG PO (08:13)
[2025-03-20] MEDS: Calcium + Vitamin D 250 MG TABLET 500 MG PO (08:13)
[2025-03-20] MEDS: Sertraline HCL 25 MG TABLET PO (08:14)
--- NOTE | 2025-03-20 10:24 | HE.PHANOTE ---
CLAY PERALES Patients level came back this morning at 16. Will continue with current dose as patient is therapeutic. However patients renal function remains unstable. Will get another level for 03/21 @0900
[2025-03-20] MEDS: vancomycin HCL 1,000 MG in 0.9 % Sodium Chloride 250 ML 270 MG IV (11:12)
[2025-03-20] MEDS: Insulin Lispro 100 UNIT/ML 3 ML VIAL SUBCUT (11:19)
[2025-03-20 11:23] LABS: Glucose, Whole Blood 190 mg/dL (60-115)
--- NOTE | 2025-03-20 15:16 | HO.PM.IMPN ---
Subjective Subjective Date of Service: 03/20/25 Interval History: anemia , stool impaction Review of Systems Patient denies new symptoms-no abdominal pain or nausea vomiting Does not know when was the last BM?-per chart review look like last BM was 03/19 Seems comfortable. Physical Exam Vital Signs: Vital Signs: Last Vital Signs Temp 97.8 F 03/20/25 11:29 Pulse 81 03/20/25 11:29 Resp 16 03/20/25 11:29 BP 160/72 H 03/20/25 11:29 Pulse Ox 91 L 03/20/25 11:29 O2 Del Method Room Air 03/20/25 11:29 O2 Flow Rate 2 03/18/25 01:59 BMI result Body Mass Index 24.7 general: seems comfortable Cardiac: S1 S2 heard,RRR. Pulmonary: lungs clear to auscultation. Abdominal: BS active in all 4 quadrants, no guarding, tenderness, rebounding MSK: strength 4/5 upper and lower extremities : no CVA tenderness no bladder distension Extremities: +2 pitting edema in lower extremities, PT and DP pulses palpable +2 Objective Data Active Medications Acetaminophen (Acetaminophen 325 Mg Tablet) 975 mg PO Q6H [facility] Last Admin: 03/20/25 08:12 Dose: Not Given Documented By: LORI Non-Admin Reason: Patient Refused Albuterol/Ipratropium (Albuterol/Iprat 2.5/0.5mg 3 Ml Ampul.Neb) 3 ml INHALE Q4H PRN PRN Reason: Shortness of Breath/Wheezing Apixaban (Apixaban 5 Mg Tablet) 5 mg PO BID [facility] Last Admin: 03/19/25 09:16 Dose: 5 mg Documented By: LIZ Atorvastatin Calcium (Atorvastatin Calcium 20 Mg Tablet) 20 mg PO BEDTIME [facility] Last Admin: 03/19/25 22:24 Dose: 20 mg Documented By: MOSHE Calcium Carbonate (Calcium Carbonate 750 Mg Tab.Chew) 750 mg PO Q4H PRN PRN Reason: Heartburn Calcium Carbonate/Cholecalciferol (Calcium + Vitamin D 250 Mg Tablet) 500 mg PO DAILY [facility] Last Admin: 03/20/25 08:13 Dose: 500 mg Documented By: LORI Dextrose (Dextrose 50 % 25 Gm/50 Ml Syringe) 25 gm IVPUSH Q15M PRN; Protocol PRN Reason: per Hypoglycemia Standing Ord. Donepezil HCl (Donepezil Hcl 10 Mg Tablet) 10 mg PO BEDTIME [facility] Last Admin: 03/19/25 22:25 Dose: 10 mg Documented By: MOSHE Furosemide (Furosemide 20 Mg Tablet) 10 mg PO DAILY [facility] Last Admin: 03/20/25 08:13 Dose: 10 mg Documented By: LORI Glucose (Glucose Gel 15 Gm Gel..Gram.) 15 gm PO Q15M PRN; Protocol PRN Reason: per Hypoglycemia Standing Ord. Vancomycin HCl 1,000 mg/ (Sodium Chloride) 270 mls @ 270 mls/hr IV Q24H [facility] Last Infusion: 03/20/25 12:21 Dose: Infused Documented By: LORI Insulin Human Lispro (Insulin Lispro 100 Unit/Ml 3 Ml Vial) 0 unit SUBCUT QIDACHS [facility]; Protocol Last Admin: 03/20/25 11:19 Dose: 2 unit Documented By: LORI Lactulose (Lactulose 20 Gm/30 Ml Solution) 20 gm PO QID PRN PRN Reason: Constipation Lidocaine (Lidocaine 4 % Patch Adh..Patch) 1 patch TRANSDERMA DAILY [facility]; Protocol Last Admin: 03/20/25 08:12 Dose: Not Given Documented By: LORI Non-Admin Reason: Patient Refused Magnesium Hydroxide (Milk Of Magnesia 30 Ml Oral.Susp) 30 ml PO DAILY PRN PRN Reason: Constipation Melatonin (Melatonin 3 Mg Tablet) 6 mg PO BEDTIME PRN PRN Reason: Insomnia Metoprolol Succinate (Metoprolol Succinate Er 12.5 Mg Halftab.Er.24h) 12.5 mg PO BEDTIME [facility]; Protocol Last Admin: 03/19/25 22:25 Dose: 12.5 mg Documented By: MOSHE Mirtazapine (Mirtazapine 7.5 Mg Tablet) 7.5 mg PO BEDTIME [facility] Last Admin: 03/19/25 22:24 Dose: 7.5 mg Documented By: MOSHE Multivitamins/Vitamin C (Multivitamin Tablet) 1 tab PO DAILY [facility] Last Admin: 03/20/25 08:13 Dose: 1 tab Documented By: LORI Omeprazole (Omeprazole 20 Mg Capsule.Dr) 20 mg PO DAILY@0630 [facility] Last Admin: 03/20/25 05:48 Dose: 20 mg Documented By: MOSHE Ondansetron HCl (Ondansetron Hcl 4 Mg/2 Ml Vial) 4 mg IVPUSH Q8H PRN PRN Reason: Nausea and Vomiting Oxycodone HCl (Oxycodone Hcl Immed Release 5 Mg Tablet) 2.5 mg PO Q6H PRN PRN Reason: Pain, Severe (Pain Scale 7-10) Pharmacy Consult (Consult Rx Vancomycin Dosing) 1 each MISCELLANE DAILY PRN PRN Reason: Consult order Polyethylene Glycol (Polyethylene Glycol 3350 17 Gm Powd.Pack) 17 gm PO DAILY PRN PRN Reason: Constipation Senna/Docusate Sodium (Sennosides/Docusate Sodium Tablet) 1 tab PO BEDTIME [facility] Last Admin: 03/19/25 22:24 Dose: 1 tab Documented By: MOSHE Sertraline HCl (Sertraline Hcl 25 Mg Tablet) 25 mg PO DAILY [facility] Last Admin: 03/20/25 08:14 Dose: 25 mg Documented By: LORI Sodium Chloride (0.9 % Sodium Chloride Flush 3 Ml Syringe) 3 ml IVFLUSH QSHIFT [facility] Last Admin: 03/20/25 08:11 Dose: 3 ml Documented By: LORI Labs 03/20/25 06:23 03/20/25 06:23 Labs: Laboratory Results - last 24 hr 03/18/25 03/19/25 03/19/25 09:22 16:15 20:17 MCV MCH MCHC RDW Plt Count MPV Absolute Nucleated RBC Nucleated RBC % (auto) Anion Gap Estim Creat Clear Calc Estimated GFR POC Glucose 136 H 190 H Random Glucose Calcium Random Vancomycin Crossmatch See Detail 03/20/25 03/20/25 03/20/25 06:23 06:23 06:23 MCV 90.6 MCH 29.2 MCHC 32.2 RDW 17.2 H Plt Count 247 MPV 11.4 Absolute Nucleated RBC 0.000 Nucleated RBC % (auto) 0.0 Anion Gap 11 L Estim Creat Clear Calc 37.5 37.9 Estimated GFR 57 58 POC Glucose Random Glucose 132 H Calcium 9.1 Random Vancomycin Crossmatch 03/20/25 03/20/25 03/20/25 07:28 09:39 11:14 MCV MCH MCHC RDW Plt Count MPV Absolute Nucleated RBC Nucleated RBC % (auto) Anion Gap Estim Creat Clear Calc Estimated GFR POC Glucose 136 H 190 H Random Glucose Calcium Random Vancomycin 16.0 Crossmatch Microbiology Microbiology Results: Microbiology 03/17/25 22:29 Blood Culture - Preliminary Blood - Venous No growth after 48 hours. 03/17/25 22:29 Blood Culture - Preliminary Blood - Venous No growth after 48 hours. 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 Right lower extremity cellulitis continue on vancomycin IV, pharmacy requested to manage BNP is within normal limits, do not suspect a component of heart failure although patient will resume her usual meds Keep affected leg elevated Normocytic anemia: Iron iron sats and ferritin normal B12 and folate also normal Peripheral smear-less likely hemolysis LDH and haptoglobin also normal ct abd -stool impaction s/p1 PRBC-monitor H&H is 8.5 , hold Eliquis,moniter cbc. As per the chart review patient had BM yesterday but afterwards CT scan showed school impaction rectal area: Surgery evaluation added impaction. History of DVT: hold eliquis. 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 Right lower extremity cellulitis continue on vancomycin IV, pharmacy requested to manage BNP is within normal limits, do not suspect a component of heart failure although patient will resume her usual meds Keep affected leg elevated Normocytic anemia: Iron iron sats and ferritin normal B12 and folate also normal fobt negative Peripheral smear-less likely hemolysis LDH and haptoglobin also normal ct abd ? unclear anemia etiology. Will transfuse 1 PRBC-monitor H&H, hold Eliquis History of DVT: hold eliquis. Status post suspected fall-CT of the head negative for any acute findings CT cervical spine negative for acute findings b/l hip and pelvic -no fracture possible mild HFpEF excerebation:Continue torsemide as vitals are stable -BNP within normal limits echo: ef 55-60% plan : start iv lasix 20 mg daily moniter Strict I's and O's Acute hypomagnesemia and hypokalemia: Repleted Monitor renal function electrolytes Hypertension -Continue metoprolol -Low-salt diet Diabetes mellitus type 2 -Sliding scale insulin -Diabetic diet -Januvia once med rec started Dementia -Continue Aricept -Patient high fall risk, safety measures should be in place -Patient does not require one-to-one, patient is not having any abnormal behaviors Hyperlipidemia -Continue statin, AST only mildly elevated GERD -Continue PPI - omeprazole DVT prophylaxis: eliquis on hold , due to leg swelling -avoid scd. PPI prophylaxis: Omeprazole. ongoing need : right leg cellulitis/edema -continue iv antibiotics , pain management ,chf -need iv lasix and renal function/electrolytic moniterin, anemia -need h/h monitering Quality Stroke Does the patient have a stroke diagnosis?: No Reason for No Anti-thrombotic by Day Two: N/A - Med Ordered VTE Prior VTE?: Yes VTE Risk Level:: Medical - moderate - high VTE Device Contraindication: Procedure Contraindicated VTE Drug Contraindication: N/A - Med Ordered
--- NOTE | 2025-03-20 15:40 | MHC.CM.PN ---
[facility] RECOMMENDED, REFERRALS ARE OUT
[2025-03-20] MEDS: Potassium Chloride ER 20 MEQ TAB.ER.PRT PO (15:54)
[2025-03-20] MEDS: Furosemide 20 MG/2 ML VIAL IVPUSH (15:54)
[2025-03-20 16:21] LABS: Glucose, Whole Blood 159 mg/dL (60-115)
--- NOTE | 2025-03-20 18:11 | PM.CNGS ---
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 Patient unable to provide any reliable history but states that she believes she fell recently. 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 Patient has been followed by vascular and Hematology. Patient was previously in the [facility] ED 03/16/2025 and was placed under physician observation for case management needs. Patient normally resides in an assisted living facility for memory support, the [facility] in [place] with of VNA services. Patient was noted to have worsening anemia here and underwent a CT scan of her abdomen and pelvis for workup for this. In doing so it was noted that she had a large stool ball in her rectal area. She has been having some liquid stool bowel movements. She does complain of feeling a little distended and uncomfortable. She does have issues with constipation PMFSH Past Medical History Medical History DVT (deep venous thrombosis) Hypertension Type 2 diabetes mellitus Family History Family History Mother Blood clots in brain Family history: reviewed and not pertinent Social History Social History Household Members: Other Housing: Residential Housing Other:: Mobile Home Alcohol intake: former Patient Tobacco Use Status: Never used Tobacco Currently Displaying Signs/Symptoms of Drug Intoxication Withdrawal: No Advance Directives: Yes Advance Directives on File: Yes Advance Directives Date on File: 03/17/25 Do you have a plan to hurt others: No Plan Recently lost weight without trying: Unsure How much weight loss: Unsure Nutrition Risks: No Nutritional Risk Patient : No : No Poor oral hygiene: No service: No Current occupational status: retired Travel History Ebola Risk: Travel/Contact With Anyone From Affected Area/s: No Has Patient Experienced Ebola Symptoms: No Meds Allergies Allergy/AdvReac Type Severity Reaction Status Date / Time No Known Allergies Allergy Verified 03/17/25 21:35 [No Known Allergies*] Active Medications: Current Medications Acetaminophen (Acetaminophen 325 Mg Tablet) 975 mg PO Q6H [facility] Last Admin: 03/20/25 15:54 Dose: Not Given Albuterol/Ipratropium (Albuterol/Iprat 2.5/0.5mg 3 Ml Ampul.Neb) 3 ml INHALE Q4H PRN PRN Reason: Shortness of Breath/Wheezing Apixaban (Apixaban 5 Mg Tablet) 5 mg PO BID [facility] Last Admin: 03/19/25 09:16 Dose: 5 mg Atorvastatin Calcium (Atorvastatin Calcium 20 Mg Tablet) 20 mg PO BEDTIME [facility] Last Admin: 03/19/25 22:24 Dose: 20 mg Calcium Carbonate (Calcium Carbonate 750 Mg Tab.Chew) 750 mg PO Q4H PRN PRN Reason: Heartburn Calcium Carbonate/Cholecalciferol (Calcium + Vitamin D 250 Mg Tablet) 500 mg PO DAILY [facility] Last Admin: 03/20/25 08:13 Dose: 500 mg Dextrose (Dextrose 50 % 25 Gm/50 Ml Syringe) 25 gm IVPUSH Q15M PRN; Protocol PRN Reason: per Hypoglycemia Standing Ord. Donepezil HCl (Donepezil Hcl 10 Mg Tablet) 10 mg PO BEDTIME [facility] Last Admin: 03/19/25 22:25 Dose: 10 mg Furosemide (Furosemide 20 Mg/2 Ml Vial) 20 mg IVPUSH DAILY [facility]; Protocol Last Admin: 03/20/25 15:54 Dose: 20 mg Glucose (Glucose Gel 15 Gm Gel..Gram.) 15 gm PO Q15M PRN; Protocol PRN Reason: per Hypoglycemia Standing Ord. Vancomycin HCl 1,000 mg/ (Sodium Chloride) 270 mls @ 270 mls/hr IV Q24H [facility] Last Infusion: 03/20/25 12:21 Dose: Infused Insulin Human Lispro (Insulin Lispro 100 Unit/Ml 3 Ml Vial) 0 unit SUBCUT QIDACHS [facility]; Protocol Last Admin: 03/20/25 11:19 Dose: 2 unit Lactulose (Lactulose 20 Gm/30 Ml Solution) 20 gm PO QID PRN PRN Reason: Constipation Lidocaine (Lidocaine 4 % Patch Adh..Patch) 1 patch TRANSDERMA DAILY [facility]; Protocol Last Admin: 03/20/25 08:12 Dose: Not Given Magnesium Hydroxide (Milk Of Magnesia 30 Ml Oral.Susp) 30 ml PO DAILY PRN PRN Reason: Constipation Magnesium Oxide (Magnesium Oxide 400 Mg Tablet) 400 mg PO BIDPC BEBE Melatonin (Melatonin 3 Mg Tablet) 6 mg PO BEDTIME PRN PRN Reason: Insomnia Metoprolol Succinate (Metoprolol Succinate Er 12.5 Mg Halftab.Er.24h) 12.5 mg PO BEDTIME [facility]; Protocol Last Admin: 03/19/25 22:25 Dose: 12.5 mg Mineral Oil (Mineral Oil Enema 133 Ml Enema) 133 ml [place] DAILY [facility] Mirtazapine (Mirtazapine 7.5 Mg Tablet) 7.5 mg PO BEDTIME [facility] Last Admin: 03/19/25 22:24 Dose: 7.5 mg Multivitamins/Vitamin C (Multivitamin Tablet) 1 tab PO DAILY [facility] Last Admin: 03/20/25 08:13 Dose: 1 tab Omeprazole (Omeprazole 20 Mg Capsule.Dr) 20 mg PO DAILY@0630 [facility] Last Admin: 03/20/25 05:48 Dose: 20 mg Ondansetron HCl (Ondansetron Hcl 4 Mg/2 Ml Vial) 4 mg IVPUSH Q8H PRN PRN Reason: Nausea and Vomiting Oxycodone HCl (Oxycodone Hcl Immed Release 5 Mg Tablet) 2.5 mg PO Q6H PRN PRN Reason: Pain, Severe (Pain Scale 7-10) Pharmacy Consult (Consult Rx Vancomycin Dosing) 1 each MISCELLANE DAILY PRN PRN Reason: Consult order Polyethylene Glycol (Polyethylene Glycol 3350 17 Gm Powd.Pack) 17 gm PO DAILY PRN PRN Reason: Constipation Senna/Docusate Sodium (Sennosides/Docusate Sodium Tablet) 1 tab PO BEDTIME [facility] Last Admin: 03/19/25 22:24 Dose: 1 tab Sertraline HCl (Sertraline Hcl 25 Mg Tablet) 25 mg PO DAILY [facility] Last Admin: 03/20/25 08:14 Dose: 25 mg Sodium Chloride (0.9 % Sodium Chloride Flush 3 Ml Syringe) 3 ml IVFLUSH QSHIFT [facility] Last Admin: 03/20/25 16:34 Dose: Not Given Home Medications ?Medication ?Instructions ?Recorded ?Confirmed ?Last Taken ?Type donepezil 10 mg tablet 10 mg PO BEDTIME 10/30/23 03/18/25 03/14/25 History metoprolol succinate 25 mg 12.5 mg PO BEDTIME 10/30/23 03/18/25 03/14/25 History tablet,extended release 24 hr lactulose 10 gram/15 mL oral 30 ml PO QID PRN Constipation 11/03/24 03/18/25 Unknown History solution pantoprazole 20 mg tablet,delayed 20 mg PO DAILY@0630 11/03/24 03/18/25 03/15/25 History release polyethylene glycol 3350 17 17 g PO DAILY PRN Constipation 11/03/24 03/18/25 Unknown History gram/dose oral powder apixaban 5 mg tablet (Eliquis) 5 mg PO BID 12/08/24 03/18/25 03/14/25 History atorvastatin 20 mg tablet 20 mg PO BEDTIME 12/08/24 03/18/25 03/14/25 History torsemide 5 mg tablet 5 mg PO DAILY 12/08/24 03/18/25 03/15/25 History acetaminophen 325 mg tablet 650 mg PO Q6H PRN TEMP, PAIN 03/16/25 03/18/25 Unknown History acetaminophen 500 mg tablet 500 mg PO TID 03/16/25 03/18/25 03/15/25 History calcium 600 mg (as 2 tab PO DAILY 03/16/25 03/18/25 03/15/25 History carbonate)-vitamin D3 5 mcg (200 unit) tablet diphenhydramine HCl 25 mg capsule 25 mg PO TID PRN ALLERGIES 03/16/25 03/18/25 Unknown History (Benadryl) mirtazapine 7.5 mg tablet 7.5 mg PO BEDTIME 03/16/25 03/18/25 03/14/25 History multivitamin 1 tab PO DAILY 03/16/25 03/18/25 03/15/25 History sennosides 8.6 mg-docusate sodium 1 tab-cap PO BEDTIME 03/16/25 03/18/25 03/14/25 History 50 mg tablet (Senna Plus) sertraline 25 mg tablet 25 mg PO DAILY 03/16/25 03/18/25 03/15/25 History sitagliptin phosphate 50 mg tablet 50 mg PO DAILY 03/16/25 03/18/25 03/15/25 History (Januvia) Physical Exam Vital Signs: Vital Signs: Last Vital Signs Temp 97.6 F 03/20/25 15:43 Pulse 84 03/20/25 15:43 Resp 16 03/20/25 15:43 BP 138/71 03/20/25 15:43 Pulse Ox 91 L 03/20/25 15:43 O2 Del Method Room Air 03/20/25 15:43 O2 Flow Rate 2 03/18/25 01:59 BMI result Body Mass Index 24.7 GI: Other: Abdomen is soft nontender. On rectal exam large mass of soft stool material is palpated and some of this is the this impacted. Several evacuations were carried out digitally with the patient was uncomfortable with this. There was no bleeding. The mucosa did not feel abnormal. Results Labs 03/20/25 06:23 03/20/25 06:23 Labs: Abnormal lab results 03/19/25 03/19/25 03/20/25 Range/Units 19:06 20:17 06:23 RBC 2.88 L D (4.20-5.50) X10*6/uL Hgb 8.5 L D 8.4 L (12.0-16.0) g/dl Hct 26.2 L D 26.1 L (37.0-47.0) % RDW 17.2 H (11.0-16.0) % Chloride 109 H (96-108) mmol/L Anion Gap 11 L (12-20) POC Glucose 190 H (60-115) mg/dL Random Glucose 132 H (60-115) mg/dL 03/20/25 03/20/25 03/20/25 Range/Units 07:28 11:14 16:17 RBC (4.20-5.50) X10*6/uL Hgb (12.0-16.0) g/dl Hct (37.0-47.0) % RDW (11.0-16.0) % Chloride (96-108) mmol/L Anion Gap (12-20) POC Glucose 136 H 190 H 159 H (60-115) mg/dL Random Glucose (60-115) mg/dL Short CBC 03/19/25 03/20/25 Range/Units 19:06 06:23 WBC 7.5 (4.8-10.8) X10*3/uL Hgb 8.5 L D 8.4 L (12.0-16.0) g/dl Hct 26.2 L D 26.1 L (37.0-47.0) % Plt Count 247 (160-400) X10*3/uL BMP 03/20/25 03/20/25 06:23 06:23 Sodium 143 Potassium 3.5 Chloride 109 H Carbon Dioxide 27 BUN 11 Creatinine 0.94 0.93 Calcium 9.1 All other labs normal. Imaging Additional studies: [address] [address] [address] Scan Report Signed Patient: AlyceMarch MR#: [id number] : 1940 Acct:[id number] Age/Sex: 85 / F ADM Date: 03/17/25 Loc: .S3 358-[address]: Aaron Montes MD Ordering Physician: Aaron Montes MD Date of Service: 03/19/25 Procedure(s): CT abdomen pelvis wo IV con Accession Number(s): [id number] cc: Maria G Cole MD; Aaron Montes MD~ Report Number: [id number]: Total DLP = 373.00 mGy-cm EXAMINATION: CT ABDOMEN AND PELVIS WITHOUT CONTRAST CLINICAL INFORMATION: Worsening anemia. COMPARISON: 04/14/2022 TECHNIQUE: Multidetector volumetric imaging was performed from the superior aspect of the liver through the pubic symphysis. Sagittal and coronal reformatted images were obtained on the technologist's workstation. This CT examination was performed using dose optimization techniques as appropriate, variously including the following: *Automated exposure control *Adjustment of mA and/or kV according to patient size (this includes techniques or standardized protocols for targeted exams where dose is matched to indication/reason for exam; i.e. extremities or head) *Use of iterative reconstruction technique FINDINGS: LUNG BASES: There are bilateral small layering effusions in the lung bases with interlobular septal thickening consistent with interstitial pulmonary edema. There is borderline cardiac enlargement. There is no pericardial effusion. There is mild passive atelectasis portions of both lower lobes. LIVER, GALLBLADDER, AND BILIARY TREE: The unenhanced liver is normal in size, shape, and attenuation. No focal hepatic lesion or biliary ductal dilatation is present. The gallbladder is distended, and there are small suspected gravel sized gallstones layering . No wall thickening or inflammation. PANCREAS: Unremarkable. SPLEEN: Unremarkable. ADRENAL GLANDS: Unremarkable. KIDNEYS AND URETERS: The kidneys are normal in size, shape, and attenuation. No hydronephrosis or hydroureter seen. No perinephric stranding. There are nonobstructing calculi bilaterally, measuring up to 3 mm in the left kidney midpole. BLADDER: Poorly distended. Grossly normal. GASTROINTESTINAL TRACT: There is a stool ball in the rectum measuring 7.6 x 7.6 x 9.4 cm. Mild rectal wall thickening. There is otherwise mild to moderate fecal burden seen throughout the remainder of the colon. No additional wall thickening or inflammation. No CT evidence of acute appendicitis. The small bowel is nondilated. No definite inflammatory changes. The stomach is decompressed. The duodenal sweep is normal. ABDOMINAL WALL: No significant hernia is appreciated. LYMPH NODES: Normal. VASCULAR: Moderate atheromatous calcification of the aorta and iliac vessels. There is no aneurysm. PELVIC VISCERA: There has been a hysterectomy. There are no adnexal masses. OSSEOUS STRUCTURES: There is mild diffuse osteopenia. There is no acute or suspicious bony abnormality. There are mild degenerative spinal changes. There has been open reduction and internal fixation of a recent right intertrochanteric hip fracture. The hardware appears intact without complication grossly. The fracture lines are still well apparent. CT/CT abdomen pelvis wo IV con IMPRESSION: 1. There are small layering effusions and evidence of interstitial pulmonary edema within the lung bases. 2. There is a large stool ball within the rectum with mild rectal wall thickening, findings consistent with mild fecal impaction. There is mild to moderate constipation otherwise. 3. The gallbladder is mildly distended and there are small layering gallstones. No inflammatory changes. 4. There has been an ORIF of a recent intertrochanteric right hip fracture. 5. There are small nonobstructing renal calculi bilaterally. 6. There is no evidence of hematoma or significant active bleeding. Electronically signed by: Timothy Zafar MD 03/19/2025 04:08 PM EDT Dictated By: Timothy Zafar MD Signed By: <Electronically signed by Timothy Zafar MD in OV> 03/19/25 3738 DD/ 1424 TD/TT: 03/19/25 9968 [employer] Flake Miller: Assessment and Plan (1) Constipation: Status: Acute Plan 85-year-old female with multiple medical issues in here now being treated for cellulitis and improving and workup of continuing anemia revealed large stool ball present in the rectum and some irritation of the mucosal wall here. Disimpaction and able the evacuation of some of this material. It does not feel very hard does not feel like it is obstructing. Would keep this patient on a bowel regimen with p.o. MiraLax and stool softeners and every once in awhile maybe a laxative to clear things through. In the meantime would encourage evacuation of this masslike area of stool with stimulation from below in the form of leak mineral oil enemas at least once daily until she is evacuated most of this material. Manual disimpaction on a p.r.n. basis but there is no evidence of any concerning knees Coastal ischemia or irritation. Procedures Date of Service Date of Service: 03/20/25
[2025-03-20] MEDS: Magnesium Oxide 400 MG TABLET PO (18:36)
[2025-03-20 20:17] LABS: Glucose, Whole Blood 132 mg/dL (60-115)
[2025-03-20] MEDS: Atorvastatin Calcium 20 MG TABLET PO (21:04)
[2025-03-20] MEDS: Acetaminophen 325 MG TABLET 975 MG PO (21:04)
[2025-03-20] MEDS: Donepezil HCl 10 MG TABLET PO (21:04)
[2025-03-20] MEDS: Sennosides/Docusate Sodium TABLET 1 TAB PO (21:04)
[2025-03-20] MEDS: Mirtazapine 7.5 MG TABLET PO (21:04)
[2025-03-20] MEDS: Metoprolol Succinate ER 12.5 MG HALFTAB.ER.24H PO (21:04)
[2025-03-21 03:58] VITALS: BP 146/72; PULSE 62; RESP 18; TEMP 36.6; O2SAT 98
[2025-03-21] MEDS: Omeprazole 20 MG CAPSULE.DR PO (05:50)
[2025-03-21 06:59] LABS: Creatinine Clr Calc Pharmacy 39.6; Estimated Glomerular Filt Rate > 60
[2025-03-21 07:24] VITALS: BP 161/76; PULSE 66; RESP 16; TEMP 36.3; O2SAT 91
[2025-03-21 07:46] LABS: Glucose, Whole Blood 119 mg/dL (60-115)
[2025-03-21] MEDS: Sertraline HCL 25 MG TABLET PO (09:37)
[2025-03-21] MEDS: Acetaminophen 325 MG TABLET 975 MG PO ×2 (09:37→22:20)
[2025-03-21] MEDS: Furosemide 20 MG/2 ML VIAL IVPUSH (09:37)
[2025-03-21] MEDS: Calcium + Vitamin D 250 MG TABLET 500 MG PO (09:37)
[2025-03-21] MEDS: Magnesium Oxide 400 MG TABLET PO ×2 (09:37→16:18)
[2025-03-21] MEDS: 0.9 % Sodium Chloride Flush 3 ML SYRINGE IVFLUSH ×3 (09:38→22:21)
[2025-03-21] MEDS: Mineral OiL enema 133 ML ENEMA PR (09:40)
[2025-03-21] MEDS: Multivitamin TABLET 1 TAB PO (09:40)
[2025-03-21 09:58] LABS: Hematocrit 29.3 % (37.0-47.0); Hemoglobin 9.6 g/dl (12.0-16.0)
[2025-03-21 10:08] LABS: Vancomycin Random 17.3 mcg/mL (15-20)
[2025-03-21 10:13] LABS: Anion Gap 16 (12-20); Blood Urea Nitrogen 10 mg/dL (9-16); Calcium 9.6 mg/dL (8.4-10.2); Carbon Dioxide 27 mmol/L (22-29); Chloride 104 mmol/L (96-108); Glucose Random 122 mg/dL (60-115); Potassium 3.7 mmol/L (3.3-5.1); Sodium 143 mmol/L (135-145)
--- NOTE | 2025-03-21 10:38 | HE.PHANOTE ---
[facility] Patients level came back this morning at 17.3. Patients pervious levels have been 16. PAtients Scr did increase yesterday to 0.93 but its back down to 0.89 this morning. Will continue with current dose. Pharmacy will continue to monitor renal function daily. Will get level on 03/23 @0900 to ensure safety vs efficacy. predicted auc [phone]
[2025-03-21] MEDS: vancomycin HCL 1,000 MG in 0.9 % Sodium Chloride 250 ML 270 MG IV (11:00)
[2025-03-21 11:19] LABS: Glucose, Whole Blood 167 mg/dL (60-115)
[2025-03-21 11:32] VITALS: BP 148/70; PULSE 75; RESP 16; TEMP 36.7; O2SAT 92
[2025-03-21] MEDS: Potassium Chloride ER 20 MEQ TAB.ER.PRT PO (12:56)
[2025-03-21] MEDS: Insulin Lispro 100 UNIT/ML 3 ML VIAL SUBCUT ×2 (12:56→22:20)
[2025-03-21 15:36] VITALS: BP 156/73; PULSE 69; RESP 16; TEMP 36.7; O2SAT 95
[2025-03-21 16:11] LABS: Glucose, Whole Blood 85 mg/dL (60-115)
--- NOTE | 2025-03-21 16:17 | P.PNIM_ITS ---
Subjective Subjective Date of Service: 03/21/25 Interval History: anemia, possible mild chf constipation Review of Systems no sob anemia improving passing bowels Physical Exam 2 Vital Signs: Vital Signs: Last Vital Signs Temp 98.1 F 03/21/25 15:36 Pulse 69 03/21/25 15:36 Resp 16 03/21/25 15:36 BP 156/73 H 03/21/25 15:36 Pulse Ox 95 03/21/25 15:36 O2 Del Method Room Air 03/21/25 15:36 O2 Flow Rate 2 03/18/25 01:59 BMI result Body Mass Index 24.7 general: seems comfortable Cardiac: S1 S2 heard,RRR. Pulmonary: lungs clear to auscultation. Abdominal: nd,,nt ,bs present,no guarding or rebound. MSK: strength 4/5 upper and lower extremities : no CVA tenderness no bladder distension Extremities: +2 pitting edema in lower extremities, PT and DP pulses palpable +2 Objective Data Active Medications Acetaminophen (Acetaminophen 325 Mg Tablet) 975 mg PO Q6H [facility] Last Admin: 03/21/25 15:51 Dose: Not Given Documented By: LORI Non-Admin Reason: Patient Refused Albuterol/Ipratropium (Albuterol/Iprat 2.5/0.5mg 3 Ml Ampul.Neb) 3 ml INHALE Q4H PRN PRN Reason: Shortness of Breath/Wheezing Apixaban (Apixaban 5 Mg Tablet) 5 mg PO BID [facility] Last Admin: 03/19/25 09:16 Dose: 5 mg Documented By: LIZ Atorvastatin Calcium (Atorvastatin Calcium 20 Mg Tablet) 20 mg PO BEDTIME [facility] Last Admin: 03/20/25 21:04 Dose: 20 mg Documented By: MOSHE Calcium Carbonate (Calcium Carbonate 750 Mg Tab.Chew) 750 mg PO Q4H PRN PRN Reason: Heartburn Calcium Carbonate/Cholecalciferol (Calcium + Vitamin D 250 Mg Tablet) 500 mg PO DAILY [facility] Last Admin: 03/21/25 09:37 Dose: 500 mg Documented By: LORI Dextrose (Dextrose 50 % 25 Gm/50 Ml Syringe) 25 gm IVPUSH Q15M PRN; Protocol PRN Reason: per Hypoglycemia Standing Ord. Donepezil HCl (Donepezil Hcl 10 Mg Tablet) 10 mg PO BEDTIME [facility] Last Admin: 03/20/25 21:04 Dose: 10 mg Documented By: MOSHE Furosemide (Furosemide 20 Mg/2 Ml Vial) 20 mg IVPUSH DAILY [facility]; Protocol Last Admin: 03/21/25 09:37 Dose: 20 mg Documented By: LORI Glucose (Glucose Gel 15 Gm Gel..Gram.) 15 gm PO Q15M PRN; Protocol PRN Reason: per Hypoglycemia Standing Ord. Vancomycin HCl 1,000 mg/ (Sodium Chloride) 270 mls @ 270 mls/hr IV Q24H [facility] Last Infusion: 03/21/25 12:07 Dose: Infused Documented By: LORI Insulin Human Lispro (Insulin Lispro 100 Unit/Ml 3 Ml Vial) 0 unit SUBCUT QIDACHS [facility]; Protocol Last Admin: 03/21/25 16:13 Dose: Not Given Documented By: LORI Non-Admin Reason: No Insulin Coverage Lactulose (Lactulose 20 Gm/30 Ml Solution) 20 gm PO QID PRN PRN Reason: Constipation Lidocaine (Lidocaine 4 % Patch Adh..Patch) 1 patch TRANSDERMA DAILY [facility]; Protocol Last Admin: 03/21/25 09:39 Dose: Not Given Documented By: LORI Non-Admin Reason: Patient Refused Magnesium Hydroxide (Milk Of Magnesia 30 Ml Oral.Susp) 30 ml PO DAILY PRN PRN Reason: Constipation Magnesium Oxide (Magnesium Oxide 400 Mg Tablet) 400 mg PO BIDPC [facility] Last Admin: 03/21/25 09:37 Dose: 400 mg Documented By: LORI Melatonin (Melatonin 3 Mg Tablet) 6 mg PO BEDTIME PRN PRN Reason: Insomnia Metoprolol Succinate (Metoprolol Succinate Er 12.5 Mg Halftab.Er.24h) 12.5 mg PO BEDTIME [facility]; Protocol Last Admin: 03/20/25 21:04 Dose: 12.5 mg Documented By: MOSHE Mineral Oil (Mineral Oil Enema 133 Ml Enema) 133 ml [place] DAILY [facility] Last Admin: 03/21/25 09:40 Dose: 133 ml Documented By: LORI Mirtazapine (Mirtazapine 7.5 Mg Tablet) 7.5 mg PO BEDTIME [facility] Last Admin: 03/20/25 21:04 Dose: 7.5 mg Documented By: MOSHE Multivitamins/Vitamin C (Multivitamin Tablet) 1 tab PO DAILY [facility] Last Admin: 03/21/25 09:40 Dose: 1 tab Documented By: LORI Omeprazole (Omeprazole 20 Mg Capsule.) 20 mg PO DAILY@0630 [facility] Last Admin: 03/21/25 05:50 Dose: 20 mg Documented By: MOSHE Ondansetron HCl (Ondansetron Hcl 4 Mg/2 Ml Vial) 4 mg IVPUSH Q8H PRN PRN Reason: Nausea and Vomiting Oxycodone HCl (Oxycodone Hcl Immed Release 5 Mg Tablet) 2.5 mg PO Q6H PRN PRN Reason: Pain, Severe (Pain Scale 7-10) Pharmacy Consult (Consult Rx Vancomycin Dosing) 1 each MISCELLANE DAILY PRN PRN Reason: Consult order Polyethylene Glycol (Polyethylene Glycol 3350 17 Gm Powd.Pack) 17 gm PO DAILY PRN PRN Reason: Constipation Senna/Docusate Sodium (Sennosides/Docusate Sodium Tablet) 1 tab PO BEDTIME [facility] Last Admin: 03/20/25 21:04 Dose: 1 tab Documented By: MOSHE Sertraline HCl (Sertraline Hcl 25 Mg Tablet) 25 mg PO DAILY [facility] Last Admin: 03/21/25 09:37 Dose: 25 mg Documented By: LORI Sodium Chloride (0.9 % Sodium Chloride Flush 3 Ml Syringe) 3 ml IVFLUSH QSHIFT [facility] Last Admin: 03/21/25 09:38 Dose: 3 ml Documented By: LORI Labs 03/21/25 09:33 03/21/25 06:21 Labs: Laboratory Results - last 24 hr 03/20/25 03/20/25 03/21/25 16:17 19:52 06:21 Hold Purple Top SEE NOTE Anion Gap 16 Estim Creat Clear Calc 39.6 Estimated GFR > 60 POC Glucose 159 H 132 H Random Glucose 122 H Calcium 9.6 Random Vancomycin 03/21/25 03/21/25 03/21/25 07:27 09:03 11:10 Hold Purple Top Anion Gap Estim Creat Clear Calc Estimated GFR POC Glucose 119 H 167 H Random Glucose Calcium Random Vancomycin 17.3 03/21/25 16:05 Hold Purple Top Anion Gap Estim Creat Clear Calc Estimated GFR POC Glucose 85 Random Glucose Calcium Random Vancomycin Assessment and Plan (1) Constipation: Status: Acute (2) Hypomagnesemia: Status: Acute (3) Acute hypokalemia: Status: Acute Assessment and Plan: 85-year-old female with past medical history hypertension, diabetes mellitus, DVT, CVA, prior cellulitis, 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 Right lower extremity cellulitis continue on vancomycin IV, pharmacy requested to manage vanco trough is 17.3 BNP is within normal limits, do not suspect a component of heart failure although patient will resume her usual meds Keep affected leg elevated seen by Id -added right heel xray. vascular eval noted:continuing with IV Abx. There is no acute vascular surgical intervention at this point Normocytic anemia: Iron iron sats and ferritin normal B12 and folate also normal Peripheral smear-less likely hemolysis LDH and haptoglobin also normal ct abd -stool impaction s/p1 PRBC-monitor H&H is 9.6 , hold Eliquis,moniter cbc. As per the chart review patient had BM yesterday but afterwards CT scan showed school impaction rectal area: Surgery evaluation added impaction. History of DVT: hold eliquis. Status post suspected fall-CT of the head negative for any acute findings CT cervical spine negative for acute findings b/l hip and pelvic -no fracture mild acute Hfpef excerebation- Continue torsemide as vitals are stable ct abd: Shows lung interstitial edema with small effusions echo:ef 55-60% with impaired relaxation filling pattern Acute hypomagnesemia and hypokalemia: Repleted Monitor renal function electrolytes Hypertension-Continue metoprolol Low-salt diet Diabetes mellitus type 2 -Sliding scale insulin -Diabetic diet -Januvia once med rec started Dementia -Continue Aricept -Patient high fall risk, safety measures should be in place -Patient does not require one-to-one, patient is not having any abnormal behaviors Hyperlipidemia -Continue statin, AST only mildly elevated GERD -Continue PPI - omeprazole DVT prophylaxis: eliquis on hold , due to leg swelling -avoid scd. PPI prophylaxis: Omeprazole. ongoing need : right leg cellulitis/edema -continue iv antibiotics , pain management ,chf -need iv lasix and renal function/electrolytic moniterin, anemia -need h/h monitering Quality Stroke Does the patient have a stroke diagnosis?: No Reason for No Anti-thrombotic by Day Two: N/A - Med Ordered VTE Prior VTE?: Yes VTE Risk Level:: Medical - moderate - high VTE Device Contraindication: Procedure Contraindicated VTE Drug Contraindication: N/A - Med Ordered
[2025-03-21 19:40] LABS: Glucose, Whole Blood 259 mg/dL (60-115)
[2025-03-21 19:55] VITALS: BP 158/74; PULSE 92; RESP 18; TEMP 36.2; O2SAT 92
[2025-03-21] MEDS: Melatonin 3 MG TABLET 6 MG PO (22:19)
[2025-03-21] MEDS: Donepezil HCl 10 MG TABLET PO (22:19)
[2025-03-21] MEDS: Mirtazapine 7.5 MG TABLET PO (22:19)
[2025-03-21] MEDS: Metoprolol Succinate ER 12.5 MG HALFTAB.ER.24H PO (22:20)
[2025-03-21] MEDS: Sennosides/Docusate Sodium TABLET 1 TAB PO (22:20)
[2025-03-21] MEDS: Atorvastatin Calcium 20 MG TABLET PO (22:20)
[2025-03-22 03:54] VITALS: BP 148/65; PULSE 79; RESP 18; TEMP 36.2; O2SAT 94
[2025-03-22] MEDS: Omeprazole 20 MG CAPSULE.DR PO (05:31)
[2025-03-22 05:49] LABS: Hematocrit 27.4 % (37.0-47.0); Hemoglobin 9.2 g/dl (12.0-16.0); Mean Corpuscular HGB Conc 33.6 g/dl (31.0-35.0); Mean Corpuscular Hemoglobin 29.8 pg (27.0-33.0); Mean Corpuscular Volume 88.7 fL (80.0-98.0); Mean Platelet Volume 10.9 fL (9.4-12.3); Platelet Count 260 X10*3/uL (160-400); Red Blood Count 3.09 X10*6/uL (4.20-5.50); Red Cell Distribution Width 16.6 % (11.0-16.0); White Blood Count 7.5 X10*3/uL (4.8-10.8)
[2025-03-22 06:05] LABS: Anion Gap 13 (12-20); Blood Urea Nitrogen 12 mg/dL (9-16); Calcium 9.4 mg/dL (8.4-10.2); Carbon Dioxide 27 mmol/L (22-29); Chloride 105 mmol/L (96-108); Estimated Glomerular Filt Rate > 60; Glucose Random 104 mg/dL (60-115); Potassium 3.8 mmol/L (3.3-5.1); Sodium 141 mmol/L (135-145)
[2025-03-22 07:09] LABS: Glucose, Whole Blood 116 mg/dL (60-115)
[2025-03-22 07:16] VITALS: BP 150/72; PULSE 80; RESP 17; TEMP 36.6; O2SAT 95
--- NOTE | 2025-03-22 08:10 | PC.NURSE ---
Fleet enema not given with telephone order from MD to hold due to patient having multiple BMs since last administration of enema.
[2025-03-22] MEDS: Multivitamin TABLET 1 TAB PO (08:12)
[2025-03-22] MEDS: Sertraline HCL 25 MG TABLET PO (08:12)
[2025-03-22] MEDS: Calcium + Vitamin D 250 MG TABLET 500 MG PO (08:12)
[2025-03-22] MEDS: Magnesium Oxide 400 MG TABLET PO ×2 (08:12→17:10)
[2025-03-22] MEDS: Acetaminophen 325 MG TABLET 975 MG PO ×3 (08:12→20:51)
[2025-03-22] MEDS: Furosemide 20 MG/2 ML VIAL IVPUSH (08:12)
[2025-03-22] MEDS: 0.9 % Sodium Chloride Flush 3 ML SYRINGE IVFLUSH ×3 (08:17→20:58)
--- NOTE | 2025-03-22 08:55 | P.PNGS_ITS ---
Subjective Subjective Date of Service: 03/22/25 Interval history: Patient doing well, resting comfortably in bed. She denies abdominal pain, nausea, vomiting, bloating. She has passed multiple bowel movements. Physical Exam 2 Vital Signs: Vital Signs: Last Vital Signs Temp 98 F 03/22/25 07:16 Pulse 80 03/22/25 07:16 Resp 17 03/22/25 07:16 BP 150/72 H 03/22/25 07:16 Pulse Ox 95 03/22/25 07:16 O2 Del Method Room Air 03/22/25 07:16 O2 Flow Rate 0 03/22/25 03:54 BMI result Body Mass Index 24.7 Const: General: comfortable and no acute distress O rientation/consciousness: patient oriented x3 Resp: Effort & Inspection: normal respiratory effort and able to speak in complete sentences GI: Inspection: No distended Palpation (GI): Soft to palpation, not firm, nontender, no guarding and not rigid Neuro: General: patient oriented x3 Objective Data Active Medications Acetaminophen (Acetaminophen 325 Mg Tablet) 975 mg PO Q6H [facility] Last Admin: 03/22/25 08:12 Dose: 975 mg Documented By: SHAYLA Albuterol/Ipratropium (Albuterol/Iprat 2.5/0.5mg 3 Ml Ampul.Neb) 3 ml INHALE Q4H PRN PRN Reason: Shortness of Breath/Wheezing Apixaban (Apixaban 5 Mg Tablet) 5 mg PO BID [facility] Last Admin: 03/19/25 09:16 Dose: 5 mg Documented By: LIZ Atorvastatin Calcium (Atorvastatin Calcium 20 Mg Tablet) 20 mg PO BEDTIME [facility] Last Admin: 03/21/25 22:20 Dose: 20 mg Documented By: MOSHE Calcium Carbonate (Calcium Carbonate 750 Mg Tab.Chew) 750 mg PO Q4H PRN PRN Reason: Heartburn Calcium Carbonate/Cholecalciferol (Calcium + Vitamin D 250 Mg Tablet) 500 mg PO DAILY [facility] Last Admin: 03/22/25 08:12 Dose: 500 mg Documented By: SHAYLA Dextrose (Dextrose 50 % 25 Gm/50 Ml Syringe) 25 gm IVPUSH Q15M PRN; Protocol PRN Reason: per Hypoglycemia Standing Ord. Donepezil HCl (Donepezil Hcl 10 Mg Tablet) 10 mg PO BEDTIME [facility] Last Admin: 03/21/25 22:19 Dose: 10 mg Documented By: MOSHE Furosemide (Furosemide 20 Mg/2 Ml Vial) 20 mg IVPUSH DAILY [facility]; Protocol Last Admin: 03/22/25 08:12 Dose: 20 mg Documented By: SHAYLA Glucose (Glucose Gel 15 Gm Gel..Gram.) 15 gm PO Q15M PRN; Protocol PRN Reason: per Hypoglycemia Standing Ord. Vancomycin HCl 750 mg/ Sodium (Chloride) 265 mls @ 265 mls/hr IV Q24H [facility] Insulin Human Lispro (Insulin Lispro 100 Unit/Ml 3 Ml Vial) 0 unit SUBCUT QIDACHS [facility]; Protocol Last Admin: 03/22/25 07:11 Dose: Not Given Documented By: SHAYLA Non-Admin Reason: No Insulin Coverage Lactulose (Lactulose 20 Gm/30 Ml Solution) 20 gm PO QID PRN PRN Reason: Constipation Lidocaine (Lidocaine 4 % Patch Adh..Patch) 1 patch TRANSDERMA DAILY [facility]; Protocol Last Admin: 03/22/25 08:13 Dose: Not Given Documented By: SHAYLA Non-Admin Reason: Patient Refused Magnesium Hydroxide (Milk Of Magnesia 30 Ml Oral.Susp) 30 ml PO DAILY PRN PRN Reason: Constipation Magnesium Oxide (Magnesium Oxide 400 Mg Tablet) 400 mg PO BIDPC [facility] Last Admin: 03/22/25 08:12 Dose: 400 mg Documented By: SHAYLA Melatonin (Melatonin 3 Mg Tablet) 6 mg PO BEDTIME PRN PRN Reason: Insomnia Last Admin: 03/21/25 22:19 Dose: 6 mg Documented By: MOSHE Metoprolol Succinate (Metoprolol Succinate Er 12.5 Mg Halftab.Er.24h) 12.5 mg PO BEDTIME [facility]; Protocol Last Admin: 03/21/25 22:20 Dose: 12.5 mg Documented By: MOSHE Mineral Oil (Mineral Oil Enema 133 Ml Enema) 133 ml [place] DAILY [facility] Last Admin: 03/22/25 08:09 Dose: Not Given Documented By: SHAYLA Non-Admin Reason: Physician Held Med Mirtazapine (Mirtazapine 7.5 Mg Tablet) 7.5 mg PO BEDTIME [facility] Last Admin: 03/21/25 22:19 Dose: 7.5 mg Documented By: MOSHE Multivitamins/Vitamin C (Multivitamin Tablet) 1 tab PO DAILY [facility] Last Admin: 03/22/25 08:12 Dose: 1 tab Documented By: SHAYLA Omeprazole (Omeprazole 20 Mg Capsule.Dr) 20 mg PO DAILY@0630 [facility] Last Admin: 03/22/25 05:31 Dose: 20 mg Documented By: MOSHE Ondansetron HCl (Ondansetron Hcl 4 Mg/2 Ml Vial) 4 mg IVPUSH Q8H PRN PRN Reason: Nausea and Vomiting Oxycodone HCl (Oxycodone Hcl Immed Release 5 Mg Tablet) 2.5 mg PO Q6H PRN PRN Reason: Pain, Severe (Pain Scale 7-10) Pharmacy Consult (Consult Rx Vancomycin Dosing) 1 each MISCELLANE DAILY PRN PRN Reason: Consult order Polyethylene Glycol (Polyethylene Glycol 3350 17 Gm Powd.Pack) 17 gm PO DAILY PRN PRN Reason: Constipation Senna/Docusate Sodium (Sennosides/Docusate Sodium Tablet) 1 tab PO BEDTIME [facility] Last Admin: 03/21/25 22:20 Dose: 1 tab Documented By: MOSHE Sertraline HCl (Sertraline Hcl 25 Mg Tablet) 25 mg PO DAILY [facility] Last Admin: 03/22/25 08:12 Dose: 25 mg Documented By: SHAYLA Sodium Chloride (0.9 % Sodium Chloride Flush 3 Ml Syringe) 3 ml IVFLUSH QSHIFT [facility] Last Admin: 03/22/25 08:17 Dose: 3 ml Documented By: SHAYLA Labs 03/22/25 05:41 03/22/25 05:41 Labs: Laboratory Results - last 24 hr 03/21/25 03/21/25 03/21/25 06:21 09:03 11:10 MCV MCH MCHC RDW Plt Count MPV Absolute Nucleated RBC Nucleated RBC % (auto) Anion Gap 16 Estim Creat Clear Calc 39.6 Estimated GFR > 60 POC Glucose 167 H Random Glucose 122 H Calcium 9.6 Random Vancomycin 17.3 03/21/25 03/21/25 03/22/25 16:05 19:33 05:41 MCV 88.7 MCH 29.8 MCHC 33.6 RDW 16.6 H Plt Count 260 MPV 10.9 Absolute Nucleated RBC 0.000 Nucleated RBC % (auto) 0.0 Anion Gap 13 Estim Creat Clear Calc 41.0 Estimated GFR > 60 POC Glucose 85 259 H Random Glucose 104 Calcium 9.4 Random Vancomycin 03/22/25 07:03 MCV MCH MCHC RDW Plt Count MPV Absolute Nucleated RBC Nucleated RBC % (auto) Anion Gap Estim Creat Clear Calc Estimated GFR POC Glucose 116 H Random Glucose Calcium Random Vancomycin Procedures Date of Service Date of Service: 03/22/25 Progress Note: A&P Assessment and plan (1) Constipation: Status: Acute Plan 85-year-old female consulted General surgery for constipation with high stool burden. Patient is doing well passing multiple small bowel movements. Had disimpaction and evacuation of some stool on 03/20. Patient is denying pain, nausea, vomiting. Abdomen is soft and benign. Clinically obstructed. General surgery will sign off, please reconsult as needed. Continue bowel regimen, enema and manual disimpaction as needed. Recommend home maintenance bowel regimen Recommend Ambulation as tolerated Time Spent With Patient Time: Total time managing care of this patient today ____ minutes. Quality Stroke Does the patient have a stroke diagnosis?: No Reason for No Anti-thrombotic by Day Two: N/A - Med Ordered VTE Prior VTE?: Yes VTE Risk Level:: Medical - moderate - high VTE Device Contraindication: Procedure Contraindicated VTE Drug Contraindication: N/A - Med Ordered
--- NOTE | 2025-03-22 11:10 | HE.PHANOTE ---
VANCO DOSE ADJUSTMENT BASED ON SCR DOSE CONTINUED AT 750 Q24H. NEXT LEVEL TROUGH 03/23 @ 0900
[2025-03-22 11:11] LABS: Glucose, Whole Blood 202 mg/dL (60-115)
[2025-03-22 11:25] VITALS: BP 121/57; PULSE 76; RESP 15; TEMP 36.6; O2SAT 94
[2025-03-22] MEDS: Insulin Lispro 100 UNIT/ML 3 ML VIAL SUBCUT (11:27)
[2025-03-22] MEDS: vancomycin HCL 750 MG in 0.9 % Sodium Chloride 250 ML 265 MG IV (11:30)
--- NOTE | 2025-03-22 15:42 | MHC.CM.PN ---
per rounds pt will be reADY IN 1 TO 2 Dys
[2025-03-22 15:46] VITALS: BP 141/63; PULSE 70; RESP 16; TEMP 37.1; O2SAT 95
--- NOTE | 2025-03-22 15:49 | HO.PM.IMPN ---
Subjective Subjective Date of Service: 03/22/25 Interval History: anemia hx of dvt Review of Systems erythema leg improving denies new c/o. Review of Systems: Yes all other systems are reviewed and are negative Physical Exam Vital Signs: Vital Signs: Last Vital Signs Temp 97.8 F 03/22/25 11:25 Pulse 76 03/22/25 11:25 Resp 15 03/22/25 11:25 BP 121/57 L 03/22/25 11:25 Pulse Ox 94 03/22/25 11:25 O2 Del Method Room Air 03/22/25 11:25 O2 Flow Rate 0 03/22/25 03:54 BMI result Body Mass Index 24.7 general: seems comfortable Cardiac: S1 S2 heard,RRR. Pulmonary: lungs clear to auscultation. Abdominal: nd,,nt ,bs present,no guarding or rebound. MSK: strength 4/5 upper and lower extremities : no CVA tenderness no bladder distension Extremities: +2 pitting edema in lower extremities, PT and DP pulses palpable +2 Objective Data Active Medications Acetaminophen (Acetaminophen 325 Mg Tablet) 975 mg PO Q6H [facility] Last Admin: 03/22/25 15:44 Dose: 975 mg Documented By: SHAYLA Albuterol/Ipratropium (Albuterol/Iprat 2.5/0.5mg 3 Ml Ampul.Neb) 3 ml INHALE Q4H PRN PRN Reason: Shortness of Breath/Wheezing Apixaban (Apixaban 5 Mg Tablet) 5 mg PO BID [facility] Last Admin: 03/19/25 09:16 Dose: 5 mg Documented By: LIZ Atorvastatin Calcium (Atorvastatin Calcium 20 Mg Tablet) 20 mg PO BEDTIME [facility] Last Admin: 03/21/25 22:20 Dose: 20 mg Documented By: MOSHE Calcium Carbonate (Calcium Carbonate 750 Mg Tab.Chew) 750 mg PO Q4H PRN PRN Reason: Heartburn Calcium Carbonate/Cholecalciferol (Calcium + Vitamin D 250 Mg Tablet) 500 mg PO DAILY [facility] Last Admin: 03/22/25 08:12 Dose: 500 mg Documented By: SHAYLA Dextrose (Dextrose 50 % 25 Gm/50 Ml Syringe) 25 gm IVPUSH Q15M PRN; Protocol PRN Reason: per Hypoglycemia Standing Ord. Donepezil HCl (Donepezil Hcl 10 Mg Tablet) 10 mg PO BEDTIME [facility] Last Admin: 03/21/25 22:19 Dose: 10 mg Documented By: MOSHE Furosemide (Furosemide 20 Mg/2 Ml Vial) 20 mg IVPUSH DAILY [facility]; Protocol Last Admin: 03/22/25 08:12 Dose: 20 mg Documented By: SHAYLA Glucose (Glucose Gel 15 Gm Gel..Gram.) 15 gm PO Q15M PRN; Protocol PRN Reason: per Hypoglycemia Standing Ord. Vancomycin HCl 750 mg/ Sodium (Chloride) 265 mls @ 265 mls/hr IV Q24H [facility] Last Infusion: 03/22/25 14:24 Dose: Infused Documented By: SHAYLA Insulin Human Lispro (Insulin Lispro 100 Unit/Ml 3 Ml Vial) 0 unit SUBCUT QIDACHS [facility]; Protocol Last Admin: 03/22/25 11:27 Dose: 4 unit Documented By: SHAYLA Lactulose (Lactulose 20 Gm/30 Ml Solution) 20 gm PO QID PRN PRN Reason: Constipation Lidocaine (Lidocaine 4 % Patch Adh..Patch) 1 patch TRANSDERMA DAILY [facility]; Protocol Last Admin: 03/22/25 08:13 Dose: Not Given Documented By: SHAYLA Non-Admin Reason: Patient Refused Magnesium Hydroxide (Milk Of Magnesia 30 Ml Oral.Susp) 30 ml PO DAILY PRN PRN Reason: Constipation Magnesium Oxide (Magnesium Oxide 400 Mg Tablet) 400 mg PO BIDPC [facility] Last Admin: 03/22/25 08:12 Dose: 400 mg Documented By: SHAYLA Melatonin (Melatonin 3 Mg Tablet) 6 mg PO BEDTIME PRN PRN Reason: Insomnia Last Admin: 03/21/25 22:19 Dose: 6 mg Documented By: MOSHE Metoprolol Succinate (Metoprolol Succinate Er 12.5 Mg Halftab.Er.24h) 12.5 mg PO BEDTIME [facility]; Protocol Last Admin: 03/21/25 22:20 Dose: 12.5 mg Documented By: MOSHE Mineral Oil (Mineral Oil Enema 133 Ml Enema) 133 ml [place] DAILY [facility] Last Admin: 03/22/25 08:09 Dose: Not Given Documented By: SHAYLA Non-Admin Reason: Physician Held Med Mirtazapine (Mirtazapine 7.5 Mg Tablet) 7.5 mg PO BEDTIME [facility] Last Admin: 03/21/25 22:19 Dose: 7.5 mg Documented By: MOSHE Multivitamins/Vitamin C (Multivitamin Tablet) 1 tab PO DAILY [facility] Last Admin: 03/22/25 08:12 Dose: 1 tab Documented By: SHAYLA Omeprazole (Omeprazole 20 Mg Capsule.Dr) 20 mg PO DAILY@0630 [facility] Last Admin: 03/22/25 05:31 Dose: 20 mg Documented By: MOSHE Ondansetron HCl (Ondansetron Hcl 4 Mg/2 Ml Vial) 4 mg IVPUSH Q8H PRN PRN Reason: Nausea and Vomiting Oxycodone HCl (Oxycodone Hcl Immed Release 5 Mg Tablet) 2.5 mg PO Q6H PRN PRN Reason: Pain, Severe (Pain Scale 7-10) Pharmacy Consult (Consult Rx Vancomycin Dosing) 1 each MISCELLANE DAILY PRN PRN Reason: Consult order Polyethylene Glycol (Polyethylene Glycol 3350 17 Gm Powd.Pack) 17 gm PO DAILY PRN PRN Reason: Constipation Senna/Docusate Sodium (Sennosides/Docusate Sodium Tablet) 1 tab PO BEDTIME [facility] Last Admin: 03/21/25 22:20 Dose: 1 tab Documented By: MOSHE Sertraline HCl (Sertraline Hcl 25 Mg Tablet) 25 mg PO DAILY [facility] Last Admin: 03/22/25 08:12 Dose: 25 mg Documented By: SHAYLA Sodium Chloride (0.9 % Sodium Chloride Flush 3 Ml Syringe) 3 ml IVFLUSH QSHIFT [facility] Last Admin: 03/22/25 15:47 Dose: 3 ml Documented By: SHAYLA Labs 03/22/25 05:41 03/22/25 05:41 Labs: Laboratory Results - last 24 hr 03/19/25 03/21/25 03/21/25 09:34 16:05 19:33 MCV MCH MCHC RDW Plt Count MPV Absolute Nucleated RBC Nucleated RBC % (auto) Smear Path Review SEE NOTE Anion Gap Estim Creat Clear Calc Estimated GFR POC Glucose 85 259 H Random Glucose Calcium 03/22/25 03/22/25 03/22/25 05:41 07:03 11:01 MCV 88.7 MCH 29.8 MCHC 33.6 RDW 16.6 H Plt Count 260 MPV 10.9 Absolute Nucleated RBC 0.000 Nucleated RBC % (auto) 0.0 Smear Path Review Anion Gap 13 Estim Creat Clear Calc 41.0 Estimated GFR > 60 POC Glucose 116 H 202 H Random Glucose 104 Calcium 9.4 Assessment and Plan (1) Cellulitis: Status: Acute (2) Constipation: Status: Acute (3) DVT (deep venous thrombosis): Status: Acute Plan 85-year-old female with past medical history hypertension, diabetes mellitus, DVT, CVA, prior cellulitis, 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 Right lower extremity cellulitis given iv vanco -cellulitis improving. xary right heel -negative . Keep affected leg elevated seen by Id -added right heel xray. vascular eval noted:continuing with IV Abx. There is no acute vascular surgical intervention at this point Normocytic anemia: Iron iron sats and ferritin normal B12 and folate also normal Peripheral smear-less likely hemolysis LDH and haptoglobin also normal ct abd -stool impaction s/p1 PRBC-monitor H&H is 9.2 , hold Eliquis,moniter cbc. As per the chart review patient had BM yesterday but afterwards CT scan showed school impaction rectal area: surgery disimpacted stool ball-passing bowels, asymptomatic. discussed with family about AC -they have not decided yet to start .will call tomorrow. History of DVT: hold eliquis. Status post suspected fall-CT of the head negative for any acute findings CT cervical spine negative for acute findings b/l hip and pelvic -no fracture mild acute Hfpef excerebation- Continue torsemide as vitals are stable ct abd: Shows lung interstitial edema with small effusions echo:ef 55-60% with impaired relaxation filling pattern on iv lasix -leg swelling improving -consider switch to po in am. Acute hypomagnesemia and hypokalemia: Repleted Monitor renal function electrolytes Hypertension-Continue metoprolol Low-salt diet Diabetes mellitus type 2 Sliding scale insulin Diabetic diet Dementia Continue Aricept Patient high fall risk, safety measures should be in place Patient does not require one-to-one, patient is not having any abnormal behaviors Hyperlipidemia Continue statin, AST only mildly elevated GERD -Continue PPI - omeprazole right heel ulcer: Turn and Reposition every 2 hours and as needed for patient comfort.? Use pillows or wedges to support off loading positions. Off Load all bony prominences with use of pillows and heel boots if needed.? Apply Preventative foams where needed. ? Monitor for incontinence and moisture control, use barrier creams when needed for prevention and treatment. Provide adequate and supplemental nutrition.? When applicable maintain blood glucose levels per Providers order. Right Heel - Elevate heel off of surface of bed with pillows. Cleanse with NS moist gauze, Pat dry.? Apply barrier to periwound, apply Durafiber AG to wound bed, cover with dry gauze, Abd pad and wrap.? Change daily. DVT prophylaxis: eliquis on hold , due to leg swelling -avoid scd. PPI prophylaxis: Omeprazole. ongoing need : anemia/dvt-plan for AC ,chf - renal function electrolyte monitoring. Quality Stroke Does the patient have a stroke diagnosis?: No Reason for No Anti-thrombotic by Day Two: N/A - Med Ordered VTE Prior VTE?: Yes VTE Risk Level:: Medical - moderate - high VTE Device Contraindication: Procedure Contraindicated VTE Drug Contraindication: N/A - Med Ordered
[2025-03-22 16:38] LABS: Glucose, Whole Blood 107 mg/dL (60-115)
--- NOTE | 2025-03-22 16:48 | P.CDIM_ITS ---
PROVIDER RESPONSE TEXT: To clarify, the appropriate diagnosis supported by the clinical indicators: Yes, Cellulitis is related to / associated with / due to DM2 QUERY TEXT: PHYSICIAN'S DOCUMENTATION REQUEST Date of Query: 03/22/2025 10:58 AM EDT Patient Name: Becky Mead Admit Date: 03/18/2025 Dear Aaron Montes MD, A review of the medical record indicates additional documentation may be needed. Please review below and update the documentation accordingly. Documentation includes the conditions of Cellulitis and DM 2. Clinical Indicators: right lower extremity cellulitis treated with IV Vancomycin, keep leg elevated Please clarify the relationship between these conditions: Yes, Cellulitis is related to / associated with / due to DM2 No, Cellulitis is not related to / associated with / due to DM2 Other (explain) Clinically unable to determine (explain) Thank you, Kaylie Rdz RN Use of terms such as suspected, likely, concern for, or probable (associated with a specific diagnosi s that is being evaluated, monitored, or treated as if it exists) are acceptable and can be coded in the inpatient se tting, when documented at the time of discharge. Please use your independent medical judgment in providing your response. THIS QUERY IS PART OF THE PERMANENT MEDICAL RECORD
[2025-03-22] MEDS: Doxycycline Monohydrate 100 MG CAPSULE PO (17:10)
[2025-03-22 19:39] VITALS: BP 136/66; PULSE 66; RESP 16; TEMP 36.6; O2SAT 95
[2025-03-22 20:09] LABS: Glucose, Whole Blood 128 mg/dL (60-115)
[2025-03-22] MEDS: Metoprolol Succinate ER 12.5 MG HALFTAB.ER.24H PO (20:45)
[2025-03-22] MEDS: Melatonin 3 MG TABLET 6 MG PO (20:45)
[2025-03-22] MEDS: Mirtazapine 7.5 MG TABLET PO (20:46)
[2025-03-22] MEDS: Sennosides/Docusate Sodium TABLET 1 TAB PO (20:46)
[2025-03-22] MEDS: Donepezil HCl 10 MG TABLET PO (20:46)
[2025-03-22] MEDS: Atorvastatin Calcium 20 MG TABLET PO (20:46)
[2025-03-22] MEDS: oxyCODONE HCl Immed Release 5 MG TABLET 2.5 MG PO (20:46)
[2025-03-23 03:53] VITALS: BP 150/70; PULSE 68; RESP 16; TEMP 36.2; O2SAT 93
[2025-03-23] MEDS: Omeprazole 20 MG CAPSULE.DR PO (05:16)
[2025-03-23] MEDS: Doxycycline Monohydrate 100 MG CAPSULE PO (05:16)
[2025-03-23 06:23] LABS: Hematocrit 31.2 % (37.0-47.0); Hemoglobin 9.9 g/dl (12.0-16.0); Mean Corpuscular HGB Conc 31.7 g/dl (31.0-35.0); Mean Corpuscular Hemoglobin 29.3 pg (27.0-33.0); Mean Corpuscular Volume 92.3 fL (80.0-98.0); Mean Platelet Volume 10.9 fL (9.4-12.3); Platelet Count 251 X10*3/uL (160-400); Red Blood Count 3.38 X10*6/uL (4.20-5.50); Red Cell Distribution Width 16.4 % (11.0-16.0); White Blood Count 7.4 X10*3/uL (4.8-10.8)
[2025-03-23 06:46] LABS: Anion Gap 14 (12-20); Blood Urea Nitrogen 12 mg/dL (9-16); Calcium 9.2 mg/dL (8.4-10.2); Carbon Dioxide 25 mmol/L (22-29); Chloride 105 mmol/L (96-108); Creatinine Clr Calc Pharmacy 41.5; Estimated Glomerular Filt Rate > 60; Glucose Random 117 mg/dL (60-115); Potassium 4.1 mmol/L (3.3-5.1); Sodium 140 mmol/L (135-145)
[2025-03-23 07:26] VITALS: BP 156/73; PULSE 75; RESP 16; TEMP 36.8; O2SAT 92
[2025-03-23 07:27] LABS: Glucose, Whole Blood 128 mg/dL (60-115)
[2025-03-23] MEDS: 0.9 % Sodium Chloride Flush 3 ML SYRINGE IVFLUSH (07:36)
[2025-03-23] MEDS: Calcium + Vitamin D 250 MG TABLET 500 MG PO (08:12)
[2025-03-23] MEDS: Sertraline HCL 25 MG TABLET PO (08:12)
[2025-03-23] MEDS: Multivitamin TABLET 1 TAB PO (08:12)
[2025-03-23] MEDS: Magnesium Oxide 400 MG TABLET PO (08:12)
[2025-03-23] MEDS: Furosemide 20 MG TABLET PO (08:13)
[2025-03-23] MEDS: Acetaminophen 325 MG TABLET 975 MG PO (08:13)
[2025-03-23] MEDS: Lidocaine 4 % Patch ADH..PATCH 1 PATCH TRANSDERMA (08:15)
--- NOTE | 2025-03-23 09:25 | P.DS_ITS ---
DS: Providers Provider Date of Service: 03/23/25 Date of admission: 03/17/25 23:20 Date of discharge: 03/23/25 Primary care physician: Maria G Cole MD Consults: 03/18/25 09:51 Consult to Wound Care Routine Reason for consultation: cellulitis of R lower leg, redness to coccyx/sacrum/bilateral heels 03/18/25 16:37 Consult to Vascular Surgery Routine Consulting Provider: [facility] Reason for consultation: b/l leg swelling/dvt, dm foot ulcer Has provider been notified: No 03/18/25 16:49 Consult to Infectious Diseases Routine Consulting Provider: [facility] Reason for consultation: right cellulitis Has provider been notified: No 03/19/25 11:36 Consult to Hematology / Oncology Routine Consulting Provider: [facility] Oncology/Hematology Reason for consultation: anemia worsenin-unclear etiology, dvt-? suspected factor v laden Has provider been notified: No 03/19/25 12:07 Consult to Psychiatry Routine Consulting Provider: [facility] Psych Covering Reason for consultation: ? depression Has provider been notified: No 03/20/25 09:57 Consult to General Surgery Routine Consulting Provider: [facility] General Surgeons Reason for consultation: Stool imprecation / rectal wall dilation Has provider been notified: No DS: Diagnosis Discharge Diagnosis (1) Cellulitis: Status: Acute (2) Constipation: Status: Acute (3) DVT (deep venous thrombosis): Status: Acute DS: Summary Hospital Course Hospital Course: admission hpi: Chief Complaint: RLE redness Patient is an 85-year-old female with past medical history hypertension, diabetes mellitus, CVA, DVT, prior cellulitis, 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 Patient unable to provide any reliable history but states that she believes she fell recently. 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 Patient has been followed by vascular and Hematology. Patient was previously in the [facility] ED 03/16/2025 and was placed under physician observation for case management needs. Patient normally resides in an assisted living facility for memory support, the reserve in [place] with of A services. Family felt patient would need higher level of care and short-term rehab. Patient was transferred to custodial for short-term rehab after workup status post fall was negative for any changes with CT of the head or cervical spine. Patient was started on p.o. doxycycline for cellulitis. Patient was noted to have low magnesium and received oral supplementation. Patient was also anemic with a normocytic anemia and an H&H of 8.6 and 26.3. Patient returned today from custodial after physician noted worsening cellulitis of right lower extremity and requesting IV antibiotics for treatment. Magnesium today 1.5. H and H stable at 9 and 27.6. Patient is started on vancomycin in the emergency department. Lactic acid 1.6. Patient does not have a current leukocytosis as well. Patient being admitted for IV antibiotic therapy for right lower extremity cellulitis with bilateral edema which appears to be chronic. Hospital course: 85 year old female presented with right lower extremity cellulitis, normocytic anemia, a history of deep vein thrombosis (DVT), suspected fall, mild acute heart failure with preserved ejection fraction (HFpEF) exacerbation, electrolyte imbalances, and multiple chronic conditions including hypertension, type 2 diabetes mellitus, dementia, hyperlipidemia, and LEVY presented with cellulitis of the right leg Right Lower Extremity Cellulitis: * Initially treated with vancomycin, then transitioned to oral doxycycline for a total 7-day course. * X-ray of the heel showed no evidence of osteomyelitis. * Evaluated by vascular surgery; no intervention indicated. Normocytic Anemia: * Initial hemoglobin 6.7 g/dL, improved to 9.6 g/dL after transfusion of 1 unit of packed red blood cells (PRBC). * Workup: Occult blood negative, normal iron, iron saturation, ferritin, B12, folate, LDH, and haptoglobin; peripheral smear less suggestive of hemolysis. * CT abdomen/pelvis revealed stool impaction, but no clear bleeding source identified. * Eliquis (for prior DVT) held due to significant anemia. After discussion with the patient?s daughter regarding risks vs. benefits, a decision was made to resume anticoagulation with close monitoring of blood counts. If hemoglobin drops again, anticoagulation will be permanently discontinued. No desire for invasive evaluation of bleeding source. History of DVT: * Previously managed with Eliquis, held due to anemia. * Plan to trial anticoagulation with surveillance of hemoglobin, as above. Suspected Fall: * CT head and cervical spine negative for acute findings. * Bilateral hip and pelvic imaging showed no fractures. Mild Acute HFpEF Exacerbation: * Echocardiogram: EF 55-60% with impaired relaxation filling pattern. * Treated with IV Lasix, transitioning to oral Lasix 20 mg daily and to stop Torsemide * Acute Hypomagnesemia and Hypokalemia: * Repleted with appropriate supplementation. Chronic Conditions and Management: * Hypertension: Continue metoprolol; low-salt diet. * Type 2 Diabetes Mellitus: Sliding scale insulin; diabetic diet. * Dementia: Continue Aricept. * Hyperlipidemia: Continue statin. * GERD: Continue omeprazole (PPI). Constipation with stool impaction, high stool burden. Seen by General surgery. Had disimpaction and evacuation of some stool on 03/20. Patient is doing well passing multiple small bowel movements. Patient is denying pain, nausea, vomiting. Abdomen is soft and benign. Clinically not obstructed. Plan: * Complete doxycycline course for cellulitis and monitor for resolution. * Monitor hemoglobin closely with resumed anticoagulation; discontinue Eliquis permanently if anemia recurs. * Continue Lasix 20 mg daily for HFpEF and monitor volume status. * Maintain good bowel regimen Right heel ulcer: Seen by wound Nurse Turn and Reposition every 2 hours and as needed for patient comfort.? Use pillows or wedges to support off loading positions. Off Load all bony prominences with use of pillows and heel boots if needed.? Apply Preventative foams where needed. ? Monitor for incontinence and moisture control, use barrier creams when needed for prevention and treatment. Provide adequate and supplemental nutrition.? When applicable maintain blood glucose levels per Providers order. Right Heel - Elevate heel off of surface of bed with pillows. Cleanse with NS moist gauze, Pat dry.? Apply barrier to periwound, apply Durafiber AG to wound bed, cover with dry gauze, Abd pad and wrap.? Change daily. [facility]po: [facility], if patient's condition continues to decline, family will consider hospice care in the near future Time Attestation Discharge Coordination Time (in mins): 45 Quality: Safe Use of Opioids Does Pt have an Active Cancer Diagnosis on the Problem List?: No Quality: Stroke Does the patient have a stroke diagnosis?: No Physical Exam Vital Signs: Vital Signs: Last Vital Signs Temp 98.2 F 03/23/25 07:26 Pulse 75 03/23/25 07:26 Resp 16 03/23/25 07:26 BP 156/73 H 03/23/25 07:26 Pulse Ox 92 06/17/25 07:26 O2 Del Method Room Air 03/23/25 07:26 O2 Flow Rate 0 03/22/25 03:54 BMI result Body Mass Index 24.7 general: seems comfortable Cardiac: S1 S2 heard,RRR. Pulmonary: lungs clear to auscultation. Abdominal: nd,,nt ,bs present,no guarding or rebound. MSK: strength 4/5 upper and lower extremities : no CVA tenderness no bladder distension Extremities: +2 pitting edema in lower extremities, PT and DP pulses palpable +2 DS: Data Data Completed and Pending Labs on day of discharge: Laboratory Results - last 24 hr 03/19/25 03/22/25 03/22/25 09:34 11:01 16:24 WBC RBC Hgb Hct MCV MCH MCHC RDW Plt Count MPV Absolute Nucleated RBC Nucleated RBC % (auto) Smear Path Review SEE NOTE Sodium Potassium Chloride Carbon Dioxide Anion Gap BUN Creatinine Estim Creat Clear Calc Estimated GFR POC Glucose 202 H 107 Random Glucose Calcium 03/22/25 03/23/25 03/23/25 19:43 06:13 07:24 WBC 7.4 RBC 3.38 L Hgb 9.9 L Hct 31.2 L MCV 92.3 MCH 29.3 MCHC 31.7 RDW 16.4 H Plt Count 251 MPV 10.9 Absolute Nucleated RBC 0.000 Nucleated RBC % (auto) 0.0 Smear Path Review Sodium 140 Potassium 4.1 Chloride 105 Carbon Dioxide 25 Anion Gap 14 BUN 12 Creatinine 0.85 Estim Creat Clear Calc 41.5 Estimated GFR > 60 POC Glucose 128 H 128 H Random Glucose 117 H Calcium 9.2 Discharge Plan Discharge Anticipated Discharge Date/Time: 03/23/25 09:26 Patient Disposition: Xfer SNF Discharge Diagnosis: Cellulitis Referrals: [facility] [Other] - 1 Week Maria G Cole MD [Primary Care Provider] - 1 Week Discharge Medications: New doxycycline monohydrate 100 mg Capsule 100 mg PO Q12H Qty: 12 0RF furosemide 20 mg Tablet 20 mg PO DAILY Qty: 30 0RF Protocol: Hold for SBP< HOLD for SBP < : 90 magnesium oxide 400 mg (241.3 mg magnesium) Tablet 400 mg PO BIDPC Qty: 60 0RF magnesium hydroxide [Milk of Magnesia] 400 mg/5 mL Suspension 30 ml PO DAILY PRN (Reason: Constipation) Qty: 3000 0RF mineral oil [[id number] Enema (min oil)] Enema 133 ml [place] DAILY Qty: 3192 0RF insulin lispro [Admelog U-100 Insulin lispro] 100 unit/mL Solution See Rx Instructions .ROUTE .COMPLEX Qty: 10 0RF Protocol: Insulin Correction Scale Less than or equal to 110 ---- Give (units): 0 111 to 150 Give (units): 0 151 to 200 Give (units): 2 201 to 250 Give (units): 4 251 to 300 Give (units): 6 301 to 350 Give (units): 8 Greater than 350 Give (units): 10 Call MD if Blood Glucose > : 350 Rx Instructions: BG <111 0 units, 111-150 - 0 units, 151-200 2 units, 201-250 4 units, 251-300 6 units, 301-350 8 units, >350 10 units Continued donepezil 10 mg tablet 10 mg PO BEDTIME metoprolol succinate 25 mg tablet extended release 24 hr 12.5 mg PO BEDTIME pantoprazole 20 mg Tablet,Delayed Release (Dr/Ec) 20 mg PO DAILY@0630 polyethylene glycol 3350 17 gram/dose Powder 17 g PO DAILY PRN (Reason: Constipation) lactulose 10 gram/15 mL Solution 30 ml PO QID PRN (Reason: Constipation) multivitamin Tablet 1 tab PO DAILY acetaminophen 325 mg Tablet 650 mg PO Q6H PRN (Reason: TEMP, PAIN) sennosides-docusate sodium [Senna Plus] 8.6-50 mg Tablet 1 tab-cap PO BEDTIME calcium carbonate-vitamin D3 600 mg-5 mcg (200 unit) Tablet 2 tab PO DAILY acetaminophen 500 mg Tablet 500 mg PO TID diphenhydramine HCl [Benadryl] 25 mg Capsule 25 mg PO TID PRN (Reason: ALLERGIES) sertraline 25 mg tablet 25 mg PO DAILY mirtazapine 7.5 mg tablet 7.5 mg PO BEDTIME Januvia 50 mg tablet 50 mg PO DAILY atorvastatin 20 mg tablet 20 mg PO BEDTIME Eliquis 5 mg tablet 5 mg PO BID Discontinued doxycycline hyclate 100 mg capsule 100 mg PO BID Qty: 20 0RF torsemide 5 mg tablet 5 mg PO DAILY Discharge Orders: Discharge Order (Routine); Ordered 03/23/25 Ordered By: Jatin Barajas Diet: Advance to usual diet Activity on Discharge: As tolerated Stand Alone Forms: Patient Portal Discharge page Print Language: Wolof Care Plan Goals: recovery from cellulitis, anemia Health Concerns: cellulitis anemia Plan of Treatment: take doxycycline for 6 more days for cellulitis stop taking Torsemide and take Lasix instead resume eliquis, check CBC in 3 days and within a week, if hemoglobin trending down, consider discontinuing eliquis, this has been discussed with her daughter, hemoglobin is 9.9 and Hematocrit 31.2 today For right heel ulcer: Turn and Reposition every 2 hours and as needed for patient comfort.? Use pillows or wedges to support off loading positions. Off Load all bony prominences with use of pillows and heel boots if needed.? Apply Preventative foams where needed. ? Monitor for incontinence and moisture control, use barrier creams when needed for prevention and treatment. Provide adequate and supplemental nutrition.? When applicable maintain blood glucose levels per Providers order. Right Heel - Elevate heel off of surface of bed with pillows. Cleanse with NS moist gauze, Pat dry.? Apply barrier to periwound, apply Durafiber AG to wound bed, cover with dry gauze, Abd pad and wrap.? Change daily. Assessment: see above
[2025-03-23 11:14] LABS: Glucose, Whole Blood 234 mg/dL (60-115)
--- NOTE | 2025-03-23 11:29 | MHC.CM.PN ---
pt to be dcd to [facility] today [facility] is aware
[2025-03-23] MEDS: Insulin Lispro 100 UNIT/ML 3 ML VIAL SUBCUT (11:46)
[2025-03-23 11:48] VITALS: BP 110/58; PULSE 69; RESP 16; TEMP 36.4; O2SAT 94
--- NOTE | 2025-04-08 07:45 | P.CDIM_ITS ---
PROVIDER RESPONSE TEXT: To clarify, the appropriate diagnosis supported by the clinical indicators: Diabetic ulcer QUERY TEXT: PHYSICIAN'S DOCUMENTATION REQUEST Date of Query: 04/06/2025 08:25 AM EDT Patient Name: Becky Mead Admit Date: 03/18/2025 Dear Jatin Barajas MD, A review of the medical record indicates additional documentation may be needed. Please review below and update the documentation accordingly. Clinical Indicators: per Wound Note 03/18/25: right heel black brown necrotic tissue, diabetic wound, present on admission Off load - Surgery consult for debridement and Durafiber for moisture management per General Surgery Consultation 03/19/25: heel wound, no vascular surgical intervention Based on the above, could you please provide further information regarding the ulcer/wound: Diabetic ulcer Venous stasis ulcer Arterial (ischemic) ulcer Please specify the location and laterality of the ulcer/wound Pressure (decubitus) ulcer Traumatic wound Other (explain) Clinically unable to determine (explain) Thank you, Kaylie Rdz RN Use of terms such as suspected, likely, concern for, or probable (associated with a specific diagnosis that is being evaluated, monitored, or treated as if it exists) are acceptable and can be coded in the inpatient setting, when documented at the time of discharge. Please use your independent medical judgment in providing your response. THIS QUERY IS PART OF THE PERMANENT MEDICAL RECORD
== END 2025-03-23 13:41 | disposition skilled nursing facility (03) | DRG 637 ==
LOC: HO.ED 21:52 → HO.EDOVER 03-18 00:45 → HO.S3 03-18 07:24
PROVIDERS: Internal Medicine; Nurse Practitioner Family; Admitting Provider Student in an Organized Health Care Education/Training Program; Emergency Provider Internal Medicine; PCP Internal Medicine; Visit Provider Internal Medicine
DX: E11.628 Type 2 diabetes mellitus with other skin complications (principal); I50.33 Acute on chronic diastolic (congestive) heart failure; L03.115 Cellulitis of right lower limb; D68.51 Activated protein C resistance; L97.419 Non-pressure chronic ulcer of right heel and midfoot with unspecified severity; I11.0 Hypertensive heart disease with heart failure; K56.41 Fecal impaction; F03.90 Unspecified dementia, unspecified severity, without behavioral disturbance, psychotic disturbance, mood disturbance, and anxiety; E11.621 Type 2 diabetes mellitus with foot ulcer; K21.9 Gastro-esophageal reflux disease without esophagitis; E87.6 Hypokalemia; E83.42 Hypomagnesemia; E78.5 Hyperlipidemia, unspecified; W19.XXXA Unspecified fall, initial encounter; Z86.718 Personal history of other venous thrombosis and embolism; Z79.01 Long term (current) use of anticoagulants; Z79.899 Other long term (current) drug therapy
CPT/HCPCS: 0241U; 36415; 70450; 71045; 72125; 73521; 73610; 74176; 80048; 80053; 80076; 80202; 82272; 82565; 82607; 82728; 82746; 82947; 83010; 83540; 83605; 83615; 83735; 83880; 85007; 85014; 85018; 85025; 85027; 85045; 85610; 85652; 85730; 86140; 86850; 86900; 86901; 86923; 87040; 93005; 93306; 93970; 96365; 96366; 96367; 97110; 97162; 99285; J1271; J1938; J3370; J3475; J3480; P9016; P9047; Q9957

== ENCOUNTER → 2025-03-17 21:24 | Outpatient (BNV) | payer MEDICARE, OTHER, SELFPAY | PROVIDERS: Emergency Provider Internal Medicine; PCP Internal Medicine; Visit Provider Student in an Organized Health Care Education/Training Program | DX: I50.9 Heart failure, unspecified (principal) | CPT/HCPCS: 71045 ==

== ENCOUNTER → 2025-03-17 21:29 | Outpatient (BNV) | payer MEDICARE, OTHER, SELFPAY | PROVIDERS: Admitting Provider Student in an Organized Health Care Education/Training Program; Emergency Provider Internal Medicine; PCP Internal Medicine; Visit Provider Internal Medicine Cardiovascular Disease | DX: I50.9 Heart failure, unspecified (principal) | CPT/HCPCS: 93010 ==

== ENCOUNTER → 2025-03-17 21:46 | Outpatient (BNV) | payer MEDICARE, OTHER, SELFPAY | PROVIDERS: Emergency Provider Internal Medicine; PCP Internal Medicine; Visit Provider Nurse Practitioner Family | DX: K59.00 Constipation, unspecified (principal); E83.42 Hypomagnesemia; E87.6 Hypokalemia | CPT/HCPCS: 99231; 99232 ==

== ENCOUNTER 2025-03-17 23:20 | Outpatient (BNV) | payer MEDICARE, OTHER, SELFPAY | END 2025-03-19 07:00 | PROVIDERS: Admitting Provider Student in an Organized Health Care Education/Training Program; Emergency Provider Internal Medicine; PCP Internal Medicine; Visit Provider Internal Medicine Cardiovascular Disease | DX: I36.1 Nonrheumatic tricuspid (valve) insufficiency (principal) | CPT/HCPCS: 93306 ==

== ENCOUNTER 2025-03-17 23:20 | Outpatient (BNV) | payer MEDICARE, OTHER, SELFPAY | END 2025-03-18 18:02 | PROVIDERS: Admitting Provider Student in an Organized Health Care Education/Training Program; Emergency Provider Internal Medicine; PCP Internal Medicine; Visit Provider Radiology Diagnostic Radiology | DX: L03.115 Cellulitis of right lower limb (principal); W19.XXXA Unspecified fall, initial encounter | CPT/HCPCS: 73521 ==

== ENCOUNTER 2025-03-17 23:20 | Outpatient (BNV) | payer MEDICARE, OTHER, SELFPAY | END 2025-03-21 16:35 | PROVIDERS: Admitting Provider Student in an Organized Health Care Education/Training Program; Emergency Provider Internal Medicine; PCP Internal Medicine; Visit Provider Radiology Diagnostic Radiology | DX: M86.171 Other acute osteomyelitis, right ankle and foot (principal) | CPT/HCPCS: 73610 ==

== ENCOUNTER 2025-03-17 23:20 | Outpatient (BNV) | payer MEDICARE, OTHER, SELFPAY | END 2025-03-19 14:24 | PROVIDERS: Admitting Provider Student in an Organized Health Care Education/Training Program; Emergency Provider Internal Medicine; PCP Internal Medicine; Visit Provider Radiology Diagnostic Radiology | DX: K56.41 Fecal impaction (principal); N20.0 Calculus of kidney; J90 Pleural effusion, not elsewhere classified; J81.0 Acute pulmonary edema | CPT/HCPCS: 74176 ==

== ENCOUNTER → 2025-03-17 23:20 | Outpatient (BNV) | payer MEDICARE, OTHER, SELFPAY | PROVIDERS: Admitting Provider Student in an Organized Health Care Education/Training Program; Emergency Provider Internal Medicine; PCP Internal Medicine; Visit Provider Internal Medicine | DX: D64.9 Anemia, unspecified (principal) | CPT/HCPCS: 99222 ==

== ENCOUNTER → 2025-03-17 23:20 | Outpatient (BNV) | payer MEDICARE, OTHER, SELFPAY | PROVIDERS: Admitting Provider Student in an Organized Health Care Education/Training Program; Emergency Provider Internal Medicine; PCP Internal Medicine; Visit Provider Physician Assistant Surgical | DX: L03.115 Cellulitis of right lower limb (principal) | CPT/HCPCS: 99222 ==

== ENCOUNTER → 2025-03-17 23:20 | Outpatient (BNV) | payer MEDICARE, OTHER, SELFPAY | PROVIDERS: Admitting Provider Student in an Organized Health Care Education/Training Program; Emergency Provider Internal Medicine; PCP Internal Medicine; Visit Provider Psychiatry & Neurology Psychiatry | DX: F32.1 Major depressive disorder, single episode, moderate (principal); L03.115 Cellulitis of right lower limb | CPT/HCPCS: 99222 ==

== ENCOUNTER → 2025-03-17 23:20 | Outpatient (BNV) | payer MEDICARE, OTHER, SELFPAY | PROVIDERS: Admitting Provider Student in an Organized Health Care Education/Training Program; Emergency Provider Internal Medicine; PCP Internal Medicine; Visit Provider Internal Medicine | DX: L03.115 Cellulitis of right lower limb (principal) | CPT/HCPCS: 99232 ==

== ENCOUNTER → 2025-03-17 23:20 | Outpatient (BNV) | payer MEDICARE, OTHER, SELFPAY | PROVIDERS: Admitting Provider Student in an Organized Health Care Education/Training Program; Emergency Provider Internal Medicine; PCP Internal Medicine; Visit Provider Surgery | DX: K59.00 Constipation, unspecified (principal) | CPT/HCPCS: 99222 ==